=== PATIENT | female | born 1995 | race Asian ===

== ENCOUNTER 2016-10-18 10:11 | Inpatient (IN) | payer OTHER ==
[~2016-10-18] VITALS: Ht 165.1 cm; Wt 73.3 kg
[~2016-10-18 10:11] MED LIST: FAMO20VI9 IV; Hydrocodone Bit/Acetaminophen PO; URSO250 PO; [UNRECOGNIZED DRUG - CODE] IV
[2016-10-18] MEDS ORDERED: SODIUM CHLORIDE 0.9% 1L BAG IV* STA (10:30)
[2016-10-18] MEDS ORDERED: CEFTRIAXONE 1 GM/50 ML (PMX) 50 ML IVPB STA (10:35)
[2016-10-18] MEDS ORDERED: metroNIDAZOLE 500 MG/NS (PMX) 100 ML IVPB STA (10:35)
[2016-10-18] MEDS ORDERED: CIPR-193 PO (10:46)
[2016-10-18] MEDS ORDERED: NAPR-688 PO (10:46)
[2016-10-18 10:56] VITALS: TEMP 98.3
[2016-10-18 11:03] LABS: ADD SCAN DIFF NO
--- NOTE | 2016-10-18 11:08 | RADRPT ---
PROCEDURE: XR Chest. CLINICAL INDICATION: Sepsis TECHNIQUE: Chest AP portable. COMPARISON: No comparison available. FINDINGS: The mediastinal structures are unremarkable. The heart is normal in size and configuration. The pu lmonary vascularity is normal. The lung de luna are unremarkable. No consolidation is identified. The pleural spaces are unremarkable. The axial skeleton is unremarkable. IMPRESSION: No active intrathoracic disease. RPTAT: HGDB .Chito Leija MD, MD Date Time Electronically viewed and signed by .Chito Leija MD, on 10/18/2016 11:07 .B/
[2016-10-18 11:10] LABS: ABNORMAL IP MESSAGE 1; HEMATOCRIT 34.9 % (37.0-47.0); HEMOGLOBIN 11.7 g/dl (12.0-16.0); MEAN CORPUSCULAR HEMOGLOBIN 31.1 pg (29.0-33.0); MEAN CORPUSCULAR HGB CONC 33.5 g/dl (32.0-37.0); MEAN CORPUSCULAR VOLUME 92.8 fl (82.0-101.0); MEAN PLATELET VOLUME 11.3 fl (7.4-10.4); PLATELET COUNT 47 10^3/UL (140-415); RED BLOOD COUNT 3.76 10^6/ul (4.20-5.40); WHITE BLOOD COUNT 4.3 10^3/ul (4.8-10.8)
[2016-10-18 11:18] LABS: INR 2.49; PROTIME 27.2 Sec (12.2-14.2); PT RATIO 2.1
[2016-10-18 11:19] LABS: PARTIAL THROMBOPLASTIN TIME 38.8 Sec (25.0-35.0)
--- NOTE | 2016-10-18 11:28 | ERA ---
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 She describes fever for 2 days, jaundice dark colored urine and generalized weakness. She states that she went to [facility] emergency room yesterday and had elevated liver function tests. She states that she was given antibiotics including ciprofloxacin and Flagyl. She states that she was to be admitted but her insurance was capitated to another hospital and they were having difficulty transferring. The patient left and presents here. The [facility] providers have called the patient during my evaluation and reported 2 out of 2 blood cultures with gram-negative rods. No sensitivities currently. The patient denies any abdominal pain, denies any cough or sore throat no difficulty breathing. ROS All systems reviewed and are negative except as per history of present illness. Medications Home Meds Reported Medications Ciprofloxacin Hcl* (Ciprofloxacin Hcl*) 250 Mg Tablet, 250 MG PO DAILY, #14 TAB 10/18/16 Naproxen* (Naproxen*) 500 Mg Tablet, 500 MG PO DAILY Y for PRN, TAB 10/18/16 Discontinued Scripts Imipenem/Cilastatin Sodium (Primaxin 500 Mg Vial) 500 Mg/Vial Vial.port, 500 MG IV Q8 for 14 Days Prov:LUCIA POLLOCK MD 02/15/15 Ursodiol* (Andreina*) 250 Mg Tab, 250 MG PO TID for 30 Days Prov:LUCIA POLLOCK MD 02/15/15 [Hydrocodone Bit/Acetaminophen] 1 TAB TAB No Conflict Check, 1 TAB PO Q6H Y for PAIN LEVEL 4-6, TAB Prov:LUCIA POLLOCK MD 02/15/15 Famotidine* (Pepcid*) 10 Mg/Ml Soln, 20 MG IV DAILY for 30 Days, VIAL Prov:LUCIA POLLOCK MD 02/15/15 Allergies Allergies: Coded Allergies: amoxicillin (Verified Allergy, Unknown, RASH, 10/18/16) PMhx/Soc History of Surgery: Yes (CHOLECYSTECTOMY WITH BILIARY RECONSTRUCTION) Anesthesia Reaction: No Hx Neurological Disorder: No Hx Respiratory Disorders: No Hx Cardiac Disorders: No Hx Psychiatric Problems: No Hx Miscellaneous Medical Probl: No Hx Alcohol Use: No Hx Substance Use: No Hx Tobacco Use: No Smoking Status: Never smoker FmHx Family History: No diabetes Physical Exam Vitals Vital Signs Date Time Temp Pulse Resp B/P Pulse Ox O2 Delivery O2 Flow Rate FiO2 10/18/16 11:00 Nasal Cannula 10/18/16 10:56 98.3 84 18 122/68 98 Room Air 10/18/16 10:16 98.1 82 18 116/64 98 Physical Exam General: Well developed, well nourished, no acute distress Head: Normocephalic, atraumatic. Eyes: Pupils equally reactive, EOM intact, scleral icterus ENT: Moist mucous membranes Neck: Supple, no lymphadenopathy Respiratory: Lungs clear bilaterally, no distress Cardiovascular: RRR, no murmurs, rubs, or gallops Abdominal: Soft, non-tender, non-distended, no peritoneal signs, negative Hooper sign, no tenderness to McBurney's point : Deferred MSK: No edema, no unilateral swelling, 5/5 strength Neurologic: Alert and oriented, moving all extremities, normal speech, no focal weakness, no cerebellar signs, no meningismus Skin: No rash Psych: Normal mood Result Diagram: 10/18/16 1045 10/18/16 1045 Results 24 hrs Laboratory Tests Test 10/18/16 10:30 10/18/16 10:38 10/18/16 10:45 Activated Partial Thromboplast Time 38.8Sec INR International Normalized Ratio 2.49 Prothrombin Time 27.2Sec Prothrombin Time Ratio 2.1 Urine Bilirubin 3+ Urine Clarity CLEAR Urine Color POLO Urine Glucose NEGATIVE% Urine Hemoglobin NEGATIVE Urine Ictotest POSITIVE Urine Ketones TRACE Urine Leukocyte Esterase NEGATIVE Urine Microscopic RBC NONE SEEN/HPF Urine Microscopic WBC 0-2/HPF Urine Mucus FEW Urine Nitrite POSITIVE Urine Specific [place] 1.025 Urine Squamous Epithelial Cells FEW Urine Total Protein 2+ Urine Urobilinogen 4.0 E.U./dL Urine pH 6.0 Alanine Aminotransferase (ALT/SGPT) 437IU/L Albumin 3.3g/dl Albumin/Globulin Ratio 0.94 Alkaline Phosphatase 257IU/L Anion Gap 16 Aspartate Amino Transf (AST/SGOT) 273IU/L Band Neutrophils % 21.0% Blood Urea Nitrogen 17mg/dl Calcium Level 8.6mg/dl Carbon Dioxide Level 20mmol/L Chloride Level 111mmol/L Creatinine 0.75mg/dl Direct Bilirubin 2.60mg/dl Eosinophils # 0.210^3/ul Eosinophils % 4.0% Globulin 3.50g/dl Glucose Level 95mg/dl Hematocrit 34.9% Hemoglobin 11.7g/dl Indirect Bilirubin 2.7mg/dl Lactic Acid Level 1.6mmol/L Lipase 124U/L Lymphocytes # 0.210^3/ul Lymphocytes % 5.0% Mean Corpuscular Hemoglobin 31.1pg Mean Corpuscular Hemoglobin Concent 33.5g/dl Mean Corpuscular Volume 92.8fl Mean Platelet Volume 11.3fl Monocytes # 0.310^3/ul Monocytes % 6.0% Neutrophils # 2.710^3/ul Neutrophils % 63.0% Platelet Count 4710^3/UL Platelet Estimate PLT APPEAR DECREASED Potassium Level 4.0mmol/L Promyelocytes # 0.0 Promyelocytes % 1.0% Red Blood Count 3.7610^6/ul Red Cell Distribution Width 15.0% Sodium Level 143mmol/L Total Bilirubin 5.3mg/dl Total Protein 6.8g/dl Troponin I < 0.012ng/ml White Blood Count 4.310^3/ul Current Medications Medications (Trade) Dose Ordered Sig/Dawson Route PRN Reason Start Time Stop Time Status Last Admin Dose Admin Sodium Chloride 2260 ml 2,260 ml BOLUS OVER 2 HOURS STAT IV* 10/18/16 10:30 10/18/16 10:33 DC 10/18/16 11:33 Ceftriaxone Sodium 50 ml @ 100 mls/hr ONCE STAT IVPB 10/18/16 10:35 10/18/16 11:04 DC 10/18/16 11:34 Metronidazole (Flagyl 500 Mg (Pmx)) 100 ml @ 100 mls/hr ONCE STAT IVPB 10/18/16 10:35 10/18/16 11:34 DC 10/18/16 11:55 Ondansetron HCl (Zofran Inj) 4 mg BRIDGE ORDER PRN IV NAUSEA AND/OR VOMITING 10/18/16 12:30 10/19/16 12:29 Acetaminophen (Tylenol Tab) 650 mg ER BRIDGE PRN PO MILD PAIN/FEVER 10/18/16 12:30 10/19/16 12:29 Procedures/MDM EKG, MONITORS, & DIAGNOSTIC IMAGING: EKG: I reviewed and interpreted a 12-lead EKG. Rhythm: Normal sinus rhythm Ectopy: None Intervals: No abnormalities ST segments: No elevations or depressions T waves: No contiguous inversions Chest x-ray: I reviewed and interpreted a 1 view of the chest Mediastinum: No enlargement Cardiac silhouette: No cardiomegaly Airspace: Clear lung de luna bilaterally without evidence of pneumothorax Bones: No evidence of fracture LAB INTERPRETATION: Pancytopenia consistent with baseline and slightly improved from baseline. The patient has elevated bilirubin and transaminitis all consistent with the patient 's description of cholangitis. MEDICAL DECISION MAKING: The patient presents with reported fever, jaundice and elevated liver function tests with a history of biliary atresia consistent with likely ascending cholangitis. The patient has recurrent history of this in the past. The patient also has reported positive blood cultures from a [facility] facility taken 24 hours ago. The patient will benefit from sepsis screening, early antibiotics , inpatient hospitalization. She has a benign abdominal exam and I do not believe that CT imaging or ultrasound imaging will necessarily be helpful at this time. I do not believe that she has an alternative acute intra-abdominal process that would require surgical intervention. ER COURSE: The patient has been given a 30/kg bolus of saline. She is afebrile upon arrival. She does not have pain. The patient was given ceftriaxone and Flagyl based on our sepsis, intra-abdominal guidelines. The patient has tolerated ceftriaxone in the past. She does have mild allergy to amoxicillin that consists of a rash as a child. No history of anaphylaxis. The patient has tolerated antibiotics well. The patient continues to be hemodynamically stable and afebrile. Lactic acid is normal. The patient does not meet SIRS criteria however she does have reported bacteremia at [facility]. The patient does not meet severe sepsis criteria. The patient has been appropriately treated with fluids and antibiotics here. Blood cultures prior to antibiotics. The patient is stable for medical surgical floor. Inpatient gastroenterology consultation would be reasonable. I kept the patient and/or family informed of laboratory and diagnostic imaging results throughout the emergency room course. DISPOSITION PLAN: Medical surgical admission for management of cholangitis and bacteremia CONSULTATION: Accepting care team and consultations: I discussed the current laboratory data, diagnostic imaging and emergency care provided. Admitting team: Dr. Thomas Admitting team indication: Insurance directed Departure Diagnosis: Primary Impression: Pancytopenia Additional Impressions: Bacteremia due to Gram-negative bacteria Cholangitis History of biliary atresia Condition: Stable AUGUSTIN, KARI A., MD Oct 18, 2016 11:28
[2016-10-18 11:39] LABS: ALBUMIN 3.3 g/dl (3.3-4.9)
[2016-10-18 11:40] LABS: CHLORIDE 111 mmol/L (97-110); SODIUM 143 mmol/L (135-144)
[2016-10-18 11:42] LABS: BILIRUBIN,INDIRECT 2.7 mg/dl (0-1.1); BILIRUBIN,TOTAL 5.3 mg/dl (0.2-1.3); CREATININE 0.75 mg/dl (0.44-1.00)
[2016-10-18 11:43] LABS: ALANINE AMINOTRANSFERASE 437 IU/L (13-69); ALBUMIN/GLOBULIN RATIO 0.94; ALKALINE PHOSPHATASE 257 IU/L (42-121); ANION GAP 16 (8-16); ASPARTATE AMINO TRANSFERASE 273 IU/L (15-46); BLOOD UREA NITROGEN 17 mg/dl (7-20); CALCIUM 8.6 mg/dl (8.4-10.2); CARBON DIOXIDE 20 mmol/L (21-31); GLUCOSE 95 mg/dl (70-220); TOTAL PROTEIN 6.8 g/dl (6.1-8.1)
[2016-10-18 11:44] LABS: ADD UMIC YES; URINE BILIRUBIN (Dip) 3+ (NEGATIVE); URINE BLOOD (Dip) NEGATIVE (NEGATIVE); URINE COLOR AMBER (YELLOW); URINE GLUCOSE (Dip) NEGATIVE (NEGATIVE); URINE KETONES (Dip) TRACE (NEGATIVE); URINE LEUKOCYTE ESTERASE (Dip) NEGATIVE (NEGATIVE); URINE NITRITE (Dip) POSITIVE (NEGATIVE); URINE TOTAL PROTEIN (Dip) 2+ (NEGATIVE); URINE UROBILINOGEN (Dip) 4.0 E.U./dL (0.1-1.0)
[2016-10-18 11:48] LABS: EOSINOPHILS # 0.2 10^3/ul (0.0-0.5); LYMPHOCYTES # 0.2 10^3/ul (0.8-2.9); MONOCYTE # 0.3 10^3/ul (0.3-0.9); NEUTROPHIL # 2.7 10^3/ul (1.6-7.5); PLATELET ESTIMATE PLT APPEAR DECREASED
[2016-10-18 11:56] LABS: TROPONIN-I < 0.012 ng/ml (0.00-0.12)
[2016-10-18 12:06] LABS: ICTOTEST POSITIVE (NEGATIVE)
[2016-10-18 12:08] LABS: MUCUS,URINE FEW; SQUAMOUS EPITHELIAL CELL,UR FEW; URINE RBCS NONE SEEN /HPF (0)
[2016-10-18] MEDS ORDERED: ONDANSETRON 4 MG INJ IV PRN ×2 (12:30→14:30)
[2016-10-18] MEDS ORDERED: ACETAMINOPHEN 325 MG TAB PO PRN ×2 (12:30→14:30)
[2016-10-18 13:06] VITALS: Ht 165.1 cm; Wt 73.3 kg
[2016-10-18 13:08] VITALS: BP 108/67; PULSE 74; RESP 16
[2016-10-18] MEDS ORDERED: POLY17PO6 PO (13:20)
[2016-10-18] MEDS ORDERED: MAGNESIUM HYDROXIDE 30ML CUP PO PRN (14:30)
[2016-10-18] MEDS ORDERED: NACL 0.9% 3 ML SYG IV SCH (14:30)
[2016-10-18] MEDS ORDERED: ACETAMINOPHEN 650 MG SUPP PR PRN (14:30)
[2016-10-18] MEDS ORDERED: morphine 2 MG INJ IV PRN (14:30)
[2016-10-18] MEDS ORDERED: POLYETHYLENE GLYCOL 17 GM PACKET PO PRN (14:30)
[2016-10-18] MEDS ORDERED: BISACODYL 10 MG SUPP PR PRN (14:30)
[2016-10-18] MEDS ORDERED: DOCUSATE SODIUM 100 MG CAP PO PRN (14:30)
[2016-10-18] MEDS ORDERED: HYDROCODONE/APAP (5/325) TAB PO PRN ×2 (14:30)
[2016-10-18] MEDS: SOD CHLORIDE 0.9% 1,000 ML IV SCH (15:29)
--- NOTE | 2016-10-18 15:41 | CONS ---
Date/Time of Note Date/Time of Note DATE: 10/18/16 TIME: 15:33 Assessment/Plan Assessment/Plan Additional Assessment/Plan Assessment: * Gram-negative sepsis/positive blood cultures at [facility] * cholangitis (fever plus jaundice in patient with history of biliary atresia) * History of biliary atresia * Post Kasai procedure * Poor compliance Plan: * Antibiotic coverage * Review culture and antibiogram from blood cultures obtained at [facility] * Monitor liver panel Consultation Date/Type/Reason Admit Date/Time Oct 18, 2016 at 12:11 Date of Consultation: Oct 18, 2016 Type of Consultation: Gastroenterology Reason for Consultation * Cholangitis Hx of Present Illness 21-year-old female with history of biliary atresia post Kasai procedure. The patient has had several episodes of cholangitis which had responded well to antibiotic therapy. The patient was followed at [facility] but more recently as she has become older she is not able to [facility] clinics. She is currently not being followed on a regular basis, she presented at [facility] with complaints of fever and jaundice which he recognizes signs of cholangitis from previous experience. Apparently [facility] wanted to transfer her [facility] with her HMO plan as this was taking a long time the patient signed out AMA and presented to the emergency room at [facility]. She states that she has had fever for the last 24-36 hrs. and she noticed jaundice during the same period of time. Evaluation in the emergency room disclosed bilirubin the 5 g range without elevation of AST ALT.there is a node in the chart stating that [facility] called and reported positive blood cultures for gram-negative rods further ID and antibiogram pending. The patient is unfortunately poorly compliant with regimen she had been advised to remain on Bactrim on a regular basis but she states that for the last few months she has decided not to take anymore pills therefore she discontinued the prophylactic Bactrim. At the present time she appears comfortable, she is afebrile, she denies abdominal pain. She has never had other complications of her disease there is no evidence of portal hypertension or gastrointestinal bleeding. No imaging is available yet. The patient has been advised that once she is discharged she should attempt to connect with a tertiary institution for follow-up of her unusual condition and her potential significant needs such as liver transplantation Constitutional: febrile, other (Jaundice) Eyes: no complaints ENT: no complaints Respiratory: no complaints Cardiovascular: no complaints Gastrointestinal: no complaints Genitourinary: no complaints Musculoskeletal: no complaints Skin: no complaints Neurologic: no complaints Endocrine: no complaints Lymphatic: no complaints Psychological: nl mood/affect, no complaints Immunologic: no complaints Past Medical History Medical History: other (Biliary atresia) Past Surgical History Past Surgical Hx: other (Kasai procedure) Social History Alcohol Use: none Smoking Status: Never smoker Drug Use: none Exam/Review of Systems Vital Signs Vitals Vital Signs Date Time Temp Pulse Resp B/P Pulse Ox O2 Delivery O2 Flow Rate FiO2 10/18/16 12:44 69 17 128/79 100 Room Air 10/18/16 10:56 98.3 Exam Constitutional: alert, oriented, well developed Psych: nl mood/affect, no complaints Head: atraumatic, normocephalic Eyes: EOMI, PERRL, nl conjunctiva, nl lids, nl sclera ENMT: nl external ears & nose, nl lips & teeth, nl nasal mucosa & septum Neck: non-tender, supple Respiratory: clear to auscultation, normal air movement Cardiovascular: nl pulses, regular rate and rhythm Gastrointestinal: nl liver, spleen, non-tender, soft Musculoskeletal: nl extremities to inspection, nl gait and stance Extremities: normal pulses Neurological: COSTUME SPECIALIST II-XII intact, nl mental status, nl speech, nl strength Skin: nl turgor, No rash or lesions Lymph: nl lymph nodes Results Result Diagram: 10/18/16 1045 10/18/16 1045 Results 24 hrs Laboratory Tests Test 10/18/16 10:30 10/18/16 10:38 10/18/16 10:45 10/18/16 12:35 Activated Partial Thromboplast Time 38.8 H INR International Normalized Ratio 2.49 Prothrombin Time 27.2 H Prothrombin Time Ratio 2.1 Urine Bilirubin 3+ H Urine Clarity CLEAR Urine Color POLO Urine Glucose NEGATIVE Urine Hemoglobin NEGATIVE Urine Ictotest POSITIVE Urine Ketones TRACE H Urine Leukocyte Esterase NEGATIVE Urine Microscopic RBC NONE SEEN Urine Microscopic WBC 0-2 Urine Mucus FEW Urine Nitrite POSITIVE H Urine Specific [place] 1.025 Urine Squamous Epithelial Cells FEW Urine Total Protein 2+ H Urine Urobilinogen 4.0 E.U./dL H Urine pH 6.0 Alanine Aminotransferase (ALT/SGPT) 437 H Albumin 3.3 Albumin/Globulin Ratio 0.94 Alkaline Phosphatase 257 H Anion Gap 16 Aspartate Amino Transf (AST/SGOT) 273 H Band Neutrophils % 21.0 H Blood Urea Nitrogen 17 Calcium Level 8.6 Carbon Dioxide Level 20 L Chloride Level 111 H Creatinine 0.75 Direct Bilirubin 2.60 H Eosinophils # 0.2 Eosinophils % 4.0 Globulin 3.50 H Glucose Level 95 Hematocrit 34.9 L Hemoglobin 11.7 L Indirect Bilirubin 2.7 H Lactic Acid Level 1.6 1.5 Lipase 124 Lymphocytes # 0.2 L Lymphocytes % 5.0 L Mean Corpuscular Hemoglobin 31.1 Mean Corpuscular Hemoglobin Concent 33.5 Mean Corpuscular Volume 92.8 Mean Platelet Volume 11.3 #H Monocytes # 0.3 Monocytes % 6.0 Neutrophils # 2.7 Neutrophils % 63.0 Platelet Count 47 L Platelet Estimate PLT APPEAR DECREASED Potassium Level 4.0 Promyelocytes # 0.0 Promyelocytes % 1.0 H Red Blood Count 3.76 L Red Cell Distribution Width 15.0 H Sodium Level 143 Total Bilirubin 5.3 H Total Protein 6.8 Troponin I < 0.012 White Blood Count 4.3 #L Test 10/18/16 14:25 Lactic Acid Level 1.2 Medications Medications Current Medications Polyethylene Glycol 17 gm 17 gm DAILY PRN PO CONSTIPATION; Start 10/18/16 at 14 :30 Sodium Chloride (NS) 1,000 ml @ 80 mls/hr [id number] IV Last administered on 10/18t 15:29; Admin Dose 80 MLS/HR; Start 10/18/16 at 14:13 Ondansetron HCl (Zofran Inj) 4 mg Q6H PRN IV NAUSEA AND/OR VOMITING; Start at 14:30 Acetaminophen (Tylenol Tab) 650 mg Q6H PRN PO PAIN LEVEL 1-3 OR FEVER; Start at 14:30 Acetaminophen (Tylenol Supp) 650 mg Q6H PRN [place] PAIN LEVEL 1-3 OR FEVER; Start 10/18/16 at 14:30 Acetaminophen/ Hydrocodone Bitart ([place] (5/325)) 1 tab Q6H PRN PO MODERATE PAIN LEVEL 4-6; Start 10/18/16 at 14:30 Acetaminophen/ Hydrocodone Bitart ([place] (5/325)) 2 tab Q6H PRN PO SEVERE PAIN LEVEL 7-10; Start 10/18/16 at 14:30 Morphine Sulfate (morphine) 2 mg Q4H PRN IV SEVERE PAIN LEVEL 7-10; Start 10/18 at 14:30 Docusate Sodium (Colace) 100 mg Q12H PRN PO CONSTIPATION; Start 10/18/16 at 14: 30 Magnesium Hydroxide (Milk Of Mag) 30 ml DAILY PRN PO CONSTIPATION; Start at 14:30 Bisacodyl (Dulcolax Supp) 10 mg DAILY PRN [place] CONSTIPATION; Start 10/18/16 at 14 :30 Pantoprazole 40 mg 40 mg DAILY@06 IV ; Start 10/19/16 at 06:00 Ciprofloxacin/ Dextrose 200 ml @ 200 mls/hr Q12 IVPB ; Start 10/18/16 at 21:00 Metronidazole (Flagyl 500 Mg (Pmx)) 100 ml @ 100 mls/hr Q8 IVPB ; Start at 22:00 ALISSON MORRISSEY MD Oct 18, 2016 15:41
[2016-10-18 20:00] VITALS: BP 111/68; PULSE 76; RESP 18
[2016-10-18 21:05] VITALS: BP 111/68; RESP 18
[2016-10-18] MEDS: CIPROFLOXACIN 400MG/D5W 200 ML IVPB SCH (21:33)
[2016-10-18] MEDS: metroNIDAZOLE 500 MG/NS (PMX) 100 ML IVPB SCH (23:29)
[2016-10-19] MEDS ORDERED: traMADol 50 MG TAB PO ONE (01:30)
[2016-10-19] MEDS: SOD CHLORIDE 0.9% 1,000 ML IV SCH ×2 (05:38→15:13)
[2016-10-19] MEDS: PANTOPRAZOLE 40 MG INJ IV SCH (05:39)
[2016-10-19] MEDS: metroNIDAZOLE 500 MG/NS (PMX) 100 ML IVPB SCH ×3 (05:46→22:09)
[2016-10-19 05:53] LABS: ALBUMIN 2.7 g/dl (3.3-4.9)
[2016-10-19 05:54] LABS: POTASSIUM 3.9 mmol/L (3.5-5.1)
[2016-10-19 05:56] LABS: ALBUMIN/GLOBULIN RATIO 0.87; BILIRUBIN,DIRECT 0.8 mg/dl (0.00-0.20); BILIRUBIN,INDIRECT 1.3 mg/dl (0-1.1); BILIRUBIN,TOTAL 2.1 mg/dl (0.2-1.3); CREATININE 0.64 mg/dl (0.44-1.00); TOTAL PROTEIN 5.8 g/dl (6.1-8.1)
[2016-10-19 05:57] LABS: CALCIUM 7.9 mg/dl (8.4-10.2); CHOL/HDL RATIO 2.2 RATIO; MAGNESIUM 1.9 mg/dl (1.7-2.5)
[2016-10-19 07:29] LABS: T3 UPTAKE 47.8 % (23.5-40.5)
[2016-10-19 07:52] LABS: THYROID STIMULATING HORMONE 1.6 MIU/L (0.465-4.680)
[2016-10-19] MEDS: CIPROFLOXACIN 400MG/D5W 200 ML IVPB SCH ×2 (08:17→20:57)
[2016-10-19 08:18] VITALS: BP 109/60; RESP 16
--- NOTE | 2016-10-19 10:20 | PN ---
Date/Time of Note Date/Time of Note DATE: 10/19/16 TIME: 10:18 Assessment/Plan VTE Prophylaxis VTE Prophylaxis Intervention: SCD's Lines/Catheters IV [facility]ter [facility] (from [facility] Peripheral IV Urinary Cath still in place: No Assessment/Plan Assessment/Plan Assessment: * Gram-negative sepsis/positive blood cultures at [facility] * Cholangitis (fever plus jaundice in patient with history of biliary atresia) * History of biliary atresia * Post Kasai procedure * Poor compliance Plan: * Antibiotic coverage * Review culture and antibiogram from blood cultures obtained at [facility] * Monitor liver panel * Review MRCP Subjective 24 Hr Interval Summary Free Text/Dictation Course reviewed with nursing staff Patient reports slight improvement, episodes of diaphoresis She also complains of headaches She has been afebrile Her liver function tests have improved MRCP is pending Exam/Review of Systems Vital Signs Vitals Vital Signs Date Time Temp Pulse Resp B/P Pulse Ox O2 Delivery O2 Flow Rate FiO2 10/19/16 08:18 98.2 65 16 109/60 98 10/18/16 20:00 Room Air Intake and Output 10/18/16 10/18/16 10/19/16 15:00 23:00 07:00 Intake Total 360 ml 1280 ml Balance 360 ml 1280 ml Exam Constitutional: alert, oriented, well developed Psych: nl mood/affect, no complaints Head: atraumatic, normocephalic Eyes: EOMI, PERRL, nl conjunctiva, nl lids, nl sclera ENMT: nl external ears & nose, nl lips & teeth, nl nasal mucosa & septum Neck: non-tender, supple Respiratory: clear to auscultation, normal air movement Cardiovascular: nl pulses, regular rate and rhythm Gastrointestinal: nl liver, spleen, non-tender, soft Musculoskeletal: nl extremities to inspection, nl gait and stance Extremities: normal pulses Neurological: WINE FERMENTER II-XII intact, nl mental status, nl speech, nl strength Skin: nl turgor, No rash or lesions Lymph: nl lymph nodes Results Result Diagram: 10/18/16 1045 10/19/16 0435 Results 24 hrs Laboratory Tests Test 10/18/16 10:30 10/18/16 10:38 10/18/16 10:45 10/18/16 12:35 Activated Partial Thromboplast Time 38.8 H INR International Normalized Ratio 2.49 Prothrombin Time 27.2 H Prothrombin Time Ratio 2.1 Urine Bilirubin 3+ H Urine Clarity CLEAR Urine Color POLO Urine Glucose NEGATIVE Urine Hemoglobin NEGATIVE Urine Ictotest POSITIVE Urine Ketones TRACE H Urine Leukocyte Esterase NEGATIVE Urine Microscopic RBC NONE SEEN Urine Microscopic WBC 0-2 Urine Mucus FEW Urine Nitrite POSITIVE H Urine Specific [place] 1.025 Urine Squamous Epithelial Cells FEW Urine Total Protein 2+ H Urine Urobilinogen 4.0 E.U./dL H Urine pH 6.0 Alanine Aminotransferase (ALT/SGPT) 437 H Albumin 3.3 Albumin/Globulin Ratio 0.94 Alkaline Phosphatase 257 H Anion Gap 16 Aspartate Amino Transf (AST/SGOT) 273 H Band Neutrophils % 21.0 H Blood Urea Nitrogen 17 Calcium Level 8.6 Carbon Dioxide Level 20 L Chloride Level 111 H Creatinine 0.75 Direct Bilirubin 2.60 H Eosinophils # 0.2 Eosinophils % 4.0 Globulin 3.50 H Glucose Level 95 Hematocrit 34.9 L Hemoglobin 11.7 L Indirect Bilirubin 2.7 H Lactic Acid Level 1.6 1.5 Lipase 124 Lymphocytes # 0.2 L Lymphocytes % 5.0 L Mean Corpuscular Hemoglobin 31.1 Mean Corpuscular Hemoglobin Concent 33.5 Mean Corpuscular Volume 92.8 Mean Platelet Volume 11.3 #H Monocytes # 0.3 Monocytes % 6.0 Neutrophils # 2.7 Neutrophils % 63.0 Platelet Count 47 L Platelet Estimate PLT APPEAR DECREASED Potassium Level 4.0 Promyelocytes # 0.0 Promyelocytes % 1.0 H Red Blood Count 3.76 L Red Cell Distribution Width 15.0 H Sodium Level 143 Total Bilirubin 5.3 H Total Protein 6.8 Troponin I < 0.012 White Blood Count 4.3 #L Test 10/18/16 14:25 10/19/16 04:35 Lactic Acid Level 1.2 Alanine Aminotransferase (ALT/SGPT) 284 H Albumin 2.7 L Albumin/Globulin Ratio 0.87 Alkaline Phosphatase 207 H Anion Gap 12 Aspartate Amino Transf (AST/SGOT) 127 H Blood Urea Nitrogen 12 Calcium Level 7.9 L Carbon Dioxide Level 18 L Chloride Level 114 H Cholesterol Level 94 L Cholesterol/HDL Ratio 2.2 Creatinine 0.64 Direct Bilirubin 0.80 #H Free Thyroxine Index 1.58 Globulin 3.10 Glucose Level 76 HDL Cholesterol 41 Hemoglobin A1c 4.7 Indirect Bilirubin 1.3 H LDL Cholesterol, Calculated 31 Magnesium Level 1.9 Phosphorus Level 2.0 L Potassium Level 3.9 Sodium Level 140 Thyroid Stimulating Hormone (TSH) 1.600 Thyroxine (T4) 3.3 L Total Bilirubin 2.1 #H Total Protein 5.8 #L Triglycerides Level 110 Triiodothyronine (T3) Uptake 47.8 H Medications Medications Current Medications Polyethylene Glycol 17 gm 17 gm DAILY PRN PO CONSTIPATION; Start 10/18/16 at 14 :30 Sodium Chloride (NS) 1,000 ml @ 80 mls/hr [id number] IV Last administered on 10/19 05:38; Admin Dose 80 MLS/HR; Start 10/18/16 at 14:13 Ondansetron HCl (Zofran Inj) 4 mg Q6H PRN IV NAUSEA AND/OR VOMITING; Start at 14:30 Acetaminophen (Tylenol Tab) 650 mg Q6H PRN PO PAIN LEVEL 1-3 OR FEVER Last administered on 10/18/16 18:43; Admin Dose 650 MG; Start 10/18/16 at 14:30 Acetaminophen (Tylenol Supp) [address] PAIN LEVEL 1-3 OR FEVER; Start 10/18/16 at 14:30 Acetaminophen/ Hydrocodone Bitart ([place] (5/325)) 1 tab Q6H PRN PO MODERATE PAIN LEVEL 4-6; Start 10/18/16 at 14:30 Acetaminophen/ Hydrocodone Bitart ([place] (5/325)) 2 tab Q6H PRN PO SEVERE PAIN LEVEL 7-10; Start 10/18/16 at 14:30 Morphine Sulfate (morphine) 2 mg Q4H PRN IV SEVERE PAIN LEVEL 7-10; Start 10/18 at 14:30 Docusate Sodium (Colace) 100 mg Q12H PRN PO CONSTIPATION; Start 10/18/16 at 14: 30 Magnesium Hydroxide (Milk Of Mag) 30 ml DAILY PRN PO CONSTIPATION; Start at 14:30 Bisacodyl (Dulcolax Supp) [address] CONSTIPATION; Start 10/18/16 at 14 :30 Pantoprazole 40 mg 40 mg DAILY@06 IV Last administered on 10/19/16 05:39; Admin Dose 40 MG; Start 10/19/16 at 06:00 Ciprofloxacin/ Dextrose 200 ml @ 200 mls/hr Q12 IVPB Last administered on 10/19 08:17; Admin Dose 200 MLS/HR; Start 10/18/16 at 21:00 Metronidazole (Flagyl 500 Mg (Pmx)) 100 ml @ 100 mls/hr Q8 IVPB Last administered on 10/19/16 05:46; Admin Dose 100 MLS/HR; Start 10/18/16 at 22:00 ALISSON MORRISSEY MD Oct 19, 2016 10:20
--- NOTE | 2016-10-19 10:33 | RADRPT ---
PROCEDURE: MRI abdomen without contrast; MRCP CLINICAL INDICATION: Cholangitis with a history of Kasai procedure TECHNIQUE: Multiplanar, multisequence imaging of the abdomen was obtained without contrast. Imagi ng includes axial and coronal T2-weighted fat saturated images. In addition, a dedicated high T2 signal intensity MRCP images were obtained in multiple planes with 3-D reconstructions. COMPARISON: 02/13/2015 FINDINGS: Study is limited secondary to significant motion throughout all MRCP images and fine detail of the b iliary ductal system is limited on this exam. The patient is status post Kasai procedure. There is periportal edematous signal seen within the liver without visible biliary ductal dilatation. Evalu ation for filling defects cannot be fully perform secondary to motion. Mild irregular appearance th e biliary ductal system is partially visualized. There is a shrunken and nodular appearance of the liver with mild heterogeneous signal intensity wit hout evidence of gross focal mass. Prominent splenomegaly is again seen with pronounced enlarged up per abdominal varices including large varices at the splenic hilum and adjacent to the left kidney. The splenorenal shunt may be present. There is flow void seen within the portal vein and portal ve in thrombus is not grossly present. The gallbladder is not present. Mild edematous signal is seen within the peripancreatic fat which is indeterminate and this is seen along with mild intra-abdominal ascites. Mild prominence of the periportal lymph tissue is stable. The adrenal glands and kidneys are unremarkable. There is no evidence of bowel obstruction. There is no acute osseous abnormality. The aorta is grossly unremarkable. IMPRESSION: Hepatic periportal edematous signal is seen which correlates with a history of cholangitis. There i s no evidence of gross biliary ductal obstruction. Fine detail is limited secondary to motion throu ghout the exam. Stable nodular liver is seen consistent with hepatic cirrhosis and there is prominent splenomegaly a long with pronounced upper abdominal varices again seen along with mild ascites. Edematous signal the peripancreatic fat is indeterminate and may be related third spacing of fluid h owever pancreatitis is not excluded and can be correlated with amylase/lipase levels. RPTAT: AA .Jody Estevez MD, MD Date Time Electronically viewed and signed by .Jody Estevez MD, on 10/19/2016 10:32 .J/
--- NOTE | 2016-10-19 13:58 | HP ---
DATE OF ADMISSION: 10/18/2016 CHIEF COMPLAINT: Reported fever with generalized weakness and jaundice. 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 The patient did report onset of symptoms occurred 2 days prior to admission. She denied any abdominal pain, nausea, vomiting or an y diarrhea or constipation. As such, she did come to [facility] for the aforement ioned issues. She did report that when she has had recurrent cholangitis in the past and that usual ly she goes home with IV antibiotics and a PICC line. Currently, the patient was seen and examined. She did have noted WBC of 4.3, hemoglobin of 11.7 and hematocrit 34.9. She was also seen with tra nsaminitis and a total bilirubin of 5.3, direct bilirubin of 2.6, indirect bilirubin of 2.7, AST 273 , ALT 437 and alkaline phosphatase 257. The patient was afebrile on admission. She did have a ches t x-ray also that did show no active intrathoracic disease. Currently, the patient remains alert an d oriented. She is seen slightly jaundiced with icteric sclerae. We will evaluate her for that afo rementioned issues. MEDICAL/SURGICAL HISTORY: 1. Biliary atresia. 2. History of recurrent cholangitis. SOCIAL HISTORY: The patient denies any cigarette smoking, alcohol consumption or illicit drug use. ALLERGIES: AMOXICILLIN FOR WHICH SHE DOES REPORT GETTING PRURITUS AND URTICARIA. FAMILY HISTORY: Noncontributory. HOME MEDICATIONS: 1. Naprosyn 500 mg p.o. daily as needed for pain. 2. MiraLax 17 grams p.o. daily as needed for constipation. REVIEW OF SYSTEMS: A 12-point review of systems obtained and entirely negative except that mentione d in the history of present illness. PHYSICAL EXAMINATION: VITAL SIGNS: Temperature is 98.3, pulse is 84, respiratory rate is 18, blood pressure 122/68, pulse oximetry is 98% on room air. GENERAL: This is a 21-year-old female, appears stated age with no apparent distress noted at this t rhonda. EYES: Pupils equal, round and reactive to light. Icteric sclerae noted. NECK: Supple, nontender, no JVD. CARDIOVASCULAR: S1, S2 auscultated, regular rate. PULMONARY: Clear to auscultation bilaterally. No wheezing or rhonchi. ABDOMEN: Soft, nontender, nondistended. EXTREMITIES: No pitting edema of bilateral lower extremities. SKIN: Jaundiced clean, dry and intact. NEUROLOGIC: Alert, oriented x3. LABORATORY DATA: Sodium 143, potassium 4.0, BUN 17, creatinine 0.75. Total bilirubin is 5.3, direc t bilirubin is 2.6, indirect bilirubin is 2.7, AST 73, ALT 437, alkaline phosphatase is 257. IMAGING: Chest x-ray done on 10/18/2014 did show no active intrathoracic disease. IMPRESSION AND PLAN: 1. Acute on likely chronic cholangitis. Continue on Cipro and Flagyl for now. ID consulted. Foll ow up with recommendations. 2. History of biliary atresia. Meteorology Professor to follow. The patient noted with transaminitis . Monitor trend. Await for clinical improvement. 3. Anemia. Follow up iron panel. 4. Leukopenia. Stable at present. We will follow up. 5. Urinary tract infection. The patient with positive nitrite test. Follow up on urine culture. Admission process time is 40 minutes. Discussed plan of care with Dr. Thomas. Dictated By: EDIS EDWARDS COMFORT ADVISOR for SIMBA SARGENT/CRISTOFER Conf#: [id number] DID#: [id number]
[2016-10-19] MEDS ORDERED: VANCOMYCIN IV PER PHARMACY XX SCH (14:30)
--- NOTE | 2016-10-19 15:24 | PN ---
Date/Time of Note Date/Time of Note DATE: 10/19/16 TIME: 15:20 Assessment/Plan VTE Prophylaxis VTE Prophylaxis Intervention: ambulation Lines/Catheters IV [facility]ter Type (from [facility]): Peripheral IV Urinary Cath still in place: No Assessment/Plan Chief Complaint/Hosp Course 1. Acute recurrent cholangitis. cont abx per ID. monitor LFT 2. History of biliary atresia. Plating Operator to follow. The patient noted with transaminitis. MRCP with no obvious obstruction. transaminitis downward trending. will monitor 3. Anemia. Stable at present. Will monitor 4. Leukopenia. Stable at present. We will follow up. 5. Urinary tract infection. Follow up on urine culture. cont abx per ID 6. hepatic cirrhosis. Avoid hepatotoxic medications as possible 7. Bacteremia with gram positive cocci. Follow up final culture. cont with ID recs DISPO/PLAN: cont abx. Follow up with blood cultures. d/c when medically stable and cleared by consultants Discussed plan of care with Dr. Thomas Problems: Subjective 24 Hr Interval Summary Free Text/Dictation resting at this time. no s/s of distress. denies abd pain Exam/Review of Systems Vital Signs Vitals Vital Signs Date Time Temp Pulse Resp B/P Pulse Ox O2 Delivery O2 Flow Rate FiO2 10/19/16 08:18 98.2 65 16 109/60 98 10/18/16 20:00 Room Air Intake and Output 10/18/16 10/18/16 10/19/16 14:59 22:59 06:59 Intake Total 360 ml 1280 ml Balance 360 ml 1280 ml Exam Constitutional: alert, oriented Head: normocephalic Eyes: EOMI, icteric Neck: non-tender, supple Respiratory: clear to auscultation, normal air movement Cardiovascular: regular rate and rhythm Gastrointestinal: non-tender, soft Musculoskeletal: nl extremities to inspection Extremities: normal pulses Neurological: EXTENDED INSURANCE CLERK II-XII intact, nl mental status, nl speech Skin: nl turgor, other (jaundice) Results Result Diagram: 10/18/16 1045 10/19/16 0435 Results 24 hrs Laboratory Tests Test 10/19/16 04:35 Alanine Aminotransferase (ALT/SGPT) 284 H Albumin 2.7 L Albumin/Globulin Ratio 0.87 Alkaline Phosphatase 207 H Anion Gap 12 Aspartate Amino Transf (AST/SGOT) 127 H Blood Urea Nitrogen 12 Calcium Level 7.9 L Carbon Dioxide Level 18 L Chloride Level 114 H Cholesterol Level 94 L Cholesterol/HDL Ratio 2.2 Creatinine 0.64 Direct Bilirubin 0.80 #H Free Thyroxine Index 1.58 Globulin 3.10 Glucose Level 76 HDL Cholesterol 41 Hemoglobin A1c 4.7 Indirect Bilirubin 1.3 H LDL Cholesterol, Calculated 31 Magnesium Level 1.9 Phosphorus Level 2.0 L Potassium Level 3.9 Sodium Level 140 Thyroid Stimulating Hormone (TSH) 1.600 Thyroxine (T4) 3.3 L Total Bilirubin 2.1 #H Total Protein 5.8 #L Triglycerides Level 110 Triiodothyronine (T3) Uptake 47.8 H Medications Medications Current Medications Polyethylene Glycol 17 gm 17 gm DAILY PRN PO CONSTIPATION; Start 10/18/16 at 14 :30 Sodium Chloride (NS) 1,000 ml @ 80 mls/hr [id number] IV Last administered on 10/19 05:38; Admin Dose 80 MLS/HR; Start 10/18/16 at 14:13 Ondansetron HCl (Zofran Inj) 4 mg Q6H PRN IV NAUSEA AND/OR VOMITING; Start at 14:30 Acetaminophen (Tylenol Tab) 650 mg Q6H PRN PO PAIN LEVEL 1-3 OR FEVER Last administered on 10/18/16 18:43; Admin Dose 650 MG; Start 10/18/16 at 14:30 Acetaminophen (Tylenol Supp) 650 mg Q6H PRN NM PAIN LEVEL 1-3 OR FEVER; Start 10/18/16 at 14:30 Acetaminophen/ Hydrocodone Bitart ([place] (5/325)) 1 tab Q6H PRN PO MODERATE PAIN LEVEL 4-6; Start 10/18/16 at 14:30 Acetaminophen/ Hydrocodone Bitart ([place] (5/325)) 2 tab Q6H PRN PO SEVERE PAIN LEVEL 7-10; Start 10/18/16 at 14:30 Morphine Sulfate (morphine) 2 mg Q4H PRN IV SEVERE PAIN LEVEL 7-10; Start 10/18 at 14:30 Docusate Sodium (Colace) 100 mg Q12H PRN PO CONSTIPATION; Start 10/18/16 at 14: 30 Magnesium Hydroxide (Milk Of Mag) 30 ml DAILY PRN PO CONSTIPATION; Start at 14:30 Bisacodyl (Dulcolax Supp) 10 mg DAILY PRN NM CONSTIPATION; Start 10/18/16 at 14 :30 Pantoprazole 40 mg 40 mg DAILY@06 IV Last administered on 10/19/16 05:39; Admin Dose 40 MG; Start 10/19/16 at 06:00 Ciprofloxacin/ Dextrose 200 ml @ 200 mls/hr Q12 IVPB Last administered on 10/19 08:17; Admin Dose 200 MLS/HR; Start 10/18/16 at 21:00 Metronidazole 100 ml @ 100 mls/hr Q8 IVPB Last administered on 10/19/16 15:10 ; Admin Dose 100 MLS/HR; Start 10/18/16 at 22:00 Vancomycin HCl 1.75 gm/Sodium Chloride 500 ml @ 125 mls/hr ONCE IVPB ; Start at 16:00; Stop 10/19/16 at 19:59 Vancomycin HCl (Vancocin) 250 ml @ 125 mls/hr Q8H IVPB ; Start 10/20/16 at 00: 00 EDIS EDWARDS Oct 19, 2016 15:24
[2016-10-19] MEDS ORDERED: VANCOMYCIN 1.75 GM in NS 500 ML IVPB SCH (16:00)
--- NOTE | 2016-10-19 17:42 | PN ---
DATE: 10/19/2016 SUBJECTIVE: The patient is alert, lying comfortably in bed. Denies pain, discomfort. No fevers. She is tolerating clear fluids. WBC 4.3 yesterday, bands were 21, neutrophils 63, BUN today 12, cre atinine 0.64. MICROBIOLOGY: Blood culture growing gram-positive cocci, influenza swab was negative. Urine cultur e revealed contaminated specimen. ANTIMICROBIALS: The patient is on: 1. Flagyl. 2. Ciprofloxacin. DIAGNOSTICS: Chest x-ray on admission revealed no active intrathoracic disease. Abdominal MRI show ed hepatic periportal edematous , which correlates with history of cholangitis, no evidence of gross biliary ductal obstruction. PHYSICAL EXAMINATION: GENERAL: Well-nourished, well-developed young woman who is alert, in no distress. HEENT: Head atraumatic, normocephalic. Sclerae anicteric. Buccal mucosa pink. NECK: Supple. CHEST: Rise symmetrical. Breath sounds clear. HEART: S1, S2. ABDOMEN: Soft, bowel tones present. EXTREMITIES: Without cyanosis. ASSESSMENT: 1. Biliary sepsis with gram-negative rods, bacteremia per report at [facility] with repeat blo od culture growing gram-positive cocci, 1 out of 2 sets, rule out contaminant. 2. Acute cholangitis. 3. History of biliary atresia. 4. History of Kasai procedure. 5. compliance. PLAN: The patient remains stable. Gastroenterology on case. We will repeat blood cultures today a nd start her on IV vancomycin. Continue Cipro, Flagyl and from await report with her blood cultures at [facility]. Dictated By: LUIS MARIN HOSPICE LIAISON for SIMONE VIRK/CRISTOFER Conf#: [id number] DID#: [id number]
[2016-10-19 19:53] VITALS: BP 111/65; RESP 18
[2016-10-20] MEDS: VANCOMYCIN 1 GM in NS 250 ML IVPB SCH ×2 (00:08→10:55)
--- NOTE | 2016-10-20 03:18 | CONS ---
DATE OF ADMISSION: 10/18/2016 DATE OF CONSULTATION: 10/18/2016 INFECTIOUS DISEASE CONSULTATION REQUESTING PHYSICIAN: Dr. Imani Thomas HISTORY OF PRESENT ILLNESS: Arminda Boothe is a 21-year-old single female who was admitted to [facility] emergency room today with a chief complaint of fever and dark urine x2 days. The patient has a h istory of biliary atresia and had previously been seen at [facility] until she became too o ld to go there. She had several episodes of recurrent cholangitis and presented at [facility] prior to this episode, and while they were waiting for transfer to her [facility] contracted hospital which was taking too long, she discharged herself and presented at [facility]. The pat ient had begun treatment with Cipro, Flagyl, and imipenem, and when she presented at [facility] ER, she was noted to have 4300 white count with 21% bands and 4% eosinophils. Her uri ne had a specific gravity of 1025. It was clear tray with positive Ictotest, negative leukocyte es terase, positive nitrite, 0 to 2 WBCs, hematocrit 35%. The patient's abdomen was nontender at that time. The patient had previously been taking Bactrim for prophylaxis but stopped this recently anne use she did not like to take pills. The patient was given intravenous fluids and antibiotics change d to vancomycin, Flagyl, and Cipro. PAST MEDICAL HISTORY: No other significant diseases, biliary atresia. PAST SURGICAL HISTORY: Kasai procedure at [facility] at which time she had cholecystectomy . MEDICATIONS: Her regular medicine was supposed to be Bactrim daily. PHYSICAL EXAMINATION GENERAL: Reveals a well-developed female who is in no acute distress at this time. HEENT: The pupils are equal, round, and reactive to light. Extraocular movements are full. [facility] has moist mucous membranes. NECK: Supple. There is slight icterus. CHEST: Clear to auscultation. HEART: Regular without gallop, murmur, or rub. ABDOMEN: Soft. There is no tenderness. Bowel sounds are occasional. No rebound. EXTREMITIES: Reveal no edema, cyanosis, or clubbing. INITIAL IMPRESSION: 1. Gram-negative addison septicemia. 2. Acute cholangitis, recurrent. 3. Biliary atresia status post Kasai reconstruction. RECOMMENDATIONS: Continue present regimen pending cultures and sensitivities and information from [facility]. Dictated By: Hyacinth WALL/CRISTOFER Conf#: [id number] DID#: [id number]
[2016-10-20] MEDS: metroNIDAZOLE 500 MG/NS (PMX) 100 ML IVPB SCH ×2 (05:06→15:40)
[2016-10-20] MEDS: SOD CHLORIDE 0.9% 1,000 ML IV SCH ×2 (05:06→16:13)
[2016-10-20] MEDS: PANTOPRAZOLE 40 MG INJ IV SCH (05:06)
[2016-10-20 06:31] LABS: ADD SCAN DIFF NO
[2016-10-20 06:45] LABS: ALBUMIN 2.9 g/dl (3.3-4.9)
[2016-10-20 06:48] LABS: ALBUMIN/GLOBULIN RATIO 0.87; BILIRUBIN,INDIRECT 0.9 mg/dl (0-1.1); BILIRUBIN,TOTAL 0.9 mg/dl (0.2-1.3); CREATININE 0.6 mg/dl (0.44-1.00); TOTAL PROTEIN 6.2 g/dl (6.1-8.1)
[2016-10-20 06:49] LABS: CALCIUM 7.9 mg/dl (8.4-10.2)
[2016-10-20 06:53] LABS: ABNORMAL IP MESSAGE 1; HEMATOCRIT 30.6 % (37.0-47.0); HEMOGLOBIN 10.1 g/dl (12.0-16.0); MEAN CORPUSCULAR HEMOGLOBIN 30.6 pg (29.0-33.0); MEAN CORPUSCULAR VOLUME 92.7 fl (82.0-101.0); MEAN PLATELET VOLUME 11.4 fl (7.4-10.4); PLATELET COUNT 48 10^3/UL (140-415); RED CELL DISTRIBUTION WIDTH 14.7 % (11.5-14.5); WHITE BLOOD COUNT 2.2 10^3/ul (4.8-10.8)
[2016-10-20 07:59] VITALS: BP 102/59; RESP 20
[2016-10-20 08:15] VITALS: BP 115/65; PULSE 70; RESP 19
[2016-10-20] MEDS: CIPROFLOXACIN 400MG/D5W 200 ML IVPB SCH ×2 (10:11→20:32)
[2016-10-20 11:33] LABS: LYMPHOCYTES # 0.2 10^3/ul (0.8-2.9); MONOCYTE # 0.1 10^3/ul (0.3-0.9); NEUTROPHIL # 1.5 10^3/ul (1.6-7.5)
[2016-10-20 11:34] LABS: BURR CELLS MODERATE
[2016-10-20 11:35] LABS: PLATELET ESTIMATE PLT APPEAR DECREASED
--- NOTE | 2016-10-20 14:11 | CONS ---
Date/Time of Note Date/Time of Note DATE: 10/20/16 TIME: 14:09 Assessment/Plan Assessment/Plan Additional Assessment/Plan SUBJECTIVE: The patient is alert. Denies pain, discomfort. No fevers. ANTIMICROBIALS: The patient is on: 1. Flagyl. 2. Ciprofloxacin. 3. Vanco PHYSICAL EXAMINATION: GENERAL: Well-nourished, well-developed young woman who is alert, in no distress. HEENT: Head atraumatic, normocephalic. Sclerae anicteric. Buccal mucosa pink. NECK: Supple. CHEST: Rise symmetrical. Breath sounds clear. HEART: S1, S2. ABDOMEN: Soft, bowel tones present. EXTREMITIES: Without cyanosis. ASSESSMENT: 1. Biliary sepsis with gram-negative rods, bacteremia per report at [facility] with repeat blood culture growing gram-positive cocci, 1 out of 2 sets= => cw contaminant. 2. Acute cholangitis. 3. History of biliary atresia. 4. History of Kasai procedure. PLAN: The patient remains stable. Gastroenterology on case. Repeat blood cultures negative. Will dc Vanco, continue Cipro and Flagyl and await for report with her blood cultures from [facility]. dw pt Consultation Date/Type/Reason Admit Date/Time Oct 18, 2016 at 12:11 Initial Consult Date 10/18/16 Type of Consultation: id Exam/Review of Systems Vital Signs Vitals Vital Signs Date Time Temp Pulse Resp B/P Pulse Ox O2 Delivery O2 Flow Rate FiO2 10/20/16 08:15 98.2 70 19 115/65 99 Room Air Intake and Output 10/19/16 10/19/16 10/20/16 15:00 23:00 07:00 Intake Total 2310 ml 1430 ml Balance 2310 ml 1430 ml Results Result Diagram: 10/20/16 0530 10/20/16 0530 Results 24 hrs Laboratory Tests Test 10/20/16 05:30 Alanine Aminotransferase (ALT/SGPT) 226 H Albumin 2.9 L Albumin/Globulin Ratio 0.87 Alkaline Phosphatase 222 H Anion Gap 14 Aspartate Amino Transf (AST/SGOT) 77 H Band Neutrophils % 17.0 H Basophils # 0.0 Basophils % 2.0 Blood Urea Nitrogen 7 Calcium Level 7.9 L Carbon Dioxide Level 19 L Chloride Level 111 H Creatinine 0.60 Direct Bilirubin 0.00 # Eosinophils # 0.0 Eosinophils % 2.0 Globulin 3.30 H Glucose Level 78 Hematocrit 30.6 L Hemoglobin 10.1 L Indirect Bilirubin 0.9 Lymphocytes # 0.2 L Lymphocytes % 8.0 L Mean Corpuscular Hemoglobin 30.6 Mean Corpuscular Hemoglobin Concent 33.0 Mean Corpuscular Volume 92.7 Mean Platelet Volume 11.4 H Monocytes # 0.1 L Monocytes % 4.0 Neutrophils # 1.5 L Neutrophils % 66.0 Platelet Count 48 L Platelet Estimate PLT APPEAR DECREASED Potassium Level 4.0 Reactive Lymphocytes % 1.0 Red Blood Count 3.30 L Red Cell Distribution Width 14.7 H Sodium Level 140 Total Bilirubin 0.9 Total Protein 6.2 White Blood Count 2.2 #L Medications Medications Current Medications Polyethylene Glycol 17 gm 17 gm DAILY PRN PO CONSTIPATION; Start 10/18/16 at 14 :30 Sodium Chloride (NS) 1,000 ml @ 80 mls/hr [id number] IV Last administered on 10/20 05:06; Admin Dose 80 MLS/HR; Start 10/18/16 at 14:13 Ondansetron HCl (Zofran Inj) 4 mg Q6H PRN IV NAUSEA AND/OR VOMITING; Start at 14:30 Acetaminophen (Tylenol Tab) 650 mg Q6H PRN PO PAIN LEVEL 1-3 OR FEVER Last administered on 10/18/16 18:43; Admin Dose 650 MG; Start 10/18/16 at 14:30 Acetaminophen (Tylenol Supp) 650 mg Q6H PRN [place] PAIN LEVEL 1-3 OR FEVER; Start 10/18/16 at 14:30 Acetaminophen/ Hydrocodone Bitart ([place] (5/325)) 1 tab Q6H PRN PO MODERATE PAIN LEVEL 4-6; Start 10/18/16 at 14:30 Acetaminophen/ Hydrocodone Bitart ([place] (5/325)) 2 tab Q6H PRN PO SEVERE PAIN LEVEL 7-10; Start 10/18/16 at 14:30 Morphine Sulfate (morphine) 2 mg Q4H PRN IV SEVERE PAIN LEVEL 7-10; Start 10/18 at 14:30 Docusate Sodium (Colace) 100 mg Q12H PRN PO CONSTIPATION; Start 10/18/16 at 14: 30 Magnesium Hydroxide (Milk Of Mag) 30 ml DAILY PRN PO CONSTIPATION; Start at 14:30 Bisacodyl (Dulcolax Supp) 10 mg DAILY PRN [place] CONSTIPATION; Start 10/18/16 at 14 :30 Pantoprazole 40 mg 40 mg DAILY@06 IV Last administered on 10/20/16 05:06; Admin Dose 40 MG; Start 10/19/16 at 06:00 Ciprofloxacin/ Dextrose 200 ml @ 200 mls/hr Q12 IVPB Last administered on 10/20 10:11; Admin Dose 200 MLS/HR; Start 10/18/16 at 21:00 Metronidazole 100 ml @ 100 mls/hr Q8 IVPB Last administered on 10/20/16 05:06 ; Admin Dose 100 MLS/HR; Start 10/18/16 at 22:00 Vancomycin HCl (Vancocin) 250 ml @ 125 mls/hr Q8H IVPB ; Start 10/20/16 at 18: 00 Miscellaneous Information (*Rx Drug Level Order Reminder*) VANCOMYCIN TROUGH AT 0100 ONCE ONCE XX ; Start 10/21/16 at 01:00; Stop 10/21/16 at 01:01 LUIS MARIN NP Oct 20, 2016 14:11
--- NOTE | 2016-10-20 14:16 | PN ---
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) improved * Gram-negative sepsis/positive blood cultures at [facility] * History of biliary atresia * Post [place] procedure * Poor compliance Plan: * Antibiotic coverage * Review culture and antibiogram from blood cultures obtained at [facility] * Monitor liver panel * will await bloodculture and antibiogram * progress diet Subjective 24 Hr Interval Summary Free Text/Dictation Course reviewed with nursing staff Patient reports good improvement,claims to be hungry She has been afebrile Her liver function tests have improved MRCP 10/19/16 Hepatic periportal edematous signal is seen which correlates with a history of cholangitis. There is no evidence of gross biliary ductal obstruction. Fine detail is limited secondary to motion throughout the exam. Stable nodular liver is seen consistent with hepatic cirrhosis and there is prominent splenomegaly along with pronounced upper abdominal varices again seen along with mild ascites. Edematous signal the peripancreatic fat is indeterminate and may be related third spacing of fluid however pancreatitis is not excluded and can be correlated with amylase/lipase levels. Exam/Review of Systems Vital Signs Vitals Vital Signs Date Time Temp Pulse Resp B/P Pulse Ox O2 Delivery O2 Flow Rate FiO2 10/20/16 08:15 98.2 70 19 115/65 99 Room Air Intake and Output 10/19/16 10/19/16 10/20/16 15:00 23:00 07:00 Intake Total 2310 ml 1430 ml Balance 2310 ml 1430 ml Exam Constitutional: alert, oriented, well developed Psych: nl mood/affect, no complaints Head: atraumatic, normocephalic Eyes: EOMI, PERRL, nl conjunctiva, nl lids, nl sclera ENMT: nl external ears & nose, nl lips & teeth, nl nasal mucosa & septum Neck: non-tender, supple Respiratory: clear to auscultation, normal air movement Cardiovascular: nl pulses, regular rate and rhythm Gastrointestinal: nl liver, spleen, non-tender, soft Musculoskeletal: nl extremities to inspection, nl gait and stance Extremities: normal pulses Neurological: VALVE SETTER II-XII intact, nl mental status, nl speech, nl strength Skin: nl turgor, No rash or lesions Lymph: nl lymph nodes Results Result Diagram: 10/20/1630 10/20/16 0530 Results 24 hrs Laboratory Tests Test 10/20/16 05:30 Alanine Aminotransferase (ALT/SGPT) 226 H Albumin 2.9 L Albumin/Globulin Ratio 0.87 Alkaline Phosphatase 222 H Anion Gap 14 Aspartate Amino Transf (AST/SGOT) 77 H Band Neutrophils % 17.0 H Basophils # 0.0 Basophils % 2.0 Blood Urea Nitrogen 7 Calcium Level 7.9 L Carbon Dioxide Level 19 L Chloride Level 111 H Creatinine 0.60 Direct Bilirubin 0.00 # Eosinophils # 0.0 Eosinophils % 2.0 Globulin 3.30 H Glucose Level 78 Hematocrit 30.6 L Hemoglobin 10.1 L Indirect Bilirubin 0.9 Lymphocytes # 0.2 L Lymphocytes % 8.0 L Mean Corpuscular Hemoglobin 30.6 Mean Corpuscular Hemoglobin Concent 33.0 Mean Corpuscular Volume 92.7 Mean Platelet Volume 11.4 H Monocytes # 0.1 L Monocytes % 4.0 Neutrophils # 1.5 L Neutrophils % 66.0 Platelet Count 48 L Platelet Estimate PLT APPEAR DECREASED Potassium Level 4.0 Reactive Lymphocytes % 1.0 Red Blood Count 3.30 L Red Cell Distribution Width 14.7 H Sodium Level 140 Total Bilirubin 0.9 Total Protein 6.2 White Blood Count 2.2 #L Medications Medications Current Medications Polyethylene Glycol 17 gm 17 gm DAILY PRN PO CONSTIPATION; Start 10/18/16 at 14 :30 Sodium Chloride (NS) 1,000 ml @ 80 mls/hr [id number] IV Last administered on 10/20 05:06; Admin Dose 80 MLS/HR; Start 10/18/16 at 14:13 Ondansetron HCl (Zofran Inj) 4 mg Q6H PRN IV NAUSEA AND/OR VOMITING; Start at 14:30 Acetaminophen (Tylenol Tab) 650 mg Q6H PRN PO PAIN LEVEL 1-3 OR FEVER Last administered on 10/18/16 18:43; Admin Dose 650 MG; Start 10/18/16 at 14:30 Acetaminophen (Tylenol Supp) 650 mg Q6H PRN [place] PAIN LEVEL 1-3 OR FEVER; Start 10/18/16 at 14:30 Acetaminophen/ Hydrocodone Bitart ([place] (5/325)) 1 tab Q6H PRN PO MODERATE PAIN LEVEL 4-6; Start 10/18/16 at 14:30 Acetaminophen/ Hydrocodone Bitart ([place] (5/325)) 2 tab Q6H PRN PO SEVERE PAIN LEVEL 7-10; Start 10/18/16 at 14:30 Morphine Sulfate (morphine) 2 mg Q4H PRN IV SEVERE PAIN LEVEL 7-10; Start 10/18 at 14:30 Docusate Sodium (Colace) 100 mg Q12H PRN PO CONSTIPATION; Start 10/18/16 at 14: 30 Magnesium Hydroxide (Milk Of Mag) 30 ml DAILY PRN PO CONSTIPATION; Start at 14:30 Bisacodyl (Dulcolax Supp) 10 mg DAILY PRN [place] CONSTIPATION; Start 10/18/16 at 14 :30 Pantoprazole 40 mg 40 mg DAILY@06 IV Last administered on 10/20/16 05:06; Admin Dose 40 MG; Start 10/19/16 at 06:00 Ciprofloxacin/ Dextrose 200 ml @ 200 mls/hr Q12 IVPB Last administered on 10/20 10:11; Admin Dose 200 MLS/HR; Start 10/18/16 at 21:00 Metronidazole 100 ml @ 100 mls/hr Q8 IVPB Last administered on 10/20/16 05:06 ; Admin Dose 100 MLS/HR; Start 10/18/16 at 22:00 Vancomycin HCl (Vancocin) 250 ml @ 125 mls/hr Q8H IVPB ; Start 10/20/16 at 18: 00 Miscellaneous Information (*Rx Drug Level Order Reminder*) VANCOMYCIN TROUGH AT 0100 ONCE ONCE XX ; Start 10/21/16 at 01:00; Stop 10/21/16 at 01:01 ALISSON MORRISSEY MD Oct 20, 2016 14:15
--- NOTE | 2016-10-20 14:39 | PN ---
DATE: 10/20/2016 Time of evaluation: 1230 PM HOSPITALIST PROGRESS NOTE SUBJECTIVE DATA: Denies any abdominal pain. The patient remains afebrile. Tolerating clear liquid diet. OBJECTIVE DATA: VITAL SIGNS: Temperature 98.2, pulse rate 70, respiratory rate 19, blood pressure 115/64, oxygen saturation 99% on room air. GENERAL: This is well-built, well-nourished female patient lying in bed in no apparent distress. HEENT: Head normocephalic and atraumatic. Eyes: Icteric sclerae. Conjunctivae clear. ENT: Nasal septum is midline. Oral mucosa is moist. NECK: Supple. No JVD noticed. RESPIRATORY: Bilaterally clear to auscultation. No adventitious breath sounds heard. No use of accessory muscles of respiration. CARDIAC: Regular rate and rhythm. No murmurs. ABDOMEN: Soft, nontender, and nondistended. Bowel sounds positive in all 4 quadrants. GENITOURINARY: Deferred. EXTREMITIES: No cyanosis, no clubbing, no edema. Peripheral pulses are palpable. NEUROLOGIC: The patient is awake, alert, and oriented. Cranial nerves are grossly intact. LABORATORY AND DIAGNOSTIC DATA: WBC 2.2, hemoglobin 10.1, hematocrit 30.6, platelet count 48. Sodium 140, potassium 4.0, chloride 111, carbon dioxide 19, anion gap 14, BUN 7, creatinine 0.60, glucose 78, calcium 7.9, total bilirubin 0.9, direct bilirubin 0.9, AST 77, ALT 226, alkaline phosphatase 222. ASSESSMENT AND PLAN: 1. Acute cholangitis. Continue antibiotics. Being followed by gastroenterology and infectious diseases. 2. Sepsis with underlying cholangitis and positive for gram-positive bacteremia. Repeat blood cultures negative. Continue antibiotics as per infectious diseases. No evidence of any septic shock. 3. Biliary atresia. Gastroenterology following. 4. Transaminitis with hyperbilirubinemia, most probably secondary to underlying cholangitis, improving. 5. 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 Continue to monitor the patient. 6. Pancytopenia, most likely secondary to underlying hepatic cirrhosis. Will monitor. 7. Fluid, electrolytes, and nutrition. Clear liquid diet. Advancement of diet as per gastroenterology. 8. Deep venous thrombosis prophylaxis. Ambulation, bilateral sequential compression devices. 9. Gastrointestinal prophylaxis. Proton pump inhibitors. PLAN Continue antibiotics as per infectious disease. Advancement of diet as per gastroenterology. Monitor in house. Case discussed with Dr. Art. DONIS ART MD, AM/CRISTOFER Conf#: [id number] DID#: [id number] MTDD
[2016-10-20] MEDS ORDERED: LACTULOSE 30ML CUP PO PRN (17:00)
[2016-10-20] MEDS ORDERED: VANCOMYCIN 1 GM in NS 250 ML IVPB SCH (18:00)
[2016-10-20 20:47] VITALS: BP 98/57; RESP 18
[2016-10-21] MEDS: metroNIDAZOLE 500 MG/NS (PMX) 100 ML IVPB SCH ×3 (00:45→14:16)
[2016-10-21 05:38] LABS: ADD SCAN DIFF NO
[2016-10-21] MEDS ORDERED: PANTOPRAZOLE (EC) 40 MG TAB PO SCH (06:00)
[2016-10-21 06:15] LABS: ALBUMIN 3.2 g/dl (3.3-4.9); POTASSIUM 3.6 mmol/L (3.5-5.1)
[2016-10-21 06:17] LABS: BILIRUBIN,INDIRECT 0.8 mg/dl (0-1.1); BILIRUBIN,TOTAL 0.8 mg/dl (0.2-1.3); CREATININE 0.68 mg/dl (0.44-1.00)
[2016-10-21 06:18] LABS: ALBUMIN/GLOBULIN RATIO 0.96; TOTAL PROTEIN 6.5 g/dl (6.1-8.1)
[2016-10-21 06:23] LABS: ABNORMAL IP MESSAGE 1; BASOPHILS % 0.5 % (0.0-2.0); EOSINOPHILS # 0.1 10^3/ul (0.0-0.5); HEMATOCRIT 33.7 % (37.0-47.0); HEMOGLOBIN 11.1 g/dl (12.0-16.0); LYMPHOCYTES # 0.5 10^3/ul (0.8-2.9); LYMPHOCYTES % 23.2 % (15.0-51.0); MEAN CORPUSCULAR HEMOGLOBIN 30.3 pg (29.0-33.0); MEAN CORPUSCULAR HGB CONC 32.9 g/dl (32.0-37.0); MEAN CORPUSCULAR VOLUME 92.1 fl (82.0-101.0); MONOCYTE # 0.3 10^3/ul (0.3-0.9); MONOCYTES % 11.4 % (0.0-11.0); NEUTROPHIL # 1.3 10^3/ul (1.6-7.5); PLATELET COUNT 65 10^3/UL (140-415); RED BLOOD COUNT 3.66 10^6/ul (4.20-5.40); RED CELL DISTRIBUTION WIDTH 14.7 % (11.5-14.5); WHITE BLOOD COUNT 2.2 10^3/ul (4.8-10.8)
[2016-10-21] MEDS: SOD CHLORIDE 0.9% 1,000 ML IV SCH ×2 (06:24→19:59)
[2016-10-21 08:16] VITALS: BP 100/55; RESP 18
[2016-10-21 09:00] VITALS: BP 120/78
[2016-10-21] MEDS: CIPROFLOXACIN 400MG/D5W 200 ML IVPB SCH (09:06)
--- NOTE | 2016-10-21 13:50 | PN ---
Date/Time of Note Date/Time of Note DATE: 10/21/16 TIME: 13:50 Assessment/Plan VTE Prophylaxis VTE Prophylaxis Intervention: ambulation, SCD's Lines/Catheters IV Catheter Type (from [facility]): Peripheral IV Urinary Cath still in place: No Assessment/Plan Chief Complaint/Hosp Course 1. Acute cholangitis. Continue antibiotics. Being followed by gastroenterology and infectious diseases. 2. Sepsis with underlying cholangitis and positive for gram-positive bacteremia (reported Gram negative bacteremia form referring hospital). Repeat blood cultures negative. Continue antibiotics as per infectious diseases. No evidence of any septic shock. 3. Biliary atresia. Gastroenterology following. 4. Transaminitis with hyperbilirubinemia, most probably secondary to underlying cholangitis, improving. 5. 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 Continue to monitor the patient. Continue lactulose. 6. Pancytopenia, most likely secondary to underlying hepatic cirrhosis. Will monitor. 7. Fluid, electrolytes, and nutrition. Soft diet. Advancement of diet as per gastroenterology. 8. Deep venous thrombosis prophylaxis. Ambulation. Bilateral sequential compression devices. 9. Gastrointestinal prophylaxis. Proton pump inhibitors. PLAN Continue antibiotics as per infectious disease. Advancement of diet as per gastroenterology. DC home once cleared by consultants. Case discussed with Dr. Mayo. Problems: Subjective 24 Hr Interval Summary Free Text/Dictation Denies any complaints. Tolerating regular consistency diet. Exam/Review of Systems Vital Signs Vitals Vital Signs Date Time Temp Pulse Resp B/P Pulse Ox O2 Delivery O2 Flow Rate FiO2 10/21/16 08:16 98.8 48 18 100/55 97 10/20/16 08:15 Room Air Intake and Output 10/20/16 10/20/16 10/21/16 14:59 22:59 06:59 Intake Total 200 ml 1420 ml 540 ml Balance 200 ml 1420 ml 540 ml Exam GENERAL: This is a well-built, well-nourished female patient lying in bed in no apparent distress. HEENT: Head normocephalic and atraumatic. Eyes: Icteric sclerae. Conjunctivae clear. ENT: Nasal septum is midline. Oral mucosa is moist. NECK: Supple. No JVD noticed. RESPIRATORY: Bilaterally clear to auscultation. No adventitious breath sounds heard. No use of accessory muscles of respiration. CARDIAC: Regular rate and rhythm. No murmurs. ABDOMEN: Soft, nontender, and nondistended. Bowel sounds positive in all 4 quadrants. GENITOURINARY: Deferred. EXTREMITIES: No cyanosis, no clubbing, no edema. Peripheral pulses are palpable. NEUROLOGIC: The patient is awake, alert, and oriented. Cranial nerves are grossly intact. Results Result Diagram: 10/21/16 0455 10/21/16 0455 Results 24 hrs Laboratory Tests Test 10/21/16 04:55 Alanine Aminotransferase (ALT/SGPT) 194 H Albumin 3.2 L Albumin/Globulin Ratio 0.96 Alkaline Phosphatase 232 H Anion Gap 16 Aspartate Amino Transf (AST/SGOT) 57 H Basophils # 0.0 Basophils % 0.5 Blood Urea Nitrogen 7 Calcium Level 8.0 L Carbon Dioxide Level 20 L Chloride Level 110 Creatinine 0.68 Direct Bilirubin 0.00 Eosinophils # 0.1 Eosinophils % 5.0 Globulin 3.30 H Glucose Level 87 Hematocrit 33.7 L Hemoglobin 11.1 L Indirect Bilirubin 0.8 Lymphocytes # 0.5 L Lymphocytes % 23.2 Magnesium Level 1.8 Mean Corpuscular Hemoglobin 30.3 Mean Corpuscular Hemoglobin Concent 32.9 Mean Corpuscular Volume 92.1 Mean Platelet Volume 11.0 H Monocytes # 0.3 Monocytes % 11.4 H Neutrophils # 1.3 L Neutrophils % 59.0 Nucleated Red Blood Cells # 0.0 Nucleated Red Blood Cells % 0.0 Platelet Count 65 #L Potassium Level 3.6 Red Blood Count 3.66 L Red Cell Distribution Width 14.7 H Sodium Level 142 Total Bilirubin 0.8 Total Protein 6.5 White Blood Count 2.2 L Medications Medications Current Medications Polyethylene Glycol 17 gm 17 gm DAILY PRN PO CONSTIPATION; Start 10/18/16 at 14 :30 Sodium Chloride (NS) 1,000 ml @ 80 mls/hr [id number] IV Last administered on 10/21 06:24; Admin Dose 80 MLS/HR; Start 10/18/16 at 14:13 Ondansetron HCl (Zofran Inj) 4 mg Q6H PRN IV NAUSEA AND/OR VOMITING; Start at 14:30 Acetaminophen (Tylenol Tab) 650 mg Q6H PRN [place] PAIN LEVEL 1-3 OR FEVER Last administered on 10/18/16 18:43; Admin Dose 650 MG; Start 10/18/16 at 14:30 Acetaminophen (Tylenol Supp) 650 mg Q6H PRN [place] PAIN LEVEL 1-3 OR FEVER; Start 10/18/16 at 14:30 Acetaminophen/ Hydrocodone Bitart ([place] (5/325)) 1 tab Q6H PRN PO MODERATE PAIN LEVEL 4-6; Start 10/18/16 at 14:30 Acetaminophen/ Hydrocodone Bitart ([place] (5/325)) 2 tab Q6H PRN PO SEVERE PAIN LEVEL 7-10; Start 10/18/16 at 14:30 Morphine Sulfate (morphine) 2 mg Q4H PRN IV SEVERE PAIN LEVEL 7-10; Start 10/18 at 14:30 Docusate Sodium (Colace) 100 mg Q12H PRN PO CONSTIPATION; Start 10/18/16 at 14: 30 Magnesium Hydroxide (Milk Of Mag) 30 ml DAILY PRN PO CONSTIPATION; Start at 14:30 Bisacodyl 10 mg 10 mg DAILY PRN [place] CONSTIPATION; Start 10/18/16 at 14:30 Ciprofloxacin/ Dextrose 200 ml @ 200 mls/hr Q12 IVPB Last administered on 10/21 09:06; Admin Dose 200 MLS/HR; Start 10/18/16 at 21:00 Metronidazole (Flagyl 500 Mg (Pmx)) 100 ml @ 100 mls/hr Q8 IVPB Last administered on 10/21/16 06:24; Admin Dose 100 MLS/HR; Start 10/18/16 at 22:00 Pantoprazole (Protonix Tab) 40 mg DAILY@06 PO Last administered on 10/21/16 06 :24; Admin Dose 40 MG; Start 10/21/16 at 06:00 Lactulose (Enulose) 10 gm BID PRN PO CONSTIPATION; Start 10/20/16 at 17:00 DONIS DUBOSE NP Oct 21, 2016 13:50
--- NOTE | 2016-10-21 13:54 | PN ---
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) improved * Gram-negative sepsis/positive blood cultures at [facility] * History of biliary atresia * Post [place] procedure * Poor compliance Plan: * Antibiotic coverage * Review culture and antibiogram from blood cultures obtained at [facility] * Monitor liver panel * will await bloodculture and antibiogram * full diet Subjective 24 Hr Interval Summary Free Text/Dictation Course reviewed with nursing staff Patient reports good improvement,regular diet ,tolerating well She has been afebrile,denies nausea or vomiting Her liver function tests have improved MRCP 10/19/16 Hepatic periportal edematous signal is seen which correlates with a history of cholangitis. There is no evidence of gross biliary ductal obstruction. Fine detail is limited secondary to motion throughout the exam. Stable nodular liver is seen consistent with hepatic cirrhosis and there is prominent splenomegaly along with pronounced upper abdominal varices again seen along with mild ascites. Edematous signal the peripancreatic fat is indeterminate and may be related third spacing of fluid however pancreatitis is not excluded and can be correlated with amylase/lipase levels. Exam/Review of Systems Vital Signs Vitals Vital Signs Date Time Temp Pulse Resp B/P Pulse Ox O2 Delivery O2 Flow Rate FiO2 10/21/16 08:16 98.8 48 18 100/55 97 10/20/16 08:15 Room Air Intake and Output 10/20/16 10/20/16 10/21/16 15:00 23:00 07:00 Intake Total 200 ml 1420 ml 540 ml Balance 200 ml 1420 ml 540 ml Exam Constitutional: alert, oriented, well developed Psych: nl mood/affect, no complaints Head: atraumatic, normocephalic Eyes: PERRL, nl conjunctiva, nl lids, nl sclera Neck: non-tender, supple Respiratory: clear to auscultation, normal air movement Cardiovascular: nl pulses, regular rate and rhythm Gastrointestinal: nl liver, spleen, non-tender, soft Musculoskeletal: nl extremities to inspection, nl gait and stance Extremities: normal pulses Skin: nl turgor, No rash or lesions Results Result Diagram: 10/21/16 0455 10/21/16 0455 Results 24 hrs Laboratory Tests Test 10/21/16 04:55 Alanine Aminotransferase (ALT/SGPT) 194 H Albumin 3.2 L Albumin/Globulin Ratio 0.96 Alkaline Phosphatase 232 H Anion Gap 16 Aspartate Amino Transf (AST/SGOT) 57 H Basophils # 0.0 Basophils % 0.5 Blood Urea Nitrogen 7 Calcium Level 8.0 L Carbon Dioxide Level 20 L Chloride Level 110 Creatinine 0.68 Direct Bilirubin 0.00 Eosinophils # 0.1 Eosinophils % 5.0 Globulin 3.30 H Glucose Level 87 Hematocrit 33.7 L Hemoglobin 11.1 L Indirect Bilirubin 0.8 Lymphocytes # 0.5 L Lymphocytes % 23.2 Magnesium Level 1.8 Mean Corpuscular Hemoglobin 30.3 Mean Corpuscular Hemoglobin Concent 32.9 Mean Corpuscular Volume 92.1 Mean Platelet Volume 11.0 H Monocytes # 0.3 Monocytes % 11.4 H Neutrophils # 1.3 L Neutrophils % 59.0 Nucleated Red Blood Cells # 0.0 Nucleated Red Blood Cells % 0.0 Platelet Count 65 #L Potassium Level 3.6 Red Blood Count 3.66 L Red Cell Distribution Width 14.7 H Sodium Level 142 Total Bilirubin 0.8 Total Protein 6.5 White Blood Count 2.2 L Medications Medications Current Medications Polyethylene Glycol 17 gm 17 gm DAILY PRN PO CONSTIPATION; Start 10/18/16 at 14 :30 Sodium Chloride (NS) 1,000 ml @ 80 mls/hr [id number] IV Last administered on 10/21 06:24; Admin Dose 80 MLS/HR; Start 10/18/16 at 14:13 Ondansetron HCl (Zofran Inj) 4 mg Q6H PRN IV NAUSEA AND/OR VOMITING; Start at 14:30 Acetaminophen (Tylenol Tab) 650 mg Q6H PRN PO PAIN LEVEL 1-3 OR FEVER Last administered on 10/18/16 18:43; Admin Dose 650 MG; Start 10/18/16 at 14:30 Acetaminophen (Tylenol Supp) 650 mg Q6H PRN [place] PAIN LEVEL 1-3 OR FEVER; Start 10/18/16 at 14:30 Acetaminophen/ Hydrocodone Bitart ([place] (5/325)) 1 tab Q6H PRN PO MODERATE PAIN LEVEL 4-6; Start 10/18/16 at 14:30 Acetaminophen/ Hydrocodone Bitart ([place] (5/325)) 2 tab Q6H PRN PO SEVERE PAIN LEVEL 7-10; Start 10/18/16 at 14:30 Morphine Sulfate (morphine) 2 mg Q4H PRN IV SEVERE PAIN LEVEL 7-10; Start 10/18 at 14:30 Docusate Sodium (Colace) 100 mg Q12H PRN PO CONSTIPATION; Start 10/18/16 at 14: 30 Magnesium Hydroxide (Milk Of Mag) 30 ml DAILY PRN PO CONSTIPATION; Start at 14:30 Bisacodyl 10 mg 10 mg DAILY PRN [place] CONSTIPATION; Start 10/18/16 at 14:30 Ciprofloxacin/ Dextrose 200 ml @ 200 mls/hr Q12 IVPB Last administered on 10/21 09:06; Admin Dose 200 MLS/HR; Start 10/18/16 at 21:00 Metronidazole (Flagyl 500 Mg (Pmx)) 100 ml @ 100 mls/hr Q8 IVPB Last administered on 10/21/16 06:24; Admin Dose 100 MLS/HR; Start 10/18/16 at 22:00 Pantoprazole (Protonix Tab) 40 mg DAILY@06 PO Last administered on 10/21/16 06 :24; Admin Dose 40 MG; Start 10/21/16 at 06:00 Lactulose (Enulose) 10 gm BID PRN PO CONSTIPATION; Start 10/20/16 at 17:00 ALISSON MORRISSEY MD Oct 21, 2016 13:54
--- NOTE | 2016-10-21 14:41 | CONS ---
Date/Time of Note Date/Time of Note DATE: 10/21/16 TIME: 14:40 Assessment/Plan Assessment/Plan Chief Complaint/Hosp Course SUBJECTIVE: The patient is alert. Denies pain, discomfort. No fevers. ANTIMICROBIALS: The patient is on: 1. Flagyl. 2. Ciprofloxacin. PHYSICAL EXAMINATION: GENERAL: Well-nourished, well-developed young woman who is alert, in no distress. HEENT: Head atraumatic, normocephalic. Sclerae anicteric. Buccal mucosa pink. NECK: Supple. CHEST: Rise symmetrical. Breath sounds clear. HEART: S1, S2. ABDOMEN: Soft, bowel tones present. EXTREMITIES: Without cyanosis. ASSESSMENT: 1. Biliary sepsis with E coli bacteremia 2. Acute cholangitis. 3. History of biliary atresia. 4. History of [place] procedure. PLAN: The patient remains stable. Consider dc home on PO Cipro for 12 more days , f/u GI rec-s Problems: Consultation Date/Type/Reason Admit Date/Time Oct 18, 2016 at 12:11 Initial Consult Date 10/18/16 Type of Consultation: id Exam/Review of Systems Vital Signs Vitals Vital Signs Date Time Temp Pulse Resp B/P Pulse Ox O2 Delivery O2 Flow Rate FiO2 10/21/16 08:16 98.8 48 18 100/55 97 10/20/16 08:15 Room Air Intake and Output 10/20/16 10/20/16 10/21/16 15:00 23:00 07:00 Intake Total 200 ml 1420 ml 540 ml Balance 200 ml 1420 ml 540 ml Results Result Diagram: 10/21/16 0455 10/21/16 0455 Results 24 hrs Laboratory Tests Test 10/21/16 04:55 Alanine Aminotransferase (ALT/SGPT) 194 H Albumin 3.2 L Albumin/Globulin Ratio 0.96 Alkaline Phosphatase 232 H Anion Gap 16 Aspartate Amino Transf (AST/SGOT) 57 H Basophils # 0.0 Basophils % 0.5 Blood Urea Nitrogen 7 Calcium Level 8.0 L Carbon Dioxide Level 20 L Chloride Level 110 Creatinine 0.68 Direct Bilirubin 0.00 Eosinophils # 0.1 Eosinophils % 5.0 Globulin 3.30 H Glucose Level 87 Hematocrit 33.7 L Hemoglobin 11.1 L Indirect Bilirubin 0.8 Lymphocytes # 0.5 L Lymphocytes % 23.2 Magnesium Level 1.8 Mean Corpuscular Hemoglobin 30.3 Mean Corpuscular Hemoglobin Concent 32.9 Mean Corpuscular Volume 92.1 Mean Platelet Volume 11.0 H Monocytes # 0.3 Monocytes % 11.4 H Neutrophils # 1.3 L Neutrophils % 59.0 Nucleated Red Blood Cells # 0.0 Nucleated Red Blood Cells % 0.0 Platelet Count 65 #L Potassium Level 3.6 Red Blood Count 3.66 L Red Cell Distribution Width 14.7 H Sodium Level 142 Total Bilirubin 0.8 Total Protein 6.5 White Blood Count 2.2 L Medications Medications Current Medications Polyethylene Glycol 17 gm 17 gm DAILY PRN PO CONSTIPATION; Start 10/18/16 at 14 :30 Sodium Chloride (NS) 1,000 ml @ 80 mls/hr [id number] IV Last administered on 10/21 06:24; Admin Dose 80 MLS/HR; Start 10/18/16 at 14:13 Ondansetron HCl (Zofran Inj) 4 mg Q6H PRN IV NAUSEA AND/OR VOMITING; Start at 14:30 Acetaminophen (Tylenol Tab) 650 mg Q6H PRN PO PAIN LEVEL 1-3 OR FEVER Last administered on 10/18/16 18:43; Admin Dose 650 MG; Start 10/18/16 at 14:30 Acetaminophen (Tylenol Supp) 650 mg Q6H PRN [place] PAIN LEVEL 1-3 OR FEVER; Start 10/18/16 at 14:30 Acetaminophen/ Hydrocodone Bitart ([place] (5/325)) 1 tab Q6H PRN PO MODERATE PAIN LEVEL 4-6; Start 10/18/16 at 14:30 Acetaminophen/ Hydrocodone Bitart ([place] (5/325)) 2 tab Q6H PRN PO SEVERE PAIN LEVEL 7-10; Start 10/18/16 at 14:30 Morphine Sulfate (morphine) 2 mg Q4H PRN IV SEVERE PAIN LEVEL 7-10; Start 10/18 at 14:30 Docusate Sodium (Colace) 100 mg Q12H PRN PO CONSTIPATION; Start 10/18/16 at 14: 30 Magnesium Hydroxide (Milk Of Mag) 30 ml DAILY PRN PO CONSTIPATION; Start at 14:30 Bisacodyl 10 mg 10 mg DAILY PRN [place] CONSTIPATION; Start 10/18/16 at 14:30 Ciprofloxacin/ Dextrose 200 ml @ 200 mls/hr Q12 IVPB Last administered on 10/21 09:06; Admin Dose 200 MLS/HR; Start 10/18/16 at 21:00 Metronidazole (Flagyl 500 Mg (Pmx)) 100 ml @ 100 mls/hr Q8 IVPB Last administered on 10/21/16 14:16; Admin Dose 100 MLS/HR; Start 10/18/16 at 22:00 Pantoprazole (Protonix Tab) 40 mg DAILY@06 PO Last administered on 10/21/16 06 :24; Admin Dose 40 MG; Start 10/21/16 at 06:00 Lactulose (Enulose) 10 gm BID PRN PO CONSTIPATION; Start 10/20/16 at 17:00 LUIS MARIN NP Oct 21, 2016 14:41
--- NOTE | 2016-10-21 14:48 | PDOCDIS ---
Discharge Instructions DIAGNOSIS Discharge Diagnosis: Cholangitis. CONDITION Patient Condition: Stable HOME CARE INSTRUCTIONS: Diet Instructions: Regular FOLLOW UP/APPOINTMENTS Appointments Kolton Box MD Specialty: Internal Medicine Office Address: [address] [place], [place] [id number] Office OTHER ORDERS: Other Orders: 1. Take a regular diet as tolerated. 2. Take antibiotics as per prescription. 3. Resume activities as tolerated. 4. Follow-up with your primary care physician in 2 weeks. If you do not have a primary care physician, please call Dr. Kolton Box's office. SCHOOL/WORK RELEASE May return to School/Work on: Oct 22, 2016 May return to School/Work with: No Restrictions DONIS DUBOSE NP Oct 21, 2016 14:48
[2016-10-21] MEDS ORDERED: CIPR500T4 PO (14:49)
--- NOTE | 2016-10-21 18:49 | DS ---
DATE OF ADMISSION: 10/18/2016 DATE OF DISCHARGE: 10/21/2016 FINAL DIAGNOSES: 1. Acute cholangitis. 2. Sepsis with underlying cholangitis with Escherichia coli bacteremia. 3. Biliary atresia. 4. Transaminitis with hyperbilirubinemia. 5. Hepatic cirrhosis. 6. Pancytopenia. CONSULTATIONS: 1. Dr. Rashi Gay, Gastroenterology. 2. Dr. Shukri Marina, Infectious Diseases. HOSPITAL COURSE: This is a 21-year-old female with reported past medical history of recurrent cholangitis as well as biliary atresia who came to [facility] due to reports of increased generalized weakness as well as malaise and fevers. The patient did report onset of symptoms 2 days prior to admission. The patient denied any abdominal pain, nausea, vomiting, or any diarrhea, constipation. The patient was transferred from [facility] where she had her initial care. The patient was transferred to [facility] because of insurance reasons. The patient had a 2/2 blood cultures positive at [facility] that were positive for gram-negative rods. Provided the patient's history of present illness and the diagnostic findings, a clinical decision was made to admit the patient to inpatient setting to have her further evaluated. The patient was admitted to inpatient medical/surgical floor. A gastroenterology consult and infectious disease consult was called. Pancultures were obtained on this patient. The patient's first set of blood culture at [facility] showed gram-positive cocci in 1 of 2 bottles, most probably a contaminant. The patient's repeat blood cultures remained negative. The patient remained afebrile. The patient was seen and evaluated by gastroenterology. The patient underwent an MRCP on 10/18/2016 that showed hepatic periportal edema with no evidence of gross biliary ductal obstruction. The MRI also revealed stable nodular liver consistent with hepatic cirrhosis and prominent splenomegaly along with pronounced upper abdominal varices along with mild ascites. The patient had significant hyperbilirubinemia and transaminitis upon admission, which was trending down slowly to no hyperbilirubinemia, but still some transaminitis towards the end of the patient's hospital stay. The patient's urinalysis upon admission was positive for nitrite. However, the patient's culture was inconclusive. The patient was maintained on antibiotics as per infectious diseases. The patient has a history of biliary atresia. The patient is status post Kasai procedure. The patient was also noticed to have evidence of cirrhosis. However, the patient had no evidence of hepatic encephalopathy. The patient was noticed to have pancytopenia, most likely secondary to underlying hepatic cirrhosis. The patient's blood cultures in house remained negative. Finally, infectious diseases was able to get a copy of the patient's final blood cultures from [facility] that showed E. coli. Hence, the patient will be discharged home on antibiotics as per infectious diseases. Meanwhile, the patient was able to tolerate a regular consistency diet without any significant gastrointestinal symptoms. The patient was cleared by gastroenterology and infectious diseases to be discharged home. DISCHARGE DISPOSITION AND PLAN: The patient will be discharged home today. The patient was instructed to take a regular diet as tolerated. The patient was instructed to complete the course of antibiotics. The patient was instructed to resume activities as tolerated. She was instructed to follow up with her primary care physician in 2 weeks and, if she does not have a primary care physician, to please call Dr. Kolton Box's office. The patient was instructed that she may return to work on 10/22/2016 with no restrictions. The patient verbalized understanding of her discharge instructions. CONDITION AT DISCHARGE: Stable. DISCHARGE MEDICATIONS: 1. Ciprofloxacin 500 mg p.o. b.i.d. for 12 days. 2. Naproxen 500 mg p.o. daily p.r.n. pain. 3. MiraLax 17 grams p.o. daily p.r.n. constipation. PERTINENT LABORATORY AND DIAGNOSTIC DATA: 1. MRCP. Hepatic periportal edematous signal seen, which correlates with a history of cholangitis. There was no evidence of gross biliary ductal obstruction. Fine detail limited secondary to motion artifact. Stable nodular liver seen consistent with hepatic cirrhosis and there is prominent splenomegaly , along with pronounced upper abdominal varices again seen with mild ascites. Edematous signal in the peripancreatic fat is indeterminate and may be related to third spacing or fluid. 2. Chest x-ray. No active intrathoracic disease. 3. Latest blood cultures x2 negative. 4. Urine culture. Mixed gram-positive organisms. 5. Influenza A and B. Negative. 6. Latest CBC: WBC 2.2, hemoglobin 11.1, hematocrit 33.7, platelet count 65. 7. Latest CMP: Sodium 142, potassium 3.6, chloride 110, carbon dioxide 20, anion gap 16, BUN 7, creatinine 0.68, glucose 87, calcium 8.0. Magnesium 1.8. Total bilirubin 0.8, indirect bilirubin 0.8, AST 57, ALT 194, alkaline phosphatase 232. 8. Hemoglobin A1c 4.7. 9. Fasting lipid panel: Triglycerides 110, total cholesterol 94, LDL 31, HDL 41. At this time, I would like to thank all the consultants for seeing the patient and providing clinical recommendations. The case and management of this patient was fully discussed with Dr. Taylor. Approximately 35 minutes was spent on coordinating the discharge on this patient. DONIS TAYLOR MD AM/NTS Conf#: [id number] DID#: [id number] CC: SIMBA CALERO MD;*EndCC* MTDD
[2016-10-21 20:00] VITALS: BP 100/56; PULSE 61; RESP 18
== END 2016-10-21 21:20 | disposition home or self-care (01) | DRG 871 ==
LOC: E/R 10:11 → PP2 12:11
PROVIDERS: ADMIT Internal Medicine; ATTEND Internal Medicine
DX: A41.51 Sepsis due to Escherichia coli [E. coli] (principal); Q44.2 Atresia of bile ducts; D61.818 Other pancytopenia; K83.0 Cholangitis; R18.8 Other ascites; K74.60 Unspecified cirrhosis of liver; R16.1 Splenomegaly, not elsewhere classified; Z91.14 Patient's other noncompliance with medication regimen; R82.79 Other abnormal findings on microbiological examination of urine; Z98.890 Other specified postprocedural states
CPT/HCPCS: 36415; 71010; 74181; 80053; 80061; 81001; 81003; 83036; 83605; 83690; 83735; 84100; 84436; 84443; 84479; 84484; 85025; 85610; 85730; 87040; 87086; 87400; 93005; 96374; 96375; C9113; J0696; J0744; J3370; J7030; J7040

== ENCOUNTER 2016-10-31 11:24 | Outpatient (CLI) | payer OTHER ==
[~2016-10-31] VITALS: Ht 165.1 cm; Wt 71.4 kg
[~2016-10-31 11:24] MED LIST changes: +CIPR500T4 PO; -FAMO20VI9 IV; -Hydrocodone Bit/Acetaminophen PO; +NAPR-688 PO; +POLY17PO6 PO; -URSO250 PO; -[UNRECOGNIZED DRUG - CODE] IV
[2016-10-31 11:45] VITALS: Ht 165.1 cm; Wt 71.4 kg
[2016-10-31 11:46] VITALS: BP 102/57; PULSE 68; RESP 16
--- NOTE | 2016-10-31 11:52 | PN ---
Date/Time of Note Date/Time of Note DATE: 10/31/16 TIME: 11:31 Outpatient Progress Note Chief Complaint Acute cholangitis/generalized weakness/abnormal LFTs/pancytopenia HPI Acute cholangitis/no fever chills, no nausea or vomiting, patient was recently hospitalized, feeling much better, Generalized weakness/patient has generalized weakness, still weak, but much better than before, Abnormal LFTs/patient has hepatic steatosis, and patient also had cholangitis, patient doing better, Pancytopenia, patient has pancytopenia, patient has hepatic cirrhosis, patient has few bruises, no fever chills, Review of Systems Const: No Fever, no chills, no Wt. loss, slight fatigue, normal appetite, no diaphoresis. Eyes: No pain, no discharge, no redness, no visual change, no foreign body. ENT: No pain, no bleeding, no congestion, no sore throat, no dysphagia, no discharge or rhinitis. Lymph: No adenopathy, no tender nodes, no lymphedema. Resp: No SOB, no cough, no sputum, no wheezing, no chest pain. CV: No chest pain, no palpitaions, no GRIJALVA, no PND, no edema. GI: Normal appetite, no pain, no nausea, no vomiting, no diarrhea, no blood, no constipation. : No frequency, no urgency, no dysuria, no hematuria, no flank pain, no discharge, no bleeding. Musc: No back pain, no neck pain, no knee pain, no restricted ROM. Skin: No rash, no skin lesions, no erythema, no laceration, n both hands bruising, no pruritus. Neuro: No RODRÍGUEZ, no dizziness, no syncope, no seizure, no focal-weakness. Endo: No polyuria, no polydypsia, no dry-skin, no temp-intolerance. Psych: No hallucinations, no depression, no anxiety, no suicidal ideation. Ext: No edema, no pain, no ulcer, no weakness. Physical Exam General Appearance: A 21 year-old [female who appears well-developed, well- nourished, in no acute distress. HEENT: Head normocephalic, atraumatic. Pupils equal, round, reactive to light and accommodate. Sclerae are slightly jaundice. Nasal turbinates pink without erythema or nasal discharge. Mucous membranes pink and moist without lesions. Oropharynx clear without any exudate or discharge. NECK: Supple. Trachea midline, No thyromegaly, No cervical lymphadenopathy, No mass, No carotid bruits, No JVD, Carotid pulses 2+ bilaterally. PULMONARY: Clear to auscultaion bilaterally, No retractions, Chest expansion symmetric bilaterally, no rales, no ronchi, no dulness on percussion. CARDIAC: Normal SI and S2, Regular rate and rythm, no murmur, gallop, or rub. GASTROINTESTINAL: Abdomen is soft, non-tender, Non Rigid, No distention, Positive bowel sounds x4 quadrants, Liver normal. SKIN: Warm, dry, no rash, both hand bruise, no echmosis. No pruritus, EXTREMITIES: Bilateral lower extremities normal, no edema, no phlabitus, pulse palpable, no contracture. MUSCULOSKELETAL: Spine Normal, Non-tender, Normal range of motion, No swelling, no deformity, no clubbing, or cyanosis, the patient has no edema to bilateral lower extremities, dorsalis pedis pulses palpable bilaterally. NEUROLOGIC: The patient is awake, alert, oriented, responding to yes/no questions appropriately, moving all extremities, cranial nerve intact, normal strenght, normal power, normal coordination, normal gait. Allergies Coded Allergies: amoxicillin (Verified Allergy, Unknown, RASH, 10/18/16) PMH History of cholangitis in the past, sepsis, biliary atresia, transaminitis, hyperbilirubinemia, hepatic cirrhosis, pancytopenia, Patient had surgery as a child for the biliary atresia details unknown,, Social Hx No smoking no drinking no drugs, Family Hx Noncontributory Patient History: Patient reports no known family medical history. Assessment/Plan Impression Acute cholangitis resolving/generalized weakness resolving/abnormal LFTs improving/pancytopenia/hepatic cirrhosis Plan Patient was recently hospitalized, patient feeling much better, encourage patient to follow with the primary care physician, Patient has all medication, Any fever to let us know, will repeat CBC and CMP, Medications Home Meds Active Scripts Ciprofloxacin Hcl* (Ciprofloxacin Hcl*) 500 Mg Tablet, 500 MG PO BID for 12 Days , #24 TAB Prov:DONIS DUBOSE BEATER OUT 10/21/16 Reported Medications Polyethylene Glycol* (Miralax*) 17 Gm Powd.pack, 17 GM PO DAILY Y for CONSTIPATION, #30 PACKET 10/18/16 Naproxen* (Naproxen*) 500 Mg Tablet, 500 MG PO DAILY Y for PRN, TAB 10/18/16 TAVON SIMONS MD Oct 31, 2016 11:52
== END 2016-10-31 16:34 | disposition home or self-care (01) ==
LOC: DCC 11:24
PROVIDERS: ATTEND Internal Medicine
DX: K83.0 Cholangitis (principal); R53.1 Weakness; D61.818 Other pancytopenia

== ENCOUNTER 2016-11-28 17:46 | Inpatient (IN) | payer OTHER ==
[~2016-11-28] VITALS: Ht 157.5 cm; Wt 60.1 kg
[2016-11-28 17:51] VITALS: Ht 157.5 cm; Wt 60.1 kg
[2016-11-28] MEDS ORDERED: ACETAMINOPHEN 500 MG TAB PO STA (19:18)
--- NOTE | 2016-11-28 19:45 | ERD ---
ER Documentation Chief Complaint Date/Time DATE: 11/28/16 TIME: 19:43 Chief Complaint flu like symptoms HPI This is a 21-year-old female with a past medical history of biliary atresia and cholangitis that presents to the ER with a fever, chills, body aches that started today. Patient noticed that yesterday her urine was cloudy however she denies any urinary frequency or dysuria. She denies any cough or cold symptoms. She denies sore throat or ear pain. Patient denies any abdominal pain. She denies any nausea vomiting or diarrhea. Patient does admit to some yellowing of her eyes. Patient has had normal bowel movements with no blood in her stool. ROS 12 point review of systems was done, all negative except per HPI. Medications Home Meds Active Scripts Ciprofloxacin Hcl* (Ciprofloxacin Hcl*) 500 Mg Tablet, 500 MG PO BID for 12 Days , #24 TAB Prov:DONIS DUBOSE [employer] REPRESENTATIVE 10/21/16 Reported Medications Polyethylene Glycol* (Miralax*) 17 Gm Powd.pack, 17 GM PO DAILY Y for CONSTIPATION, #30 PACKET 10/18/16 Naproxen* (Naproxen*) 500 Mg Tablet, 500 MG PO DAILY Y for PRN, TAB 10/18/16 Allergies Allergies: Coded Allergies: amoxicillin (Verified Allergy, Unknown, RASH, 10/18/16) PMhx/Soc History of Surgery: Yes (Kasai surgery when she was 3 mos. old) Anesthesia Reaction: No Hx Neurological Disorder: No Hx Respiratory Disorders: No Hx Cardiac Disorders: No Hx Psychiatric Problems: No Hx Miscellaneous Medical Probl: Yes (biliary atresia, bacteremia) Hx Alcohol Use: No Hx Substance Use: No Hx Tobacco Use: No Smoking Status: Never smoker Physical Exam Vitals Vital Signs Date Time Temp Pulse Resp B/P Pulse Ox O2 Delivery O2 Flow Rate FiO2 11/28/16 17:51 101.5 89 20 121/58 99 Physical Exam GENERAL: The patient is well developed and appropriate for usual state of health , in no apparent distress. HEENT: Atraumatic. Slight icterus. Pupils equal, round, and reactive to light. Extraocular muscles are grossly intact. Bilateral tympanic membranes are clear with no evidence of erythema, effusion or dulling of the light reflex. The oropharynx is clear with no erythema or exudates. CHEST: Clear to auscultation bilaterally. There are no rales, wheezes or rhonchi. HEART: Regular rate and rhythm. No murmurs, clicks, rubs or gallops. ABDOMEN: Soft, nontender and nondistended. Good bowel sounds. No rebound or guarding. No gross peritonitis. No gross organomegaly or masses. No Hooper sign or McBurney point tenderness. BACK: No midline or flank tenderness. NEURO: Alert and oriented. SKIN:The skin is warm and dry. Result Diagram: 11/28/16212411/28/162124 Results 24 hrs Laboratory Tests Test 11/28/16 19:40 11/28/16 21:25 Urine Color DK. YELLOW Urine Clarity CLEAR Urine pH 7.5 Urine Specific [place] 1.015 Urine Ketones TRACE Urine Nitrite NEGATIVE Urine Bilirubin 2+ Urine Ictotest POSITIVE Urine Urobilinogen 1.0 E.U./dL Urine Leukocyte Esterase NEGATIVE Urine Microscopic RBC 0-2/HPF Urine Microscopic WBC 0-2/HPF Urine Squamous Epithelial Cells RARE Urine Bacteria RARE Urine Mucus FEW Urine Hemoglobin NEGATIVE Urine Glucose NEGATIVE% Urine Total Protein TRACE White Blood Count 4.410^3/ul Red Blood Count 4.1710^6/ul Hemoglobin 13.2g/dl Hematocrit 39.5% Mean Corpuscular Volume 94.7fl Mean Corpuscular Hemoglobin 31.7pg Mean Corpuscular Hemoglobin Concent 33.4g/dl Red Cell Distribution Width 15.3% Platelet Count 6810^3/UL Mean Platelet Volume 11.9fl Prothrombin Time 17.5Sec Prothrombin Time Ratio 1.4 INR International Normalized Ratio 1.43 Activated Partial Thromboplast Time 31.4Sec Sodium Level 143mmol/L Potassium Level 3.7mmol/L Chloride Level 110mmol/L Carbon Dioxide Level 19mmol/L Anion Gap 18 Blood Urea Nitrogen 10mg/dl Creatinine 0.71mg/dl Glucose Level 94mg/dl Calcium Level 9.3mg/dl Total Bilirubin 4.1mg/dl Direct Bilirubin 1.40mg/dl Indirect Bilirubin 2.7mg/dl Aspartate Amino Transf (AST/SGOT) 1256IU/L Alanine Aminotransferase (ALT/SGPT) 798IU/L Alkaline Phosphatase 253IU/L Total Protein 8.8g/dl Albumin 4.5g/dl Globulin 4.30g/dl Albumin/Globulin Ratio 1.04 Lipase 122U/L Current Medications Medications (Trade) Dose Ordered Sig/Dawson Route PRN Reason Start Time Stop Time Status Last Admin Dose Admin Acetaminophen (Tylenol Tab) 1,000 mg ONCE STAT PO 11/28/16 19:18 11/28/16 19:20 DC 11/28/16 19:33 Procedures/MDM This is a 21-year-old female presents to the ER with a fever and chills that started today. Patient does have a past medical history of cholangitis, unfortunately patient is febrile and her liver enzymes are extremely elevated. Patient also has pancytopenia once again. Because of this patient would benefit from admission. Departure Diagnosis: Primary Impression: Transaminitis Additional Impression: Pancytopenia Condition: NNEKA Avalos Nov 28, 2016 19:45
[2016-11-28 20:23] LABS: ADD UMIC YES; URINE BILIRUBIN (Dip) 2+ (NEGATIVE); URINE BLOOD (Dip) NEGATIVE (NEGATIVE); URINE COLOR DK. YELLOW (YELLOW); URINE GLUCOSE (Dip) NEGATIVE (NEGATIVE); URINE KETONES (Dip) TRACE (NEGATIVE); URINE LEUKOCYTE ESTERASE (Dip) NEGATIVE (NEGATIVE); URINE NITRITE (Dip) NEGATIVE (NEGATIVE); URINE TOTAL PROTEIN (Dip) TRACE (NEGATIVE); URINE UROBILINOGEN (Dip) 1.0 E.U./dL (0.1-1.0)
[2016-11-28 20:36] LABS: ICTOTEST POSITIVE (NEGATIVE)
[2016-11-28 20:37] LABS: BACTERIA,URINE RARE; MUCUS,URINE FEW; SQUAMOUS EPITHELIAL CELL,UR RARE; URINE RBCS 0-2 /HPF (0)
--- NOTE | 2016-11-28 20:49 | RADRPT ---
PROCEDURE: XR Chest. CLINICAL INDICATION: Fever TECHNIQUE: Single frontal chest x-ray. COMPARISON: 10/18/2016 FINDINGS: The lungs are clear. No focal opacification is seen. No pneumothorax or pleural effusion is seen. The cardiomediastinal silhouette is unremarkable. The osseous structures are grossly unremarkable. IMPRESSION: No evidence of acute cardiopulmonary disease. RPTAT: QQ .Rui Villagran MD, MD Date Time Electronically viewed and signed by .Rui Villagran MD, on 11/28/2016 20:49 .A/
[2016-11-28 21:32] LABS: ADD SCAN DIFF NO
[2016-11-28 21:34] LABS: ABNORMAL IP MESSAGE 1; HEMATOCRIT 39.5 % (37.0-47.0); HEMOGLOBIN 13.2 g/dl (12.0-16.0); MEAN CORPUSCULAR HEMOGLOBIN 31.7 pg (29.0-33.0); MEAN CORPUSCULAR HGB CONC 33.4 g/dl (32.0-37.0); MEAN CORPUSCULAR VOLUME 94.7 fl (82.0-101.0); MEAN PLATELET VOLUME 11.9 fl (7.4-10.4); PLATELET COUNT 68 10^3/UL (140-415); RED BLOOD COUNT 4.17 10^6/ul (4.20-5.40); RED CELL DISTRIBUTION WIDTH 15.3 % (11.5-14.5); WHITE BLOOD COUNT 4.4 10^3/ul (4.8-10.8)
[2016-11-28 21:51] LABS: INR 1.43; PARTIAL THROMBOPLASTIN TIME 31.4 Sec (25.0-35.0); PROTIME 17.5 Sec (12.2-14.2); PT RATIO 1.4
[2016-11-28 22:00] LABS: ALBUMIN 4.5 g/dl (3.3-4.9)
[2016-11-28 22:01] LABS: POTASSIUM 3.7 mmol/L (3.5-5.1)
[2016-11-28 22:03] LABS: ALBUMIN/GLOBULIN RATIO 1.04; BILIRUBIN,DIRECT 1.4 mg/dl (0.00-0.20); BILIRUBIN,INDIRECT 2.7 mg/dl (0-1.1); BILIRUBIN,TOTAL 4.1 mg/dl (0.2-1.3); CREATININE 0.71 mg/dl (0.44-1.00); TOTAL PROTEIN 8.8 g/dl (6.1-8.1)
[2016-11-28 22:04] LABS: CALCIUM 9.3 mg/dl (8.4-10.2)
[2016-11-28] MEDS ORDERED: SOD CHLORIDE 0.9% 1,000 ML IV STA (22:27)
[2016-11-28] MEDS ORDERED: metroNIDAZOLE 500 MG/NS (PMX) 100 ML IVPB ONE (22:30)
[2016-11-28] MEDS ORDERED: CIPROFLOXACIN 400MG/D5W 200 ML IVPB ONE (22:30)
[2016-11-28] MEDS ORDERED: ACETAMINOPHEN 325 MG TAB PO PRN (22:30)
[2016-11-28] MEDS ORDERED: ONDANSETRON 4 MG INJ IV PRN (22:30)
[2016-11-28 23:15] LABS: LYMPHOCYTES # 0.5 10^3/ul (0.8-2.9); MONOCYTE # 0.4 10^3/ul (0.3-0.9); NEUTROPHIL # 3.6 10^3/ul (1.6-7.5); PLATELET ESTIMATE PLT APPEAR DECREASED
[2016-11-29] MEDS ORDERED: IMIPENEM-CILAST 500MG IV (PMX) 100 ML IVPB SCH
[2016-11-29] MEDS ORDERED: ONDANSETRON 4 MG INJ IV PRN
[2016-11-29 00:49] VITALS: BP 123/68; RESP 20
[2016-11-29] MEDS ORDERED: VANCOMYCIN 1.25 GM in SOD CHLORIDE 0.9% 250 ML IVPB ONE ×2 (01:00→05:00)
--- NOTE | 2016-11-29 01:19 | RADRPT ---
PROCEDURE: CT Abdomen and pelvis without contrast. CLINICAL INDICATION: Abdominal pain. TECHNIQUE: CT scan of the abdomen and pelvis was performed on a multi-detector high-resolution CT scanner. Contiguous axial images were obtained from the lung bases to the ischial tuberosities wit hout intravenous contrast. Coronal and sagittal reformatted images were also obtained. Images were reviewed on the PACS workstation. One or more of the following dose reduction techniques were used: - Automated exposure control. - Adjustment of the mA and/or kV according to patient size. - Use of iterative reconstruction technique. Exam CTD/vol = 9.82 mGy. Total exam DLP = 527.66 mGy-cm. COMPARISON: None. FINDINGS: Evaluation of the lung bases demonstrates no pleural or parenchymal disease. Abdomen: The liver is small in size. There is periportal edema. There is no focal mass or dilatat ion of the biliary tree. The gallbladder is not distended. The spleen is moderately enlarged. The re are multiple collateral vessels within the lumen. The pancreas and bilateral adrenal glands are within normal limits. Bilateral kidneys are normal in size with no contour deforming mass identifie d. There is no radiopaque renal or ureteral calculus identified. There is no hydronephrosis or hyd roureter. There is no retroperitoneal adenopathy. The abdominal aorta is of normal caliber. There is no abnormal bowel wall thickening or distension. There is no bowel obstruction or free air . A normal appendix is identified. There is no diverticulosis or diverticulitis. There is no asci myra. Pelvis: The bladder is unremarkable. The uterus and adnexa are within normal limits. There is no significant pelvic adenopathy or free fluid. Evaluation of the osseous structures demonstrates no suspicious lytic or blastic lesion. IMPRESSION: Small liver with periportal edema. Clinically correlate with cholangitis and cirrhosis. Moderate splenomegaly. Multiple collateral vessels within the left upper abdomen. .Abraham Ruiz MD, MD Date Time Electronically viewed and signed by .Abraham Ruiz MD, MD on 11/29/2016 01:19 .T/
[2016-11-29] MEDS: DEXTROSE 5%-0.45% NACL 1,000 ML IV SCH ×3 (02:23→22:00)
[2016-11-29] MEDS: morphine 4 MG/ML VIAL IV SCH ×4 (04:00→12:00)
[2016-11-29] MEDS ORDERED: VANCOMYCIN IV PER PHARMACY XX SCH ×2 (04:00)
[2016-11-29] MEDS: IMIPENEM-CILAST 500MG IV (PMX) 100 ML IVPB SCH ×4 (04:38→22:49)
--- NOTE | 2016-11-29 04:42 | HP ---
DATE OF ADMISSION: 11/28/2016 TIME SEEN: 2300 hours. CHIEF COMPLAINT: Fever. HISTORY OF PRESENT ILLNESS: The patient is a 21-year-old female with a history of biliary atresia s tatus post Kasai procedure as a child and history of liver cirrhosis who presented to the emergency department with fever that started this morning. The patient had been having recurrent cholangitis since the age of 7. The patient was admitted here a month ago with sepsis with underlying cholangit is. At that time, her blood culture was positive for E. coli. She had abnormal liver enzymes which were trending down at the time of discharge. Also, at that time, she presented with a total biliru bin of 5.3, but at the time of discharge, it was 0.8. The patient complained of only fever and gene ralized weakness. Otherwise, she denied abdominal pain, nausea, vomiting, chest pain, shortness of breath, or urinary symptoms. When she presented to the ER, she was febrile with a temperature of 101.5. Otherwise, the rest of h er vitals were stable. Laboratory value shows a WBC of 4.4, platelet count 68. Bicarbonate of 19, phosphorus 2, total bilirubin 4.1 with a direct of 1.4. AST is 1256, ALT almost 800, alkaline phosph atase 253. Blood culture grew E. Coli from outside hospital and coagulase-negative Staphylococcus h ere at [facility]. CT abdomen and pelvis without contrast shows a small liver with periportal edema, moderate splenomeg lynn and multiple collateral vessels within the left upper abdomen. She had an MRCP a month ago whic h showed hepatic periportal edematous signal, hepatic cirrhosis, splenomegaly with pronounced upper abdominal varices and edematous peripancreatic fat. The patient was given Cipro and Flagyl while estevan was in the ER today. ALLERGIES: Note THAT SHE IS ALLERGIC TO PENICILLIN/AMOXICILLIN. REVIEW OF SYSTEMS: A 12-point review was performed, negative except as mentioned in HPI. PAST MEDICAL HISTORY: As per HPI. Thrombocytopenia. PAST SURGICAL HISTORY: Kasai procedure when she was a child. SOCIAL HISTORY: Denied a history of tobacco, alcohol or illicit drug use HOME MEDICATIONS: Naproxen. PHYSICAL EXAMINATION: GENERAL: No acute distress. She is lying in bed, answering questions appropriately. She is alert and oriented x4. HEENT: No obvious head deformity. Her pupils are reactive to light. There is mild scleral icterus . CARDIOVASCULAR: Regular rate and rhythm with no extra sounds. LUNGS: Clear. ABDOMEN: Soft, nontender, nondistended. Positive bowel sounds. EXTREMITIES: No edema. NEUROLOGIC: No focal deficits. LABORATORY DATA: Pertinent positive results as mentioned in the HPI. IMAGING: CT abdomen and pelvis without contrast with results as mentioned in the HPI. Chest x-ray shows no evidence of acute cardiopulmonary disease. IMPRESSION: 1. Sepsis secondary to acute cholangitis. 2. Recurrent cholangitis. 3. History of biliary atresia, status post Kasai procedure as a child. 4. Chronic thrombocytopenia. 5. Liver cirrhosis. 6. Abnormal liver enzymes secondary to cholangitis. 7. Metabolic acidosis. PLAN: She will be placed on a broad spectrum antibiotic. I will put her on imipenem, but because o f her ALLERGY TO PENICILLIN, we will closely monitor her. We will follow up on the blood culture re sults. We will provide pain medication and antiemetics as needed, but note that the patient current ly does not have any pain including no abdominal pain. We will place GI and infectious disease cons ult. Currently no sign of bleeding and her platelets have been stable. We will transfuse as needed . . Dictated By: PRATEEK PHILLIPS/CRISTOFER Conf#: [id number] DID#: [id number]
[2016-11-29 06:15] LABS: ADD SCAN DIFF NO
[2016-11-29 06:34] LABS: ABNORMAL IP MESSAGE 1; BASOPHILS % 0.3 % (0.0-2.0); EOSINOPHILS # 0.1 10^3/ul (0.0-0.5); HEMATOCRIT 32.4 % (37.0-47.0); LYMPHOCYTES # 0.3 10^3/ul (0.8-2.9); LYMPHOCYTES % 11.6 % (15.0-51.0); MEAN CORPUSCULAR HEMOGLOBIN 32.1 pg (29.0-33.0); MEAN CORPUSCULAR VOLUME 94.5 fl (82.0-101.0); MONOCYTE # 0.3 10^3/ul (0.3-0.9); MONOCYTES % 10.2 % (0.0-11.0); NEUTROPHIL # 2.2 10^3/ul (1.6-7.5); NEUTROPHILS % 75.6 % (39.0-77.0); PLATELET COUNT 50 10^3/UL (140-415); RED BLOOD COUNT 3.43 10^6/ul (4.20-5.40); RED CELL DISTRIBUTION WIDTH 15.1 % (11.5-14.5); WHITE BLOOD COUNT 2.9 10^3/ul (4.8-10.8)
[2016-11-29 06:56] LABS: ALBUMIN 3.1 g/dl (3.3-4.9)
[2016-11-29 06:57] LABS: POTASSIUM 3.4 mmol/L (3.5-5.1)
[2016-11-29 06:59] LABS: ALBUMIN/GLOBULIN RATIO 0.91; BILIRUBIN,DIRECT 2.2 mg/dl (0.00-0.20); BILIRUBIN,TOTAL 5.2 mg/dl (0.2-1.3); CREATININE 0.6 mg/dl (0.44-1.00); TOTAL PROTEIN 6.5 g/dl (6.1-8.1)
[2016-11-29 07:00] LABS: CALCIUM 8.2 mg/dl (8.4-10.2); MAGNESIUM 1.8 mg/dl (1.7-2.5); PHOSPHORUS 2.9 mg/dl (2.5-4.9)
[2016-11-29 07:57] VITALS: BP 99/43; RESP 16
--- NOTE | 2016-11-29 10:24 | CONS ---
Date/Time of Note Date/Time of Note DATE: 11/29/16 TIME: 10:22 Assessment/Plan Assessment/Plan Additional Assessment/Plan Assessment: * Cholangitis (fever plus jaundice in patient with history of biliary atresia) * History of biliary atresia * Post Kasai procedure * Poor compliance Plan: * Antibiotic coverage * Monitor liver panel * Review MRCP * Start clear diet and advance as tolerated * Further recommendations depend on clinical course * Pt seen in collaboration with Dr. Gay Consultation Date/Type/Reason Admit Date/Time Nov 28, 2016 at 22:29 Type of Consultation: Gastroenterology Reason for Consultation Transaminitis Hx of Present Illness Ms. Arminda Boothe is a 21-year-old female that presents with fever and jaundice started abruptly yesterday. Patient denies abdominal pain, nausea, vomiting, chills, diarrhea, sick contacts, travel outside the [place]. Patient did report cloudiness in the urine, but at bedside denies dysuria and hematuria. 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 Patient reports cholecystectomy as a child as well. Past Surgical History Past Surgical Hx: other Social History Smoking Status: Never smoker Exam/Review of Systems Vital Signs Vitals Vital Signs Date Time Temp Pulse Resp B/P Pulse Ox O2 Delivery O2 Flow Rate FiO2 11/29/16 07:57 99.4 80 16 99/43 97 11/29/16 00:27 Room Air Intake and Output 11/28/16 11/28/16 11/29/16 15:00 23:00 07:00 Intake Total 1450 ml Balance 1450 ml Exam Constitutional: alert, oriented, well developed Psych: nl mood/affect Head: normocephalic Eyes: EOMI, icteric, nl lids ENMT: nl external ears & nose, nl lips & teeth, nl nasal mucosa & septum Respiratory: clear to auscultation, normal air movement Cardiovascular: regular rate and rhythm Gastrointestinal: soft, nontender tender Musculoskeletal: nl extremities to inspection Neurological: BOTTOM STAINER II-XII intact Results Result Diagram: 11/29/16 0540 11/29/16 0540 Results 24 hrs Laboratory Tests Test 11/28/16 19:40 11/28/16 21:25 11/29/16 05:40 Urine Color DK. YELLOW Urine Clarity CLEAR Urine pH 7.5 Urine Specific [place] 1.015 Urine Ketones TRACE H Urine Nitrite NEGATIVE Urine Bilirubin 2+ H Urine Ictotest POSITIVE Urine Urobilinogen 1.0 E.U./dL Urine Leukocyte Esterase NEGATIVE Urine Microscopic RBC 0-2 Urine Microscopic WBC 0-2 Urine Squamous Epithelial Cells RARE Urine Bacteria RARE Urine Mucus FEW Urine Hemoglobin NEGATIVE Urine Glucose NEGATIVE Urine Total Protein TRACE White Blood Count 4.4 #L 2.9 #L Red Blood Count 4.17 L 3.43 L Hemoglobin 13.2 11.0 L Hematocrit 39.5 32.4 L Mean Corpuscular Volume 94.7 94.5 Mean Corpuscular Hemoglobin 31.7 32.1 Mean Corpuscular Hemoglobin Concent 33.4 34.0 Red Cell Distribution Width 15.3 H 15.1 H Platelet Count 68 L 50 #L Mean Platelet Volume 11.9 H 12.0 H Neutrophils % 81.0 H 75.6 Lymphocytes % 11.0 L 11.6 L Monocytes % 8.0 10.2 Neutrophils # 3.6 2.2 Lymphocytes # 0.5 L 0.3 L Monocytes # 0.4 0.3 Platelet Estimate PLT APPEAR DECREASED Prothrombin Time 17.5 #H Prothrombin Time Ratio 1.4 INR International Normalized Ratio 1.43 Activated Partial Thromboplast Time 31.4 Sodium Level 143 139 Potassium Level 3.7 3.4 L Chloride Level 110 112 H Carbon Dioxide Level 19 L 19 L Anion Gap 18 H 11 # Blood Urea Nitrogen 10 8 Creatinine 0.71 0.60 Glucose Level 94 88 Calcium Level 9.3 8.2 L Total Bilirubin 4.1 H 5.2 H Direct Bilirubin 1.40 H 2.20 #H Indirect Bilirubin 2.7 H 3.0 H Aspartate Amino Transf (AST/SGOT) 1256 H 704 H Alanine Aminotransferase (ALT/SGPT) 798 H 603 H Alkaline Phosphatase 253 H 209 H Total Protein 8.8 H 6.5 # Albumin 4.5 3.1 #L Globulin 4.30 H 3.40 H Albumin/Globulin Ratio 1.04 0.91 Lipase 122 Eosinophils % 2.0 Basophils % 0.3 Nucleated Red Blood Cells % 0.0 Eosinophils # 0.1 Basophils # 0.0 Nucleated Red Blood Cells # 0.0 Phosphorus Level 2.9 Magnesium Level 1.8 Medications Medications Current Medications Morphine Sulfate (morphine) 4 mg Q4H IV ; Start 11/29/16 at 00:00 Ondansetron HCl 4 mg 4 mg Q6H PRN IV NAUSEA/VOMITING; Start 11/29/16 at 00:00 Imipenem/ Cilastatin Sodium 100 ml @ 100 mls/hr Q6H IVPB Last administered on 11/29/16 04:38; Admin Dose 100 MLS/HR; Start 11/29/16 at 04:00 Vancomycin HCl 250 ml @ 125 mls/hr Q8H IVPB ; Start 11/29/16 at 13:00 Dextrose/Sodium Chloride (D5-1/2ns) 1,000 ml @ 100 mls/hr Q10H IV Last administered on 11/29/16 02:23; Admin Dose 100 MLS/HR; Start 11/29/16 at 02:00 Miscellaneous Information (*Rx Drug Level Order Reminder*) VANCOMYCIN TROUGH AT 0500 ONCE ONCE XX ; Start 11/30/16 at 05:00; Stop 11/30/16 at 05:01 DEANGELO BEAN Nov 29, 2016 10:24
[2016-11-29] MEDS ORDERED: POTASSIUM CHLORIDE (SR) 20 MEQ TAB PO STA (11:40)
[2016-11-29] MEDS: VANCOMYCIN 1 GM in NS 250 ML IVPB SCH ×2 (13:02→20:48)
--- NOTE | 2016-11-29 13:44 | PN ---
Date/Time of Note Date/Time of Note DATE: 11/29/16 TIME: 13:39 Assessment/Plan VTE Prophylaxis VTE Prophylaxis Intervention: ambulation Lines/Catheters [facility] ([facility] Peripheral IV Urinary Cath still in place: No Assessment/Plan Chief Complaint/Hosp Course Assessment and plan 1. Sepsis secondary to cholangitis. Continue antibiotics for now. GI consult follow. 2. History of recurrent cholangitis. GI follow. Follow-up with recommendations 3. History of biliary atresia. patient s/p Kasai procedure. Continue to monitor 4. Chronic thrombocytopenia secondary to liver cirrhosis. No signs of bleeding at this time. Monitor H&H 5. Transaminitis secondary to cholangitis. GI to follow Disposition and plan: Continue antibiotics for now. Monitor for clinical response. GI to follow-up Discussed care of Dr. Thomas Problems: Subjective 24 Hr Interval Summary Free Text/Dictation Comfortable at present. No other specific complaints Exam/Review of Systems Vital Signs Vitals Vital Signs Date Time Temp Pulse Resp B/P Pulse Ox O2 Delivery O2 Flow Rate FiO2 11/29/16 07:57 99.4 80 16 99/43 97 11/29/16 00:27 Room Air Intake and Output 11/28/16 11/28/16 11/29/16 14:59 22:59 06:59 Intake Total 1450 ml Balance 1450 ml Exam Constitutional: alert, oriented Psych: nl mood/affect Head: normocephalic Neck: No jvd Respiratory: clear to auscultation, normal air movement Cardiovascular: regular rate and rhythm Gastrointestinal: non-tender, soft Neurological: CALL CIRCUIT WORKER II-XII intact, nl mental status, nl speech Skin: nl turgor Results Result Diagram: 11/29/16 0540 11/29/16 0540 Results 24 hrs Laboratory Tests Test 11/28/16 19:40 11/28/16 21:25 11/29/16 05:40 Urine Color DK. YELLOW Urine Clarity CLEAR Urine pH 7.5 Urine Specific [place] 1.015 Urine Ketones TRACE H Urine Nitrite NEGATIVE Urine Bilirubin 2+ H Urine Ictotest POSITIVE Urine Urobilinogen 1.0 E.U./dL Urine Leukocyte Esterase NEGATIVE Urine Microscopic RBC 0-2 Urine Microscopic WBC 0-2 Urine Squamous Epithelial Cells RARE Urine Bacteria RARE Urine Mucus FEW Urine Hemoglobin NEGATIVE Urine Glucose NEGATIVE Urine Total Protein TRACE White Blood Count 4.4 #L 2.9 #L Red Blood Count 4.17 L 3.43 L Hemoglobin 13.2 11.0 L Hematocrit 39.5 32.4 L Mean Corpuscular Volume 94.7 94.5 Mean Corpuscular Hemoglobin 31.7 32.1 Mean Corpuscular Hemoglobin Concent 33.4 34.0 Red Cell Distribution Width 15.3 H 15.1 H Platelet Count 68 L 50 #L Mean Platelet Volume 11.9 H 12.0 H Neutrophils % 81.0 H 75.6 Lymphocytes % 11.0 L 11.6 L Monocytes % 8.0 10.2 Neutrophils # 3.6 2.2 Lymphocytes # 0.5 L 0.3 L Monocytes # 0.4 0.3 Platelet Estimate PLT APPEAR DECREASED Prothrombin Time 17.5 #H Prothrombin Time Ratio 1.4 INR International Normalized Ratio 1.43 Activated Partial Thromboplast Time 31.4 Sodium Level 143 139 Potassium Level 3.7 3.4 L Chloride Level 110 112 H Carbon Dioxide Level 19 L 19 L Anion Gap 18 H 11 # Blood Urea Nitrogen 10 8 Creatinine 0.71 0.60 Glucose Level 94 88 Calcium Level 9.3 8.2 L Total Bilirubin 4.1 H 5.2 H Direct Bilirubin 1.40 H 2.20 #H Indirect Bilirubin 2.7 H 3.0 H Aspartate Amino Transf (AST/SGOT) 1256 H 704 H Alanine Aminotransferase (ALT/SGPT) 798 H 603 H Alkaline Phosphatase 253 H 209 H Total Protein 8.8 H 6.5 # Albumin 4.5 3.1 #L Globulin 4.30 H 3.40 H Albumin/Globulin Ratio 1.04 0.91 Lipase 122 Eosinophils % 2.0 Basophils % 0.3 Nucleated Red Blood Cells % 0.0 Eosinophils # 0.1 Basophils # 0.0 Nucleated Red Blood Cells # 0.0 Phosphorus Level 2.9 Magnesium Level 1.8 Medications Medications Current Medications Ondansetron HCl 4 mg 4 mg Q6H PRN IV NAUSEA/VOMITING; Start 11/29/16 at 00:00 Imipenem/ Cilastatin Sodium 100 ml @ 100 mls/hr Q6H IVPB Last administered on 11/29/16 10:55; Admin Dose 100 MLS/HR; Start 11/29/16 at 04:00 Vancomycin HCl 250 ml @ 125 mls/hr Q8H IVPB Last administered on 11/29/16 13: 02; Admin Dose 125 MLS/HR; Start 11/29/16 at 13:00 Dextrose/Sodium Chloride (D5-1/2ns) 1,000 ml @ 100 mls/hr Q10H IV Last administered on 11/29/16 02:23; Admin Dose 100 MLS/HR; Start 11/29/16 at 02:00 Miscellaneous Information (*Rx Drug Level Order Reminder*) VANCOMYCIN TROUGH AT 0500 ONCE ONCE XX ; Start 11/30/16 at 05:00; Stop 11/30/16 at 05:01 Morphine Sulfate (morphine) 4 mg Q4H PRN IV PAIN LEVEL 6-10; Start 11/29/16 at 16:00 EDIS EDWARDS Nov 29, 2016 13:44
[2016-11-29] MEDS ORDERED: morphine 4 MG/ML VIAL IV PRN (16:00)
[2016-11-29 19:41] VITALS: BP 114/65; RESP 18
[2016-11-29] MEDS: IBUPROFEN 400 MG TAB PO PRN (20:47)
[2016-11-30 00:42] VITALS: BP 106/56; RESP 18
[2016-11-30] MEDS: DEXTROSE 5%-0.45% NACL 1,000 ML IV SCH ×3 (01:56→19:55)
[2016-11-30] MEDS: IMIPENEM-CILAST 500MG IV (PMX) 100 ML IVPB SCH ×6 (04:05→23:31)
[2016-11-30 04:19] VITALS: BP 102/52; RESP 18
[2016-11-30 04:41] LABS: ALBUMIN 2.9 g/dl (3.3-4.9); POTASSIUM 3.5 mmol/L (3.5-5.1)
[2016-11-30 04:44] LABS: ALBUMIN/GLOBULIN RATIO 0.82; BILIRUBIN,DIRECT 4.2 mg/dl (0.00-0.20); BILIRUBIN,INDIRECT 2.9 mg/dl (0-1.1); BILIRUBIN,TOTAL 7.1 mg/dl (0.2-1.3); CALCIUM 8.1 mg/dl (8.4-10.2); CREATININE 0.6 mg/dl (0.44-1.00); TOTAL PROTEIN 6.4 g/dl (6.1-8.1)
[2016-11-30] MEDS: VANCOMYCIN 1 GM in NS 250 ML IVPB SCH ×3 (05:48→20:47)
[2016-11-30 07:42] VITALS: BP 109/62; RESP 18
[2016-11-30] MEDS ORDERED: VANCOMYCIN 1.5 GM in SOD CHLORIDE 0.9% 250 ML IVPB SCH ×2 (11:00→13:00)
--- NOTE | 2016-11-30 11:02 | CONS ---
Date/Time of Note Date/Time of Note DATE: 11/30/16 TIME: 11:00 Assessment/Plan Assessment/Plan Chief Complaint/Hosp Course Ms. Arminda Boothe is a 21-year-old female that presents with fever and jaundice started abruptly yesterday. Patient denies abdominal pain, nausea, vomiting, chills, diarrhea, sick contacts, travel outside the [place]. Patient did report cloudiness in the urine, but at bedside denies dysuria and hematuria. 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 Patient reports cholecystectomy as a child as well. Problems: Additional Assessment/Plan Assessment: * Cholangitis (fever plus jaundice in patient with history of biliary atresia) * History of biliary atresia * Post Kasai procedure * Poor compliance Plan: * Antibiotic coverage * Monitor liver panel * Review MRCP * Start regular diet * Further recommendations depend on clinical course * Pt seen in collaboration with Dr. Gay Consultation Date/Type/Reason Admit Date/Time Nov 28, 2016 at 22:29 Initial Consult Date Type of Consultation: Gastroenterology 24 HR Interval Summary Free Text/Dictation AST and ALT trending downward Bilirubin trending upward MRCP completed but not resulted Slightly more jaundiced in a.m. Exam/Review of Systems Vital Signs Vitals Vital Signs Date Time Temp Pulse Resp B/P Pulse Ox O2 Delivery O2 Flow Rate FiO2 11/30/16 07:42 98.0 66 18 109/62 99 11/29/16 00:27 Room Air Intake and Output 11/29/16 11/29/16 11/30/16 15:00 23:00 07:00 Intake Total 680 ml 470 ml 1670 ml Balance 680 ml 470 ml 1670 ml Exam Constitutional: alert, oriented, well developed Psych: nl mood/affect Head: normocephalic Eyes: EOMI, nl conjunctiva, nl lids ENMT: nl external ears & nose, nl lips & teeth, nl nasal mucosa & septum Respiratory: clear to auscultation, normal air movement Cardiovascular: regular rate and rhythm Gastrointestinal: soft, nontender Musculoskeletal: nl extremities to inspection Neurological: INCLUSION INTERN II-XII intact Results Result Diagram: 11/29/16 0540 11/30/16 0410 Results 24 hrs Laboratory Tests Test 11/30/16 04:10 Sodium Level 138 Potassium Level 3.5 Chloride Level 111 H Carbon Dioxide Level 20 L Anion Gap 11 Blood Urea Nitrogen 5 L Creatinine 0.60 Glucose Level 110 Calcium Level 8.1 L Total Bilirubin 7.1 H Direct Bilirubin 4.20 #H Indirect Bilirubin 2.9 H Aspartate Amino Transf (AST/SGOT) 300 H Alanine Aminotransferase (ALT/SGPT) 415 H Alkaline Phosphatase 218 H Total Protein 6.4 Albumin 2.9 L Globulin 3.50 H Albumin/Globulin Ratio 0.82 Vancomycin Level Trough 6.5 L Medications Medications Current Medications Ondansetron HCl 4 mg 4 mg Q6H PRN IV NAUSEA/VOMITING; Start 11/29/16 at 00:00 Imipenem/ Cilastatin Sodium 100 ml @ 100 mls/hr Q6H IVPB Last administered on 11/30/16 09:54; Admin Dose 100 MLS/HR; Start 11/29/16 at 04:00 Dextrose/Sodium Chloride (D5-1/2ns) 1,000 ml @ 100 mls/hr Q10H IV Last administered on 11/30/16 01:56; Admin Dose 100 MLS/HR; Start 11/29/16 at 02:00 Morphine Sulfate (morphine) 4 mg Q4H PRN IV PAIN LEVEL 6-10; Start 11/29/16 at 16:00 Ibuprofen 400 mg 400 mg Q6H PRN PO PAIN OR TEMP ABOVE 38C Last administered on 11/29/16 20:47; Admin Dose 400 MG; Start 11/29/16 at 20:30 Vancomycin HCl (Vancocin) 250 ml @ 125 mls/hr Q8H IVPB ; Start 11/30/16 at 13: 00 Miscellaneous Information (*Rx Drug Level Order Reminder*) VANCOMYCIN TROUGH 12/01 AT 0400 ONCE ONCE XX ; Start 12/01/16 at 04:00; Stop 12/01/16 at 04:01 DEANGELO BEAN Nov 30, 2016 11:02
--- NOTE | 2016-11-30 15:15 | PN ---
Date/Time of Note Date/Time of Note DATE: 11/30/16 TIME: 15:14 Assessment/Plan VTE Prophylaxis VTE Prophylaxis Intervention: ambulation Lines/Catheters [facility] Peripheral IV Urinary Cath still in place: No Assessment/Plan Chief Complaint/Hosp Course Assessment and plan 1. Sepsis secondary to cholangitis. Continue antibiotics for now. Psychological Tests Sales Agent following 2. History of recurrent cholangitis. GI follow. Follow-up with recommendations 3. History of biliary atresia. patient s/p Kasai procedure. Continue to monitor 4. Chronic thrombocytopenia secondary to liver cirrhosis. No signs of bleeding at this time. Monitor H&H 5. Transaminitis secondary to cholangitis. Continue GI recommendations. Monitor level Disposition and plan: Continue antibiotics for now. Monitor LFT. Discharge when medically stable and cleared by consultants Discussed care of Dr. Thomas Problems: Subjective 24 Hr Interval Summary Free Text/Dictation Reports less pain on her abdomen today. Exam/Review of Systems Vital Signs Vitals Vital Signs Date Time Temp Pulse Resp B/P Pulse Ox O2 Delivery O2 Flow Rate FiO2 11/30/16 07:42 98.0 66 18 109/62 99 11/29/16 00:27 Room Air Intake and Output 11/29/16 11/29/16 11/30/16 15:00 23:00 07:00 Intake Total 680 ml 470 ml 1670 ml Balance 680 ml 470 ml 1670 ml Exam Constitutional: alert, oriented Psych: nl mood/affect Head: normocephalic Eyes: icteric (minimal) Neck: supple, No jvd Respiratory: clear to auscultation, normal air movement Cardiovascular: regular rate and rhythm Gastrointestinal: non-tender, soft Musculoskeletal: nl extremities to inspection Extremities: normal pulses Neurological: INDUSTRIAL PHARMACIST II-XII intact, nl mental status, nl speech Results Result Diagram: 11/29/16 0540 11/30/16 0410 Results 24 hrs Laboratory Tests Test 11/30/16 04:10 Sodium Level 138 Potassium Level 3.5 Chloride Level 111 H Carbon Dioxide Level 20 L Anion Gap 11 Blood Urea Nitrogen 5 L Creatinine 0.60 Glucose Level 110 Calcium Level 8.1 L Total Bilirubin 7.1 H Direct Bilirubin 4.20 #H Indirect Bilirubin 2.9 H Aspartate Amino Transf (AST/SGOT) 300 H Alanine Aminotransferase (ALT/SGPT) 415 H Alkaline Phosphatase 218 H Total Protein 6.4 Albumin 2.9 L Globulin 3.50 H Albumin/Globulin Ratio 0.82 Vancomycin Level Trough 6.5 L Medications Medications Current Medications Ondansetron HCl 4 mg 4 mg Q6H PRN IV NAUSEA/VOMITING; Start 11/29/16 at 00:00 Imipenem/ Cilastatin Sodium 100 ml @ 100 mls/hr Q6H IVPB Last administered on 11/30/16 09:54; Admin Dose 100 MLS/HR; Start 11/29/16 at 04:00 Dextrose/Sodium Chloride (D5-1/2ns) 1,000 ml @ 100 mls/hr Q10H IV Last administered on 11/30/16 01:56; Admin Dose 100 MLS/HR; Start 11/29/16 at 02:00 Morphine Sulfate (morphine) 4 mg Q4H PRN IV PAIN LEVEL 6-10; Start 11/29/16 at 16:00 Ibuprofen 400 mg 400 mg Q6H PRN PO PAIN OR TEMP ABOVE 38C Last administered on 11/29/16 20:47; Admin Dose 400 MG; Start 11/29/16 at 20:30 Vancomycin HCl (Vancocin) 250 ml @ 125 mls/hr Q8H IVPB Last administered on 12:58; Admin Dose 125 MLS/HR; Start 11/30/16 at 13:00 Miscellaneous Information (*Rx Drug Level Order Reminder*) VANCOMYCIN TROUGH 12/01 AT 0400 ONCE ONCE XX ; Start 12/01/16 at 04:00; Stop 12/01/16 at 04:01 EDIS EDWARDS Nov 30, 2016 15:15
--- NOTE | 2016-11-30 16:45 | RADRPT ---
PROCEDURE: MR Abdomen and MRCP. CLINICAL INDICATION: Transaminase. Cholangitis. Abdominal pain. TECHNIQUE: MRI abdomen without contrast and MRCP was performed on a high-resolution high field [facility]. Patient was examined without IV contrast. 3-D coronal rotating MIP images of the biliary nicolette e are available for review. COMPARISON: CT scan abdomen dated 11/29/2016 FINDINGS: MRI Abdomen: The liver is shrunken in size and lobulated and cirrhotic in appearance, stable over time. There is normal homogeneous signal intensity within the liver. No liver mass lesion or intrahepatic biliary dilatation is seen. Chronic periportal thickening and edema is seen throughout the liver. The spleen is markedly enlarged in size measuring 18.3 cm in length, yet is homogeneous in signal in tensity. No intrasplenic lesion is identified. The stomach is partially collapsed but grossly unrema rkable. The pancreas, as visualized, is equally unremarkable. No pancreatic lesion is seen. The a drenal glands and kidneys are symmetrically normal. The aorta is of normal caliber. 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 The IVC is engorged and dilated. Ther e is no retroperitoneal lymphadenopathy. The bowel and mesentery, as visualized, are all unremarkab le. MRCP: The gallbladder is not visualized, and likely is absent. The biliary tree is poorly visualized. How ever, no obvious or definite biliary dilatation is seen. There is no evidence for choledocholithias is on this study. The pancreatic duct, as visualized, is grossly unremarkable. IMPRESSION: 1. Shrunken and cirrhotic appearance of the liver. 2. Periportal edema and fibrosis throughout the liver. 3. No evidence for significant biliary dilatation. 4. Severe splenomegaly which is homogeneous. 5. No adenopathy or mass lesion is identified. RPTAT: HMJB .Aubrey Flores MD, Date Time Electronically viewed and signed by .Aubrey Flores MD, MD on 11/30/2016 16:45 .B/
[2016-11-30 22:34] VITALS: BP 111/73; RESP 18
[2016-12-01] MEDS: IBUPROFEN 400 MG TAB PO PRN ×2 (00:55→14:44)
[2016-12-01] MEDS: IMIPENEM-CILAST 500MG IV (PMX) 100 ML IVPB SCH ×4 (04:29→23:29)
[2016-12-01 04:45] LABS: ALBUMIN 2.9 g/dl (3.3-4.9)
[2016-12-01 04:46] LABS: POTASSIUM 3.5 mmol/L (3.5-5.1)
[2016-12-01 04:48] LABS: BILIRUBIN,DIRECT 2.9 mg/dl (0.00-0.20); BILIRUBIN,INDIRECT 2.1 mg/dl (0-1.1); CREATININE 0.63 mg/dl (0.44-1.00)
[2016-12-01 04:49] LABS: ALBUMIN/GLOBULIN RATIO 0.82; CALCIUM 8.1 mg/dl (8.4-10.2); TOTAL PROTEIN 6.4 g/dl (6.1-8.1)
[2016-12-01] MEDS: VANCOMYCIN 1 GM in NS 250 ML IVPB SCH (06:04)
[2016-12-01 07:47] VITALS: BP 112/66; RESP 20
--- NOTE | 2016-12-01 11:42 | PN ---
DATE: 12/01/2016 TIME OF EVALUATION: 10:30 a.m. SUBJECTIVE DATA: Denies any abdominal pain. Tolerating a regular diet. Complains of periods of diaphoresis. Denies any nausea, vomiting. OBJECTIVE DATA: VITAL SIGNS: Temperature 97.8, pulse is 64, respiratory rate 20, blood pressure 112/66, oxygen saturation 98% on room air. GENERAL: This is a well-built, well-nourished female patient lying in bed in no apparent distress. HEENT: Head normocephalic and atraumatic. Eyes: Icteric sclerae. Conjunctivae clear. ENT: Nasal septum is midline. Oral mucosa is moist. NECK: Supple. No JVD noticed. RESPIRATORY: Bilaterally clear to auscultation. No adventitious breath sounds. No use of accessory muscles of respiration. CARDIAC: Regular rate and rhythm. No murmurs. ABDOMEN: Soft. Minimal tenderness in the epigastric area. Bowel sounds positive in all 4 quadrants. GENITOURINARY: Deferred. EXTREMITIES: No cyanosis, no clubbing, no edema. Peripheral pulses palpable. NEUROLOGIC: The patient is awake, alert and oriented. Cranial nerves are grossly intact. LABORATORY AND DIAGNOSTIC DATA: WBC 2.9, hemoglobin 11.0, hematocrit 32.4, platelet count 50. Sodium 140, potassium 3.5, chloride 112, carbon dioxide 19, anion gap 13, BUN 4, creatinine 0.6, glucose 106, calcium 8.1, total bilirubin 5.0, indirect bilirubin 2.9, indirect bilirubin 2.1, AST 161, ALT 318. Alkaline phosphatase 245. ASSESSMENT AND PLAN: 1. Sepsis secondary to underlying cholangitis. No evidence of any septic shock. Continue antibiotics. 2. History of recurrent cholangitis. Continue gastroenterology recommendations. 3. History of biliary atresia. Status post Kasai procedure. 4. Chronic thrombocytopenia secondary to underlying liver cirrhosis. Continue to monitor. 5. Transaminitis secondary to underlying cholangitis. Trend LFTs. Avoid hepatotoxic medications. 6. Leukocytopenia, most probably secondary to underlying liver cirrhosis. Monitor. 7. Fluid, electrolytes and nutrition. Regular diet as tolerated. 8. Deep venous thrombosis prophylaxis. Bilateral sequential compression devices. 9. Gastrointestinal prophylaxis. H2 receptor blockers. PLAN: Continue antibiotics. Continue current management. Trend liver function tests. Case discussed with Dr. Taylor, DONIS TAYLOR MD AM/CRISTOFER Conf#: [id number] DID#: [id number] MTDAndrew
[2016-12-01] MEDS: VANCOMYCIN 1.25 GM in SOD CHLORIDE 0.9% 250 ML IVPB SCH ×2 (12:33→20:43)
[2016-12-01] MEDS: DEXTROSE 5%-0.45% NACL 1,000 ML IV SCH (14:45)
--- NOTE | 2016-12-01 15:59 | PN ---
Date/Time of Note Date/Time of Note DATE: 12/01/16 TIME: 15:50 Assessment/Plan VTE Prophylaxis VTE Prophylaxis Intervention: SCD's Lines/Catheters [facility] Peripheral IV Urinary Cath still in place: No Assessment/Plan Assessment/Plan Assessment * Ascending cholangitis controlled Hx of Kasai procedure Biliary atresia * Cirrhosis liver secondary * Plan * Continue present management * Consider refer patient for higher level of care Subjective 24 Hr Interval Summary Free Text/Dictation * Course reviewed with RN * Patient seen and examined * Denies any abdominal pain nor fever Exam/Review of Systems Vital Signs Vitals Vital Signs Date Time Temp Pulse Resp B/P Pulse Ox O2 Delivery O2 Flow Rate FiO2 12/01/16 07:47 97.8 64 20 112/66 98 11/29/16 00:27 Room Air Intake and Output 11/30/16 11/30/16 12/01/16 15:00 23:00 07:00 Intake Total 350 ml 2090 ml 1330 ml Output Total 500 ml Balance 350 ml 2090 ml 830 ml Exam Constitutional: alert, oriented, well developed Eyes: icteric Neck: non-tender, supple Respiratory: clear to auscultation, diminished breath sounds, normal air movement Cardiovascular: nl pulses, regular rate and rhythm Gastrointestinal: bowel sounds, non-tender, soft, No rebound or guarding Musculoskeletal: nl extremities to inspection, nl gait and stance Extremities: normal pulses Skin: other Results Result Diagram: 11/29/16 0540 12/01/16 0347 Results 24 hrs Laboratory Tests Test 12/01/16 03:47 Sodium Level 140 Potassium Level 3.5 Chloride Level 112 H Carbon Dioxide Level 19 L Anion Gap 13 Blood Urea Nitrogen 4 L Creatinine 0.63 Glucose Level 106 Calcium Level 8.1 L Total Bilirubin 5.0 #H Direct Bilirubin 2.90 #H Indirect Bilirubin 2.1 H Aspartate Amino Transf (AST/SGOT) 161 H Alanine Aminotransferase (ALT/SGPT) 318 H Alkaline Phosphatase 245 H Total Protein 6.4 Albumin 2.9 L Globulin 3.50 H Albumin/Globulin Ratio 0.82 Vancomycin Level Trough 9.8 L Medications Medications Current Medications Ondansetron HCl 4 mg 4 mg Q6H PRN IV NAUSEA/VOMITING; Start 11/29/16 at 00:00 Imipenem/ Cilastatin Sodium 100 ml @ 100 mls/hr Q6H IVPB Last administered on 12/01/16 09:45; Admin Dose 100 MLS/HR; Start 11/29/16 at 04:00 Dextrose/Sodium Chloride (D5-1/2ns) 1,000 ml @ 100 mls/hr Q10H IV Last administered on 12/01/16 14:45; Admin Dose 100 MLS/HR; Start 11/29/16 at 02:00 Morphine Sulfate (morphine) 4 mg Q4H PRN IV PAIN LEVEL 6-10; Start 11/29/16 at 16:00 Ibuprofen 400 mg 400 mg Q6H PRN PO PAIN OR TEMP ABOVE 38C Last administered on 12/01/16 14:44; Admin Dose 400 MG; Start 11/29/16 at 20:30 Vancomycin HCl/ Sodium Chloride (Vancocin/NS) 250 ml @ 83.333 mls/ hr Q8H IVPB Last administered on 12/01/16 12:33; Admin Dose 83.333 MLS/HR; Start 12/01/16 at 12:00 Famotidine (Pepcid) 20 mg BID PO ; Start 12/01/16 at 21:00 Miscellaneous Information (*Rx Drug Level Order Reminder*) VANCOMYCIN TROUGH 12/02 AT 1100 ONCE ONCE XX ; Start 12/02/16 at 11:00; Stop 12/02/16 at 11:01 ALISSON MORRISSEY MD December 01, 2016 15:59
[2016-12-01 20:00] VITALS: BP 109/61; PULSE 58; RESP 18
[2016-12-01] MEDS: FAMOTIDINE 20 MG TAB PO SCH (20:43)
[2016-12-02] MEDS: VANCOMYCIN 1.25 GM in SOD CHLORIDE 0.9% 250 ML IVPB SCH ×2 (04:19→13:20)
[2016-12-02 06:56] LABS: ALBUMIN 2.9 g/dl (3.3-4.9); POTASSIUM 3.3 mmol/L (3.5-5.1)
[2016-12-02 06:58] LABS: BILIRUBIN,DIRECT 1.5 mg/dl (0.00-0.20); BILIRUBIN,INDIRECT 1.5 mg/dl (0-1.1); CREATININE 0.6 mg/dl (0.44-1.00)
[2016-12-02 06:59] LABS: ALBUMIN/GLOBULIN RATIO 0.87; TOTAL PROTEIN 6.2 g/dl (6.1-8.1)
[2016-12-02 07:00] LABS: CALCIUM 8.1 mg/dl (8.4-10.2)
[2016-12-02] MEDS: IMIPENEM-CILAST 500MG IV (PMX) 100 ML IVPB SCH ×3 (07:22→18:40)
[2016-12-02] MEDS ORDERED: POTASSIUM CHLORIDE (SR) 10 MEQ TAB PO ONE (07:30)
[2016-12-02 07:38] VITALS: BP 101/56; RESP 20
[2016-12-02] MEDS: FAMOTIDINE 20 MG TAB PO SCH ×2 (09:58→20:20)
[2016-12-02] MEDS: DEXTROSE 5%-0.45% NACL 1,000 ML IV SCH ×3 (10:00→20:21)
--- NOTE | 2016-12-02 15:12 | PN ---
Date/Time of Note Date/Time of Note DATE: 12/02/16 TIME: 15:08 Assessment/Plan VTE Prophylaxis VTE Prophylaxis Intervention: ambulation Lines/Catheters IV C[facility]ter Type (from [facility] Peripheral IV Urinary Cath still in place: No Assessment/Plan Assessment/Plan Assessment * Ascending cholangitis controlled Hx of Kasai procedure Biliary atresia * Cirrhosis liver secondary * Plan * Stable for outpatient management * Consider antibiotic coverage for 2 weeks Subjective 24 Hr Interval Summary Free Text/Dictation * Course reviewed with RN * patient seen nd examined * Denies abdominal pain,nor fever Exam/Review of Systems Vital Signs Vitals Vital Signs Date Time Temp Pulse Resp B/P Pulse Ox O2 Delivery O2 Flow Rate FiO2 12/02/16 07:38 98.4 59 20 101/56 98 12/01/16 20:00 Room Air Intake and Output 12/01/16 12/01/16 12/02/16 15:00 23:00 07:00 Intake Total 350 ml 3930 ml 750 ml Balance 350 ml 3930 ml 750 ml Exam Constitutional: alert, oriented Eyes: PERRL, icteric Neck: supple Respiratory: clear to auscultation, normal air movement Cardiovascular: nl pulses, regular rate and rhythm Gastrointestinal: nl liver, spleen, soft Musculoskeletal: nl extremities to inspection, nl gait and stance Extremities: normal pulses Neurological: nl mental status, nl speech Results Result Diagram: 11/29/16 0540 12/02/16 0525 Results 24 hrs Laboratory Tests Test 12/02/16 05:25 12/02/16 11:05 Sodium Level 141 Potassium Level 3.3 L Chloride Level 113 H Carbon Dioxide Level 20 L Anion Gap 11 Blood Urea Nitrogen 5 L Creatinine 0.60 Glucose Level 91 Calcium Level 8.1 L Magnesium Level 1.8 Total Bilirubin 3.0 #H Direct Bilirubin 1.50 #H Indirect Bilirubin 1.5 H Aspartate Amino Transf (AST/SGOT) 157 H Alanine Aminotransferase (ALT/SGPT) 279 H Alkaline Phosphatase 262 H Total Protein 6.2 Albumin 2.9 L Globulin 3.30 H Albumin/Globulin Ratio 0.87 Vancomycin Level Trough 15.8 Medications Medications Current Medications Ondansetron HCl 4 mg 4 mg Q6H PRN IV NAUSEA/VOMITING; Start 11/29/16 at 00:00 Dextrose/Sodium Chloride (D5-1/2ns) 1,000 ml @ 100 mls/hr Q10H IV Last administered on 12/01/16 14:45; Admin Dose 100 MLS/HR; Start 11/29/16 at 02:00 Morphine Sulfate (morphine) 4 mg Q4H PRN IV PAIN LEVEL 6-10; Start 11/29/16 at 16:00 Ibuprofen 400 mg 400 mg Q6H PRN PO PAIN OR TEMP ABOVE 38C Last administered on 12/01/16 14:44; Admin Dose 400 MG; Start 11/29/16 at 20:30 Vancomycin HCl/ Sodium Chloride (Vancocin/NS) 250 ml @ 83.333 mls/ hr Q8H IVPB Last administered on 12/02/16 13:20; Admin Dose 83.333 MLS/HR; Start 12/01/16 at 12:00 Famotidine 20 mg 20 mg BID PO Last administered on 12/02/16 09:58; Admin Dose 20 MG; Start 12/01/16 at 21:00 Imipenem/ Cilastatin Sodium (Primaxin 500 Mg/ 100 ml (Pmx)) 100 ml @ 100 mls/ hr Q6 IVPB Last administered on 12/02/16 12:13; Admin Dose 100 MLS/HR; Start at 06:00 ALISSON MORRISSEY MD December 02, 2016 15:12
--- NOTE | 2016-12-02 15:29 | PN ---
Date/Time of Note Date/Time of Note DATE: 12/02/16 TIME: 15:28 Assessment/Plan VTE Prophylaxis VTE Prophylaxis Intervention: SCD's Lines/Catheters IV C[facility]ter Type (from [facility]): Peripheral IV Urinary Cath still in place: No Assessment/Plan Chief Complaint/Hosp Course 1. Sepsis secondary to underlying cholangitis. No evidence of any septic shock. Continue antibiotics. 2. History of recurrent cholangitis. Continue gastroenterology recommendations. 3. History of biliary atresia. Status post Kasai procedure. 4. Chronic thrombocytopenia secondary to underlying liver cirrhosis. Continue to monitor. 5. Transaminitis secondary to underlying cholangitis. Trend LFTs. Avoid hepatotoxic medications. 6. Leukocytopenia, most probably secondary to underlying liver cirrhosis. Monitor. 7. Fluid, electrolytes and nutrition. Regular diet as tolerated. 8. Deep venous thrombosis prophylaxis. Bilateral sequential compression devices. 9. Gastrointestinal prophylaxis. H2 receptor blockers. PLAN: Continue antibiotics. Continue current management. Trend liver function tests. Case discussed with Dr. Mayo, Problems: Subjective 24 Hr Interval Summary Free Text/Dictation No fevers reported. No abdominal pain. Exam/Review of Systems Vital Signs Vitals Vital Signs Date Time Temp Pulse Resp B/P Pulse Ox O2 Delivery O2 Flow Rate FiO2 12/02/16 07:38 98.4 59 20 101/56 98 12/01/16 20:00 Room Air Intake and Output 12/01/16 12/01/16 12/02/16 15:00 23:00 07:00 Intake Total 350 ml 3930 ml 750 ml Balance 350 ml 3930 ml 750 ml Exam GENERAL: This is a well-built, well-nourished female patient lying in bed in no apparent distress. HEENT: Head normocephalic and atraumatic. Eyes: Icteric sclerae. Conjunctivae clear. ENT: Nasal septum is midline. Oral mucosa is moist. NECK: Supple. No JVD noticed. RESPIRATORY: Bilaterally clear to auscultation. No adventitious breath sounds. No use of accessory muscles of respiration. CARDIAC: Regular rate and rhythm. No murmurs. ABDOMEN: Soft. Minimal tenderness in the epigastric area. Bowel sounds positive in all 4 quadrants. GENITOURINARY: Deferred. EXTREMITIES: No cyanosis, no clubbing, no edema. Peripheral pulses palpable. NEUROLOGIC: The patient is awake, alert and oriented. Cranial nerves are grossly intact. Results Result Diagram: 11/29/16 0540 12/02/16 0525 Results 24 hrs Laboratory Tests Test 12/02/16 05:25 12/02/16 11:05 Sodium Level 141 Potassium Level 3.3 L Chloride Level 113 H Carbon Dioxide Level 20 L Anion Gap 11 Blood Urea Nitrogen 5 L Creatinine 0.60 Glucose Level 91 Calcium Level 8.1 L Magnesium Level 1.8 Total Bilirubin 3.0 #H Direct Bilirubin 1.50 #H Indirect Bilirubin 1.5 H Aspartate Amino Transf (AST/SGOT) 157 H Alanine Aminotransferase (ALT/SGPT) 279 H Alkaline Phosphatase 262 H Total Protein 6.2 Albumin 2.9 L Globulin 3.30 H Albumin/Globulin Ratio 0.87 Vancomycin Level Trough 15.8 Medications Medications Current Medications Ondansetron HCl 4 mg 4 mg Q6H PRN IV NAUSEA/VOMITING; Start 11/29/16 at 00:00 Dextrose/Sodium Chloride (D5-1/2ns) 1,000 ml @ 100 mls/hr Q10H IV Last administered on 12/01/16 14:45; Admin Dose 100 MLS/HR; Start 11/29/16 at 02:00 Morphine Sulfate (morphine) 4 mg Q4H PRN IV PAIN LEVEL 6-10; Start 11/29/16 at 16:00 Ibuprofen 400 mg 400 mg Q6H PRN PO PAIN OR TEMP ABOVE 38C Last administered on 12/01/16 14:44; Admin Dose 400 MG; Start 11/29/16 at 20:30 Vancomycin HCl/ Sodium Chloride (Vancocin/NS) 250 ml @ 83.333 mls/ hr Q8H IVPB Last administered on 12/02/16 13:20; Admin Dose 83.333 MLS/HR; Start 12/01/16 at 12:00 Famotidine 20 mg 20 mg BID PO Last administered on 12/02/16 09:58; Admin Dose 20 MG; Start 12/01/16 at 21:00 Imipenem/ Cilastatin Sodium (Primaxin 500 Mg/ 100 ml (Pmx)) 100 ml @ 100 mls/ hr Q6 IVPB Last administered on 12/02/16 12:13; Admin Dose 100 MLS/HR; Start at 06:00 DONIS DUBOSE NP December 02, 2016 15:29
[2016-12-02 19:56] VITALS: BP 104/58; RESP 18
[2016-12-03] MEDS: IMIPENEM-CILAST 500MG IV (PMX) 100 ML IVPB SCH ×4 (00:38→13:07)
[2016-12-03] MEDS: DEXTROSE 5%-0.45% NACL 1,000 ML IV SCH ×2 (05:37→08:54)
[2016-12-03 06:12] LABS: ADD SCAN DIFF NO
[2016-12-03 06:22] LABS: ABNORMAL IP MESSAGE 1; HEMATOCRIT 31.7 % (37.0-47.0); HEMOGLOBIN 10.6 g/dl (12.0-16.0); MEAN CORPUSCULAR HEMOGLOBIN 31.3 pg (29.0-33.0); MEAN CORPUSCULAR HGB CONC 33.4 g/dl (32.0-37.0); MEAN CORPUSCULAR VOLUME 93.5 fl (82.0-101.0); MEAN PLATELET VOLUME 11.8 fl (7.4-10.4); PLATELET COUNT 69 10^3/UL (140-415); RED BLOOD COUNT 3.39 10^6/ul (4.20-5.40); RED CELL DISTRIBUTION WIDTH 14.8 % (11.5-14.5); WHITE BLOOD COUNT 1.2 10^3/ul (4.8-10.8)
[2016-12-03 07:21] VITALS: BP 99/54; RESP 16
[2016-12-03 07:52] LABS: ALBUMIN 3.2 g/dl (3.3-4.9); ALBUMIN/GLOBULIN RATIO 0.94; BILIRUBIN,INDIRECT 1.7 mg/dl (0-1.1); BILIRUBIN,TOTAL 1.7 mg/dl (0.2-1.3); CALCIUM 8.5 mg/dl (8.4-10.2); CREATININE 0.59 mg/dl (0.44-1.00); POTASSIUM 3.5 mmol/L (3.5-5.1); TOTAL PROTEIN 6.6 g/dl (6.1-8.1)
[2016-12-03] MEDS: FAMOTIDINE 20 MG TAB PO SCH (08:55)
--- NOTE | 2016-12-03 10:08 | PDOCDIS ---
Discharge Instructions DIAGNOSIS Discharge Diagnosis: Cholangitis CONDITION Patient Condition: Stable HOME CARE INSTRUCTIONS: Diet Instructions: Low Fat /Cholesterol FOLLOW UP/APPOINTMENTS Appointments Kolton Box MD Specialty: Internal Medicine Office Address: [address] [place], [place] [id number] Office OTHER ORDERS: Other Orders: 1. Take a low-cholesterol diet. 2. To complete the course of antibiotics. 3. Follow-up with your primary care physician in 2 weeks. If you do not have a primary care physician, please call Dr. Kolton Box's office. Have your primary care physician arrange for outpatient gastroenterology/hepatology follow -up. 4. Resume activities as tolerated. DONSI DUBOSE NP December 03, 2016 10:08
[2016-12-03] MEDS ORDERED: METR500T14 PO (10:11)
[2016-12-03] MEDS ORDERED: CIPR500T4 PO (10:11)
[2016-12-03 10:29] LABS: EOSINOPHILS # 0.1 10^3/ul (0.0-0.5); LYMPHOCYTES # 0.3 10^3/ul (0.8-2.9); MONOCYTE # 0.1 10^3/ul (0.3-0.9); NEUTROPHIL # 0.7 10^3/ul (1.6-7.5)
[2016-12-03] MEDS ORDERED: MAGNESIUM SULFATE 1 GM/D5W 100 ML IVPB SCH (11:30)
--- NOTE | 2016-12-03 12:31 | DS ---
DATE OF ADMISSION: 11/28/2016 DATE OF DISCHARGE: 12/03/2016 FINAL DIAGNOSES: 1. Acute cholangitis. 2. Sepsis secondary to underlying cholangitis. 3. Biliary atresia. 4. Transaminitis with hyperbilirubinemia. 5. Hepatic cirrhosis. 6. Pancytopenia. CONSULTANTS: Dr. Rashi Gay, Gastroenterology [facility] COURSE: This is a 21-year-old female with a past medical history of biliary atresia status post Kasai procedure, liver cirrhosis, and history of recurrent cholangitis, who came to the emergency room with a chief complaint of fevers as well as hyperbilirubinemia. In the emergency room, the patient was noticed to have transaminitis with hyperbilirubinemia. The patient also had a temperature of 101.5 degrees Fahrenheit in the emergency room. Provided the patient's history of present illness, her comorbidities and the diagnostic findings, a clinical decision was made to admit the patient to inpatient setting to have her further evaluated. The patient was admitted to inpatient medical/surgical floor. The patient was started on empiric antibiotics. Gastroenterology consult was obtained. Chu cultures were obtained. The patient underwent a CT scan of the abdomen and pelvis that showed a small liver with periportal edema and moderate splenomegaly. The patient underwent an MRCP that showed periportal edema and fibrosis throughout the liver with no evidence of significant biliary dilatation. The MRCP also revealed shrunken cirrhotic appearance of the liver. The patient was maintained on antibiotics with improvement in the patient's symptoms. The patient's LFTs were trended daily with improving LFTs throughout the patient's hospital course. The patient has history of biliary atresia, and she is status post Kasai procedure. The patient also has underlying hepatic cirrhosis secondary to biliary atresia. However, the patient had no evidence of any fluid overload or any hyperammonemia that necessitated treatment specifically for that. The patient had no evidence of any septic shock. The patient was also noticed to have pancytopenia, most probably secondary to her underlying liver cirrhosis and splenomegaly. However, the patient did not require any transfusion of any blood products during the patient's hospital course. The patient's abdominal pain was resolved and the patient had no more episodes of fevers later during the patient's hospital course. The patient was cleared by gastroenterology to be discharged home. The patient denied any complaints at the time of discharge. DISCHARGE DISPOSITION AND PLAN: The patient will be discharged home today. The patient will take a low-cholesterol diet. She was instructed to complete the course of antibiotics and she was instructed to follow up with her primary care physician in 2 weeks, and if she does not have a primary care physician, to please call Dr. Kolton Box's office. The patient was instructed to have her primary care physician arrange for outpatient gastroenterology/hepatology followup. She was instructed to resume activities as tolerated. The patient verbalized understanding of her discharge instructions. CONDITION AT DISCHARGE: Stable. DISCHARGE MEDICATIONS: 1. Ciprofloxacin 500 mg p.o. b.i.d. x14 days. 2. Flagyl 500 mg p.o. q.8 hours x14 days. PERTINENT LABORATORY AND DIAGNOSTIC DATA: 1. Chest x-ray upon admission. No evidence of acute cardiopulmonary disease. A CT scan of the abdomen and pelvis upon admission. Small liver with periportal edema. Clinically correlate with cholangitis and cirrhosis. Moderate splenomegaly. Multiple collateral vessels within the left upper abdomen. 2. Magnetic resonance cholangiopancreatography. Shrunken and cirrhotic appearance of the liver. Periportal edema and fibrosis throughout the liver. No evidence for significant biliary dilatation. Severe splenomegaly. No adenopathy or mass lesion is identified. 3. Latest CBC: WBC 1.2, hemoglobin 10.6, hematocrit 31.7, platelet count 69. 4. Latest CMP: Sodium 130, potassium 3.5, carbon dioxide 20, anion gap 10, BUN 6, creatinine 0.59, glucose 100, calcium 8.5, magnesium 1.6, total bilirubin 1.7, direct bilirubin 0.04, indirect bilirubin 1.7, AST 105, ALT 248, alkaline phosphatase 314. At this time, I would like to thank Dr. Gay for seeing the patient and providing clinical recommendations. The case and management of this patient was fully discussed with Dr. Taylor. Approximately 35 minutes was spent on coordinating the discharge on this patient. DONIS TAYLOR MD, AM/CRISTOFER Conf#: [id number] DID#: [id number] MTDD
--- NOTE | 2016-12-03 15:21 | PN ---
Date/Time of Note Date/Time of Note DATE: 12/03/16 TIME: 15:19 Assessment/Plan VTE Prophylaxis VTE Prophylaxis Intervention: SCD's Lines/Catheters IV Catheter Type (from [facility]): Peripheral IV Urinary Cath still in place: No Assessment/Plan Assessment/Plan sment * Ascending cholangitis controlled Hx of Kasai procedure Biliary atresia * Cirrhosis liver secondary * Plan * Stable for outpatient management * Consider antibiotic coverage for 2 weeks Subjective 24 Hr Interval Summary Free Text/Dictation * Course reviewed with RN * Patient seen and examined * No fever nor abdominal pain Exam/Review of Systems Vital Signs Vitals Vital Signs Date Time Temp Pulse Resp B/P Pulse Ox O2 Delivery O2 Flow Rate FiO2 12/03/16 07:21 97.4 60 16 99/54 98 12/01/16 20:00 Room Air Intake and Output 12/02/16 12/02/16 12/03/16 15:00 23:00 07:00 Intake Total 450 ml 300 ml 1000 ml Balance 450 ml 300 ml 1000 ml Exam Constitutional: alert, oriented, well developed Eyes: icteric Neck: non-tender, supple Respiratory: clear to auscultation, normal air movement Cardiovascular: nl pulses, regular rate and rhythm Gastrointestinal: bowel sounds, non-tender, soft, No rebound or guarding Musculoskeletal: nl extremities to inspection, nl gait and stance Results Result Diagram: 12/03/16 0535 12/03/16 0535 Results 24 hrs Laboratory Tests Test 12/03/16 05:35 White Blood Count 1.2 #L Red Blood Count 3.39 L Hemoglobin 10.6 L Hematocrit 31.7 L Mean Corpuscular Volume 93.5 Mean Corpuscular Hemoglobin 31.3 Mean Corpuscular Hemoglobin Concent 33.4 Red Cell Distribution Width 14.8 H Platelet Count 69 #L Mean Platelet Volume 11.8 H Neutrophils % 61.0 Band Neutrophils % 2.0 Lymphocytes % 24.0 Monocytes % 6.0 Eosinophils % 6.0 Promyelocytes % 1.0 H Neutrophils # 0.7 L Lymphocytes # 0.3 L Monocytes # 0.1 L Eosinophils # 0.1 Promyelocytes # 0.0 Differential Comment MANUAL DIFF Giant Platelets RARE Sodium Level 138 Potassium Level 3.5 Chloride Level 112 H Carbon Dioxide Level 20 L Anion Gap 10 Blood Urea Nitrogen 6 L Creatinine 0.59 Glucose Level 100 Calcium Level 8.5 Magnesium Level 1.6 L Total Bilirubin 1.7 H Direct Bilirubin 0.00 # Indirect Bilirubin 1.7 H Aspartate Amino Transf (AST/SGOT) 105 H Alanine Aminotransferase (ALT/SGPT) 248 H Alkaline Phosphatase 314 H Total Protein 6.6 Albumin 3.2 L Globulin 3.40 H Albumin/Globulin Ratio 0.94 Medications Medications Current Medications Ondansetron HCl 4 mg 4 mg Q6H PRN IV NAUSEA/VOMITING; Start 11/29/16 at 00:00 Dextrose/Sodium Chloride (D5-1/2ns) 1,000 ml @ 100 mls/hr Q10H IV Last administered on 12/03/16 08:54; Admin Dose 100 MLS/HR; Start 11/29/16 at 02:00 Morphine Sulfate (morphine) 4 mg Q4H PRN IV PAIN LEVEL 6-10; Start 11/29/16 at 16:00 Ibuprofen (Motrin) 400 mg Q6H PRN PO PAIN OR TEMP ABOVE 38C Last administered on 12/01/16 14:44; Admin Dose 400 MG; Start 11/29/16 at 20:30 Famotidine 20 mg 20 mg BID PO Last administered on 12/03/16 08:55; Admin Dose 20 MG; Start 12/01/16 at 21:00 Imipenem/ Cilastatin Sodium 100 ml @ 100 mls/hr Q6 IVPB Last administered on 13:07; Admin Dose 100 MLS/HR; Start 12/02/16 at 06:00; Stop 12/03/16 at 23 :45 Meropenem (Merrem 1 Gm/100 ml (Pmx)) 100 ml @ 200 mls/hr Q8 IVPB ; Start at 06:00 ALISSON MORRISSEY MD December 03, 2016 15:21
[2016-12-04] MEDS ORDERED: MEROPENEM 1 GM/100 ML (PMX) 100 ML IVPB SCH (06:00)
== END 2016-12-03 17:00 | disposition home or self-care (01) | DRG 871 ==
LOC: FTE 17:46 → MS2 22:29
PROVIDERS: ADMIT Internal Medicine; ATTEND Internal Medicine
DX: A41.9 Sepsis, unspecified organism (principal); Q44.2 Atresia of bile ducts; D61.818 Other pancytopenia; K83.0 Cholangitis; E80.6 Other disorders of bilirubin metabolism; K74.60 Unspecified cirrhosis of liver
CPT/HCPCS: 71010; 74176; 74181; 80053; 80202; 81001; 81003; 83690; 83735; 84100; 85025; 85610; 85730; 87400; 96361; 96374; J0743; J0744; J2185; J3370; J3475; J7030; J7042; J7050

== ENCOUNTER 2017-07-24 07:23 | Inpatient (IN) | payer OTHER ==
[~2017-07-24] VITALS: Ht 165.1 cm; Wt 68.8 kg
[~2017-07-24 07:23] MED LIST changes: +METR500T14 PO; -NAPR-688 PO; -POLY17PO6 PO
[2017-07-24] MEDS ORDERED: IBUPROFEN 600 MG TAB PO ONE (08:00)
[2017-07-24 08:03] LABS: URINE BLOOD (Dip) POC Negative (NEGATIVE)
[2017-07-24 08:59] LABS: ADD UMIC YES; UR ASCORBIC ACID NEGATIVE (NEGATIVE); UR BACTERIA FEW /HPF (NONE SEEN); UR BILIRUBIN (Dip) NEGATIVE (NEGATIVE); UR BLOOD (Dip) NEGATIVE (NEGATIVE); UR CLARITY CLEAR (CLEAR); UR COLOR AMBER (YELLOW); UR GLUCOSE (Dip) NEGATIVE (NEGATIVE); UR KETONES (Dip) TRACE mg/dL (NEGATIVE); UR LEUKOCYTE ESTERASE (Dip) NEGATIVE Leu/ul (NEGATIVE); UR MUCUS FEW /HPF (NONE SEEN); UR NITRITE (Dip) NEGATIVE (NEGATIVE); UR RBC 0 /HPF (0-5); UR SPECIFIC GRAVITY (Dip) 1.025 (1.003-1.030); UR SQUAMOUS EPITHELIAL CELL FEW /HPF (FEW); UR TOTAL PROTEIN (Dip) 1+ mg/dl (NEGATIVE); UR UROBILINOGEN (Dip) 2+ mg/dL (NEGATIVE)
[2017-07-24 09:36] LABS: ABNORMAL IP MESSAGE 1; HEMATOCRIT 34.5 % (37.0-47.0); MEAN CORPUSCULAR HEMOGLOBIN 32.3 pg (29.0-33.0); MEAN CORPUSCULAR HGB CONC 34.8 g/dl (32.0-37.0); MEAN CORPUSCULAR VOLUME 92.7 fl (82.0-101.0); MEAN PLATELET VOLUME 11.1 fl (7.4-10.4); PLATELET COUNT 37 10^3/UL (140-415); RED BLOOD COUNT 3.72 10^6/ul (4.20-5.40); RED CELL DISTRIBUTION WIDTH 13.5 % (11.5-14.5); WHITE BLOOD COUNT 3.9 10^3/ul (4.8-10.8)
[2017-07-24 09:45] LABS: POSITIVE DIFF @See below
[2017-07-24 10:00] LABS: BILIRUBIN,DIRECT 0.5 mg/dl (0.00-0.20); BILIRUBIN,INDIRECT 3.6 mg/dl (0-1.1); BILIRUBIN,TOTAL 4.1 mg/dl (0.2-1.3); CALCIUM 9.2 mg/dl (8.4-10.2); CREATININE 0.86 mg/dl (0.44-1.00); POTASSIUM 4.1 mmol/L (3.5-5.1)
[2017-07-24 10:01] LABS: ALBUMIN 3.9 g/dl (3.3-4.9); ALBUMIN/GLOBULIN RATIO 0.92; TOTAL PROTEIN 8.1 g/dl (6.1-8.1)
[2017-07-24 10:15] LABS: ANISOCYTOSIS 1+ (0-0); MONOCYTES % (M) 6 % (0-11); PLATELET ESTIMATE SIG DECREASED; POIKILOCYTOSIS 1+ (0-0)
--- NOTE | 2017-07-24 10:24 | ERD ---
ER Documentation Chief Complaint Chief Complaint FLU SYMPTOMS ONSET YESTERDAY ROS All systems reviewed and are negative except as per history of present illness. Medications Home Meds Active Scripts Metronidazole* (Metronidazole*) 500 Mg Tablet, 500 MG PO Q8 for 14 Days, TAB Prov:DONIS DUBOSE PROCEDURE MANAGER 12/03/16 Ciprofloxacin Hcl* (Ciprofloxacin Hcl*) 500 Mg Tablet, 500 MG PO BID for 14 Days , #28 TAB Prov:DONIS DUBOSE PROCEDURE MANAGER 12/03/16 Allergies Allergies: Coded Allergies: amoxicillin (Verified Allergy, Unknown, RASH, 11/28/16) PMhx/Soc Anesthesia Reaction: No Hx Neurological Disorder: No Hx Respiratory Disorders: No Hx Cardiac Disorders: No Hx Psychiatric Problems: No Hx Miscellaneous Medical Probl: Yes (LIVER CIRRHOSIS, CHOLECYSTECTOMY) Hx Alcohol Use: No Hx Substance Use: No Hx Tobacco Use: No Physical Exam Vitals Vital Signs Date Time Temp Pulse Resp B/P Pulse Ox O2 Delivery O2 Flow Rate FiO2 07/24/17 10:52 101.3 93 20 116/59 98 Room Air 07/24/17 07:26 102.4 106 18 128/68 96 Result Diagram: 07/24/17 0916 07/24/17 0916 Results 24 hrs Laboratory Tests Test 07/24/17 07:55 07/24/17 08:04 07/24/17 09:16 Urine Color POLO Urine Clarity CLEAR Urine pH 5.0 Urine Specific Comfort 1.025 Urine Ketones TRACEmg/dL Urine Nitrite NEGATIVEmg/dL Urine Bilirubin NEGATIVEmg/dL Urine Urobilinogen 2+mg/dL Urine Leukocyte Esterase NEGATIVELeu/ul Urine Microscopic RBC 0/HPF Urine Microscopic WBC 3/HPF Urine Squamous Epithelial Cells FEW/HPF Urine Bacteria FEW/HPF Urine Mucus FEW/HPF Urine Hemoglobin NEGATIVEmg/dL Urine Glucose NEGATIVEmg/dL Urine Total Protein 1+mg/dl Bedside Urine pH (LAB) 6.0 Bedside Urine Protein (LAB) Trace Bedside Urine Glucose (UA) Negative Bedside Urine Ketones (LAB) 1+ Bedside Urine Blood Negative Bedside Urine Nitrite (LAB) Negative Bedside Urine Leukocyte Esterase (L Negative White Blood Count 3.910^3/ul Red Blood Count 3.7210^6/ul Hemoglobin 12.0g/dl Hematocrit 34.5% Mean Corpuscular Volume 92.7fl Mean Corpuscular Hemoglobin 32.3pg Mean Corpuscular Hemoglobin Concent 34.8g/dl Red Cell Distribution Width 13.5% Platelet Count 3710^3/UL Mean Platelet Volume 11.1fl Neutrophils % % Segmented Neutrophils % (Manual) 73% Band Neutrophils % (Manual) 10% Lymphocytes % % Lymphocytes % (Manual) 11% Monocytes % % Monocytes % (Manual) 6% Eosinophils % % Basophils % % Nucleated Red Blood Cells % 0.0/100WBC Neutrophils # 10^3/ul Neutrophils # (Manual) 2.910^3/ul Band Neutrophils # 0.310^3/ul Absolute Lymphocytes (Manual) 0.410^3/ul Lymphocytes # 10^3/ul Monocytes # 10^3/ul Absolute Monocytes (Manual) 0.210^3/ul Eosinophils # 10^3/ul Basophils # 10^3/ul Nucleated Red Blood Cells # 10^3/ul Platelet Estimate SIG DECREASED Poikilocytosis 1+ Anisocytosis 1+ Sodium Level 139mmol/L Potassium Level 4.1mmol/L Chloride Level 106mmol/L Carbon Dioxide Level 23mmol/L Anion Gap 14 Blood Urea Nitrogen 16mg/dl Creatinine 0.86mg/dl Glucose Level 93mg/dl Calcium Level 9.2mg/dl Total Bilirubin 4.1mg/dl Direct Bilirubin 0.50mg/dl Indirect Bilirubin 3.6mg/dl Aspartate Amino Transf (AST/SGOT) 432IU/L Alanine Aminotransferase (ALT/SGPT) 300IU/L Alkaline Phosphatase 137IU/L Total Protein 8.1g/dl Albumin 3.9g/dl Globulin 4.20g/dl Albumin/Globulin Ratio 0.92 Lipase 53U/L Current Medications Medications (Trade) Dose Ordered Sig/Dawson Route PRN Reason Start Time Stop Time Status Last Admin Dose Admin Ibuprofen (Motrin) 600 mg ONCE ONCE PO 07/24/17 08:00 07/24/17 08:01 DC 07/24/17 08:26 Sodium Chloride 2130 ml 2,130 ml BOLUS OVER 2 HOURS STAT IV* 07/24/17 10:26 07/24/17 10:27 DC Vancomycin HCl 250 ml @ 125 mls/hr ONCE IVPB 07/24/17 10:30 07/24/17 12:29 Aztreonam (Azactam 1gm/NS (Pmx)) 50 ml @ 100 mls/hr ONCE ONCE IVPB 07/24/17 10:30 07/24/17 10:59 DC Procedures/MDM Departure Diagnosis: Primary Impression: Pancytopenia Additional Impressions: Transaminitis Bandemia Condition: Stable KOFI MIRANDA PA-C Jul 24, 2017 10:24 Vancomycin HCl 250 ml @ 125 mls/hr ONCE IVPB 07/24/17 10:30 07/24/17 12:29 Aztreonam (Azactam 1gm/NS (Pmx)) 50 ml @ 100 mls/hr ONCE ONCE IVPB 07/24/17 10:30 07/24/17 10:59 DC Procedures/MDM ED COURSE: The patient was stable throughout ED course. I kept the patient and/or family informed of laboratory and diagnostic imaging results throughout the ED course. MEDICATIONS GIVEN: Ibuprofen, IV fluids, vancomycin Patient tolerated medication well with no adverse reactions. MEDICAL DECISION MAKING: Patient is a 22-year-old female with a history of biliary atresia status post Kasai procedure, liver cirrhosis, and history of recurrent cholangitis who presents ED for concerns of generalized body aches, right upper quadrant pain and dark urine 1 day. Vital signs were reviewed. Patient was noted to have a temperature 102.4F at initial presentation. Patient was noted to have a pulse of 106. Patient was given ibuprofen here in the ED. Patient did appear jaundiced. Flu swab was negative. Urine test was negative. CBC showed pancytopenia. CMP showed no evidence of electrolyte abnormalities. Patient's total bili was noted to be 4.1, direct bili to be 0.5, indirect bili to be in 3.6. Patient's AST was noted to be 132, ALT of 300, alk phos of 137. Patient's lipase was within normal limits. UA was negative for acute infection. Upon obtaining the patient's blood work results, I discussed the case with my supervising physician Dr. Bonilla. At this time, patient presentation is most consistent with pancytopenia and transaminitis. Septic protocol was ordered. Lactic acid and blood cultures pending. Urine culture pending. Patient was given 30 cc/kg IV bolus. Patient was also started on Aztreonam and Vancomycin. Dr. Ochoa will admit the patient for further workup and management. Departure Diagnosis: Primary Impression: Pancytopenia Additional Impressions: Transaminitis Bandemia Condition: Stable KOFI MIRANDA PA-C Jul 24, 2017 10:24 Primary Impression: Pancytopenia Condition: Stable KOFI MIRANDA PA-C Jul 24, 2017 10:24
[2017-07-24] MEDS ORDERED: SODIUM CHLORIDE 0.9% 1L BAG IV* STA (10:26)
[2017-07-24] MEDS ORDERED: AZTREONAM 1 GM/NS (PMX) 50 ML IVPB ONE (10:30)
[2017-07-24] MEDS ORDERED: VANCOMYCIN 1 GM (PMX) 250 ML IVPB SCH (10:30)
[2017-07-24] MEDS ORDERED: ACETAMINOPHEN 325 MG TAB PO PRN (11:30)
[2017-07-24] MEDS ORDERED: ONDANSETRON 4 MG INJ IV PRN ×2 (11:30→14:30)
[2017-07-24] MEDS ORDERED: DIPHENHYDRAMINE 50 MG INJ IV ONE (13:00)
--- NOTE | 2017-07-24 13:15 | ERD ---
ER Documentation Chief Complaint Chief Complaint FLU SYMPTOMS ONSET YESTERDAY HPI Patient is a 22-year-old female with a history of cholangitis who presents with flulike symptoms. She said that she has had fever as well as abdominal pain over the past few days and this feels like when she previously had cholangitis in the past. She is worried that she might be having cholangitis again. Her eyes are yellow. She has had no treatment as of yet. She has had her gallbladder taken out in the past. ROS All systems reviewed and are negative except as per history of present illness. Medications Home Meds Active Scripts Metronidazole* (Metronidazole*) 500 Mg Tablet, 500 MG PO Q8 for 14 Days, TAB Prov:DONIS DUBOSE CARE AIDE 12/03/16 Ciprofloxacin Hcl* (Ciprofloxacin Hcl*) 500 Mg Tablet, 500 MG PO BID for 14 Days , #28 TAB Prov:DONIS DUBOSE CARE AIDE 12/03/16 Allergies Allergies: Coded Allergies: amoxicillin (Verified Allergy, Unknown, RASH, 11/28/16) PMhx/Soc Anesthesia Reaction: No Hx Neurological Disorder: No Hx Respiratory Disorders: No Hx Cardiac Disorders: No Hx Psychiatric Problems: No Hx Miscellaneous Medical Probl: Yes (LIVER CIRRHOSIS, CHOLECYSTECTOMY) Hx Alcohol Use: No Hx Substance Use: No Hx Tobacco Use: No FmHx Family History: No diabetes Physical Exam Vitals Vital Signs Date Time Temp Pulse Resp B/P Pulse Ox O2 Delivery O2 Flow Rate FiO2 07/24/17 10:52 101.3 93 20 116/59 98 Room Air 07/24/17 07:26 102.4 106 18 128/68 96 Physical Exam Const: Moderate distress Head: Atraumatic Eyes: Scleral icterus ENT: Normal External Ears, Nose and Mouth. Neck: Full range of motion..~ No meningismus. Resp: Clear to auscultation bilaterally Cardio: Regular rate and rhythm, no murmurs Abd: Soft, tenderness to palpation without rebound or guarding Skin: No petechiae or rashes Back: No midline or flank tenderness Ext: No cyanosis, or edema Neur: Awake and alert Psych: Normal Mood and Affect Result Diagram: 07/24/1791507/24/1716 Results 24 hrs Laboratory Tests Test 07/24/17 07:55 07/24/17 08:04 07/24/17 09:16 12/22/17 10:50 Urine Color POLO Urine Clarity CLEAR Urine pH 5.0 Urine Specific Ruth 1.025 Urine Ketones TRACEmg/dL Urine Nitrite NEGATIVEmg/dL Urine Bilirubin NEGATIVEmg/dL Urine Urobilinogen 2+mg/dL Urine Leukocyte Esterase NEGATIVELeu/ul Urine Microscopic RBC 0/HPF Urine Microscopic WBC 3/HPF Urine Squamous Epithelial Cells FEW/HPF Urine Bacteria FEW/HPF Urine Mucus FEW/HPF Urine Hemoglobin NEGATIVEmg/dL Urine Glucose NEGATIVEmg/dL Urine Total Protein 1+mg/dl Bedside Urine pH (LAB) 6.0 Bedside Urine Protein (LAB) Trace Bedside Urine Glucose (UA) Negative Bedside Urine Ketones (LAB) 1+ Bedside Urine Blood Negative Bedside Urine Nitrite (LAB) Negative Bedside Urine Leukocyte Esterase (L Negative White Blood Count 3.910^3/ul Red Blood Count 3.7210^6/ul Hemoglobin 12.0g/dl Hematocrit 34.5% Mean Corpuscular Volume 92.7fl Mean Corpuscular Hemoglobin 32.3pg Mean Corpuscular Hemoglobin Concent 34.8g/dl Red Cell Distribution Width 13.5% Platelet Count 3710^3/UL Mean Platelet Volume 11.1fl Neutrophils % % Segmented Neutrophils % (Manual) 73% Band Neutrophils % (Manual) 10% Lymphocytes % % Lymphocytes % (Manual) 11% Monocytes % % Monocytes % (Manual) 6% Eosinophils % % Basophils % % Nucleated Red Blood Cells % 0.0/100WBC Neutrophils # 10^3/ul Neutrophils # (Manual) 2.910^3/ul Band Neutrophils # 0.310^3/ul Absolute Lymphocytes (Manual) 0.410^3/ul Lymphocytes # 10^3/ul Monocytes # 10^3/ul Absolute Monocytes (Manual) 0.210^3/ul Eosinophils # 10^3/ul Basophils # 10^3/ul Nucleated Red Blood Cells # 10^3/ul Platelet Estimate SIG DECREASED Poikilocytosis 1+ Anisocytosis 1+ Sodium Level 139mmol/L Potassium Level 4.1mmol/L Chloride Level 106mmol/L Carbon Dioxide Level 23mmol/L Anion Gap 14 Blood Urea Nitrogen 16mg/dl Creatinine 0.86mg/dl Glucose Level 93mg/dl Calcium Level 9.2mg/dl Total Bilirubin 4.1mg/dl Direct Bilirubin 0.50mg/dl Indirect Bilirubin 3.6mg/dl Aspartate Amino Transf (AST/SGOT) 432IU/L Alanine Aminotransferase (ALT/SGPT) 300IU/L Alkaline Phosphatase 137IU/L Total Protein 8.1g/dl Albumin 3.9g/dl Globulin 4.20g/dl Albumin/Globulin Ratio 0.92 Lipase 53U/L Lactic Acid Level 1.0mmol/L Current Medications Medications (Trade) Dose Ordered Sig/Dawson Route PRN Reason Start Time Stop Time Status Last Admin Dose Admin Ibuprofen (Motrin) 600 mg ONCE ONCE PO 07/24/17 08:00 07/24/17 08:01 DC 07/24/17 08:26 Sodium Chloride 2130 ml 2,130 ml BOLUS OVER 2 HOURS STAT IV* 07/24/17 10:26 07/24/17 10:27 DC 07/24/17 11:20 Vancomycin HCl 250 ml @ 125 mls/hr ONCE IVPB 07/24/17 10:30 07/24/17 12:29 DC 07/24/17 12:24 Aztreonam (Azactam 1gm/NS (Pmx)) 50 ml @ 100 mls/hr ONCE ONCE IVPB 07/24/17 10:30 07/24/17 10:59 DC 07/24/17 11:19 Ondansetron HCl (Zofran Inj) 4 mg BRIDGE ORDER PRN IV NAUSEA AND/OR VOMITING 07/24/17 11:30 07/25/17 11:29 Acetaminophen (Tylenol Tab) 650 mg ER BRIDGE PRN PO MILD PAIN/FEVER 07/24/17 11:30 07/25/17 11:29 Diphenhydramine HCl (Benadryl) 25 mg ONCE ONCE IV 07/24/17 13:00 07/24/17 13:01 DC 07/24/17 12:49 Procedures/MDM Admit MDM: Patient's infectious symptoms have not stabilized and the patient is at risk of rapid decompensation. The patient will be admitted for careful hydration, antibiotic therapy, and infectious source control. Severe Sepsis criteria: Infectious source: Cholangitis End organ damage indicated by: Bilirubin greater than 2 Sepsis Management: Time of recognition of sepsis: 9:16 AM Within 3 hours of recognition: Blood cultures x 2 before broad-spectrum antibiotics: Yes 30 ml/kg NS bolus Completed Initial lactate 1.0 Repeat lactate pending Time of recognition of septic shock: No septic shock Septic Shock Assessment: Any lactic acid > 4.0 No Persistent hypotension (SBP < 90 or 40 mmHg drop, MAP < 65) despite 30 mL/kg IV fluid bolus No Volume Re-assessment for Septic Shock (post 30 ml/kg bolus): No septic shock at this time Persistent Hypotension Treatment: Comfort care No Central line Not Required Vasopressor started Not required I considered further perfusion assessment with CVP measurement, SCVO2, bedside ultrasound volume assessment, passive leg raise, trial of further fluid bolus. And proceeded with 30 ml/kg fluid bolus of NSS, broad spectrum antibiotics, and admission. Accepting Care Team Current data and ongoing care discussed. Admitting Physician: Dr. Mayo from the panel team Precipitator Operator(s): None Outstanding Data: Culture results and repeat lactic acid Critical Care: Critical care time 35 minutes excluding all billable procedures Emergent fluid management while maintaining close respiratory support. Provision of immediate and broad-spectrum antibiotic therapy. Simultaneous assessment for possible sources in order to direct targeted therapy. Consideration for invasive and chemical support to prevent cardiopulmonary collapse. Departure Diagnosis: Primary Impression: Cholangitis Additional Impressions: Transaminitis Pancytopenia Bandemia Severe sepsis Condition: Fair MORENITA RODRIGUEZ MD Jul 24, 2017 13:15
[2017-07-24] MEDS ORDERED: IBUPROFEN 200 MG TAB PO ONE (14:00)
--- NOTE | 2017-07-24 14:29 | HP ---
Date/Time of Note Date/Time of Note DATE: 07/24/17 TIME: 14:13 Assessment/Plan VTE Prophylaxis VTE Prophylaxis Intervention: ambulation Assessment/Plan Assessment/Plan 22-year-old female who presents with fever and abdominal pain managed for the followin. Sepsis: Source unclear at this time possibly secondary to #2 2. History of recurrent cholangitis, patient may be having an acute flare with transaminitis, hyperbilirubinemia and fever, however imaging studies are pending to confirm biliary dilatation 3. 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 History of recurrent sepsis and multiple hospitalizations 5. Chronic pancytopenia likely secondary to chronic cirrhosis 6. Large splenomegaly on imaging Plan: Patient is to be admitted for empiric antibiotic, sepsis workup, and supportive care. Follow-up influenza screen, cultures, chest x-ray, and right upper quadrant imaging to check for biliary dilatation. Supportive care with antipyretics, pain control and antiemetics as needed. Further interventions will depend on her clinical course HPI/ROS Admit Date/Time Admit Date/Time 07/24/17 . Hx of Present Illness This is a 22-year-old female with a history of biliary atresia status post [place] procedure as a child and a history of chronic liver cirrhosis since who presents to us with fever abdominal pain and lethargy. 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 She usually presents with fever elevated liver enzymes. She does have a history of chronic jaundice from her cirrhosis as well as hyperbilirubinemia. Previous CAT scans and MRI in this facility has shown shrunken liver. There are no new imaging studies today to confirm biliary dilatation. The patient is status post cholecystectomy. PMH/Family/Social Past Medical History 1. Acute cholangitis. 2. Sepsis secondary to underlying cholangitis. 3. Biliary atresia. 4. Transaminitis with hyperbilirubinemia. 5. Hepatic cirrhosis. 6. Pancytopenia. Past Surgical History Past Surgical Hx: other Exam/Review of Systems Vital Signs Vitals Vital Signs Date Time Temp Pulse Resp B/P Pulse Ox O2 Delivery O2 Flow Rate FiO2 07/24/17 14:03 101.9 07/24/17 10:52 93 20 116/59 98 Room Air Exam Exam GENERAL: acutelyill looking HEENT: Head normocephalic and atraumatic. Eyes: Icteric sclerae. Conjunctivae clear. ENT: Nasal septum is midline. Oral mucosa is moist. NECK: Supple. No JVD noticed. RESPIRATORY: Bilaterally clear to auscultation. No adventitious breath sounds. No use of accessory muscles of respiration. CARDIAC: tachycardia. No murmurs. ABDOMEN: Soft. Minimal tenderness in the epigastric area. Bowel sounds positive in all 4 quadrants. GENITOURINARY: Deferred. EXTREMITIES: No cyanosis, no clubbing, no edema. Peripheral pulses palpable. NEUROLOGIC: The patient is awake, alert and oriented. Cranial nerves are grossly intact. Labs Result Diagram: 07/24/17 0916 07/24/17 0916 Procedures Procedures Laboratory Tests Test 07/24/17 07:55 07/24/17 08:04 07/24/17 09:16 07/24/17 10:50 Urine Color POLO Urine Clarity CLEAR Urine pH 5.0 Urine Specific Eden 1.025 Urine Ketones TRACEmg/dL Urine Nitrite NEGATIVEmg/dL Urine Bilirubin NEGATIVEmg/dL Urine Urobilinogen 2+mg/dL Urine Leukocyte Esterase NEGATIVELeu/ul Urine Microscopic RBC 0/HPF Urine Microscopic WBC 3/HPF Urine Squamous Epithelial Cells FEW/HPF Urine Bacteria FEW/HPF Urine Mucus FEW/HPF Urine Hemoglobin NEGATIVEmg/dL Urine Glucose NEGATIVEmg/dL Urine Total Protein 1+mg/dl Bedside Urine pH (LAB) 6.0 Bedside Urine Protein (LAB) Trace Bedside Urine Glucose (UA) Negative Bedside Urine Ketones (LAB) 1+ Bedside Urine Blood Negative Bedside Urine Nitrite (LAB) Negative Bedside Urine Leukocyte Esterase (L Negative White Blood Count 3.910^3/ul Red Blood Count 3.7210^6/ul Hemoglobin 12.0g/dl Hematocrit 34.5% Mean Corpuscular Volume 92.7fl Mean Corpuscular Hemoglobin 32.3pg Mean Corpuscular Hemoglobin Concent 34.8g/dl Red Cell Distribution Width 13.5% Platelet Count 3710^3/UL Mean Platelet Volume 11.1fl Neutrophils % % Segmented Neutrophils % (Manual) 73% Band Neutrophils % (Manual) 10% Lymphocytes % % Lymphocytes % (Manual) 11% Monocytes % % Monocytes % (Manual) 6% Eosinophils % % Basophils % % Nucleated Red Blood Cells % 0.0/100WBC Neutrophils # 10^3/ul Neutrophils # (Manual) 2.910^3/ul Band Neutrophils # 0.310^3/ul Absolute Lymphocytes (Manual) 0.410^3/ul Lymphocytes # 10^3/ul Monocytes # 10^3/ul Absolute Monocytes (Manual) 0.210^3/ul Eosinophils # 10^3/ul Basophils # 10^3/ul Nucleated Red Blood Cells # 10^3/ul Platelet Estimate SIG DECREASED Poikilocytosis 1+ Anisocytosis 1+ Sodium Level 139mmol/L Potassium Level 4.1mmol/L Chloride Level 106mmol/L Carbon Dioxide Level 23mmol/L Anion Gap 14 Blood Urea Nitrogen 16mg/dl Creatinine 0.86mg/dl Glucose Level 93mg/dl Calcium Level 9.2mg/dl Total Bilirubin 4.1mg/dl Direct Bilirubin 0.50mg/dl Indirect Bilirubin 3.6mg/dl Aspartate Amino Transf (AST/SGOT) 432IU/L Alanine Aminotransferase (ALT/SGPT) 300IU/L Alkaline Phosphatase 137IU/L Total Protein 8.1g/dl Albumin 3.9g/dl Globulin 4.20g/dl Albumin/Globulin Ratio 0.92 Lipase 53U/L Lactic Acid Level 1.0mmol/L Current Medications Medications (Trade) Dose Ordered Sig/Dawson Route PRN Reason Start Time Stop Time Status Last Admin Dose Admin Ibuprofen (Motrin) 600 mg ONCE ONCE PO 07/24/17 08:00 07/24/17 08:01 DC 07/24/17 08:26 600 MG Sodium Chloride 2130 ml 2,130 ml BOLUS OVER 2 HOURS STAT IV* 07/24/17 10:26 07/24/17 10:27 DC 07/24/17 11:20 2,130 ML Vancomycin HCl 250 ml @ 125 mls/hr ONCE IVPB 07/24/17 10:30 07/24/17 12:29 DC 07/24/17 12:24 125 MLS/HR Aztreonam (Azactam 1gm/NS (Pmx)) 50 ml @ 100 mls/hr ONCE ONCE IVPB 07/24/17 10:30 07/24/17 10:59 DC 07/24/17 11:19 100 MLS/HR Ondansetron HCl (Zofran Inj) 4 mg BRIDGE ORDER PRN IV NAUSEA AND/OR VOMITING 07/24/17 11:30 07/25/17 11:29 Acetaminophen (Tylenol Tab) 650 mg ER BRIDGE PRN PO MILD PAIN/FEVER 07/24/17 11:30 07/25/17 11:29 Diphenhydramine HCl (Benadryl) 25 mg ONCE ONCE IV 07/24/17 13:00 07/24/17 13:01 DC 07/24/17 12:49 25 MG Ibuprofen (Motrin) 400 mg ONCE ONCE PO 07/24/17 14:00 07/24/17 14:01 DC 07/24/17 13:58 400 MG PROCEDURE: MR Abdomen and MRCP. CLINICAL INDICATION: Transaminase. Cholangitis. Abdominal pain. TECHNIQUE: MRI abdomen without contrast and MRCP was performed on a high- resolution high field scanner. Patient was examined without IV contrast. 3-D coronal rotating MIP images of the biliary tree are available for review. COMPARISON: CT scan abdomen dated 11/29/2016 FINDINGS: MRI Abdomen: The liver is shrunken in size and lobulated and cirrhotic in appearance, stable over time. There is normal homogeneous signal intensity within the liver. No liver mass lesion or intrahepatic biliary dilatation is seen. Chronic periportal thickening and edema is seen throughout the liver. The spleen is markedly enlarged in size measuring 18.3 cm in length, yet is homogeneous in signal intensity. No intrasplenic lesion is identified. The stomach is partially collapsed but grossly unremarkable. The pancreas, as visualized, is equally unremarkable. No pancreatic lesion is seen. The adrenal glands and kidneys are symmetrically normal. The aorta is of normal caliber. Large upper abdominal varices are identified, with a large splenorenal shunt. The IVC is engorged and dilated. There is no retroperitoneal lymphadenopathy. The bowel and mesentery, as visualized, are all unremarkable. MRCP: The gallbladder is not visualized, and likely is absent. The biliary tree is poorly visualized. However, no obvious or definite biliary dilatation is seen. There is no evidence for choledocholithiasis on this study. The pancreatic duct, as visualized, is grossly unremarkable. IMPRESSION: 1. Shrunken and cirrhotic appearance of the liver. 2. Periportal edema and fibrosis throughout the liver. 3. No evidence for significant biliary dilatation. 4. Severe splenomegaly which is homogeneous. 5. No adenopathy or mass lesion is identified. RPTAT: HMJB .Aubrey Flores MD, MD Date Time Electronically viewed and signed by .Aubrey Flores MD, MD on 11/30/2016 16:45 .B/ CC: DEANGELO BEAN PROCEDURE: CT Abdomen and pelvis without contrast. CLINICAL INDICATION: Abdominal pain. TECHNIQUE: CT scan of the abdomen and pelvis was performed on a multi- detector high-resolution CT scanner. Contiguous axial images were obtained from the lung bases to the ischial tuberosities without intravenous contrast. Coronal and sagittal reformatted images were also obtained. Images were reviewed on the PACS workstation. One or more of the following dose reduction techniques were used: - Automated exposure control. - Adjustment of the mA and/or kV according to patient size. - Use of iterative reconstruction technique. Exam CTD/vol = 9.82 mGy. Total exam DLP = 527.66 mGy-cm. COMPARISON: None. FINDINGS: Evaluation of the lung bases demonstrates no pleural or parenchymal disease. Abdomen: The liver is small in size. There is periportal edema. There is no focal mass or dilatation of the biliary tree. The gallbladder is not distended. The spleen is moderately enlarged. There are multiple collateral vessels within the lumen. The pancreas and bilateral adrenal glands are within normal limits. Bilateral kidneys are normal in size with no contour deforming mass identified. There is no radiopaque renal or ureteral calculus identified. There is no hydronephrosis or hydroureter. There is no retroperitoneal adenopathy. The abdominal aorta is of normal caliber. There is no abnormal bowel wall thickening or distension. There is no bowel obstruction or free air. A normal appendix is identified. There is no diverticulosis or diverticulitis. There is no ascites. Pelvis: The bladder is unremarkable. The uterus and adnexa are within normal limits. There is no significant pelvic adenopathy or free fluid. Evaluation of the osseous structures demonstrates no suspicious lytic or blastic lesion. IMPRESSION: Small liver with periportal edema. Clinically correlate with cholangitis and cirrhosis. Moderate splenomegaly. Multiple collateral vessels within the left upper abdomen. .Abraham Ruiz MD, MD Date Time Electronically viewed and signed by .Abraham Ruiz MD, MD on 11/29/2016 01:19 .T/ CC: PRATEEK ZACARIAS MD, BOLATITO M. Jul 24, 2017 14:23
[2017-07-24] MEDS ORDERED: IBUPROFEN 400 MG TAB PO PRN (14:30)
[2017-07-24] MEDS ORDERED: morphine 2 MG INJ IV PRN (14:30)
[2017-07-24 14:54] VITALS: TEMP 98.9
--- NOTE | 2017-07-24 15:09 | RADRPT ---
PROCEDURE: XR Chest. CLINICAL INDICATION: Sepsis. TECHNIQUE: Single frontal view of the chest was obtained. COMPARISON: 11/28/2016. FINDINGS: The cardiomediastinal silhouette is normal in size. No focal consolidation is seen. No pleural effusion is seen. No definite pneumothorax. No acute osseous abnormality. IMPRESSION: No radiographic evidence of an acute cardiopulmonary process. RPTAT: AAEE Luisa Paul Physician Date Time Electronically viewed and signed by Luisa Paul Physician on 07/24/2017 15:09 /
[2017-07-24 15:20] VITALS: BP 105/54; PULSE 90; RESP 16
[2017-07-24] MEDS: SOD CHLORIDE 0.9% 1,000 ML IV SCH ×2 (15:27→22:30)
--- NOTE | 2017-07-24 15:27 | RADRPT ---
PROCEDURE: Right upper quadrant abdominal ultrasound. CLINICAL INDICATION: Abdominal pain, cholangitis TECHNIQUE: Kong scale and color doppler ultrasound images of the right upper quadrant of the abdom en. COMPARISON: MR 11/29/2016 FINDINGS: Pancreas: Visualized portions appear of normal echogenicity without focal lesions. Liver: Morphology:Normal in size. Contour:Normal, no evidence of nodularity. Echogenicity: Heterogeneous periportal increased echogenicity corresponding to the distributions see n on the previous MRI. Focal lesions:None. Main portal vein: Patent with hepatopetal flow. Biliary System: Gallbladder wall: Surgically absent Gallstones: None. Intrahepatic bile ducts: Normal caliber. Common bile duct diameter (mm): 4.7 Kidneys: Right length (cm) : 11.2 Right cortical thickness: Normal. Echogenicity: Normal. Hydronephrosis: None. Renal calculi: None. Focal lesions: None. Free fluid/ascites: None. Other findings: None. IMPRESSION: Status post cholecystectomy. Normal caliber intrahepatic and extrahepatic biliary system. Diffuse heterogeneity of the liver parenchyma with the same periportal distribution as seen on the p revious MRI; likely representing the sequelae of chronic cholangitis RPTAT: AADD .Carlton Ramachandran MD, MD Date Time Electronically viewed and signed by .Carlton Ramachandran MD, on 07/24/2017 15:26 .B/
[2017-07-24 16:01] VITALS: Ht 165.1 cm; Wt 68.8 kg
[2017-07-24] MEDS: LEVOFLOXACIN 750MG/D5W (PMX) 150 ML IVPB SCH (16:43)
[2017-07-24 19:49] VITALS: BP 106/62; RESP 18
[2017-07-24] MEDS: metroNIDAZOLE 500 MG/NS (PMX) 100 ML IVPB SCH (21:59)
[2017-07-25 02:22] VITALS: BP 98/51; RESP 18
[2017-07-25] MEDS: SOD CHLORIDE 0.9% 1,000 ML IV SCH ×4 (02:49→19:00)
[2017-07-25 05:41] LABS: ABNORMAL IP MESSAGE 1; HEMATOCRIT 32.3 % (37.0-47.0); HEMOGLOBIN 10.5 g/dl (12.0-16.0); MEAN CORPUSCULAR HGB CONC 32.5 g/dl (32.0-37.0); MEAN CORPUSCULAR VOLUME 98.5 fl (82.0-101.0); MEAN PLATELET VOLUME 12.6 fl (7.4-10.4); RED BLOOD COUNT 3.28 10^6/ul (4.20-5.40); RED CELL DISTRIBUTION WIDTH 13.6 % (11.5-14.5); WHITE BLOOD COUNT 2.9 10^3/ul (4.8-10.8)
[2017-07-25] MEDS: metroNIDAZOLE 500 MG/NS (PMX) 100 ML IVPB SCH ×3 (05:44→21:44)
[2017-07-25 05:49] LABS: POSITIVE DIFF @See below
[2017-07-25 05:51] LABS: PLATELET COUNT 28 10^3/UL (140-415)
[2017-07-25 05:52] LABS: PATH REVIEW? YES
[2017-07-25 06:09] LABS: ALBUMIN 2.9 g/dl (3.3-4.9); ALBUMIN/GLOBULIN RATIO 0.82; BILIRUBIN,DIRECT 2.4 mg/dl (0.00-0.20); BILIRUBIN,INDIRECT 3.5 mg/dl (0-1.1); BILIRUBIN,TOTAL 5.9 mg/dl (0.2-1.3); CALCIUM 8.5 mg/dl (8.4-10.2); CREATININE 0.71 mg/dl (0.44-1.00); MAGNESIUM 1.7 mg/dl (1.7-2.5); POTASSIUM 4.3 mmol/L (3.5-5.1); TOTAL PROTEIN 6.4 g/dl (6.1-8.1)
[2017-07-25 07:47] VITALS: BP 111/62; RESP 18
[2017-07-25 09:19] LABS: ANISOCYTOSIS 1+ (0-0); EOSINOPHILS % (M) 3 % (0-7); METAMYELOCYTES %M 1 % (0-0); MICROCYTOSIS 1+ (0-0); MONOCYTES % (M) 2 % (0-11); PLATELET ESTIMATE SIG DECREASED; POIKILOCYTOSIS 1+ (0-0); POLYCHROMASIA 2+ (0-0)
[2017-07-25 14:00] VITALS: BP 108/60; RESP 18
--- NOTE | 2017-07-25 16:15 | PN ---
Date/Time of Note Date/Time of Note DATE: 07/25/17 TIME: 16:03 Assessment/Plan VTE Prophylaxis VTE Prophylaxis Intervention: ambulation Lines/Catheters [facility] (from [facility] Peripheral IV Urinary Cath still in place: No Assessment/Plan Chief Complaint/Hosp Course S: No acute events overnight, no fever since yesterday. O: VS (see below) PE: GENERAL: Lying in bed HEENT: Head normocephalic and atraumatic. Eyes: Icteric sclerae. Conjunctivae clear. ENT: Nasal septum is midline. Oral mucosa is moist. NECK: Supple. No JVD noticed. RESPIRATORY: Bilaterally clear to auscultation. No adventitious breath sounds. No use of accessory muscles of respiration. CARDIAC: tachycardia. No murmurs. ABDOMEN: Soft. Minimal tenderness in the epigastric area. Bowel sounds positive in all 4 quadrants. GENITOURINARY: Deferred. EXTREMITIES: No cyanosis, no clubbing, no edema. Peripheral pulses palpable. NEUROLOGIC: The patient is awake, alert and oriented. Cranial nerves are grossly intact. Assessment/Plan: 22-year-old female who presents with fever and abdominal pain managed for the followin. Sepsis: Source unclear at this time possibly secondary to #2 2. History of recurrent cholangitis, hyperbilirubinemia and fever 3. 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 History of recurrent sepsis and multiple hospitalizations 5. Chronic pancytopenia likely secondary to chronic cirrhosis 6. Large splenomegaly on imaging Plan: Continue empiric antibiotic, sepsis workup, and supportive care, monitor LFTs ( her bilirubins have trended up, but her AST and ALT are trending down), will get GI consult as well Follow-up influenza screen, cultures, chest x-ray Supportive care with antipyretics, pain control and antiemetics as needed. Further interventions will depend on her clinical course Problems: Exam/Review of Systems Vital Signs Vitals Vital Signs Date Time Temp Pulse Resp B/P Pulse Ox O2 Delivery O2 Flow Rate FiO2 07/25/17 14:00 98.4 63 18 108/60 100 07/24/17 15:20 Room Air Intake and Output 07/24/17 07/24/17 07/25/17 15:00 23:00 07:00 Intake Total 570 ml 1200 ml Output Total 620 ml Balance 570 ml 580 ml Results Result Diagram: 07/25/17 0428 07/25/17 0428 Results 24 hrs Laboratory Tests Test 07/24/17 17:22 07/24/17 20:21 07/25/17 04:28 07/25/17 06:31 Lactic Acid Level 1.1 1.6 1.0 White Blood Count 2.9 #L Red Blood Count 3.28 L Hemoglobin 10.5 L Hematocrit 32.3 L Mean Corpuscular Volume 98.5 Mean Corpuscular Hemoglobin 32.0 Mean Corpuscular Hemoglobin Concent 32.5 Red Cell Distribution Width 13.6 Platelet Count 28 #*L Mean Platelet Volume 12.6 H Neutrophils % Segmented Neutrophils % (Manual) 71 Band Neutrophils % (Manual) 15 H Lymphocytes % Lymphocytes % (Manual) 8 L Monocytes % Monocytes % (Manual) 2 Eosinophils % Eosinophils % (Manual) 3 Basophils % Metamyelocytes % (manual) 1 H Nucleated Red Blood Cells % 0.0 Neutrophils # Neutrophils # (Manual) 2.1 Band Neutrophils # 0.4 Absolute Lymphocytes (Manual) 0.2 L Lymphocytes # Monocytes # Absolute Monocytes (Manual) 0.0 L Eosinophils # Basophils # Metamyelocytes # 0.0 Nucleated Red Blood Cells # Pathologist Review (Hematology) YES Platelet Estimate SIG DECREASED Polychromasia 2+ Poikilocytosis 1+ Anisocytosis 1+ Microcytosis 1+ Sodium Level 141 Potassium Level 4.3 Chloride Level 112 H Carbon Dioxide Level 20 L Anion Gap 13 Blood Urea Nitrogen 13 Creatinine 0.71 Glucose Level 67 #L Calcium Level 8.5 Magnesium Level 1.7 Total Bilirubin 5.9 H Direct Bilirubin 2.40 #H Indirect Bilirubin 3.5 H Aspartate Amino Transf (AST/SGOT) 177 H Alanine Aminotransferase (ALT/SGPT) 208 H Alkaline Phosphatase 119 Total Protein 6.4 # Albumin 2.9 #L Globulin 3.50 H Albumin/Globulin Ratio 0.82 Bedside Glucose 68 L Test 07/25/17 06:52 07/25/17 09:52 Bedside Glucose 73 88 Medications Medications Current Medications Ibuprofen (Motrin) 400 mg Q6H PRN PO PAIN OR TEMP ABOVE 38C Last administered on 07/25/17t 11:02; Admin Dose 400 MG; Start 07/24/17 at 14:30 Ondansetron HCl (Zofran Inj) 4 mg Q6H PRN IV NAUSEA AND/OR VOMITING; Start at 14:30 Morphine Sulfate 2 mg 2 mg Q4H PRN IV pain; Start 07/24/17 at 14:30 Sodium Chloride 1,000 ml @ 125 mls/hr Q8H IV Last administered on 07/25/17 14:10; Admin Dose 125 MLS/HR; Start 07/24/17 at 14:30 Metronidazole 100 ml @ 100 mls/hr Q8 IVPB Last administered on 07/25/17 13: 48; Admin Dose 100 MLS/HR; Start 07/24/17 at 22:00 Levofloxacin/ Dextrose (Levaquin 750 Mg/ D5W 150 ml (Pmx)) 150 ml @ 100 mls/hr Q24H IVPB Last administered on 07/24/17 16:43; Admin Dose 100 MLS/HR; Start 07/24/17 at 14:30 Procedures Procedures Right upper quadrant abdominal ultrasound: IMPRESSION: Status post cholecystectomy. Normal caliber intrahepatic and extrahepatic biliary system. Diffuse heterogeneity of the liver parenchyma with the same periportal distribution as seen on the previous MRI; likely representing the sequelae of chronic cholangitis RAYMUNDO MEHTA Jul 25, 2017 16:13
[2017-07-25] MEDS: LEVOFLOXACIN 750MG/D5W (PMX) 150 ML IVPB SCH (17:54)
[2017-07-25 19:40] VITALS: BP 106/60; RESP 18
[2017-07-26] MEDS: SOD CHLORIDE 0.9% 1,000 ML IV SCH ×3 (01:09→18:12)
[2017-07-26 02:00] VITALS: BP 111/64; RESP 20
[2017-07-26 05:28] LABS: ABNORMAL IP MESSAGE 1; HEMATOCRIT 27.6 % (37.0-47.0); HEMOGLOBIN 9.4 g/dl (12.0-16.0); MEAN CORPUSCULAR HEMOGLOBIN 31.8 pg (29.0-33.0); MEAN CORPUSCULAR HGB CONC 34.1 g/dl (32.0-37.0); MEAN CORPUSCULAR VOLUME 93.2 fl (82.0-101.0); MEAN PLATELET VOLUME 11.3 fl (7.4-10.4); RED BLOOD COUNT 2.96 10^6/ul (4.20-5.40); RED CELL DISTRIBUTION WIDTH 13.8 % (11.5-14.5); WHITE BLOOD COUNT 1.7 10^3/ul (4.8-10.8)
[2017-07-26] MEDS: metroNIDAZOLE 500 MG/NS (PMX) 100 ML IVPB SCH ×3 (05:30→22:20)
[2017-07-26 05:53] LABS: ALBUMIN 2.7 g/dl (3.3-4.9); ALBUMIN/GLOBULIN RATIO 0.79; BILIRUBIN,DIRECT 0.2 mg/dl (0.00-0.20); BILIRUBIN,INDIRECT 1.8 mg/dl (0-1.1); CALCIUM 8.1 mg/dl (8.4-10.2); CREATININE 0.74 mg/dl (0.44-1.00); POTASSIUM 3.8 mmol/L (3.5-5.1); TOTAL PROTEIN 6.1 g/dl (6.1-8.1)
[2017-07-26 06:57] LABS: PLATELET COUNT 26 10^3/UL (140-415); POSITIVE DIFF @See below
[2017-07-26 08:31] VITALS: BP 108/60; RESP 16
[2017-07-26 10:37] LABS: BASOPHILS % (M) 2 % (0-2); EOSINOPHILS % (M) 3 % (0-7); MONOCYTES % (M) 7 % (0-11); PLATELET ESTIMATE SIG DECREASED; POLYCHROMASIA 1+ (0-0); REACTIVE LYMPHOCYTES% (M) 1 % (0-0)
--- NOTE | 2017-07-26 11:45 | PN ---
Date/Time of Note Date/Time of Note DATE: 07/26/17 TIME: 11:43 Assessment/Plan VTE Prophylaxis VTE Prophylaxis Intervention: ambulation Lines/Catheters [facility] Type (from [facility]): Peripheral IV Urinary Cath still in place: No Assessment/Plan Chief Complaint/Hosp Course S: No acute events overnight, awaiting GI evaluation for later today, no complaints of bleeding. O: VS (see below) PE: GENERAL: Lying in bed HEENT: Head normocephalic and atraumatic. Eyes: Icteric sclerae. Conjunctivae clear. ENT: Nasal septum is midline. Oral mucosa is moist. NECK: Supple. No JVD noticed. RESPIRATORY: Bilaterally clear to auscultation. No adventitious breath sounds. No use of accessory muscles of respiration. CARDIAC: S1, S2 heard no rubs or gallops ABDOMEN: Soft. Minimal tenderness in the epigastric area. Bowel sounds positive in all 4 quadrants. EXTREMITIES: No cyanosis, no clubbing, no edema. Peripheral pulses palpable. NEUROLOGIC: The patient is awake, alert and oriented. Cranial nerves are grossly intact. Assessment/Plan: 22-year-old female who presents with fever and abdominal pain managed for the followin. Sepsis: Source unclear at this time possibly secondary to #2 2. History of recurrent cholangitis, hyperbilirubinemia and fever 3. 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 History of recurrent sepsis and multiple hospitalizations 5. Chronic pancytopenia likely secondary to chronic cirrhosis 6. Large splenomegaly on imaging Plan: Continue empiric antibiotic, sepsis workup, and supportive care, monitor LFTs ( her bilirubins still elevated, but slightly trending down and last 24 hours, her AST and ALT are trending down), follow-up GI consult as well Follow-up influenza screen, cultures, chest x-ray Supportive care with antipyretics, pain control and antiemetics as needed. Further interventions will depend on her clinical course Problems: Exam/Review of Systems Vital Signs Vitals Vital Signs Date Time Temp Pulse Resp B/P Pulse Ox O2 Delivery O2 Flow Rate FiO2 07/26/17 08:31 99.1 80 16 108/60 100 07/24/17 15:20 Room Air Intake and Output 07/25/17 07/25/17 07/26/17 15:00 23:00 07:00 Intake Total 1100 ml 1100 ml 1710 ml Balance 1100 ml 1100 ml 1710 ml Results Result Diagram: 07/26/17 0435 07/26/17 0435 Results 24 hrs Laboratory Tests Test 07/26/17 04:35 07/26/17 05:29 White Blood Count 1.7 #L Red Blood Count 2.96 L Hemoglobin 9.4 L Hematocrit 27.6 L Mean Corpuscular Volume 93.2 Mean Corpuscular Hemoglobin 31.8 Mean Corpuscular Hemoglobin Concent 34.1 Red Cell Distribution Width 13.8 Platelet Count 26 *L Mean Platelet Volume 11.3 H Neutrophils % Segmented Neutrophils % (Manual) 58 Band Neutrophils % (Manual) 16 H Lymphocytes % Lymphocytes % (Manual) 13 L Reactive Lymphocytes % (Manual) 1 H Monocytes % Monocytes % (Manual) 7 Eosinophils % Eosinophils % (Manual) 3 Basophils % Basophils % (Manual) 2 Nucleated Red Blood Cells % 0.0 Neutrophils # Neutrophils # (Manual) 1.0 L Band Neutrophils # 0.2 Absolute Lymphocytes (Manual) 0.2 L Lymphocytes # Reactive Lymphocytes # 0.0 Monocytes # Absolute Monocytes (Manual) 0.1 L Eosinophils # Basophils # Basophils # (Manual) 0.0 Nucleated Red Blood Cells # Platelet Estimate SIG DECREASED Polychromasia 1+ Sodium Level 141 Potassium Level 3.8 Chloride Level 115 H Carbon Dioxide Level 18 L Anion Gap 12 Blood Urea Nitrogen 8 Creatinine 0.74 Glucose Level 84 Calcium Level 8.1 L Total Bilirubin 2.0 #H Direct Bilirubin 0.20 # Indirect Bilirubin 1.8 H Aspartate Amino Transf (AST/SGOT) 91 H Alanine Aminotransferase (ALT/SGPT) 146 H Alkaline Phosphatase 113 Total Protein 6.1 Albumin 2.7 L Globulin 3.40 H Albumin/Globulin Ratio 0.79 Bedside Glucose 85 Medications Medications Current Medications Ibuprofen (Motrin) 400 mg Q6H PRN PO PAIN OR TEMP ABOVE 38C Last administered on 07/25/17 11:02; Admin Dose 400 MG; Start 07/24/17 at 14:30 Ondansetron HCl (Zofran Inj) 4 mg Q6H PRN IV NAUSEA AND/OR VOMITING; Start at 14:30 Morphine Sulfate 2 mg 2 mg Q4H PRN IV pain; Start 07/24/17 at 14:30 Sodium Chloride 1,000 ml @ 125 mls/hr Q8H IV Last administered on 07/26/17 10:45; Admin Dose 125 MLS/HR; Start 07/24/17 at 14:30 Metronidazole 100 ml @ 100 mls/hr Q8 IVPB Last administered on 07/26/17 05: 30; Admin Dose 100 MLS/HR; Start 07/24/17 at 22:00 Levofloxacin/ Dextrose (Levaquin 750 Mg/ D5W 150 ml (Pmx)) 150 ml @ 100 mls/hr Q24H IVPB Last administered on 07/25/17 17:54; Admin Dose 100 MLS/HR; Start 07/24/17 at 14:30 RAYMUNDO MEHTA Jul 26, 2017 11:45
--- NOTE | 2017-07-26 13:09 | CONS ---
Date/Time of Note Date/Time of Note DATE: 07/26/17 TIME: 12:19 Assessment/Plan Assessment/Plan Chief Complaint/Hosp Course Summary Assessment and Plan: Assessment: Biliary atresia S/p Kasai seizure at [facility] at the age of 3 months Cholangeitis Cirrhosis secondary to biliary atresia History of esophageal varices Pancytopenia Transaminitis/hyperbilirubinemia/trending down History of Cholecystectomy Splenomegaly on imaging Plan: Start Lactulose 20mg po daily will titrate to 2-3 Bm a day Will advance diet at tolerated Continue antibiotic coverage Continue to monitor aminotransferase and bilirubin Patient will need EGD as out-pt to assess esophageal varices Patient seen in collaboration with Dr. Gay Problems: Consultation Date/Type/Reason Admit Date/Time 07/24/17 . Date of Consultation: Jul 26, 2017 Type of Consultation: GI Reason for Consultation Cholangitis Hx of Present Illness This is a 22-year-old female with a history of congenital biliary atresia, status post Kasai procedure at the age of 3 months at [facility] , recurrent cholangitis, esophageal varices status post banding about 4 years ago, and liver cirrhosis.She presented to the ER with fever, mild abdominal pain , and lethargy for the last few days. She has a history of recurrent cholangitis and usually presents with these symptoms. At the time of evaluation lab work-up shows a bilirubin of 2.0 down from 4.1, AST 91 down from 432, ALT 146 down from 300, alkaline phos 113 down from 137. WBC today is 1.7, hemoglobin 9.4 MCV and MCH consistent with normocytic normochromic anemia. platelets 26. Blood cultures are positive for E. coli she is currently on Levaquin and Flagyl, urine culture is currently pending, influenza type a and B were both negative. Patient was on lactulose at home, will restart home dose, advance diet and continue to monitor LFT's/bilirubin. further recommendations based on clinical course. Constitutional: chills Eyes: no complaints ENT: no complaints Respiratory: no complaints Cardiovascular: no complaints Gastrointestinal: flatus, nausea, pain, No blood, No decreased appetite, No diarrhea, No vomiting Genitourinary: no complaints Musculoskeletal: no complaints Skin: no complaints Neurologic: no complaints Past Medical History Medical History: other (Biliary atresia, esophageal varices, enlarged spleen on imaging, cirrhosis) Past Surgical History Past Surgical Hx: cholecystectomy, other (Kasai procedure) Social History Smoking Status: Never smoker Exam/Review of Systems Vital Signs Vitals Vital Signs Date Time Temp Pulse Resp B/P Pulse Ox O2 Delivery O2 Flow Rate FiO2 07/26/17 08:31 99.1 80 16 108/60 100 07/24/17 15:20 Room Air Intake and Output 07/25/17 07/25/17 07/26/17 15:00 23:00 07:00 Intake Total 1100 ml 1100 ml 1710 ml Balance 1100 ml 1100 ml 1710 ml Exam PHYSICAL EXAMINATION: GENERAL: Well developed, well nourished, alert & oriented x 3, in no acute distress SKIN: No lesions, no evidence of bleeding diathesis HEAD: Normocephalic, atraumatic, no tenderness. EYES: Pupils equal reactive to light EARS/NOSE AND THROAT: Ears normal, nose normal, NECK: Supple, no masses, thyroid normal, CHEST: Inspection within normal limits. CARDIOVASCULAR: Heart: Regular rate and rhythm, . RESPIRATORY: Lungs clear to auscultation GASTROINTESTINAL AND LIVER: Abdomen: Soft, diffuse mild tenderness to abd , non- distended, no ascites, no guarding, no rebound tenderness, normoactive bowel sounds. Rectal: Deferred. Results Result Diagram: 07/26/17 0435 07/26/17 0435 Results 24 hrs Laboratory Tests Test 07/26/17 04:35 07/26/17 05:29 White Blood Count 1.7 #L Red Blood Count 2.96 L Hemoglobin 9.4 L Hematocrit 27.6 L Mean Corpuscular Volume 93.2 Mean Corpuscular Hemoglobin 31.8 Mean Corpuscular Hemoglobin Concent 34.1 Red Cell Distribution Width 13.8 Platelet Count 26 *L Mean Platelet Volume 11.3 H Neutrophils % Segmented Neutrophils % (Manual) 58 Band Neutrophils % (Manual) 16 H Lymphocytes % Lymphocytes % (Manual) 13 L Reactive Lymphocytes % (Manual) 1 H Monocytes % Monocytes % (Manual) 7 Eosinophils % Eosinophils % (Manual) 3 Basophils % Basophils % (Manual) 2 Nucleated Red Blood Cells % 0.0 Neutrophils # Neutrophils # (Manual) 1.0 L Band Neutrophils # 0.2 Absolute Lymphocytes (Manual) 0.2 L Lymphocytes # Reactive Lymphocytes # 0.0 Monocytes # Absolute Monocytes (Manual) 0.1 L Eosinophils # Basophils # Basophils # (Manual) 0.0 Nucleated Red Blood Cells # Platelet Estimate SIG DECREASED Polychromasia 1+ Sodium Level 141 Potassium Level 3.8 Chloride Level 115 H Carbon Dioxide Level 18 L Anion Gap 12 Blood Urea Nitrogen 8 Creatinine 0.74 Glucose Level 84 Calcium Level 8.1 L Total Bilirubin 2.0 #H Direct Bilirubin 0.20 # Indirect Bilirubin 1.8 H Aspartate Amino Transf (AST/SGOT) 91 H Alanine Aminotransferase (ALT/SGPT) 146 H Alkaline Phosphatase 113 Total Protein 6.1 Albumin 2.7 L Globulin 3.40 H Albumin/Globulin Ratio 0.79 Bedside Glucose 85 Medications Medications Current Medications Ibuprofen (Motrin) 400 mg Q6H PRN PO PAIN OR TEMP ABOVE 38C Last administered on 07/25/17 11:02; Admin Dose 400 MG; Start 07/24/17 at 14:30 Ondansetron HCl (Zofran Inj) 4 mg Q6H PRN IV NAUSEA AND/OR VOMITING; Start at 14:30 Morphine Sulfate 2 mg 2 mg Q4H PRN IV pain; Start 07/24/17 at 14:30 Sodium Chloride 1,000 ml @ 125 mls/hr Q8H IV Last administered on 07/26/17 10:45; Admin Dose 125 MLS/HR; Start 07/24/17 at 14:30 Metronidazole 100 ml @ 100 mls/hr Q8 IVPB Last administered on 07/26/17 05: 30; Admin Dose 100 MLS/HR; Start 07/24/17 at 22:00 Levofloxacin/ Dextrose (Levaquin 750 Mg/ D5W 150 ml (Pmx)) 150 ml @ 100 mls/hr Q24H IVPB Last administered on 07/25/17 17:54; Admin Dose 100 MLS/HR; Start 07/24/17 at 14:30 Copies To: CC: ALISSON GAY MD, VICTORIA Jul 26, 2017 12:29 JAMAR COX Jul 26, 2017 12:29
[2017-07-26] MEDS: LACTULOSE 30ML CUP PO SCH (13:41)
[2017-07-26 14:22] VITALS: BP 121/73; RESP 14
[2017-07-26] MEDS: LEVOFLOXACIN 750MG/D5W (PMX) 150 ML IVPB SCH (16:22)
[2017-07-26 20:33] VITALS: BP 116/65; RESP 18
[2017-07-27] MEDS: SOD CHLORIDE 0.9% 1,000 ML IV SCH (01:49)
[2017-07-27 02:36] VITALS: BP 120/70; RESP 20
[2017-07-27 05:41] LABS: ABNORMAL IP MESSAGE 1; HEMATOCRIT 29.5 % (37.0-47.0); MEAN CORPUSCULAR HEMOGLOBIN 31.7 pg (29.0-33.0); MEAN CORPUSCULAR HGB CONC 33.9 g/dl (32.0-37.0); MEAN CORPUSCULAR VOLUME 93.7 fl (82.0-101.0); MEAN PLATELET VOLUME 10.1 fl (7.4-10.4); PLATELET COUNT 33 10^3/UL (140-415); RED BLOOD COUNT 3.15 10^6/ul (4.20-5.40); RED CELL DISTRIBUTION WIDTH 13.3 % (11.5-14.5); WHITE BLOOD COUNT 1.4 10^3/ul (4.8-10.8)
[2017-07-27 05:55] LABS: POSITIVE DIFF @See below
[2017-07-27] MEDS: metroNIDAZOLE 500 MG/NS (PMX) 100 ML IVPB SCH (05:59)
[2017-07-27 06:35] LABS: ALBUMIN 3.1 g/dl (3.3-4.9); ALBUMIN/GLOBULIN RATIO 1.03; CREATININE 0.68 mg/dl (0.44-1.00); POTASSIUM 3.7 mmol/L (3.5-5.1); TOTAL PROTEIN 6.1 g/dl (6.1-8.1)
[2017-07-27] MEDS: LACTULOSE 30ML CUP PO SCH (08:02)
[2017-07-27 08:53] VITALS: BP 110/55; RESP 20
[2017-07-27 09:36] LABS: ANISOCYTOSIS 1+ (0-0); EOSINOPHILS % (M) 3 % (0-7); ERYTHROBLAST% (NRBC) (M) 2 % (0-0); GIANT THROMBO% (M) 1 % (0-0); MONOCYTES % (M) 13 % (0-11); PLATELET ESTIMATE NORMAL; POIKILOCYTOSIS 1+ (0-0); POLYCHROMASIA 3+ (0-0)
--- NOTE | 2017-07-27 10:43 | PN ---
Date/Time of Note Date/Time of Note DATE: 07/27/17 TIME: 10:41 Assessment/Plan VTE Prophylaxis VTE Prophylaxis Intervention: SCD's Lines/Catheters IV Catheter Type (from [facility]): Peripheral IV Urinary Cath still in place: No Assessment/Plan Chief Complaint/Hosp Course Summary Assessment and Plan: Assessment: Biliary atresia S/p Kasai seizure at [facility] at the age of 3 months Cholangeitis? Cirrhosis secondary to biliary atresia History of esophageal varices Pancytopenia Transaminitis/hyperbilirubinemia/trending down History of Cholecystectomy Splenomegaly on imaging Plan: Continue Lactulose 20mg po daily will titrate to 2-3 Bm a day Continue antibiotic coverage Continue to monitor aminotransferase and bilirubin- improved Patient will need EGD as out-pt to assess esophageal varices Patient seen in collaboration with Dr. Gay Subjective: Course reviewed with nursing staff Patient interviewed and examined All labs, imaging and other results reviewed The patient feels well, has been started on antibiotics for bacteremia. Aminotransferase and bilirubin trending down. She will need an EGD as out-put to assess esophageal varices, Pt to continue lactulose as out-put and must f/u with Laboratory Technology Teacher. Pt continues to improve, MRCP likely not provide further beneficial information. Ok to d/c from GI point of view. PHYSICAL EXAMINATION: GENERAL: Well developed, well nourished, alert & oriented x 3, in no acute distress SKIN: No lesions, no evidence of bleeding diathesis HEAD: Normocephalic, atraumatic, no tenderness. EYES: Pupils equal reactive to light EARS/NOSE AND THROAT: Ears normal, nose normal, NECK: Supple, no masses, thyroid normal, CHEST: Inspection within normal limits. CARDIOVASCULAR: Heart: Regular rate and rhythm, . RESPIRATORY: Lungs clear to auscultation GASTROINTESTINAL AND LIVER: Abdomen: Soft, diffuse mild tenderness to abd , non- distended, no ascites, no guarding, no rebound tenderness, normoactive bowel sounds. Rectal: Deferred. Problems: Exam/Review of Systems Vital Signs Vitals Vital Signs Date Time Temp Pulse Resp B/P Pulse Ox O2 Delivery O2 Flow Rate FiO2 07/27/17 08:53 98.5 64 20 110/55 98 07/24/17 15:20 Room Air Intake and Output 07/26/17 07/26/17 07/27/17 14:59 22:59 06:59 Intake Total 500 ml 1560 ml 1960 ml Balance 500 ml 1560 ml 1960 ml Results Result Diagram: 07/27/17 0508 07/27/17 0508 Results 24 hrs Laboratory Tests Test 07/27/17 05:08 White Blood Count 1.4 L Red Blood Count 3.15 L Hemoglobin 10.0 L Hematocrit 29.5 L Mean Corpuscular Volume 93.7 Mean Corpuscular Hemoglobin 31.7 Mean Corpuscular Hemoglobin Concent 33.9 Red Cell Distribution Width 13.3 Platelet Count 33 #L Mean Platelet Volume 10.1 Neutrophils % Segmented Neutrophils % (Manual) 48 Band Neutrophils % (Manual) 11 H Lymphocytes % Lymphocytes % (Manual) 26 Monocytes % Monocytes % (Manual) 13 H Eosinophils % Eosinophils % (Manual) 3 Basophils % Nucleated Red Blood Cells % 2 H Neutrophils # Neutrophils # (Manual) 0.7 L Band Neutrophils # 0.1 Absolute Lymphocytes (Manual) 0.3 L Lymphocytes # Monocytes # Absolute Monocytes (Manual) 0.1 L Eosinophils # Basophils # Nucleated Red Blood Cells # Platelet Estimate NORMAL Giant Platelets 1 H Polychromasia 3+ Poikilocytosis 1+ Anisocytosis 1+ Macrocytosis 1+ Sodium Level 140 Potassium Level 3.7 Chloride Level 114 H Carbon Dioxide Level 20 L Anion Gap 10 Blood Urea Nitrogen 5 L Creatinine 0.68 Glucose Level 92 Calcium Level 8.0 L Total Bilirubin 1.0 Direct Bilirubin 0.00 # Indirect Bilirubin 1.0 Aspartate Amino Transf (AST/SGOT) 60 H Alanine Aminotransferase (ALT/SGPT) 119 H Alkaline Phosphatase 120 Total Protein 6.1 Albumin 3.1 L Globulin 3.00 Albumin/Globulin Ratio 1.03 Medications Medications Current Medications Ibuprofen (Motrin) 400 mg Q6H PRN PO PAIN OR TEMP ABOVE 38C Last administered on 07/25/17 11:02; Admin Dose 400 MG; Start 07/24/17 at 14:30 Ondansetron HCl (Zofran Inj) 4 mg Q6H PRN IV NAUSEA AND/OR VOMITING; Start at 14:30 Morphine Sulfate (morphine) 2 mg Q4H PRN IV pain; Start 07/24/17 at 14:30 Lactulose (Enulose) 20 gm DAILY PO Last administered on 07/26/17 13:41; Admin Dose 20 GM; Start 07/26/17 at 13:00 Levofloxacin (Levaquin) 750 mg Q24H PO ; Start 07/27/17 at 14:30; Status UNV DE JAMAR MENJIVAR Jul 27, 2017 10:43
[2017-07-27] MEDS ORDERED: LACT20SO2 PO (11:31)
[2017-07-27] MEDS ORDERED: LEVO750T25 PO (11:31)
--- NOTE | 2017-07-27 11:32 | PDOCDIS ---
Discharge Instructions CONDITION Patient Condition: Stable HOME CARE INSTRUCTIONS: Special Diet: SOFT FOLLOW UP/APPOINTMENTS Follow-up Plan Follow up with your superintendent laundry as scheduled August 04 If you notice any fevers, chills, yellowing of your skin (jaundice), new abd pain, then return to the hospital JAKE SHARP MD Jul 27, 2017 11:32
--- NOTE | 2017-07-27 11:48 | DS ---
Date/Time of Note Date/Time of Note DATE: 07/27/17 TIME: 11:33 Discharge Summary Admission/Discharge Info Admit Date/Time Jul 24, 2017 at 11:27 Discharge Date/Time Discharge Diagnosis sepsis from EColi bacteremia, from presumed hepatobiliary origin Patient Condition: Stable Consults GI Procedures IMAGING 07.24 gallbladder US IMPRESSION: Status post cholecystectomy. Normal caliber intrahepatic and extrahepatic biliary system. 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 She usually presents with fever elevated liver enzymes. She does have a history of chronic jaundice from her cirrhosis as well as hyperbilirubinemia. Previous CAT scans and MRI in this facility has shown shrunken liver. There are no new imaging studies today to confirm biliary dilatation. The patient is status post cholecystectomy. Hospital Course Pt presented with abd pain, sepsis (fevers/tachycardia). Admission blood cultures grew out EColi which was the likely cause of sepsis. Etio of EColi bacteremia thought to be hepatobiliary in origin (?). Urine did not grow out EColi. Abd imaging suggestive of chronic cholangitis no evidence of acute cholangitis. TBili 4s on admission, down to 1 by discharge. Pt with sig transaminitis on admission (AST 400s, ALT 300) which improved significantly by admission (AST 60, ALT 119) without procedural intervention. Pt is being discharged on PO abx to complete 14 days of therapy for EColi bacteremia. Pt already has hepatology f/u scheduled for 1.2 Copy of this DC summary given to patient and faxed to account solutions analyst Home Meds Active Scripts Lactulose* (Lactulose*) 20 Gm/30 Ml Solution, 20 GM PO DAILY for 30 Days, #1 L Prov:JAKE SHARP MD 07/27/17 Levofloxacin* (Levaquin*) 750 Mg Tablet, 750 MG PO Q24H for 12 Days, #12 TAB Prov:JAKE SHARP MD 07/27/17 Metronidazole* (Metronidazole*) 500 Mg Tablet, 500 MG PO Q8 for 14 Days, TAB Prov:DONIS DUBOSE NP 12/03/16 Ciprofloxacin Hcl* (Ciprofloxacin Hcl*) 500 Mg Tablet, 500 MG PO BID for 14 Days , #28 TAB Prov:DONIS DUBOSE NP 12/03/16 Follow-up Plan Follow up with your account solutions analyst as scheduled August 04 If you notice any fevers, chills, yellowing of your skin (jaundice), new abd pain, then return to the hospital Primary Care Provider Personal Driver: Hieu Gonzalez MD [address] [place] [address].[address] [place] [address] p : f Pending Labs Laboratory Tests Test 07/27/17 05:08 White Blood Count 1.410^3/ul (4.8-10.8) Red Blood Count 3.1510^6/ul (4.20-5.40) Hemoglobin 10.0g/dl (12.0-16.0) Hematocrit 29.5% (37.0-47.0) Mean Corpuscular Volume 93.7fl (82.0-101.0) Mean Corpuscular Hemoglobin 31.7pg (29.0-33.0) Mean Corpuscular Hemoglobin Concent 33.9g/dl (32.0-37.0) Red Cell Distribution Width 13.3% (11.5-14.5) Platelet Count 3310^3/UL (140-415) Mean Platelet Volume 10.1fl (7.4-10.4) Neutrophils % % (39.0-77.0) Segmented Neutrophils % (Manual) 48% (39-77) Band Neutrophils % (Manual) 11% (0-4) Lymphocytes % % (15.0-51.0) Lymphocytes % (Manual) 26% (15-51) Monocytes % % (0.0-11.0) Monocytes % (Manual) 13% (0-11) Eosinophils % % (0.0-7.0) Eosinophils % (Manual) 3% (0-7) Basophils % % (0.0-2.0) Nucleated Red Blood Cells % 2% (0-0) Neutrophils # 10^3/ul (1.6-7.5) Neutrophils # (Manual) 0.710^3/ul (1.7-7.5) Band Neutrophils # 0.110^3/ul (0.0-0.6) Absolute Lymphocytes (Manual) 0.310^3/ul (0.8-2.9) Lymphocytes # 10^3/ul (0.8-2.9) Monocytes # 10^3/ul (0.3-0.9) Absolute Monocytes (Manual) 0.110^3/ul (0.3-0.9) Eosinophils # 10^3/ul (0.0-0.5) Basophils # 10^3/ul (0.0-0.1) Nucleated Red Blood Cells # 10^3/ul (0.0-0.0) Platelet Estimate NORMAL Giant Platelets 1% (0-0) Polychromasia 3+ (0-0) Poikilocytosis 1+ (0-0) Anisocytosis 1+ (0-0) Macrocytosis 1+ (0-0) Sodium Level 140mmol/L (135-144) Potassium Level 3.7mmol/L (3.5-5.1) Chloride Level 114mmol/L (97-110) Carbon Dioxide Level 20mmol/L (21-31) Anion Gap 10 (8-16) Blood Urea Nitrogen 5mg/dl (7-20) Creatinine 0.68mg/dl (0.44-1.00) Glucose Level 92mg/dl (70-220) Calcium Level 8.0mg/dl (8.4-10.2) Total Bilirubin 1.0mg/dl (0.2-1.3) Direct Bilirubin 0.00mg/dl (0.00-0.20) Indirect Bilirubin 1.0mg/dl (0-1.1) Aspartate Amino Transf (AST/SGOT) 60IU/L (15-46) Alanine Aminotransferase (ALT/SGPT) 119IU/L (13-69) Alkaline Phosphatase 120IU/L (42-121) Total Protein 6.1g/dl (6.1-8.1) Albumin 3.1g/dl (3.3-4.9) Globulin 3.00g/dl (1.3-3.2) Albumin/Globulin Ratio 1.03 Copies To: CC: ALISOSN MORRISSEY MD, ELLEN MD Jul 27, 2017 11:43
[2017-07-27] MEDS ORDERED: LEVOFLOXACIN 750 MG TABLET PO STA (11:59)
[2017-07-27] MEDS ORDERED: metroNIDAZOLE 500 MG TAB PO SCH (14:00)
[2017-07-27] MEDS ORDERED: LEVOFLOXACIN 750 MG TABLET PO SCH (14:30)
[2017-07-28] MEDS ORDERED: LEVOFLOXACIN 750 MG TABLET PO SCH (06:00)
== END 2017-07-27 12:55 | disposition home or self-care (01) | DRG 872 ==
LOC: FTE 07:23 → MS1 11:27
PROVIDERS: ADMIT Family Medicine; ATTEND Family Medicine
DX: A41.51 Sepsis due to Escherichia coli [E. coli] (principal); K83.0 Cholangitis; D61.818 Other pancytopenia; K74.60 Unspecified cirrhosis of liver
CPT/HCPCS: 36415; 71010; 76705; 80053; 81001; 81003; 82962; 83605; 83690; 83735; 85025; 87040; 87086; 87400; 96374; 96375; J1200; J1956; J3370; J7030

== ENCOUNTER 2017-11-26 11:09 | Inpatient (IN) | END 2017-12-01 15:10 | disposition home or self-care (01) | DRG 871 ==

== ENCOUNTER 2018-07-15 09:20 | Inpatient (IN) | END 2018-07-16 16:02 | disposition home or self-care (01) | DRG 866 ==

== ENCOUNTER 2018-08-11 18:17 | Inpatient (IN) | payer OTHER ==
[~2018-08-11] VITALS: Ht 165.1 cm; Wt 66.1 kg
[~2018-08-11 18:17] MED LIST changes: +ASC500 PO; -CIPR500T4 PO; +FER325 PO; +LACT20SO2 PO; -METR500T14 PO
[2018-08-11] MEDS ORDERED: SODIUM CHLORIDE 0.9% 1L BAG IV* STA (19:42)
[2018-08-11] MEDS ORDERED: CEFEPIME 2GM/50 ML (PMX) 50 ML IVPB STA (19:42)
[2018-08-11] MEDS ORDERED: ACETAMINOPHEN 500 MG TAB PO STA (19:42)
--- NOTE | 2018-08-11 19:49 | ERD ---
ER Documentation Chief Complaint Chief Complaint FEVER, CHILLS, DARK URINE X'S 3 DAYS HPI 23-year-old female with a prior history of cholangitis who presents to the emergency room with fever, jaundice and dark urine. Symptoms for approximately 3 days. The patient states the symptoms are very consistent with prior episodes of cholangitis. She denies any significant pain currently. No other source of infection including no cough no shortness of breath no nausea vomiting or diarrhea. ROS All systems reviewed and are negative except as per history of present illness. Medications Home Meds Active Scripts Ascorbic Acid (Vitamin C) 500 Mg Tab, 500 MG PO DAILY for improve iron absorption, #30 TAB 2 Refills Prov:LEVI TAYLOR M. 07/16/18 Ferrous Sulfate* (Ferrous Sulfate*) 325 Mg Tabec, 325 MG PO BID, #60 TAB 2 Refills Prov:LEVI TAYLOR M. 07/16/18 Reported Medications Lactulose* (Lactulose*) 20 Gm/30 Ml Solution, 20 GM PO DAILY, ML 07/15/18 Allergies Allergies: Coded Allergies: amoxicillin (Verified Allergy, Unknown, RASH, 07/15/18) vancomycin (Verified Adverse Reaction, Intermediate, Rash, 07/15/18) PMhx/Soc History of Surgery: Yes (Kasai, choleysectomy) Anesthesia Reaction: No Hx Neurological Disorder: No Hx Respiratory Disorders: No Hx Cardiac Disorders: No Hx Psychiatric Problems: No Hx Miscellaneous Medical Probl: Yes (pancytopenia) Hx Alcohol Use: No Hx Substance Use: No Hx Tobacco Use: No FmHx Family History: No diabetes Physical Exam Vitals Vital Signs Date Temp Pulse Resp B/P (MAP) Pulse Ox O2 O2 Flow FiO2 Time Delivery Rate 08/11/18 103.1 86 15 112/77 100 Room Air 20:54 (89) 08/11/18 101.7 94 18 121/68 100 18:33 (85) Physical Exam General: Well developed, well nourished, no acute distress Head: Normocephalic, atraumatic. Eyes: Scleral icterus ENT: Moist mucous membranes Neck: Supple, no lymphadenopathy Respiratory: Lungs clear bilaterally, no distress Cardiovascular: RRR, no murmurs, rubs, or gallops Abdominal: Soft, non-tender, non-distended, no peritoneal signs : Deferred MSK: No edema, no unilateral swelling, 5/5 strength Neurologic: Alert and oriented, moving all extremities, normal speech, no focal weakness, no cerebellar signs Skin: No rash Psych: Normal mood Result Diagram: 08/11/18202908/11/182029 Results 24 hrs Laboratory Tests Test 08/11/18 20:00 08/11/18 20:25 08/11/18 20:30 08/11/18 20:57 Urine Color POLO Urine Clarity CLOUDY Urine pH 7.0 Urine Specific 1.014 [place] Urine Ketones NEGATIVE mg/dL Urine Nitrite NEGATIVE mg/dL Urine Bilirubin NEGATIVE mg/dL Urine Urobilinogen 2+ mg/dL Urine Leukocyte NEGATIVE Shiva/ul Esterase Urine Microscopic 2 /HPF RBC Urine Microscopic 24 /HPF WBC Urine Squamous MODERATE /HPF Epithelial Cells Urine Amorphous MODERATE /HPF Crystals Urine Bacteria FEW /HPF Urine Hemoglobin NEGATIVE mg/dL Urine Glucose NEGATIVE mg/dL Urine Total Protein NEGATIVE mg/dl POC Beta HCG, NEGATIVE Qualitative White Blood Count 3.4 10^3/ul Red Blood Count 3.59 10^6/ul Hemoglobin 11.4 g/dl Hematocrit 33.5 % Mean Corpuscular 93.3 fl Volume Mean Corpuscular 31.8 pg Hemoglobin Mean Corpuscular 34.0 g/dl Hemoglobin Concent Red Cell 13.3 % Distribution Width Platelet Count 49 10^3/UL Mean Platelet 11.5 fl Volume Immature 0.900 % Granulocytes % Neutrophils % 74.7 % Lymphocytes % 10.4 % Monocytes % 11.9 % Eosinophils % 2.1 % Basophils % 0.0 % Nucleated Red Blood 0.0 /100WBC Cells % Immature 0.030 10^3/ul Granulocytes # Neutrophils # 2.5 10^3/ul Lymphocytes # 0.4 10^3/ul Monocytes # 0.4 10^3/ul Eosinophils # 0.1 10^3/ul Basophils # 0.0 10^3/ul Nucleated Red Blood 0.0 10^3/ul Cells # Prothrombin Time 15.4 Sec Prothrombin Time 1.2 Ratio INR International 1.21 Normalized Ratio Activated 29.6 Sec Partial Thromboplas t Time Sodium Level 141 mmol/L Potassium Level 3.9 mmol/L Chloride Level 106 mmol/L Carbon Dioxide 25 mmol/L Level Anion Gap 10 Blood Urea Nitrogen 9 mg/dl Creatinine 0.71 mg/dl Est Glomerular > 60 mL/min Filtrat Rate mL/min Glucose Level 114 mg/dl Calcium Level 9.1 mg/dl Total Bilirubin 2.2 mg/dl Direct Bilirubin 0.30 mg/dl Indirect Bilirubin 1.9 mg/dl Aspartate Amino 297 IU/L Transf (AST/SGOT) Alanine 275 IU/L Aminotransferase (A LT/SGPT) Alkaline 228 IU/L Phosphatase Troponin I < 0.012 ng/ml Total Protein 7.6 g/dl Albumin 4.0 g/dl Lipase 109 U/L POC Venous Lactate 1.4 mmol/L Current Medications Medications Dose Sig/Dawson Start Time Status Last (Trade) Ordered Route PRN Stop Time Admin Dose Reason Admin Sodium 2,000 ml BOLUS OVER 2 08/11/18 DC 08/11/18 Chloride HOURS STAT 19:42 08/11/18 19:42 (NS) IV* 19:44 Cefepime HCl 50 ml @ ONCE STAT 08/11/18 DC 08/11/18 100 mls/hr IVPB 19:42 08/11/18 21:02 20:11 1,000 mg ONCE STAT 08/11/18 DC Acetaminophen PO 19:42 08/11/18 (Tylenol 19:44 Tab) Ketorolac 15 mg ONCE STAT 08/11/18 DC 08/11/18 Tromethamine IV 21:07 08/11/18 21:16 (Toradol) 21:08 Ondansetron 4 mg BRIDGE ORDER 08/11/18 HCl (Zofran PRN IV 22:30 Inj) NAUSEA AND/OR 08/12/18 22:29 VOMITING 650 mg ER BRIDGE 08/11/18 Acetaminophen PRN PO MILD 22:30 (Tylenol PAIN(1-3)OR 08/12/18 22:29 Tab) ELEVATED TEMP Procedures/MDM LAB INTERPRETATION: * Transaminitis * Normal lactic acid MEDICAL DECISION MAKING: The patient's clinical exam history and presentation are very consistent with acute ascending cholangitis. The patient needs sepsis screening, antipyretics, antibiotics and inpatient hospitalization. She is otherwise well-appearing and hemodynamically stable in the emergency room setting ER COURSE: * An IV was established and the patient was written for 30 cc/kg bolus of saline. Empiric cefepime was provided. The patient has tolerated ceph alosporins in the past. Blood cultures prior to antibiotics. * Patient has a normal lactic acid and is hemodynamically stable. No indication for pressors or central line CONSULTATION: None DISPOSITION PLAN: Medical surgical admission Accepting care team and consultations: I discussed the current laboratory data, diagnostic imaging and emergency care provided. Admitting team: Dr. Liu Admitting team indication: Insurance directed Sepsis Documentation: Patient's infectious symptoms have not stabilized and the patient is at risk of rapid decompensation. The patient will be admitted for careful hydration, antibiotic therapy, and infectious source control. SEVERE SEPSIS CRITERIA: Infectious source: Cholangitis End organ damage indicated by: None at this time. Bili is chronically elevated Bili > 2] SEPSIS MANAGEMENT Time of recognition of sepsis: Upon MD assessment. Time of recognition of severe sepsis: No severe sepsis at this time. Time of recognition of septic shock: No septic shock at this time. 3 HOUR BUNDLE Blood cultures x 2 before broad-spectrum antibiotics: Yes 30 ml/kg NS bolus completed Initial lactate less than 2 Repeat lactate pending repeat SEPTIC SHOCK ASSESSMENT: No lactic acid > 4.0 No persistent hypotension (SBP < 90 or 40 mmHg drop, MAP < 65) despite 30 mL/kg IV fluid bolus VOLUME REASSESSMENT FOR SEPTIC SHOCK: The patient does not meet criteria for septic shock in the emergency department at this time PERSISTENT HYPOTENSION TREATMENT: Comfort care no Central line not Required Vasopressor started not required I considered further perfusion assessment with CVP measurement, SCVO2, bedside ultrasound volume assessment, passive leg raise, trial of further fluid bolus. And proceeded with 30 ml/kg fluid bolus of NSS, broad spectrum antibiotics, and admission. CRITICAL CARE Critical care time 35 minutes Emergent fluid management while maintaining close respiratory support. Provision of immediate and broad-spectrum antibiotic therapy. Simultaneous assessment for possible sources in order to direct targeted therapy. Consider ation for invasive and chemical support to prevent cardiopulmonary collapse. Critical care time is independent of procedures performed. Departure Diagnosis: Primary Impression: Ascending cholangitis Additional Impressions: Sepsis Sepsis type: sepsis due to unspecified organism Qualified Codes: A41.9 - Sepsis, unspecified organism Pancytopenia Condition: Stable KARI RUFFIN MD Aug 11, 2018 19:49
[2018-08-11] MEDS ORDERED: KETOROLAC 15 MG INJ IV STA (21:07)
[2018-08-11] MEDS ORDERED: DOCUSATE SODIUM 100 MG CAP PO PRN (22:30)
[2018-08-11] MEDS ORDERED: ONDANSETRON 4 MG INJ IV PRN ×2 (22:30)
[2018-08-11] MEDS ORDERED: NACL 0.9% 3 ML SYG IV SCH (22:30)
[2018-08-11] MEDS ORDERED: ACETAMINOPHEN 325 MG TAB PO PRN ×3 (22:30)
[2018-08-11] MEDS ORDERED: BISACODYL (EC) 5 MG TAB PO PRN (22:30)
[2018-08-11] MEDS ORDERED: CIPR-193 PO (22:49)
--- NOTE | 2018-08-11 23:06 | HP ---
Date/Time of Note Date/Time of Note DATE: 08/11/18 TIME: 23:05 Assessment/Plan VTE Prophylaxis SCD applied (from Nsg): Yes Pharmacological prophylaxis: NA/contraindicated Pharm contraindication: liver dx Lines/Catheters IV Catheter Type (from Nrsg): Mid Line Assessment/Plan Hospital Course This is a 23-year female being admitted to the [facility] floor for: #1 sepsis: Secondary to cholangitis. Patient did present febrile and with leukopenia. Current time she will be put on antibiotics of Cipro and Flagyl. Lactic acid is within normal values. Await ibarra culture results. Tylenol for fevers with a maximum of 2 g in 24 hours. #2 acute on chronic cholangitis: Patient has a history of recurrent cholangitis. She does have elevated liver function tests and hyperbilirubinemia at the curre nt time. She does have scleral icterus. Will obtain an MRCP. Consult GI. Currently we will put her on antibiotics of Cipro and Flagyl. Monitor liver function test. Zofran for nausea. 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 Tylenol for fevers with a maximum of 2 g in 24 hours. Resume lactulose at discretion of GI. #4 chronic pancytopenia: Secondary to history of chronic cirrhosis. Continue to monitor #5 DVT GI prophylaxis: SCDs, Protonix Further treatment strategy will be implemented as per the clinical course Result Diagram: 08/11/18202908/11/182029 Results 24hrs Laboratory Tests Test 08/11/18 20:00 08/11/18 20:25 08/11/18 20:30 08/11/18 20:57 Urine Color POLO Urine Clarity CLOUDY A Urine pH 7.0 Urine Specific [place] 1.014 Urine Ketones NEGATIVE Urine Nitrite NEGATIVE Urine Bilirubin NEGATIVE Urine Urobilinogen 2+ H Urine Leukocyte Esterase NEGATIVE Urine Microscopic RBC 2 Urine Microscopic WBC 24 H Urine Squamous MODERATE Epithelial Cells Urine Amorphous Crystals MODERATE Urine Bacteria FEW A Urine Hemoglobin NEGATIVE Urine Glucose NEGATIVE Urine Total Protein NEGATIVE POC Beta HCG, NEGATIVE Qualitative White Blood Count 3.4 #L Red Blood Count 3.59 L Hemoglobin 11.4 L Hematocrit 33.5 L Mean Corpuscular Volume 93.3 Mean Corpuscular 31.8 Hemoglobin Mean Corpuscular 34.0 Hemoglobin Concent Red Cell Distribution 13.3 Width Platelet Count 49 L Mean Platelet Volume 11.5 H Immature Granulocytes % 0.900 H Neutrophils % 74.7 Segmented Neutrophils 75 % (Manual) Band Neutrophils % 4 (Manual) Lymphocytes % 10.4 L Lymphocytes % (Manual) 11 L Monocytes % 11.9 H Monocytes % (Manual) 6 Eosinophils % 2.1 Eosinophils % (Manual) 4 Basophils % 0.0 Nucleated Red Blood 0.0 Cells % Immature Granulocytes # 0.030 Neutrophils # 2.5 Neutrophils # (Manual) 2.6 Band Neutrophils # 0.1 Lymphocytes (Manual) 0.3 L Lymphocytes # 0.4 L Monocytes # 0.4 Monocytes # (Manual) 0.2 L Eosinophils # 0.1 Basophils # 0.0 Nucleated Red Blood 0.0 Cells # Platelet Estimate DECREASED Poikilocytosis 1+ Ovalocytes 1+ Prothrombin Time 15.4 H Prothrombin Time Ratio 1.2 INR International 1.21 Normalized Ratio Activated 29.6 Partial Thromboplast Time Sodium Level 141 Potassium Level 3.9 Chloride Level 106 Carbon Dioxide Level 25 Anion Gap 10 Blood Urea Nitrogen 9 Creatinine 0.71 Est Glomerular Filtrat > 60 Rate mL/min Glucose Level 114 Calcium Level 9.1 Total Bilirubin 2.2 H Direct Bilirubin 0.30 H Indirect Bilirubin 1.9 H Aspartate Amino 297 H Transf (AST/SGOT) Alanine 275 H Aminotransferase (ALT/SG PT) Alkaline Phosphatase 228 H Troponin I < 0.012 Total Protein 7.6 Albumin 4.0 Lipase 109 POC Venous Lactate 1.4 HPI/ROS Admit Date/Time Admit Date/Time Hx of Present Illness Chief complaint: Fevers, dark urine This is a 22-year-old female with a past medical history of biliary atresia status postpasai procedure and chronic liver cirrhosis who presented to the emergency department complaining of fevers and lethargy as well as dark urine. Patient denies any abdominal pain. She has a history of recurrent cholangitis since the age of 89 years old. She reports that when she notices her self becoming febrile and has dark urine she typically knows that it is her cholangitis. She also reports body aches. But denies any shortness of breath cough or sore throat. Allergies: Amoxicillin, vancomycin Medications: See BRIAN ROS Const: As per HPI Eyes : No pain discharge or redness or change in visual acuity ENT: No pain, sore throat, congestion, congestion, dysphagia or discharge Respiratory: No shortness of breath, cough, sputum, wheezing, or pleuritic pain Cardiovascular: No chest pain, palpitation, PND, or edema GI : no change in appetite, abdominal pain, nausea, vomiting, diarrhea, constipation, or change in the color his stool Genitourinary: As per HPI Musculoskeletal: No joint pain, back pain, neck pain, restricted range of motion in neck or joints Skin: No rash, bruising or hives Neuro: No headache, dizziness, syncope, seizure, focal weakness Endocrine: No polyuria, polydipsia, temperature intolerance Psych: No hallucination, depression, anxiety or suicidal ideation PMH/Family/Social Past Medical History 1. Acute cholangitis. 2. Sepsis secondary to underlying cholangitis. 3. Biliary atresia. 4. Transaminitis with hyperbilirubinemia. 5. Hepatic cirrhosis. 6. Pancytopenia. Medications Current Medications Ondansetron HCl (Zofran Inj) 4 mg BRIDGE ORDER PRN IV NAUSEA AND/OR VOMITING; Start 08/11/18 at 22:30; Stop 08/12/18 at 22:29 Acetaminophen (Tylenol Tab) 650 mg ER BRIDGE PRN PO MILD PAIN(1-3)OR ELEVATED TEMP; Start 08/11/18 at 22:30; Stop 08/12/18 at 22:29 Piperacillin Sod/ Tazobactam Sod 100 ml @ 200 mls/hr Q6 IVPB ; Start 08/12/18 at 00:00 Sodium Chloride 1,000 ml @ 100 mls/hr Q10H IV ; Start 08/11/18 at 22:29 IV Flush (NS 3 ml) 3 ml PER PROTOCOL IV ; Start 08/11/18 at 22:30 Ondansetron HCl (Zofran Inj) 4 mg Q6H PRN IV NAUSEA AND/OR VOMITING; Start 08/11/18 at 22:30 Acetaminophen (Tylenol Tab) 650 mg Q6H PRN PO PAIN LEVEL 1-3 OR FEVER; Start 08/11/18 at 22:30 Docusate Sodium (Colace) 100 mg Q12H PRN PO CONSTIPATION; Start 08/11/18 at 22:30 Bisacodyl (Dulcolax) 5 mg DAILY PRN PO CONSTIPATION; Start 08/11/18 at 22:30 Acetaminophen (Tylenol Tab) 650 mg Q4H PRN PO MILD PAIN(1-3)OR ELEVATED TEMP; Start 08/11/18 at 22:30 Coded Allergies: amoxicillin (Unverified Allergy, Unknown, RASH, 08/11/18) vancomycin (Unverified Adverse Reaction, Intermediate, Rash, 08/11/18) Past Surgical History Past Surgical Hx: cholecystectomy, other Family History Significant Family History: no pertinent family hx, vascular disease Social History Alcohol Use: none Smoking Status: Never smoker Drug Use: cocaine Exam/Review of Systems Vital Signs Vitals Vital Signs Date Temp Pulse Resp B/P (MAP) Pulse Ox O2 O2 Flow FiO2 Time Delivery Rate 08/11/18 99.0 89 15 109/71 100 Room Air 22:49 (84) Exam Exam General: Patient is a pleasant female currently lying in bed in no acute distress HEENT: Atraumatic, normocephalic. The pupils are equal, round and reactive. Extraocular motor are intact , mild scleral icterus Neck: Supple with full range of motion. No rigidity or meningismus Chest: Nontender Lungs: Clear to auscultation bilaterally no crackles rales or wheezing Heart: Normal S1-S2, Regular rhythm and rate. Abdomen: Soft , nontender, nondistended , bowel sounds are present. No guarding no rebound tenderness , No masses or organomegaly. No costovertebral temporal angle mass Extremities: Normal to inspection, no edema no cyanosis Neurologic: Normal mental status, speech normal, cranial nerves II through XII are intact, motor and sensory are intact, ELIN SHARP Aug 11, 2018 23:06
[2018-08-12] MEDS ORDERED: PIPER-TAZO 3.375 GM IV (PMX) 100 ML IVPB SCH
[2018-08-12 00:30] VITALS: Ht 165.1 cm; Wt 66.1 kg
[2018-08-12] MEDS: SOD CHLORIDE 0.9% 1,000 ML IV SCH ×3 (00:52→12:47)
[2018-08-12 01:38] VITALS: BP 115/66; PULSE 68; RESP 18
[2018-08-12] MEDS: metroNIDAZOLE 500 MG/NS (PMX) 100 ML IVPB SCH ×3 (04:05→22:03)
[2018-08-12] MEDS: CIPROFLOXACIN 400MG/D5W 200 ML IVPB SCH ×2 (05:46→17:57)
[2018-08-12 07:45] VITALS: BP 97/52; PULSE 74; RESP 18
--- NOTE | 2018-08-12 08:58 | PN ---
Date/Time of Note Date/Time of Note DATE: 08/12/18 TIME: 08:58 Assessment/Plan VTE Prophylaxis SCD applied (from Nsg): Yes Pharmacological prophylaxis: NA/contraindicated Pharm contraindication: liver dx, thrombocytopenia Lines/Catheters IV Catheter Type (from Nrs): Mid Line Assessment/Plan Hospital Course SUBJECTIVE: Denies any abdominal pain. OBJECTIVE: Physical Exam GENERAL: This is a well-built, well-nourished female patient lying in bed in no apparent distress. HEENT: Head normocephalic and atraumatic. Eyes: Icteric sclerae. Conjunctivae clear. ENT: Nasal septum is midline. Oral mucosa is moist. NECK: Supple. No JVD noticed. RESPIRATORY: Bilaterally clear to auscultation. No adventitious breath sounds. No use of accessory muscles of respiration. CARDIAC: Regular rate and rhythm. S1, S2 heard. ABDOMEN: Soft and non-tender. Bowel sounds positive in all 4 quadrants. Surgical scar from Kasai procedure. GENITOURINARY: Deferred. EXTREMITIES: No cyanosis, no clubbing, no edema. Peripheral pulses palpable. NEUROLOGIC: The patient is awake, alert and oriented. Cranial nerves are grossly intact. Labs & Vitals per chart ASSESSMENT & PLAN This is a 23-year-old female with a past medical history of biliary atresia status post Kasai procedure, liver cirrhosis recently put on liver transplant list at [facility], and history of recurrent cholangitis, who came to the emergency room with a chief complaint of fevers, chills, and jaundice, who was found to have evidence of sepsis with febrile illness and tachycardia (heart rate more than 90). 1. Sepsis secondary to underlying cholangitis, present on admission. -No evidence of any septic shock. -Continue antibiotics. 2. History of biliary atresia. -Status post Kasai procedure. 3. Chronic thrombocytopenia secondary to underlying liver cirrhosis. -Continue to monitor. 4. Transaminitis with hyperbilirubinemia. -Most probably secondary to underlying cholangitis. -Trend LFTs. -Avoid hepatotoxic medications. 6. Leukocytopenia. -Most probably secondary to underlying liver cirrhosis. -Monitor. 7. Fluid, electrolytes and nutrition. -NPO except for medications. -IVFs. 8. Deep venous thrombosis prophylaxis. -Bilateral sequential compression devices. PLAN: -Continue antibiotics. -Trend liver function tests. -Await gastroenterology evaluation The patient was seen in collaboration with Dr. Gilman. Result Diagram: 08/12/18 0445 08/12/18 0445 Results 24hrs Laboratory Tests Test 08/11/18 20:00 08/11/18 20:25 08/11/18 20:30 08/11/18 20:57 Urine Color POLO Urine Clarity CLOUDY A Urine pH 7.0 Urine Specific [place] 1.014 Urine Ketones NEGATIVE Urine Nitrite NEGATIVE Urine Bilirubin NEGATIVE Urine Urobilinogen 2+ H Urine Leukocyte NEGATIVE Esterase Urine Microscopic RBC 2 Urine Microscopic WBC 24 H Urine Squamous MODERATE Epithelial Cells Urine Amorphous MODERATE Crystals Urine Bacteria FEW A Urine Hemoglobin NEGATIVE Urine Glucose NEGATIVE Urine Total Protein NEGATIVE POC Beta HCG, NEGATIVE Qualitative White Blood Count 3.4 #L Red Blood Count 3.59 L Hemoglobin 11.4 L Hematocrit 33.5 L Mean Corpuscular Volume 93.3 Mean Corpuscular 31.8 Hemoglobin Mean Corpuscular 34.0 Hemoglobin Concent Red Cell Distribution 13.3 Width Platelet Count 49 L Mean Platelet Volume 11.5 H Immature Granulocytes % 0.900 H Neutrophils % 74.7 Segmented Neutrophils 75 % (Manual) Band Neutrophils % 4 (Manual) Lymphocytes % 10.4 L Lymphocytes % (Manual) 11 L Monocytes % 11.9 H Monocytes % (Manual) 6 Eosinophils % 2.1 Eosinophils % (Manual) 4 Basophils % 0.0 Nucleated Red Blood 0.0 Cells % Immature Granulocytes # 0.030 Neutrophils # 2.5 Neutrophils # (Manual) 2.6 Band Neutrophils # 0.1 Lymphocytes (Manual) 0.3 L Lymphocytes # 0.4 L Monocytes # 0.4 Monocytes # (Manual) 0.2 L Eosinophils # 0.1 Basophils # 0.0 Nucleated Red Blood 0.0 Cells # Platelet Estimate DECREASED Poikilocytosis 1+ Ovalocytes 1+ Prothrombin Time 15.4 H Prothrombin Time Ratio 1.2 INR International 1.21 Normalized Ratio Activated 29.6 Partial Thromboplast Time Sodium Level 141 Potassium Level 3.9 Chloride Level 106 Carbon Dioxide Level 25 Anion Gap 10 Blood Urea Nitrogen 9 Creatinine 0.71 Est Glomerular Filtrat > 60 Rate mL/min Glucose Level 114 Calcium Level 9.1 Total Bilirubin 2.2 H Direct Bilirubin 0.30 H Indirect Bilirubin 1.9 H Aspartate Amino 297 H Transf (AST/SGOT) Alanine 275 H Aminotransferase (ALT/S GPT) Alkaline Phosphatase 228 H Troponin I < 0.012 Total Protein 7.6 Albumin 4.0 Lipase 109 POC Venous Lactate 1.4 Test 08/11/18 23:47 08/12/18 04:45 Lactic Acid Level 0.9 White Blood Count 2.9 L Red Blood Count 3.75 L Hemoglobin 11.8 L Hematocrit 36.1 L Mean Corpuscular Volume 96.3 Mean Corpuscular 31.5 Hemoglobin Mean Corpuscular 32.7 Hemoglobin Concent Red Cell Distribution 13.2 Width Platelet Count 39 #L Mean Platelet Volume 12.0 H Immature Granulocytes % 0.300 Neutrophils % 63.6 Lymphocytes % 20.1 Monocytes % 11.6 H Eosinophils % 3.7 Basophils % 0.7 Nucleated Red Blood 0.0 Cells % Immature Granulocytes # 0.010 Neutrophils # 1.9 Lymphocytes # 0.6 L Monocytes # 0.3 Eosinophils # 0.1 Basophils # 0.0 Nucleated Red Blood 0.0 Cells # Sodium Level 142 Potassium Level 4.5 Chloride Level 110 Carbon Dioxide Level 19 L Anion Gap 13 Blood Urea Nitrogen 9 Creatinine 0.63 Est Glomerular Filtrat > 60 Rate mL/min Glucose Level 81 Hemoglobin A1c 4.5 Calcium Level 8.9 Magnesium Level 2.0 Total Bilirubin 1.8 H Direct Bilirubin 0.00 # Indirect Bilirubin 1.8 H Aspartate Amino 227 H Transf (AST/SGOT) Alanine 237 H Aminotransferase (ALT/S GPT) Alkaline Phosphatase 225 H Total Protein 7.7 Albumin 3.9 Globulin 3.80 H Albumin/Globulin Ratio 1.02 Triglycerides Level 69 Cholesterol Level 140 LDL Cholesterol, 58 Calculated HDL Cholesterol 68 Cholesterol/HDL Ratio 2.0 Thyroid Stimulating 2.320 Hormone (TSH) Exam/Review of Systems Vital Signs Vitals Vital Signs Date Temp Pulse Resp B/P (MAP) Pulse Ox O2 O2 Flow FiO2 Time Delivery Rate 08/12/18 99.3 74 18 97/52 (67) 97 07:45 08/11/18 Room Air 22:49 Intake and Output 08/11/18 08/11/18 08/12/18 1515:00 23:00 07:00 IntakeIntake Total 600 ml BalanceBalance 600 ml Medications Medications Current Medications Ondansetron HCl (Zofran Inj) 4 mg BRIDGE ORDER PRN IV NAUSEA AND/OR VOMITING; Start 08/11/18 at 22:30; Stop 08/12/18 at 22:29 Sodium Chloride 1,000 ml @ 100 mls/hr Q10H IV Last administered on 08/12/18at 00:52; Admin Dose 100 MLS/HR; Start 08/11/18 at 22:29 IV Flush (NS 3 ml) 3 ml PER PROTOCOL IV ; Start 08/11/18 at 22:30 Ondansetron HCl (Zofran Inj) 4 mg Q6H PRN IV NAUSEA AND/OR VOMITING; Start 08/11/18 at 22:30 Acetaminophen (Tylenol Tab) 650 mg Q6H PRN PO PAIN LEVEL 1-3 OR FEVER; Start 08/11/18 at 22:30 Docusate Sodium (Colace) 100 mg Q12H PRN PO CONSTIPATION; Start 08/11/18 at 22:30 Bisacodyl (Dulcolax) 5 mg DAILY PRN PO CONSTIPATION; Start 08/11/18 at 22:30 Ciprofloxacin/ Dextrose 200 ml @ 200 mls/hr Q12H IVPB Last administered on 08/12/18at 05:46; Admin Dose 200 MLS/HR; Start 08/12/18 at 05:00 Metronidazole 100 ml @ 100 mls/hr Q8 IVPB Last administered on 08/12/18at 04:05; Admin Dose 100 MLS/HR; Start 08/12/18 at 03:45 Pantoprazole (Protonix Iv) 40 mg DAILY@06 IV ; Start 08/12/18 at 08:30 DONIS DUBOSE NP Aug 12, 2018 08:58
[2018-08-12] MEDS: PANTOPRAZOLE 40 MG INJ IV SCH (09:31)
[2018-08-12 14:00] VITALS: BP 107/55; PULSE 64; RESP 18
--- NOTE | 2018-08-12 16:23 | CONS ---
Date/Time of Note Date/Time of Note DATE: 08/12/18 TIME: 16:10 Assessment/Plan Assessment/Plan Hospital Course Chief Complaint/Hosp Course Summary Assessment and Plan: Assessment: Biliary atresia S/p Kasai procedure at [facility] at the age of 3 months Recurrent Cholangitis -blood cultures ordered -Pt has responded well to ABX therapy in the past Cirrhosis secondary to biliary atresia -pt follows with GI at [facility]- on transplant list Portal HTN History of esophageal varices -Last EGD 2-3 months ago s/p banding Pancytopenia Coagulopathy Transaminitis/hyperbilirubinemia Splenomegaly seen on previous imaging Plan: Start Lactulose 20gm po daily Will advance diet at tolerated Continue antibiotic coverage Continue to monitor labs Patient seen in collaboration with Dr. Gay Result Diagram: 08/12/185 08/12/18444 Results 24hrs Laboratory Tests Test 08/11/18 20:00 08/11/18 20:25 08/11/18 20:30 08/11/18 20:57 Urine Color POLO Urine Clarity CLOUDY A Urine pH 7.0 Urine Specific 1.014 [place] Urine Ketones NEGATIVE Urine Nitrite NEGATIVE Urine Bilirubin NEGATIVE Urine Urobilinogen 2+ H Urine Leukocyte NEGATIVE Esterase Urine Microscopic 2 RBC Urine Microscopic 24 H WBC Urine Squamous MODERATE Epithelial Cells Urine Amorphous MODERATE Crystals Urine Bacteria FEW A Urine Hemoglobin NEGATIVE Urine Glucose NEGATIVE Urine Total NEGATIVE Protein POC Beta HCG, NEGATIVE Qualitative White Blood Count 3.4 #L Red Blood Count 3.59 L Hemoglobin 11.4 L Hematocrit 33.5 L Mean Corpuscular 93.3 Volume Mean Corpuscular 31.8 Hemoglobin Mean Corpuscular 34.0 Hemoglobin Concent Red Cell 13.3 Distribution Width Platelet Count 49 L Mean Platelet 11.5 H Volume Immature 0.900 H Granulocytes % Neutrophils % 74.7 Segmented 75 Neutrophils % (Manual) Band Neutrophils % 4 (Manual) Lymphocytes % 10.4 L Lymphocytes % 11 L (Manual) Monocytes % 11.9 H Monocytes % 6 (Manual) Eosinophils % 2.1 Eosinophils % 4 (Manual) Basophils % 0.0 Nucleated Red 0.0 Blood Cells % Immature 0.030 Granulocytes # Neutrophils # 2.5 Neutrophils # 2.6 (Manual) Band Neutrophils # 0.1 Lymphocytes 0.3 L (Manual) Lymphocytes # 0.4 L Monocytes # 0.4 Monocytes # 0.2 L (Manual) Eosinophils # 0.1 Basophils # 0.0 Nucleated Red 0.0 Blood Cells # Pathologist Review (Hematology ) Platelet Estimate DECREASED Poikilocytosis 1+ Ovalocytes 1+ Prothrombin Time 15.4 H Prothrombin Time 1.2 Ratio INR International 1.21 Normalized Ratio Activated 29.[address] Time Path Consult WILLIAM GRADY Signing Pathologis MD grijalva Sodium Level 141 Potassium Level 3.9 Chloride Level 106 Carbon Dioxide 25 Level Anion Gap 10 Blood Urea 9 Nitrogen Creatinine 0.71 Est Glomerular > 60 Filtrat Rate mL/min Glucose Level 114 Calcium Level 9.1 Total Bilirubin 2.2 H Direct Bilirubin 0.30 H Indirect Bilirubin 1.9 H Aspartate Amino 297 H Transf (AST/SGOT) Alanine 275 H Aminotransferase ( ALT/SGPT) Alkaline 228 H Phosphatase Troponin I < 0.012 Total Protein 7.6 Albumin 4.0 Lipase 109 POC Venous Lactate 1.4 Test 08/11/18 23:47 08/12/18 04:45 Lactic Acid Level 0.9 White Blood Count 2.9 L Red Blood Count 3.75 L Hemoglobin 11.8 L Hematocrit 36.1 L Mean Corpuscular 96.3 Volume Mean Corpuscular 31.5 Hemoglobin Mean Corpuscular 32.7 Hemoglobin Concent Red Cell 13.2 Distribution Width Platelet Count 39 #L Mean Platelet 12.0 H Volume Immature 0.300 Granulocytes % Neutrophils % 63.6 Lymphocytes % 20.1 Monocytes % 11.6 H Eosinophils % 3.7 Basophils % 0.7 Nucleated Red 0.0 Blood Cells % Immature 0.010 Granulocytes # Neutrophils # 1.9 Lymphocytes # 0.6 L Monocytes # 0.3 Eosinophils # 0.1 Basophils # 0.0 Nucleated Red 0.0 Blood Cells # Sodium Level 142 Potassium Level 4.5 Chloride Level 110 Carbon Dioxide 19 L Level Anion Gap 13 Blood Urea 9 Nitrogen Creatinine 0.63 Est Glomerular > 60 Filtrat Rate mL/min Glucose Level 81 Hemoglobin A1c 4.5 Calcium Level 8.9 Magnesium Level 2.0 Total Bilirubin 1.8 H Direct Bilirubin 0.00 # Indirect Bilirubin 1.8 H Aspartate Amino 227 H Transf (AST/SGOT) Alanine 237 H Aminotransferase ( ALT/SGPT) Alkaline 225 H Phosphatase Total Protein 7.7 Albumin 3.9 Globulin 3.80 H Albumin/Globulin 1.02 Ratio Triglycerides 69 Level Cholesterol Level 140 LDL Cholesterol, 58 Calculated HDL Cholesterol 68 Cholesterol/HDL 2.0 Ratio Thyroid 2.320 Stimulating Hormone (TSH) CC: ALISSON GAY MD ; Consultation Date/Type/Reason Admit Date/Time Date of Consultation: Aug 12, 2018 Type of Consult GI Reason for Consultation Cholangitis Hx of Present Illness This is a jonathan 22-year-old female well-known to GI services with past medical history of biliary atresia status post Kasai procedure at age 3 months [facility], liver cirrhosis, recurrent cholangitis, history of esophageal varices, pancytopenia, splenomegaly, who presented to the ED with c/o jaundice and subjective fevers. On presentation patient with a temperature of 1 1.7 this was rechecked and her T-max was 103.1 additionally labs show pancytopenia as well as elevated LFTs tease including a total bili of 2.2, AST 297, ALT 275, alkaline phosphatase 228. Today labs were rechecked and slightly down from yesterday but not a significant change. Currently she is on antibiotic coverage of ciprofloxacin and metronidazole, tolerating well. Patient currently denies any abdominal pain, nausea, vomiting, constipation, diarrhea, hematochezia, or melena. She states she is hungry and is asking to eat regular food as she follows a regular diet at home. Patient is under the care of [facility] she is status post upper endoscopy 2-3 months ago per patient and status post banding. Of note she is also been placed on the transplant list and is currently awaiting liver transplant. Review of Systems: A 12 system, review was conducted and is negative except as noted in the HPI or here. Past Medical History Medications Current Medications Ondansetron HCl (Zofran Inj) 4 mg BRIDGE ORDER PRN IV NAUSEA AND/OR VOMITING; Start 08/11/18 at 22:30; Stop 08/12/18 at 22:29 Sodium Chloride 1,000 ml @ 100 mls/hr Q10H IV Last administered on 08/12/18at 12:47; Admin Dose 100 MLS/HR; Start 08/11/18 at 22:29 IV Flush (NS 3 ml) 3 ml PER PROTOCOL IV ; Start 08/11/18 at 22:30 Ondansetron HCl (Zofran Inj) 4 mg Q6H PRN IV NAUSEA AND/OR VOMITING; Start 08/11/18 at 22:30 Docusate Sodium (Colace) 100 mg Q12H PRN PO CONSTIPATION; Start 08/11/18 at 22:30 Bisacodyl (Dulcolax) 5 mg DAILY PRN PO CONSTIPATION; Start 08/11/18 at 22:30 Ciprofloxacin/ Dextrose 200 ml @ 200 mls/hr Q12H IVPB Last administered on 08/12/18at 05:46; Admin Dose 200 MLS/HR; Start 08/12/18 at 05:00 Metronidazole 100 ml @ 100 mls/hr Q8 IVPB Last administered on 08/12/18at 14:36; Admin Dose 100 MLS/HR; Start 08/12/18 at 03:45 Pantoprazole (Protonix Iv) 40 mg DAILY@06 IV Last administered on 08/12/18at 09:31; Admin Dose 40 MG; Start 08/12/18 at 08:30 Allergies: Coded Allergies: amoxicillin (Unverified Allergy, Unknown, RASH, 08/11/18) vancomycin (Unverified Adverse Reaction, Intermediate, Rash, 08/11/18) Past Surgical History Past Surgical Hx: cholecystectomy, other Social History Alcohol Use: none Smoking Status: Never smoker Drug Use: cocaine Exam/Review of Systems Vital Signs Vitals Vital Signs Date Temp Pulse Resp B/P (MAP) Pulse Ox O2 O2 Flow FiO2 Time Delivery Rate 08/12/18 97.9 64 18 107/55 99 14:00 (72) 08/11/18 Room Air 22:49 Intake and Output 08/11/18 08/11/18 08/12/18 1515:00 23:00 07:00 IntakeIntake Total 600 ml BalanceBalance 600 ml Exam PHYSICAL EXAMINATION: GENERAL: Alert & oriented x 3, in no acute distress SKIN: No lesions EYES: Pupils equal reactive to light and accommodation, full extraocular movem ents, sclera clear, non-icteric, no discharge. EARS/NOSE AND THROAT: Ears normal, nose normal, oropharynx normal. NECK: Supple, no masses. CARDIOVASCULAR: Heart: Regular rate and rhythm RESPIRATORY: Lungs clear to auscultation GASTROINTESTINAL AND LIVER: Abdomen: Soft, non tenderness, non-distended, no hernias, no masses, no organomegaly, no ascites, no guarding, no rebound tenderness, normoactive bowel sounds. Rectal: Deferred. GENITOURINARY: Female genitalia within normal limits. EXTREMITIES: No cyanosis, clubbing or edema. Medications Medications Current Medications Ondansetron HCl (Zofran Inj) 4 mg BRIDGE ORDER PRN IV NAUSEA AND/OR VOMITING; Start 08/11/18 at 22:30; Stop 08/12/18 at 22:29 Sodium Chloride 1,000 ml @ 100 mls/hr Q10H IV Last administered on 08/12/18at 12:47; Admin Dose 100 MLS/HR; Start 08/11/18 at 22:29 IV Flush (NS 3 ml) 3 ml PER PROTOCOL IV ; Start 08/11/18 at 22:30 Ondansetron HCl (Zofran Inj) 4 mg Q6H PRN IV NAUSEA AND/OR VOMITING; Start 08/11/18 at 22:30 Docusate Sodium (Colace) 100 mg Q12H PRN PO CONSTIPATION; Start 08/11/18 at 22:30 Bisacodyl (Dulcolax) 5 mg DAILY PRN PO CONSTIPATION; Start 08/11/18 at 22:30 Ciprofloxacin/ Dextrose 200 ml @ 200 mls/hr Q12H IVPB Last administered on 08/12/18at 05:46; Admin Dose 200 MLS/HR; Start 08/12/18 at 05:00 Metronidazole 100 ml @ 100 mls/hr Q8 IVPB Last administered on 08/12/18at 14:36; Admin Dose 100 MLS/HR; Start 08/12/18 at 03:45 Pantoprazole (Protonix Iv) 40 mg DAILY@06 IV Last administered on 08/12/18at 09:31; Admin Dose 40 MG; Start 08/12/18 at 08:30 JAMAR COX Aug 12, 2018 16:20
[2018-08-12 20:30] VITALS: BP 103/58; PULSE 70; RESP 18
[2018-08-13 02:06] VITALS: BP 111/62; PULSE 82; RESP 18
[2018-08-13 02:16] VITALS: BP 94/50; PULSE 73; RESP 18
[2018-08-13] MEDS: SOD CHLORIDE 0.9% 1,000 ML IV SCH ×2 (02:52→14:29)
[2018-08-13] MEDS: CIPROFLOXACIN 400MG/D5W 200 ML IVPB SCH (04:48)
[2018-08-13] MEDS: metroNIDAZOLE 500 MG/NS (PMX) 100 ML IVPB SCH ×2 (06:00→14:25)
[2018-08-13] MEDS: PANTOPRAZOLE 40 MG INJ IV SCH (06:00)
[2018-08-13 08:21] VITALS: BP 96/51; PULSE 64; RESP 18
[2018-08-13] MEDS ORDERED: LACTULOSE 30ML CUP PO SCH (09:00)
--- NOTE | 2018-08-13 10:20 | PN ---
Date/Time of Note Date/Time of Note DATE: 08/13/18 TIME: 10:19 Assessment/Plan VTE Prophylaxis Risk score (from Ns)>0 risk: 0 Assessment/Plan Result Diagram: 08/13/18 0457 08/13/18 0457 Results 24hrs Exam/Review of Systems Vital Signs Vitals Medications Medications DONIS DUBOSE NP Aug 13, 2018 10:20
[2018-08-13] MEDS ORDERED: CIPR-193 PO (14:18)
[2018-08-13] MEDS ORDERED: CIPR500T4 PO (14:18)
[2018-08-13] MEDS ORDERED: METR-122 PO (14:18)
--- NOTE | 2018-08-13 14:20 | PDOCDIS ---
Discharge Instructions CONDITION [id number] Patient Condition: [id number] Stable HOME CARE INSTRUCTIONS: [id number] Diet Instructions: [id number] Regular FOLLOW UP/APPOINTMENTS Follow-up Plan Follow-up with your primary care physician in 1 week. OTHER ORDERS: Other Orders: 1. Resume home medications. Resume prophylactic ciprofloxacin after completion of ciprofloxacin with Flagyl for 5 days. 2. Resume prehospitalization diet. 3. Resume prehospitalization activities. 4. Follow-up with your primary care physician in 1 week. 5. Please go to the nearest emergency room if you have abdominal pain, worsening jaundice, persistent fevers, or any other unusual signs/symptoms. DONIS DUBOSE NP Aug 13, 2018 14:20
[2018-08-13 14:50] VITALS: BP 102/58; PULSE 69; RESP 18
--- NOTE | 2018-08-13 15:12 | DS ---
Date/Time of Note Date/Time of Note DATE: 08/13/18 TIME: 15:04 Discharge Summary Admission/Discharge Info Admit Date/Time Aug 11, 2018 at 22:16 Discharge Date/Time Discharge Diagnosis 1. Sepsis, possibly secondary to underlying cholangitis (fever and jaundice of Charcot's triad although no abdominal pain), present on admission. 2. History of biliary atresia. Status post Kasai procedure. 3. Chronic thrombocytopenia secondary to underlying liver cirrhosis. 4. Transaminitis with hyperbilirubinemia. 5. Normocytic, normochromic anemia. 6. Leukocytopenia. Patient Condition: Stable Consults 1. Rashi Gay MD, Gastroenterology. Procedures Abdomen MRI IMPRESSION: 1. Shrunken liver with surface nodularity, compatible with cirrhosis and stigmata of portal hypertension with moderate splenomegaly and perisplenic collateral varices, not significantly changed. 2. Intrahepatic periportal soft tissue thickening and numerous small peribiliary cysts, not significantly changed. 3. No evidence of hepatic abscess or intrahepatic biliary ductal dilatation. 4. Trace perihepatic ascites. Hx of Present Illness This is a This is a 23-year-old female with a past medical history of biliary at resia status post Kasai procedure, liver cirrhosis recently put on liver transplant list at [facility], and history of recurrent cholangitis, who came to the emergency room with a chief complaint of fevers, chills, and jaundice, who was found to have evidence of sepsis with febrile illness and tachycardia (heart rate more than 90). Hospital Course The patient has a prior history of frequent hospitalizations because of cholangitis. The patient had fever and jaundice of Charcot's triad although there was no abdominal pain present on admission. Patient also had tachycardia along with febrile illness, indicating sepsis. Therefore, the patient was started on empiric antibiotics. Pancultures were ordered. The patient underwent an abdominal MRI that was showing no evidence of any hepatic abscess or intra-hepatic biliary ductal dilatation. The patient's ibarra cultures remained negative. Influenza A and B swab was also done. Since the patient has high likelihood of cholangitis, the patient will be discharged home on oral antibiotics. Patient's urine culture was showing lactobacillus. The patient do not have any urinary symptoms. The patient's chronic problems include biliary atresia the patient is status post Kasai procedure. The patient is currently on liver transplant list at [facility]. The patient has pancytopenia secondary to underlying liver cirrhosis from biliary atresia. The patient's transaminitis improved throughout hospital course. The patient's hyperbilirubinemia resolved. The patient was started on a diet and the patient was able to tolerate oral intake without any significant gastrointestinal symptoms. Therefore, the patient will be discharged home on oral antibiotics to be followed up with her primary care physician in the near future as well as [facility] transplant center as scheduled. Discharge Instructions 1. Resume home medications. Resume prophylactic ciprofloxacin after completion of ciprofloxacin with Flagyl for 5 days. 2. Resume prehospitalization diet. 3. Resume prehospitalization activities. 4. Follow-up with your primary care physician in 1 week. 5. Please go to the nearest emergency room if you have abdominal pain, worsening jaundice, persistent fevers, or any other unusual signs/symptoms. The patient verbalized understanding of her discharge instructions. At this time I would like to thank all the consultants for seeing the patient and providing clinical recommendations. The patient was seen in collaboration with Dr. Gilman. [facility] Active Scripts [Work Note] No Conflict Check This is to certify that this patient was admitted to [facility] under my care from 08/11/2018 to 08/13/2018. She can return back to work/school on 08/16/2018 with no restrictions. Prov:DONIS DUBOSE NP 08/13/18 Metronidazole* (Metronidazole*) 500 Mg Tablet, 500 MG PO Q8, #15 TAB Prov:DONIS DUBOSE NP 08/13/18 Ciprofloxacin Hcl* (Ciprofloxacin Hcl*) 500 Mg Tablet, 500 MG PO BID for 5 Days, #14 TAB Prov:DONIS DUBOSE NP 08/13/18 Ciprofloxacin Hcl* (Ciprofloxacin Hcl*) 250 Mg Tablet, 250 MG PO DAILY, #14 TAB Resume after the therapy with Cipro+Flagyl is done. Prov:DONIS DUBOSE NP 08/13/18 Ascorbic Acid (Vitamin C) 500 Mg Tab, 500 MG PO DAILY for improve iron absorption, #30 TAB 2 Refills Prov:LEVI TAYLOR 07/16/18 Ferrous Sulfate* (Ferrous Sulfate*) 325 Mg Tabec, 325 MG PO BID, #60 TAB 2 Refills Prov:LEVI TAYLOR 07/16/18 Reported Medications Lactulose* (Lactulose*) 20 Gm/30 Ml Solution, 20 GM PO DAILY, ML 07/15/18 Follow-up Plan Follow-up with your primary care physician in 1 week. Primary Care Provider [facility] Time spent on discharge: > 30 minutes Pending Labs Laboratory Tests Test 08/13/18 04:56 08/13/18 04:57 08/13/18 10:41 Ammonia 45 umol/l (9-30) White Blood Count 1.6 10^3/ul (4.8-10.8) Red Blood Count 3.06 10^6/ul (4.20-5.40) Hemoglobin 9.7 g/dl (12.0-16.0) Hematocrit 29.0 % (37.0-47.0) Mean Corpuscular 94.8 Volume fl (82.0-101.0) Mean Corpuscular 31.7 pg (29.0-33.0) Hemoglobin Mean Corpuscular 33.4 Hemoglobin Concent g/dl (32.0-37.0) Red Cell 13.3 % (11.5-14.5) Distribution Width Platelet Count 39 10^3/UL (140-415) Mean Platelet 10.9 fl (7.4-10.4) Volume Immature 0.600 Granulocytes % % (0.001-0.429) Neutrophils % % (39.0-77.0) Segmented 40 % (39-77) Neutrophils % (Manual) Band Neutrophils % 6 % (0-4) (Manual) Lymphocytes % % (15.0-51.0) Lymphocytes % 33 % (15-51) (Manual) Reactive Lymphocytes 4 % (0-0) % (Manual) Monocytes % % (0.0-11.0) Monocytes % (Manual) 7 % (0-11) Eosinophils % % (0.0-7.0) Eosinophils % 10 % (0-7) (Manual) Basophils % % (0.0-2.0) Nucleated Red Blood 0.0 Cells % /100WBC (0.0-0.0) Immature 0.010 Granulocytes # 10^3/ul (0.0-0.031) Neutrophils # 10^3/ul (1.6-7.5) Neutrophils # 0.6 (Manual) 10^3/ul (1.6-7.5) Band Neutrophils # 0.0 10^3/ul (0.0-0.6) Lymphocytes 0.5 (Manual) 10^3/ul (0.8-2.9) Lymphocytes # 10^3/ul (0.8-2.9) Reactive Lymphocytes 0.0 # 10^3/ul (0.0-0.0) Monocytes # 10^3/ul (0.3-0.9) Monocytes # 0.1 (Manual) 10^3/ul (0.3-0.9) Eosinophils # 10^3/ul (0.0-0.5) Basophils # 10^3/ul (0.0-0.1) Nucleated Red Blood 10^3/ul (0.0-0.0) Cells # Platelet Estimate SIG DECREASED Polychromasia 1+ (0-0) Poikilocytosis 1+ (0-0) Anisocytosis 1+ (0-0) Macrocytosis 1+ (0-0) Prothrombin Time 15.9 Sec (11.9-14.9) Prothrombin Time 1.2 Ratio INR International 1.26 Normalized Ratio Activated 32.2 Partial Thromboplast Sec (23.0-35.0) Time Sodium Level 138 mmol/L (135-144) Potassium Level 3.9 mmol/L (3.5-5.1) Chloride Level 113 mmol/L (97-110) Carbon Dioxide 22 mmol/L (21-31) Level Anion Gap 3 (5-13) Blood Urea Nitrogen 8 mg/dl (7-20) Creatinine 0.61 mg/dl (0.44-1.00) Est Glomerular > 60 mL/min (>60) Filtrat Rate mL/min Glucose Level 105 mg/dl (70-220) Calcium Level 8.4 mg/dl (8.4-10.2) Phosphorus Level 3.4 mg/dl (2.5-4.9) Magnesium Level 1.9 mg/dl (1.7-2.5) Total Bilirubin 1.1 mg/dl (0.2-1.3) Direct Bilirubin 0.00 mg/dl (0.00-0.20) Indirect Bilirubin 1.1 mg/dl (0-1.1) Aspartate Amino 115 IU/L (15-46) Transf (AST/SGOT) Alanine 162 IU/L (13-69) Aminotransferase (AL T/SGPT) Alkaline 196 IU/L (42-121) Phosphatase Total Protein 6.2 g/dl (6.1-8.1) Albumin 3.1 g/dl (3.3-4.9) Globulin 3.10 g/dl (1.3-3.2) Albumin/Globulin 1.00 Ratio Iron Level 54 ug/dl (35-150) Total Iron Binding 292 ug/dl (241-421) Capacity Percent Iron 18 % SAT (22-52) Saturation Ferritin 69.9 ng/ml (6.2-137.0) C-Reactive Protein 2.2 mg/dl (0.0-0.9) Microbiology Date/Time Source Procedure Growth Status 08/13/18 12:17 Nasopharyngeal Influenza Types A,B Direct EIA - Final Complete DONIS DUBOSE NP Aug 13, 2018 15:12
[2018-08-13] MEDS ORDERED: Work Note (16:23)
== END 2018-08-13 18:00 | disposition home or self-care (01) | DRG 872 ==
LOC: FTE 18:17 → MS1 22:16
PROVIDERS: ADMIT Family Medicine; ATTEND Family Medicine
DX: A41.9 Sepsis, unspecified organism (principal); K83.09 Other cholangitis; D61.818 Other pancytopenia; K74.69 Other cirrhosis of liver; Z76.82 Awaiting organ transplant status
CPT/HCPCS: 36415; 74181; 80048; 80053; 80061; 80076; 81001; 81025; 82140; 82728; 83036; 83540; 83605; 83690; 83735; 84100; 84443; 84484; 85025; 85610; 85730; 86140; 87040; 87081; 87086; 87400; 93005; 96361; 96374; 96375; C9113; J0692; J0744; J1885; J2543; J7030

== ENCOUNTER 2018-12-20 05:50 | Emergency (ER) | payer BC, OTHER ==
[~2018-12-20] VITALS: Ht 167.6 cm; Wt 69.3 kg
[~2018-12-20 05:50] MED LIST changes: +CIPR-193 PO; +CIPR500T4 PO; +METR-122 PO; +Work Note
[2018-12-20 05:51] VITALS: Ht 167.6 cm; Wt 69.3 kg
[2018-12-20] MEDS ORDERED: KETOROLAC 30 MG INJ IV STA (06:53)
[2018-12-20] MEDS ORDERED: ONDANSETRON 4 MG INJ IV STA (06:53)
--- NOTE | 2018-12-20 06:55 | ERD ---
ER Documentation Chief Complaint Chief Complaint upper ab pain & fever x less than a day;took Ibuprofen@0200;hx cholangitis HPI Patient is a 23-year-old female with a past medical history of biliary atresia status post Kasai procedure as an infant, chronic cirrhosis, chronic pancytopenia, previous episodes of cholangitis requiring multiple admissions who presents to the ER for concerns of "not feeling well and fevers." Patient r eports temperature of 100.3F at 2am in the morning. Patient reports taking ibuprofen which did intermittently bring her fever down however her fever recurred so she presents to the ER. Patient states that she noticed some mild jaundiced her skin. Patient also reports epigastric pain. Patient states she feels nauseous however she denies any vomiting. Patient denies any changes in her stool. Patient denies any UTI symptoms. Last bowel movement yesterday. Patient states she does take lactulose. Patient is currently on her menstrual period. ROS All systems reviewed and are negative except as per history of present illness. Medications Home Meds Active Scripts Ibuprofen* (Motrin*) 600 Mg Tab, 600 MG PO Q6, #30 TAB Prov:KOFI MIRANDA PA-C 12/20/18 Ondansetron (Ondansetron Odt) 4 Mg Tab.rapdis, 4 MG PO Q6H PRN for NAUSEA AND/OR VOMITING, #10 TAB Prov:KOFI MIRANDA PA-C 12/20/18 [Work Note] No Conflict Check This is to certify that this patient was admitted to [facility] under my care from 08/11/2018 to 08/13/2018. She can return back to work/school on 08/16/2018 with no restrictions. Prov:DONIS DUBOSE NP 08/13/18 Metronidazole* (Metronidazole*) 500 Mg Tablet, 500 MG PO Q8, #15 TAB Prov:DONIS DUBOSE NP 08/13/18 Ciprofloxacin Hcl* (Ciprofloxacin Hcl*) 500 Mg Tablet, 500 MG PO BID for 5 Days, #14 TAB Prov:DONIS DUBOSE NP 08/13/18 Ciprofloxacin Hcl* (Ciprofloxacin Hcl*) 250 Mg Tablet, 250 MG PO DAILY, #14 TAB Resume after the therapy with Cipro+Flagyl is done. Prov:DONIS DUBOSE NP 08/13/18 Ascorbic Acid (Vitamin C) 500 Mg Tab, 500 MG PO DAILY for improve iron absorption, #30 TAB 2 Refills Prov:LEVI TAYLOR. 07/16/18 Ferrous Sulfate* (Ferrous Sulfate*) 325 Mg Tabec, 325 MG PO BID, #60 TAB 2 Refills Prov:LEVI TAYLOR. 07/16/18 Reported Medications Lactulose* (Lactulose*) 20 Gm/30 Ml Solution, 20 GM PO DAILY, ML 07/15/18 Allergies Allergies: Coded Allergies: amoxicillin (Unverified Allergy, Unknown, RASH, 08/11/18) vancomycin (Unverified Adverse Reaction, Intermediate, Rash, 08/11/18) PMhx/Soc History of Surgery: Yes (Kasari procedure for biliary atresia) Anesthesia Reaction: No Hx Neurological Disorder: No Hx Respiratory Disorders: No Hx Cardiac Disorders: No Hx Psychiatric Problems: No Hx Miscellaneous Medical Probl: Yes (irregular period,cholangitis) Hx Alcohol Use: No Hx Substance Use: No Hx Tobacco Use: No Smoking Status: Never smoker FmHx Family History: No diabetes Physical Exam Vitals Vital Signs Date Temp Pulse Resp B/P (MAP) Pulse Ox O2 O2 Flow FiO2 Time Delivery Rate 12/20/18 98.9 70 17 104/57 99 Room Air 08:41 (73) 12/20/18 100.8 85 18 119/79 97 05:51 (92) Physical Exam GENERAL: Well-developed, well-nourished female. Appears in no acute distress. Speaking in full sentences. HEAD: Normocephalic, atraumatic. EYES: Pupils are equally reactive bilaterally. EOMs grossly intact. No scleral icterus noted. NECK: Supple. No meningismus. Normal range of motion of the neck. LUNG: Clear to auscultation bilaterally. No rhonchi, wheezing, rales or coarse breath sounds. HEART: Regular rate and rhythm. No murmurs, rubs or gallops. ABDOMEN: Previous surgical scars noted. Soft, nondistended. Tender to palpation in the epigastric region. No rebound tenderness, no guarding. (-) McBurney's point tenderness. No CVA tenderness. BACK: No midline tenderness. EXTREMITIES: Equal pulses bilaterally. No peripheral clubbing, cyanosis or edema. No unilateral leg swelling. NEUROLOGIC: Alert and oriented. Moving all four extremities without any difficulty. Normal speech. Steady gait. SKIN: Mild jaundice. Result Diagram: 12/20/18 0702 12/20/18 0702 Results 24 hrs Laboratory Tests Test 12/20/18 06:59 12/20/18 07:02 12/20/18 07:25 POC Beta HCG, Qualitative NEGATIVE White Blood Count 4.0 10^3/ul Red Blood Count 4.11 10^6/ul Hemoglobin 12.9 g/dl Hematocrit 39.9 % Mean Corpuscular Volume 97.1 fl Mean Corpuscular Hemoglobin 31.4 pg Mean Corpuscular 32.3 g/dl Hemoglobin Concent Red Cell Distribution Width 14.6 % Platelet Count 67 10^3/UL Mean Platelet Volume 11.0 fl Immature Granulocytes % 0.500 % Neutrophils % 84.8 % Lymphocytes % 8.1 % Monocytes % 5.8 % Eosinophils % 0.5 % Basophils % 0.3 % Nucleated Red Blood Cells % 0.0 /100WBC Immature Granulocytes # 0.020 10^3/ul Neutrophils # 3.4 10^3/ul Lymphocytes # 0.3 10^3/ul Monocytes # 0.2 10^3/ul Eosinophils # 0.0 10^3/ul Basophils # 0.0 10^3/ul Nucleated Red Blood Cells # 0.0 10^3/ul Urine Color RED Urine Clarity BLOODY Urine pH 6.0 Urine Specific [place] 1.025 Urine Ketones 1+ mg/dL Urine Nitrite NEGATIVE mg/dL Urine Bilirubin NEGATIVE mg/dL Urine Urobilinogen 0.2 E.U./dL mg/dL Urine Leukocyte Esterase TRACE Shiva/ul Urine Microscopic RBC >200 /HPF Urine Microscopic WBC 2-5 /HPF Urine Squamous RARE /HPF Epithelial Cells Urine Bacteria FEW /HPF Urine Hemoglobin 3+ mg/dL Urine Glucose NEGATIVE mg/dL Urine Total Protein 2+ mg/dl Sodium Level 141 mmol/L Potassium Level 4.3 mmol/L Chloride Level 111 mmol/L Carbon Dioxide Level 20 mmol/L Anion Gap 10 Blood Urea Nitrogen 13 mg/dl Creatinine 0.75 mg/dl Est Glomerular Filtrat > 60 mL/min Rate mL/min Glucose Level 87 mg/dl Calcium Level 9.0 mg/dl Total Bilirubin 2.4 mg/dl Direct Bilirubin 0.00 mg/dl Indirect Bilirubin 2.4 mg/dl Aspartate Amino 72 IU/L Transf (AST/SGOT) Alanine 68 IU/L Aminotransferase (ALT/SGPT) Alkaline Phosphatase 103 IU/L Total Protein 8.0 g/dl Albumin 4.2 g/dl Globulin 3.80 g/dl Albumin/Globulin Ratio 1.10 Lipase 43 U/L POC Venous Lactate 1.2 mmol/L Current Medications Medications Dose Sig/Dawson Start Time Status Last (Trade) Ordered Route PRN Stop Time Admin Dose Reason Admin Ondansetron 4 mg ONCE STAT 12/20/18 DC 12/20/18 HCl (Zofran IV 06:53 07:28 Inj) 12/20/18 06:54 Ketorolac 30 mg ONCE STAT 12/20/18 DC 12/20/18 Tromethamine IV 06:53 07:29 (Toradol) 12/20/18 06:54 Sodium 1,000 ml @ Q1H ONCE 12/20/18 DC 12/20/18 Chloride 1,000 mls/hr IV 07:00 07:29 12/20/18 07:59 Procedures/MDM MEDICAL DECISION MAKING: Patient is a 23-year-old female with a past medical history of biliary atresia status post Kasai procedure as an , chronic cirrhosis, chronic pancytopenia, previous episodes of cholangitis requiring multiple admissions who presents to the ER for concerns of "not feeling well and fevers." Patient states that her current symptoms do feel like previous cholangitis episodes. Vital signs were reviewed. Patient was febrile with temperature of 100.8 Fahrenheit. Patient was not hypoxic. Initial pulse was noted to be 85. Blood pressure within normal limits. IV line was established. Blood work was obtained. CBC showed WBC count of 4, hemoglobin hematocrit within normal limits. Platelet count noted to be 67. Patient does have a history of pancytopenia. CMP showed no severe electrolyte abnormalities, acidosis, alkalosis, renal injury or liver failure. Patient's direct bilirubin was noted to be 0. Patient's alk phos was noted to be within normal limits. AST was noted to be slightly elevated at elevated at 72 however ALT was within normal limits. Lipase was within normal limits. test was negative. UA did show 1+ ketones, greater than 200 RBCs and 2-5 WBCs. Patient was currently on her menstrual period. Likely explains the presence of blood in the patient's urine. I discussed patient's laboratory findings with supervising physician Dr. Clifton, who reviewed the patient's previous history as well as current blood work. At this time, there is no indication for admission. Patient has no signs of biliary obstruction. Patient does not appear to be septic. Patient was well-appearing and nontoxic in appearance. Patient was given strict ER return precautions advised. Patient was advised to monitor symptoms closely. Patient was advised to return to the ER in 8 to 10 hours for abdominal pain recheck or return sooner for any new or worsening symptoms. Patient understood and agreed with this plan. At this time, the patient's presentation is most consistent with abdominal pain and fever. Low suspicion for acute abdomen, ascending cholangitis, choledocholithiasis, pancreatitis, pyelonephritis, UTI, bowel obstruction, abdominal aortic aneurysm, ACS or sepsis. DISCHARGE: At this time, patient is stable for discharge and outpatient management. I have instructed the patient to follow-up with his/her primary care physician in 1-2 days. I have instructed the patient to promptly return to the ER at any time for any new or worsening symptoms including increased pain, nausea, vomiting, diarrhea, fever, weakness or LOC. The patient and/or family expressed understanding of and agreement with this plan. All questions were answered. Home care instructions were provided. Disclaimer: Inadvertent spelling and grammatical errors are likely due to EHR/dictation software use and do not reflect on the overall quality of patient care. Also, please note that the electronic time recorded on this note does not necessarily reflect the actual time of the patient encounter. Departure Diagnosis: Primary Impression: Abdominal pain Abdominal location: unspecified location Qualified Codes: R10.9 - Unspecified abdominal pain Additional Impressions: Fever Fever type: unspecified Qualified Codes: R50.9 - Fever, unspecified History of cholangitis Referrals: [facility] Additional Instructions: Abdominal pain recheck advised in 8 to 10 hours. No evidence of biliary obstruction at this time however monitor symptoms closely and return to the ER for any new or worsening symptoms. KOFI MIRANDA PA-C December 20, 2018 06:55
[2018-12-20] MEDS ORDERED: SOD CHLORIDE 0.9% 1,000 ML IV ONE (07:00)
[2018-12-20] MEDS ORDERED: IBUP-1542 PO (08:35)
[2018-12-20] MEDS ORDERED: ONDA4TAB14 PO (08:35)
[2018-12-20 08:41] VITALS: BP 104/57; PULSE 70; RESP 17
== END 2018-12-20 08:35 | disposition home or self-care (01) ==
LOC: FTE 05:50
DX: R10.10 Upper abdominal pain, unspecified (principal); R50.9 Fever, unspecified; Z87.19 Personal history of other diseases of the digestive system
CPT/HCPCS: 36415; 80053; 81001; 81025; 83605; 83690; 85025; 87040; 96361; 96374; 96375; 99284; J1885; J2405; J7030

== ENCOUNTER 2019-02-14 11:53 | Inpatient (IN) | payer BC, OTHER ==
[~2019-02-14] VITALS: Ht 165.1 cm; Wt 67.2 kg
[~2019-02-14 11:53] MED LIST changes: +IBUP-1542 PO; +ONDA4TAB14 PO
--- NOTE | 2019-02-14 13:31 | ERD ---
ER Documentation Chief Complaint Chief Complaint FEVER, ORANGE-COLORED URINE, NO PAIN, NO N/V, ONSET 3 HPI The patient is a 23-year-old female, presenting to the ER because of fever for the last 3 days with orange-colored urine, nausea but no vomiting, intermittent abdominal pain but no abdominal pain now. She had similar symptoms previously, denies chills, neck pain, chest pain, dyspnea, diarrhea, constipation, dysuria. She does not smoke nor drink or does illicit drug Past medical history: History of cholangitis, cirrhosis, thrombocytopenia, anemia, leukopenia, pancreatitis, esophageal varices Past surgical history: History of biliary atresia status post Kasai procedure, esophageal varices banding ROS All systems reviewed and are negative except as per history of present illness. Medications Home Meds Active Scripts Ciprofloxacin Hcl* (Ciprofloxacin Hcl*) 250 Mg Tablet, 250 MG PO DAILY, #14 TAB Resume after the therapy with Cipro+Flagyl is done. Prov:DONIS DUBOSE NP 08/13/18 Reported Medications Naproxen* (Naproxen*) 500 Mg Tablet, 500 MG PO BID PRN for PAIN LEVEL 6-10, TAB 02/14/19 Lactulose* (Lactulose*) 20 Gm/30 Ml Solution, 30 GM PO DAILY, ML 07/15/18 Discontinued Scripts Ibuprofen* (Motrin*) 600 Mg Tab, 600 MG PO Q6, #30 TAB Prov:KOFI MIRANDA PA-C 12/20/18 Ondansetron (Ondansetron Odt) 4 Mg Tab.rapdis, 4 MG PO Q6H PRN for NAUSEA AND/OR VOMITING, #10 TAB Prov:KOFI MIRANDA PA-C 12/20/18 [Work Note] No Conflict Check This is to certify that this patient was admitted to [facility] under my care from 08/11/2018 to 08/13/2018. She can return back to work/school on 08/16/2018 with no restrictions. Prov:DONIS DUBOSE NP 08/13/18 Metronidazole* (Metronidazole*) 500 Mg Tablet, 500 MG PO Q8, #15 TAB Prov:DONIS DUBOSE NP 08/13/18 Ciprofloxacin Hcl* (Ciprofloxacin Hcl*) 500 Mg Tablet, 500 MG PO BID for 5 Days, #14 TAB Prov:DONIS DUBOSE NP 08/13/18 Ascorbic Acid (Vitamin C) 500 Mg Tab, 500 MG PO DAILY for improve iron absorption, #30 TAB 2 Refills Prov:LEVI TAYLOR. 07/16/18 Ferrous Sulfate* (Ferrous Sulfate*) 325 Mg Tabec, 325 MG PO BID, #60 TAB 2 Refills Prov:LEVI TAYLOR. 07/16/18 Allergies Allergies: Coded Allergies: amoxicillin (Unverified Allergy, Unknown, RASH, 08/11/18) vancomycin (Unverified Adverse Reaction, Intermediate, Rash, 08/11/18) PMhx/Soc History of Surgery: Yes (Kasari procedure for biliary atresia) Anesthesia Reaction: No Hx Neurological Disorder: No Hx Respiratory Disorders: No Hx Cardiac Disorders: No Hx Psychiatric Problems: No Hx Miscellaneous Medical Probl: Yes (irregular period,cholangitis) Hx Alcohol Use: No Hx Substance Use: No Hx Tobacco Use: No Physical Exam Vitals Vital Signs Date Temp Pulse Resp B/P (MAP) Pulse Ox O2 O2 Flow FiO2 Time Delivery Rate 02/14/19 75 18 115/70 100 Room Air 15:30 (85) 02/14/19 101.4 15:09 02/14/19 101.7 88 17 133/66 98 11:54 (88) Physical Exam Const: No acute distress. Jaundice Head: Atraumatic. Eyes: Normal Conjunctiva. ENT: Normal External Ears, Nose and Mouth. Neck: Full range of motion. No meningismus. Resp: Clear to auscultation bilaterally. Cardio: Regular rate and rhythm. Abd: Soft, non distended, normal bowel sounds, non tender. Skin: No petechiae or rashes. Back: No midline or flank tenderness. Ext: No cyanosis, or edema. Neur: Awake and alert. No focal deficit Psych: Normal Mood and Affect. Result Diagram: 02/15/19 0446 02/15/19 0447 Results 24 hrs Laboratory Tests Test 02/14/19 14:07 02/14/19 14:15 02/14/19 14:16 02/14/19 16:12 POC Venous 1.4 mmol/L Lactate White Blood Count 3.4 10^3/ul Red Blood Count 3.86 10^6/ul Hemoglobin 12.2 g/dl Hematocrit 38.8 % Mean Corpuscular 100.5 fl Volume Mean Corpuscular 31.6 pg Hemoglobin Mean Corpuscular 31.4 g/dl Hemoglobin Concen t Red Cell 14.4 % Distribution Width Platelet Count 57 10^3/UL Mean Platelet 11.2 fl Volume Immature 0.300 % Granulocytes % Neutrophils % 73.9 % Segmented 71 % Neutrophils % (Manual) Band Neutrophils 2 % % (Manual) Lymphocytes % 13.0 % Lymphocytes % 16 % (Manual) Monocytes % 8.6 % Monocytes % 11 % (Manual) Eosinophils % 3.6 % Basophils % 0.6 % Nucleated Red 0.0 /100WBC Blood Cells % Immature 0.010 10^3/ul Granulocytes # Neutrophils # 2.5 10^3/ul Neutrophils # 2.4 10^3/ul (Manual) Band Neutrophils 0.0 10^3/ul # Lymphocytes 0.5 10^3/ul (Manual) Lymphocytes # 0.4 10^3/ul Monocytes # 0.3 10^3/ul Monocytes # 0.3 10^3/ul (Manual) Eosinophils # 0.1 10^3/ul Basophils # 0.0 10^3/ul Nucleated Red 0.0 10^3/ul Blood Cells # Platelet Estimate DECREASED Poikilocytosis 2+ Ovalocytes 1+ Prothrombin Time 15.2 Sec Prothrombin Time 1.2 Ratio INR International 1.19 Normalized Ratio Activated 30.6 Sec Partial Thrombopl ast Time Sodium Level 142 mmol/L Potassium Level 4.6 mmol/L Chloride Level 109 mmol/L Carbon Dioxide 27 mmol/L Level Anion Gap 6 Blood Urea 9 mg/dl Nitrogen Creatinine 0.79 mg/dl Est Glomerular > 60 mL/min Filtrat Rate mL/min Glucose Level 86 mg/dl Calcium Level 9.4 mg/dl Total Bilirubin 1.8 mg/dl Direct Bilirubin 0.00 mg/dl Indirect 1.8 mg/dl Bilirubin Aspartate Amino 276 IU/L Transf (AST/SGOT) Alanine 202 IU/L Aminotransferase (ALT/SGPT) Alkaline 162 IU/L Phosphatase Troponin I < 0.012 ng/ml Total Protein 7.9 g/dl Albumin 4.0 g/dl Globulin 3.90 g/dl Albumin/Globulin 1.02 Ratio Urine Color POLO Urine Clarity SLIGHTLY CLOUDY Urine pH 6.0 Urine Specific 1.017 [place] Urine Ketones NEGATIVE mg/dL Urine Nitrite NEGATIVE mg/dL Urine Bilirubin NEGATIVE mg/dL Urine NEGATIVE mg/dL Urobilinogen Urine Leukocyte TRACE Shiva/ul Esterase Urine Microscopic 0 /HPF RBC Urine Microscopic 3 /HPF WBC Urine Squamous FEW /HPF Epithelial Cells Urine Bacteria FEW /HPF Urine Mucus FEW /HPF Urine Hemoglobin NEGATIVE mg/dL Urine Glucose NEGATIVE mg/dL Urine Total NEGATIVE mg/dl Protein Lactic Acid Level 1.0 mmol/L Current Medications Medications Dose Sig/Dawson Start Time Status Last (Trade) Ordered Route PRN Stop Time Admin Dose Reason Admin Sodium 2,020 ml BOLUS OVER 2 02/14/19 DC 02/14/19 Chloride HOURS STAT 13:42 13:42 (NS) IV* 02/14/19 13:43 650 mg ONCE STAT 02/14/19 DC Acetaminophen PO 13:42 (Tylenol 02/14/19 14:57 Tab) Ondansetron 4 mg ONCE STAT 02/14/19 DC HCl (Zofran IV 13:47 Inj) 02/14/19 13:48 Ibuprofen 600 mg ONCE ONCE 02/14/19 DC 02/14/19 (Motrin) PO 15:00 15:09 02/14/19 15:01 Ceftriaxone 50 ml @ ONCE ONCE 02/14/19 DC 02/14/19 Sodium 100 mls/hr IVPB 16:00 16:04 02/14/19 16:05 150 ml @ Q24H IVPB 02/14/19 02/15/19 Levofloxacin/ 100 mls/hr 16:30 16:52 Dextrose 100 ml @ Q8 IVPB 02/14/19 02/15/19 Metronidazole 100 mls/hr 16:30 16:51 1,000 ml @ Q10H IV 02/14/19 02/15/19 Dextrose/Sodi 100 mls/hr 16:06 16:52 um Chloride IV Flush 3 ml PER 02/14/19 (NS 3 ml) PROTOCOL IV 16:30 Ondansetron 4 mg Q6H PRN 02/14/19 HCl (Zofran IV 16:30 Inj) NAUSEA/VOMITI NG Ibuprofen 600 mg Q6H PRN 02/14/19 02/14/19 (Motrin) PO .PAIN 1-3 16:30 19:12 OR TEMP Morphine 2 mg Q4H PRN 02/14/19 Sulfate IV .PAIN 16:30 (morphine) 7-10 Procedures/[place] [id number] Radiology Main Line: [phone] DIAGNOSTIC IMAGING REPORT Patient: DANTE MARSH : 1995 Age: 23 Sex: F MR #: [id number] DOS: 02/14/19 1342 Ordering MD: NATALY STOKES MD Location: E/R Room/Bed: PROCEDURE: XR Chest. CLINICAL INDICATION: chest pain TECHNIQUE: Single AP view of the chest were obtained COMPARISON: 10/18/2016 FINDINGS: The heart and mediastinum are within normal limits. The pulmonary vasculature are unremarkable. The aorta is unremarkable. There is no lung consolidation, pleural effusion or pneumothorax. There is no acute osseous abnormality. IMPRESSION: No acute disease. RPTAT: AA .Jody Estevez MD, Date Time Electronically viewed and signed by .Jody Estevez MD, MD on 02/14/2019 15:12 .J/ CC: NATALY STOKES MD [phone] EKG: Read by emergency physician Rate/Rhythm: Normal Sinus Rhythm 78 beats/min QRS, ST, T-waves: No ST elevation, no T inversion, pvc Impression: Abnormal EKG MEDICAL MAKING DECISION: The patient is a 23-year-old female, presenting with acute febrile illness of unclear etiology, was treated with normal saline 30 mm/kg IV for clinical dehydration, Motrin for fever, Zofran IV for nausea, Rocephin IV empirically The differential diagnoses considered include but are not limited to choledocholithiasis, cholangitis, pancreatitis, hepatitis, gastritis, peptic ulcer disease, gastric ulcer, appendicitis, cystitis, diverticulitis, partial small bowel obstruction. Departure Diagnosis: Primary Impression: Acute febrile illness Condition: Stable Comments I discussed the findings with the patient. I notified the patient with Dr. Mcgregor at 3:50p via [employer] , who was made aware of the lab, the treatment, the patient condition. The patient is admitted to [facility] Disclaimer: Inadvertent spelling and grammatical errors are likely due to EHR/dictation software use and do not reflect on the overall quality of patient care. Also, please note that the electronic time recorded on this note does not necessarily reflect the actual time of the patient encounter. NATALY STOKES MD Feb 14, 2019 13:31
[2019-02-14] MEDS ORDERED: ACETAMINOPHEN 325 MG TAB PO STA (13:42)
[2019-02-14] MEDS ORDERED: SODIUM CHLORIDE 0.9% 1L BAG IV* STA (13:42)
[2019-02-14] MEDS ORDERED: ONDANSETRON 4 MG INJ IV STA (13:47)
[2019-02-14] MEDS ORDERED: NAPR-688 PO (14:23)
[2019-02-14] MEDS ORDERED: IBUPROFEN 600 MG TAB PO ONE (15:00)
[2019-02-14] MEDS ORDERED: CEFTRIAXONE 1 GM/50 ML (PMX) 50 ML IVPB ONE (16:00)
[2019-02-14] MEDS ORDERED: morphine 2 MG INJ IV PRN (16:30)
[2019-02-14] MEDS ORDERED: NACL 0.9% 3 ML SYG IV SCH (16:30)
[2019-02-14] MEDS ORDERED: ONDANSETRON 4 MG INJ IV PRN (16:30)
[2019-02-14] MEDS ORDERED: IBUPROFEN 600 MG TAB PO PRN (16:30)
--- NOTE | 2019-02-14 16:34 | HP ---
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 for fever. Patient states that she has been admitted many times in the past and always presents with relatively asymptomatic fever with some mild issues and usually gets IV antibiotics. Patient states other than the fever she feels well except for some darkened urine yesterday and some very very mild right upper quadrant pain. Patient denies nausea, vomiting, chest pain, shortness of breath, headache, leg pain, pain with urination Objective Physical exam General: Patient is laying in bed and answers questions appropriately Mentation: Patient is alert and oriented 4, Head: Normocephalic atraumatic Eyes: EOMI, pupils reactive to light Neck: Supple, nontender, midline Respiratory: Clear to auscultation bilaterally Cardiovascular: regular rate, no obvious murmurs Gastrointestinal: minimally tender right upper quadrant to palpation, bowel sounds heard. Neurological: Moves all extremities spontaneously Skin: No new skin lesions Assessment and plan Acute on chronic cholangitis -Patient does exhibit some factors Charcot's triad such as mild right upper quadrant pain, fever however is not significantly jaundiced and actually her total bilirubin is on the lower side of her normal and her direct bilirubin is actually 0 -Due to her history of multiple episodes of cholangitis will treat for acute cholangitis even though symptoms are mild -N.p.o. except for medications -IV antibiotic, patient does well with fluoroquinolone and Flagyl combination in the past, has penicillin allergy and unknown if Zosyn is safe, infectious disease consulted, will defer to recommendations from infectious disease DrMeño -GI and infectious disease consulted -MRCP ordered -IV fluids Fever -Panculture -Flu ordered Chronic pancytopenia -Secondary to liver cirrhosis Liver cirrhosis -Secondary to congenital biliary atresia -Patient follows up with maintenance mechanic supervisor at [facility] -On transplant list Esophageal varices -Monitor closely Disposition -Continue IV antibiotics, awaiting results of cultures, MRCP pending, GI and infectious disease consultation also pending Result Diagram: 02/14/19 1415 02/14/19 1415 Results 24hrs Laboratory Tests Test 02/14/19 14:07 02/14/19 14:15 02/14/19 14:16 POC Venous Lactate 1.4 White Blood Count 3.4 L Red Blood Count 3.86 L Hemoglobin 12.2 Hematocrit 38.8 Mean Corpuscular Volume 100.5 Mean Corpuscular Hemoglobin 31.6 Mean Corpuscular 31.4 L Hemoglobin Concent Red Cell Distribution Width 14.4 Platelet Count 57 L Mean Platelet Volume 11.2 H Immature Granulocytes % 0.300 Neutrophils % 73.9 Segmented Neutrophils 71 % (Manual) Band Neutrophils % (Manual) 2 Lymphocytes % 13.0 L Lymphocytes % (Manual) 16 Monocytes % 8.6 Monocytes % (Manual) 11 Eosinophils % 3.6 Basophils % 0.6 Nucleated Red Blood Cells % 0.0 Immature Granulocytes # 0.010 Neutrophils # 2.5 Neutrophils # (Manual) 2.4 Band Neutrophils # 0.0 Lymphocytes (Manual) 0.5 L Lymphocytes # 0.4 L Monocytes # 0.3 Monocytes # (Manual) 0.3 Eosinophils # 0.1 Basophils # 0.0 Nucleated Red Blood Cells # 0.0 Platelet Estimate DECREASED Poikilocytosis 2+ Ovalocytes 1+ Prothrombin Time 15.2 H Prothrombin Time Ratio 1.2 INR International 1.19 Normalized Ratio Activated Partial Thromboplast 30.6 Time Sodium Level 142 Potassium Level 4.6 Chloride Level 109 Carbon Dioxide Level 27 Anion Gap 6 Blood Urea Nitrogen 9 Creatinine 0.79 Est Glomerular Filtrat > 60 Rate mL/min Glucose Level 86 Calcium Level 9.4 Total Bilirubin 1.8 H Direct Bilirubin 0.00 Indirect Bilirubin 1.8 H Aspartate Amino 276 H Transf (AST/SGOT) Alanine 202 H Aminotransferase (ALT/SGPT) Alkaline Phosphatase 162 H Troponin I < 0.012 Total Protein 7.9 Albumin 4.0 Globulin 3.90 H Albumin/Globulin Ratio 1.02 Urine Color POLO Urine Clarity SLIGHTLY CLOUDY A Urine pH 6.0 Urine Specific [place] 1.017 Urine Ketones NEGATIVE Urine Nitrite NEGATIVE Urine Bilirubin NEGATIVE Urine Urobilinogen NEGATIVE Urine Leukocyte Esterase TRACE A Urine Microscopic RBC 0 Urine Microscopic WBC 3 Urine Squamous FEW Epithelial Cells Urine Bacteria FEW A Urine Mucus FEW A Urine Hemoglobin NEGATIVE Urine Glucose NEGATIVE Urine Total Protein NEGATIVE HPI/ROS Admit Date/Time Admit Date/Time PMH/Family/Social Past Medical History Medications Current Medications Levofloxacin/ Dextrose 150 ml @ 100 mls/hr Q24H IVPB ; Start 02/14/19 at 16:30 Metronidazole 100 ml @ 100 mls/hr Q8 IVPB ; Start 02/14/19 at 16:30 Dextrose/Sodium Chloride 1,000 ml @ 100 mls/hr Q10H IV ; Start 02/14/19 at 16:06 IV Flush (NS 3 ml) 3 ml PER PROTOCOL IV ; Start 02/14/19 at 16:30 Ondansetron HCl (Zofran Inj) 4 mg Q6H PRN IV NAUSEA/VOMITING; Start 02/14/19 at 16:30 Ibuprofen (Motrin) 600 mg Q6H PRN PO .PAIN 1-3 OR TEMP; Start 02/14/19 at 16:30 Morphine Sulfate (morphine) 2 mg Q4H PRN IV .PAIN 7-10; Start 02/14/19 at 16:30 Coded Allergies: amoxicillin (Unverified Allergy, Unknown, RASH, 08/11/18) vancomycin (Unverified Adverse Reaction, Intermediate, Rash, 08/11/18) Past Surgical History Past Surgical Hx: cholecystectomy, other Family History Significant Family History: no pertinent family hx, vascular disease Social History Smoking Status: Never smoker Exam/Review of Systems Vital Signs Vitals Vital Signs Date Temp Pulse Resp B/P (MAP) Pulse Ox O2 O2 Flow FiO2 Time Delivery Rate 02/14/19 101.4 15:09 02/14/19 88 17 133/66 98 11:54 (88) JILL WHITT Feb 14, 2019 16:34
[2019-02-14] MEDS: metroNIDAZOLE 500 MG/NS (PMX) 100 ML IVPB SCH ×2 (16:57→23:17)
[2019-02-14] MEDS: DEXTROSE 5%-0.45% NACL 1,000 ML IV SCH (16:58)
[2019-02-14] MEDS: LEVOFLOXACIN 750MG/D5W (PMX) 150 ML IVPB SCH (16:58)
--- NOTE | 2019-02-14 17:28 | CONS ---
Assessment/Plan Assessment/Plan Hospital Course (Demo Recall) Assessment: Recurrent Cholangitis Biliary atresia S/p Kasai procedure at [facility] at the age of 3 months Cirrhosis secondary to congenital biliary atresia -On liver transplant list History of esophageal varices -Follows GI at [facility] Pancytopenia History of Cholecystectomy Splenomegaly Plan: Continue antibiotic Trend LFTs IV hydration MRCP Patient seen in collaboration with Dr. Gay CC: ALISSON GAY MD ; Consultation Date/Type/Reason Admit Date/Time Date of Consultation: Feb 14, 2019 Type of Consult GI Reason for Consultation Recurrent cholangitis Date/Time of Note DATE: 02/14/19 TIME: 17:28 Hx of Present Illness This is a jonathan 23-year-old female well-known to GI services with past medical history of biliary atresia status post Kasai procedure at age 3 months completed at [facility], liver cirrhosis, recurrent cholangitis, history of esophageal varices, pancytopenia, splenomegaly, who presented to the ED with c/o subjective fevers and dark urine. On presentation patient with a temperature of 101.7 with elevated LFTs of note indirect bilirubin of 1.8 which is lower than previous admissions. Her direct bilirubin is 0.0 and alk phos 162. An MRCP has been ordered and she has been started on antibiotics of Levaquin and Flagyl, which she has responded well to in the past. Currently she c/o very mild RUQ pain. No c/o n/v. She follows GI at [facility]. Review of Systems: A 12 system, review was conducted and is negative except as noted in the HPI or here Past Medical History Home Meds Active Scripts Ciprofloxacin Hcl* (Ciprofloxacin Hcl*) 250 Mg Tablet, 250 MG PO DAILY, #14 TAB Resume after the therapy with Cipro+Flagyl is done. Prov:DONIS DUBOSE SUPPORT DBA 08/13/18 Reported Medications Naproxen* (Naproxen*) 500 Mg Tablet, 500 MG PO BID PRN for PAIN LEVEL 6-10, TAB 02/14/19 Lactulose* (Lactulose*) 20 Gm/30 Ml Solution, 30 GM PO DAILY, ML 07/15/18 Discontinued Scripts Ibuprofen* (Motrin*) 600 Mg Tab, 600 MG PO Q6, #30 TAB Prov:KOFI MIRANDA PA-C 12/20/18 Ondansetron (Ondansetron Odt) 4 Mg Tab.rapdis, 4 MG PO Q6H PRN for NAUSEA AND/OR VOMITING, #10 TAB Prov:KOFI MIRANDA PA-C 12/20/18 [Work Note] No Conflict Check This is to certify that this patient was admitted to [facility] under my care from 08/11/2018 to 08/13/2018. She can return back to work/school on 08/16/2018 with no restrictions. Prov:DONIS DUBOSE SUPPORT DBA 08/13/18 Metronidazole* (Metronidazole*) 500 Mg Tablet, 500 MG PO Q8, #15 TAB Prov:DONIS DUBOSE SUPPORT DBA 08/13/18 Ciprofloxacin Hcl* (Ciprofloxacin Hcl*) 500 Mg Tablet, 500 MG PO BID for 5 Days, #14 TAB Prov:DONIS DUBOSE SUPPORT DBA 08/13/18 Ascorbic Acid (Vitamin C) 500 Mg Tab, 500 MG PO DAILY for improve iron absorption, #30 TAB 2 Refills Prov:LEVI TAYLOR. 07/16/18 Ferrous Sulfate* (Ferrous Sulfate*) 325 Mg Tabec, 325 MG PO BID, #60 TAB 2 Refills Prov:LEVI TAYLOR. 07/16/18 Medications Current Medications Levofloxacin/ Dextrose 150 ml @ 100 mls/hr Q24H IVPB Last administered on 02/14/19at 16:58; Admin Dose 100 MLS/HR; Start 02/14/19 at 16:30 Metronidazole 100 ml @ 100 mls/hr Q8 IVPB Last administered on 02/14/19at 16:57; Admin Dose 100 MLS/HR; Start 02/14/19 at 16:30 Dextrose/Sodium Chloride 1,000 ml @ 100 mls/hr Q10H IV Last administered on 02/14/19at 16:58; Admin Dose 100 MLS/HR; Start 02/14/19 at 16:06 IV Flush (NS 3 ml) 3 ml PER PROTOCOL IV ; Start 02/14/19 at 16:30 Ondansetron HCl (Zofran Inj) 4 mg Q6H PRN IV NAUSEA/VOMITING; Start 02/14/19 at 16:30 Ibuprofen (Motrin) 600 mg Q6H PRN PO .PAIN 1-3 OR TEMP; Start 02/14/19 at 16:30 Morphine Sulfate (morphine) 2 mg Q4H PRN IV .PAIN 7-10; Start 02/14/19 at 16:30 Allergies: Coded Allergies: amoxicillin (Unverified Allergy, Unknown, RASH, 08/11/18) vancomycin (Unverified Adverse Reaction, Intermediate, Rash, 08/11/18) Past Surgical History Past Surgical Hx: cholecystectomy, other Social History Smoking Status: Never smoker Exam/Review of Systems Exam Vitals Vital Signs Date Temp Pulse Resp B/P (MAP) Pulse Ox O2 O2 Flow FiO2 Time Delivery Rate 02/14/19 101.4 15:09 02/14/19 88 17 133/66 98 11:54 (88) Constitutional: alert, oriented Psych: no complaints Head: normocephalic Eyes: nl conjunctiva ENMT: nl external ears & nose Neck: supple, non-tender Respiratory: clear to auscultation Cardiovascular: regular rate and rhythm Gastrointestinal: soft, bowel sounds, tender (mild RUQ tenderness) Musculoskeletal: nl extremities to inspection Results Result Diagram: 02/14/19 1415 02/14/19 1415 Results 24hrs Laboratory Tests Test 02/14/19 14:07 02/14/19 14:15 02/14/19 14:16 02/14/19 16:12 POC Venous 1.4 Lactate White Blood Count 3.4 L Red Blood Count 3.86 L Hemoglobin 12.2 Hematocrit 38.8 Mean Corpuscular 100.5 Volume Mean Corpuscular 31.6 Hemoglobin Mean Corpuscular 31.4 L Hemoglobin Concen t Red Cell 14.4 Distribution Width Platelet Count 57 L Mean Platelet 11.2 H Volume Immature 0.300 Granulocytes % Neutrophils % 73.9 Segmented 71 Neutrophils % (Manual) Band Neutrophils 2 % (Manual) Lymphocytes % 13.0 L Lymphocytes % 16 (Manual) Monocytes % 8.6 Monocytes % 11 (Manual) Eosinophils % 3.6 Basophils % 0.6 Nucleated Red 0.0 Blood Cells % Immature 0.010 Granulocytes # Neutrophils # 2.5 Neutrophils # 2.4 (Manual) Band Neutrophils 0.0 # Lymphocytes 0.5 L (Manual) Lymphocytes # 0.4 L Monocytes # 0.3 Monocytes # 0.3 (Manual) Eosinophils # 0.1 Basophils # 0.0 Nucleated Red 0.0 Blood Cells # Platelet Estimate DECREASED Poikilocytosis 2+ Ovalocytes 1+ Prothrombin Time 15.2 H Prothrombin Time 1.2 Ratio INR International 1.19 Normalized Ratio Activated 30.6 Partial Thrombopl ast Time Sodium Level 142 Potassium Level 4.6 Chloride Level 109 Carbon Dioxide 27 Level Anion Gap 6 Blood Urea 9 Nitrogen Creatinine 0.79 Est Glomerular > 60 Filtrat Rate mL/min Glucose Level 86 Calcium Level 9.4 Total Bilirubin 1.8 H Direct Bilirubin 0.00 Indirect 1.8 H Bilirubin Aspartate Amino 276 H Transf (AST/SGOT) Alanine 202 H Aminotransferase (ALT/SGPT) Alkaline 162 H Phosphatase Troponin I < 0.012 Total Protein 7.9 Albumin 4.0 Globulin 3.90 H Albumin/Globulin 1.02 Ratio Urine Color POLO Urine Clarity SLIGHTLY CLOUDY A Urine pH 6.0 Urine Specific 1.017 [place] Urine Ketones NEGATIVE Urine Nitrite NEGATIVE Urine Bilirubin NEGATIVE Urine NEGATIVE Urobilinogen Urine Leukocyte TRACE A Esterase Urine Microscopic 0 RBC Urine Microscopic 3 WBC Urine Squamous FEW Epithelial Cells Urine Bacteria FEW A Urine Mucus FEW A Urine Hemoglobin NEGATIVE Urine Glucose NEGATIVE Urine Total NEGATIVE Protein Lactic Acid Level 1.0 Medications Medication Current Medications Levofloxacin/ Dextrose 150 ml @ 100 mls/hr Q24H IVPB Last administered on 02/14/19at 16:58; Admin Dose 100 MLS/HR; Start 02/14/19 at 16:30 Metronidazole 100 ml @ 100 mls/hr Q8 IVPB Last administered on 02/14/19at 16:57; Admin Dose 100 MLS/HR; Start 02/14/19 at 16:30 Dextrose/Sodium Chloride 1,000 ml @ 100 mls/hr Q10H IV Last administered on 02/14/19at 16:58; Admin Dose 100 MLS/HR; Start 02/14/19 at 16:06 IV Flush (NS 3 ml) 3 ml PER PROTOCOL IV ; Start 02/14/19 at 16:30 Ondansetron HCl (Zofran Inj) 4 mg Q6H PRN IV NAUSEA/VOMITING; Start 02/14/19 at 16:30 Ibuprofen (Motrin) 600 mg Q6H PRN PO .PAIN 1-3 OR TEMP; Start 02/14/19 at 16:30 Morphine Sulfate (morphine) 2 mg Q4H PRN IV .PAIN 7-10; Start 02/14/19 at 16:30 JAMAR COX Feb 14, 2019 17:28
[2019-02-14 18:56] VITALS: BP 117/64; PULSE 83; RESP 17
[2019-02-14 19:48] VITALS: BP 112/63; PULSE 79; RESP 15
[2019-02-14 20:00] VITALS: Ht 165.1 cm; Wt 67.2 kg
[2019-02-15 01:14] VITALS: BP 93/54; PULSE 69; RESP 15
[2019-02-15] MEDS: DEXTROSE 5%-0.45% NACL 1,000 ML IV SCH ×4 (02:06→16:52)
[2019-02-15] MEDS: metroNIDAZOLE 500 MG/NS (PMX) 100 ML IVPB SCH ×3 (05:42→21:52)
[2019-02-15 08:34] VITALS: BP 99/55; PULSE 72; RESP 17
--- NOTE | 2019-02-15 11:01 | PN ---
Date/Time of Note Date/Time of Note DATE: 02/15/19 TIME: 10:56 Assessment/Plan VTE Prophylaxis Risk score (from Nsg)>0 risk: 0 SCD applied (from Nsg): No SCD contraindicated: low risk/ambulating Pharmacological prophylaxis: NA/contraindicated Pharm contraindication: liver dx, thrombocytopenia Lines/Catheters IV [facility]from [facility] [place] [facility] Urinary Cath still in place: No Assessment/Plan Hospital Course Assessment: Recurrent Cholangitis MRCP-Bile ducts: There is dilatation of the peripheral intrahepatic bile ducts greatest in the left hepatic lobe that was also present on the prior exam. Central intrahepatic bile ducts are nondilated. There is a peribiliary cyst alongside the left portal vein that measures 1.2 cm that was also present previously (11/17). Negative for extrahepatic biliary duct dilatation. 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 Gay- no plan for endoscopic intervention at this time- if in the future endoscopic intervention would be required patient would need to be transferred to a tertiary center. Patient seen in collaboration with Dr. Gay Subjective: Course reviewed with nursing staff Patient interviewed and examined All labs, imaging and other results reviewed The patient states she feel better today, she is currently afebrile No c/o abdominal pain, nausea or vomiting PHYSICAL EXAMINATION: GENERAL: Well developed, well nourished, alert & oriented x 4, in no acute distress-jaundice improved SKIN: No lesions, no stigmata chronic liver disease, no evidence of bleeding diathesis HEAD: Normocephalic, atraumatic, no tenderness. EYES: Pupils equal reactive to light, no discharge. EARS/NOSE AND THROAT: Ears normal, nose normal NECK: Supple, no masses, thyroid normal CHEST: Inspection within normal limits. CARDIOVASCULAR: Heart: Regular rate and rhythm. RESPIRATORY: Lungs clear to auscultation GASTROINTESTINAL AND LIVER: Abdomen: Soft, non tenderness, non-distended, no hernias, no masses, no guarding, no rebound tenderness, normoactive bowel sounds. Rectal: Deferred. EXTREMITIES: No cyanosis, clubbing or edema. Result Diagram: 02/15/19 0446 02/15/19 0447 Results 24hrs Laboratory Tests Test 02/14/19 14:07 02/14/19 14:15 02/14/19 14:16 02/14/19 16:12 POC Venous 1.4 Lactate White Blood 3.4 L Count Red Blood Count 3.86 L Hemoglobin 12.2 Hematocrit 38.8 Mean Corpuscular 100.5 Volume Mean Corpuscular 31.6 Hemoglobin Mean Corpuscular 31.4 L Hemoglobin Magui nt Red Cell 14.4 Distribution Width Platelet Count 57 L Mean Platelet 11.2 H Volume Immature 0.300 Granulocytes % Neutrophils % 73.9 Segmented 71 Neutrophils % (Manual) Band Neutrophils 2 % (Manual) Lymphocytes % 13.0 L Lymphocytes % 16 (Manual) Monocytes % 8.6 Monocytes % 11 (Manual) Eosinophils % 3.6 Basophils % 0.6 Nucleated Red 0.0 Blood Cells % Immature 0.010 Granulocytes # Neutrophils # 2.5 Neutrophils # 2.4 (Manual) Band Neutrophils 0.0 # Lymphocytes 0.5 L (Manual) Lymphocytes # 0.4 L Monocytes # 0.3 Monocytes # 0.3 (Manual) Eosinophils # 0.1 Basophils # 0.0 Nucleated Red 0.0 Blood Cells # Platelet DECREASED Estimate Poikilocytosis 2+ Ovalocytes 1+ Prothrombin Time 15.2 H Prothrombin Time 1.2 Ratio INR 1.19 International Normalized Ratio Activated 30.6 Partial Thrombop last Time Sodium Level 142 Potassium Level 4.6 Chloride Level 109 Carbon Dioxide 27 Level Anion Gap 6 Blood Urea 9 Nitrogen Creatinine 0.79 Est Glomerular > 60 Filtrat Rate mL/min Glucose Level 86 Calcium Level 9.4 Total Bilirubin 1.8 H Direct Bilirubin 0.00 Indirect 1.8 H Bilirubin Aspartate Amino 276 H Transf (AST/SGOT ) Alanine 202 H Aminotransferase (ALT/SGPT) Alkaline 162 H Phosphatase Troponin I < 0.012 Total Protein 7.9 Albumin 4.0 Globulin 3.90 H Albumin/Globulin 1.02 Ratio Urine Color POLO Urine Clarity SLIGHTLY CLOUDY A Urine pH 6.0 Urine Specific 1.017 [place] Urine Ketones NEGATIVE Urine Nitrite NEGATIVE Urine Bilirubin NEGATIVE Urine NEGATIVE Urobilinogen Urine Leukocyte TRACE A Esterase Urine 0 Microscopic RBC Urine 3 Microscopic WBC Urine Squamous FEW Epithelial Cells Urine Bacteria FEW A Urine Mucus FEW A Urine Hemoglobin NEGATIVE Urine Glucose NEGATIVE Urine Total NEGATIVE Protein Lactic Acid 1.0 Level Test 02/14/19 19:43 02/15/19 04:46 02/15/19 04:47 Lactic Acid 1.1 Level White Blood 1.8 #L Count Red Blood Count 3.25 L Hemoglobin 10.6 L Hematocrit 32.2 L Mean Corpuscular 99.1 Volume Mean Corpuscular 32.6 Hemoglobin Mean Corpuscular 32.9 Hemoglobin Magui nt Red Cell 14.1 Distribution Width Platelet Count 43 #L Mean Platelet 11.2 H Volume Immature 0.500 H Granulocytes % Neutrophils % 60.5 Segmented 47 Neutrophils % (Manual) Band Neutrophils 9 H % (Manual) Lymphocytes % 20.1 Lymphocytes % 27 (Manual) Monocytes % 13.0 H Monocytes % 13 H (Manual) Eosinophils % 5.4 Eosinophils % 4 (Manual) Basophils % 0.5 Nucleated Red 0.0 Blood Cells % Immature 0.010 Granulocytes # Neutrophils # 1.1 L Neutrophils # 0.8 L (Manual) Band Neutrophils 0.1 # Lymphocytes 0.4 L (Manual) Lymphocytes # 0.4 L Monocytes # 0.2 L Monocytes # 0.2 L (Manual) Eosinophils # 0.1 Basophils # 0.0 Nucleated Red 0.0 Blood Cells # Platelet SIG DECREASED Estimate Polychromasia 3+ Poikilocytosis 2+ Anisocytosis 3+ Macrocytosis 3+ Rouleau 1+ Sodium Level 142 Potassium Level 4.2 Chloride Level 114 H Carbon Dioxide 22 Level Anion Gap 6 Blood Urea 6 L Nitrogen Creatinine 0.64 Est Glomerular > 60 Filtrat Rate mL/min Glucose Level 97 Hemoglobin A1c 4.5 Calcium Level 8.3 L Magnesium Level 1.8 Total Bilirubin 1.5 H Direct Bilirubin 0.00 Indirect 1.5 H Bilirubin Aspartate Amino 321 H Transf (AST/SGOT ) Alanine 256 H Aminotransferase (ALT/SGPT) Alkaline 156 H Phosphatase Total Protein 6.3 # Albumin 3.0 #L Globulin 3.30 H Albumin/Globulin 0.90 Ratio Triglycerides 32 Level Cholesterol 88 L Level LDL Cholesterol, 37 Calculated HDL Cholesterol 45 Cholesterol/HDL 1.9 Ratio Thyroid Pending Stimulating Hormone (TSH) Exam/Review of Systems Exam Vitals Vital Signs Date Temp Pulse Resp B/P (MAP) Pulse Ox O2 O2 Flow FiO2 Time Delivery Rate 02/15/19 98.2 72 17 99/55 (70) 100 Room Air 08:34 Intake and Output 02/14/19 02/14/1919 1515:00 23:00 07:00 IntakeIntake Total 2264 ml 736 ml BalanceBalance 2264 ml 736 ml Results Results 24hrs Laboratory Tests Test 02/14/19 14:07 02/14/19 14:15 02/14/19 14:16 02/14/19 16:12 POC Venous 1.4 Lactate White Blood 3.4 L Count Red Blood Count 3.86 L Hemoglobin 12.2 Hematocrit 38.8 Mean Corpuscular 100.5 Volume Mean Corpuscular 31.6 Hemoglobin Mean Corpuscular 31.4 L Hemoglobin Magui nt Red Cell 14.4 Distribution Width Platelet Count 57 L Mean Platelet 11.2 H Volume Immature 0.300 Granulocytes % Neutrophils % 73.9 Segmented 71 Neutrophils % (Manual) Band Neutrophils 2 % (Manual) Lymphocytes % 13.0 L Lymphocytes % 16 (Manual) Monocytes % 8.6 Monocytes % 11 (Manual) Eosinophils % 3.6 Basophils % 0.6 Nucleated Red 0.0 Blood Cells % Immature 0.010 Granulocytes # Neutrophils # 2.5 Neutrophils # 2.4 (Manual) Band Neutrophils 0.0 # Lymphocytes 0.5 L (Manual) Lymphocytes # 0.4 L Monocytes # 0.3 Monocytes # 0.3 (Manual) Eosinophils # 0.1 Basophils # 0.0 Nucleated Red 0.0 Blood Cells # Platelet DECREASED Estimate Poikilocytosis 2+ Ovalocytes 1+ Prothrombin Time 15.2 H Prothrombin Time 1.2 Ratio INR 1.19 International Normalized Ratio Activated 30.6 Partial Thrombop last Time Sodium Level 142 Potassium Level 4.6 Chloride Level 109 Carbon Dioxide 27 Level Anion Gap 6 Blood Urea 9 Nitrogen Creatinine 0.79 Est Glomerular > 60 Filtrat Rate mL/min Glucose Level 86 Calcium Level 9.4 Total Bilirubin 1.8 H Direct Bilirubin 0.00 Indirect 1.8 H Bilirubin Aspartate Amino 276 H Transf (AST/SGOT ) Alanine 202 H Aminotransferase (ALT/SGPT) Alkaline 162 H Phosphatase Troponin I < 0.012 Total Protein 7.9 Albumin 4.0 Globulin 3.90 H Albumin/Globulin 1.02 Ratio Urine Color POLO Urine Clarity SLIGHTLY CLOUDY A Urine pH 6.0 Urine Specific 1.017 [place] Urine Ketones NEGATIVE Urine Nitrite NEGATIVE Urine Bilirubin NEGATIVE Urine NEGATIVE Urobilinogen Urine Leukocyte TRACE A Esterase Urine 0 Microscopic RBC Urine 3 Microscopic WBC Urine Squamous FEW Epithelial Cells Urine Bacteria FEW A Urine Mucus FEW A Urine Hemoglobin NEGATIVE Urine Glucose NEGATIVE Urine Total NEGATIVE Protein Lactic Acid 1.0 Level Test 02/14/19 19:43 02/15/19 04:46 02/15/19 04:47 Lactic Acid 1.1 Level White Blood 1.8 #L Count Red Blood Count 3.25 L Hemoglobin 10.6 L Hematocrit 32.2 L Mean Corpuscular 99.1 Volume Mean Corpuscular 32.6 Hemoglobin Mean Corpuscular 32.9 Hemoglobin Magui nt Red Cell 14.1 Distribution Width Platelet Count 43 #L Mean Platelet 11.2 H Volume Immature 0.500 H Granulocytes % Neutrophils % 60.5 Segmented 47 Neutrophils % (Manual) Band Neutrophils 9 H % (Manual) Lymphocytes % 20.1 Lymphocytes % 27 (Manual) Monocytes % 13.0 H Monocytes % 13 H (Manual) Eosinophils % 5.4 Eosinophils % 4 (Manual) Basophils % 0.5 Nucleated Red 0.0 Blood Cells % Immature 0.010 Granulocytes # Neutrophils # 1.1 L Neutrophils # 0.8 L (Manual) Band Neutrophils 0.1 # Lymphocytes 0.4 L (Manual) Lymphocytes # 0.4 L Monocytes # 0.2 L Monocytes # 0.2 L (Manual) Eosinophils # 0.1 Basophils # 0.0 Nucleated Red 0.0 Blood Cells # Platelet SIG DECREASED Estimate Polychromasia 3+ Poikilocytosis 2+ Anisocytosis 3+ Macrocytosis 3+ Rouleau 1+ Sodium Level 142 Potassium Level 4.2 Chloride Level 114 H Carbon Dioxide 22 Level Anion Gap 6 Blood Urea 6 L Nitrogen Creatinine 0.64 Est Glomerular > 60 Filtrat Rate mL/min Glucose Level 97 Hemoglobin A1c 4.5 Calcium Level 8.3 L Magnesium Level 1.8 Total Bilirubin 1.5 H Direct Bilirubin 0.00 Indirect 1.5 H Bilirubin Aspartate Amino 321 H Transf (AST/SGOT ) Alanine 256 H Aminotransferase (ALT/SGPT) Alkaline 156 H Phosphatase Total Protein 6.3 # Albumin 3.0 #L Globulin 3.30 H Albumin/Globulin 0.90 Ratio Triglycerides 32 Level Cholesterol 88 L Level LDL Cholesterol, 37 Calculated HDL Cholesterol 45 Cholesterol/HDL 1.9 Ratio Thyroid Pending Stimulating Hormone (TSH) Medications Medication Current Medications Levofloxacin/ Dextrose 150 ml @ 100 mls/hr Q24H IVPB Last administered on 02/14/19at 16:58; Admin Dose 100 MLS/HR; Start 02/14/19 at 16:30 Metronidazole 100 ml @ 100 mls/hr Q8 IVPB Last administered on 02/15/19at 05:42; Admin Dose 100 MLS/HR; Start 02/14/19 at 16:30 Dextrose/Sodium Chloride 1,000 ml @ 100 mls/hr Q10H IV Last administered on 02/15/19at 06:15; Admin Dose 100 MLS/HR; Start 02/14/19 at 16:06 IV Flush (NS 3 ml) 3 ml PER PROTOCOL IV ; Start 02/14/19 at 16:30 Ondansetron HCl (Zofran Inj) 4 mg Q6H PRN IV NAUSEA/VOMITING; Start 02/14/19 at 16:30 Ibuprofen (Motrin) 600 mg Q6H PRN PO .PAIN 1-3 OR TEMP Last administered on 02/14/19at 19:12; Admin Dose 600 MG; Start 02/14/19 at 16:30 Morphine Sulfate (morphine) 2 mg Q4H PRN IV .PAIN 7-10; Start 02/14/19 at 16:30 Lactulose (Enulose) 20 gm DAILY PO ; Start 02/15/19 at 11:00 JAMAR COX Feb 15, 2019 11:01
[2019-02-15] MEDS: LACTULOSE 30ML CUP PO SCH (12:39)
--- NOTE | 2019-02-15 14:04 | PN ---
Date/Time of Note Date/Time of Note DATE: 02/15/19 TIME: 14:03 Objective Vitals Vital Signs Date Temp Pulse Resp B/P (MAP) Pulse Ox O2 O2 Flow FiO2 Time Delivery Rate 02/15/19 98.2 72 17 99/55 (70) 100 Room Air 08:34 Intake and Output 02/14/19 02/14/19 02/15/19 1515:00 23:00 07:00 IntakeIntake Total 2264 ml 736 ml BalanceBalance 2264 ml 736 ml Results Result Diagram: 02/15/19 0446 02/15/19 0447 Medications Medications Current Medications Levofloxacin/ Dextrose 150 ml @ 100 mls/hr Q24H IVPB Last administered on 02/14/19at 16:58; Admin Dose 100 MLS/HR; Start 02/14/19 at 16:30 Metronidazole 100 ml @ 100 mls/hr Q8 IVPB Last administered on 02/15/19at 05:42; Admin Dose 100 MLS/HR; Start 02/14/19 at 16:30 Dextrose/Sodium Chloride 1,000 ml @ 100 mls/hr Q10H IV Last administered on 02/15/19at 06:15; Admin Dose 100 MLS/HR; Start 02/14/19 at 16:06 IV Flush (NS 3 ml) 3 ml PER PROTOCOL IV ; Start 02/14/19 at 16:30 Ondansetron HCl (Zofran Inj) 4 mg Q6H PRN IV NAUSEA/VOMITING; Start 02/14/19 at 16:30 Ibuprofen (Motrin) 600 mg Q6H PRN PO .PAIN 1-3 OR TEMP Last administered on 02/14/19at 19:12; Admin Dose 600 MG; Start 02/14/19 at 16:30 Morphine Sulfate (morphine) 2 mg Q4H PRN IV .PAIN 7-10; Start 02/14/19 at 16:30 Lactulose (Enulose) 20 gm DAILY PO Last administered on 02/15/19at 12:39; Admin Dose 20 GM; Start 02/15/19 at 11:00 VTE Prophylaxis Risk score (from Ns)>0 risk: 0 SCD applied (from Nsg): No SCD contraindication: other Lines/Catheters IV Catheter Type: Brandt in Place: No Assessment/Plan Hospital Course Subjective Patient doing well, has some body aches but no fever overnight Objective Physical exam General: Patient is laying in bed and answers questions appropriately Mentation: Patient is alert and oriented 4, Head: Normocephalic atraumatic Eyes: EOMI, pupils reactive to light Neck: Supple, nontender, midline Respiratory: Clear to auscultation bilaterally Cardiovascular: regular rate, no obvious murmurs Gastrointestinal: Non-tender to palpation, bowel sounds heard. Neurological: Moves all extremities spontaneously Skin: No new skin lesions Assessment and plan Acute on chronic cholangitis -Patient does exhibit some factors Charcot's triad such as mild right upper quadrant pain (now resolved), fever however is not significantly jaundiced and actually her total bilirubin is on the lower side of her normal and her direct bilirubin is actually 0 -Due to her history of multiple episodes of cholangitis will treat for acute cholangitis even though symptoms are mild -Advance diet per GI recommendations -IV antibiotic, patient does well with fluoroquinolone and Flagyl combination in the past, has penicillin allergy and unknown if Zosyn is safe, infectious disease consulted, will defer to recommendations from infectious disease DrMeño -GI and infectious disease consulted -MRCP noted -IV fluids as needed Fever, resolved -Panculture -Flu ordered Chronic pancytopenia -Secondary to liver cirrhosis Liver cirrhosis -Secondary to congenital biliary atresia -Patient follows up with studio technician at [facility] -On transplant list Esophageal varices -Monitor closely Disposition -Continue IV antibiotics, awaiting results of cultures, monitor AST and ALT, GI recommendations appreciated JILL WHITT Feb 15, 2019 14:04
[2019-02-15 14:12] VITALS: BP 101/58; PULSE 68; RESP 19
--- NOTE | 2019-02-15 14:29 | PN ---
DATE: 02/15/2019 SUBJECTIVE: No acute changes overnight. The patient is alert, feels better. Denies pain, no nausea , vomiting, diarrhea. She had fever yesterday on admission of 101.4. WBC today 1.8, H and H 10.6 an d 32.2, platelets 43, neutrophils 60.5, BUN 6, creatinine 0.64. AST 321, ALT 256, alkaline phosphata se 156, total bilirubin 1.5. Urinalysis on admission was positive for trace leukocyte esterase, few bacteria. DIAGNOSTICS: Abdominal MRI revealed mild dilatation of the perihepatic intrahepatic bile duct withou t dilatation of the central intrahepatic bile duct or extrahepatic bile ducts, unchanged from previou s exam. 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 Acute ascending cholangitis cannot be excluded and clinical correlation is required. The portal venous hypertension with splenomegaly, tra ce ascites and splenic varices and splenorenal shunt unchanged from previous exam. Please see full report in the chart. ANTIMICROBIALS: The patient is on: 1. Vancomycin. 2. Levaquin. MICROBIOLOGY: Cultures are pending. PHYSICAL EXAMINATION: GENERAL: Well-nourished, well-developed young girl who is awake, in no distress. HEENT: Head atraumatic, normocephalic. NECK: Supple. CHEST: Rise symmetrical. Breath sounds clear. HEART: S1, S2. ABDOMEN: Soft, bowel tones present. EXTREMITIES: Without cyanosis. ASSESSMENT: 1. Systemic inflammatory response syndrome on admission secondary to recurrent cholangitis. 2. 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 3. Cirrhosis secondary to that, patient is on liver transplant list. 4. Pancytopenia. 5. Splenomegaly. 6. History of cholecystectomy. PLAN: Patient is stable, on appropriate antibiotic regimen and overall improving. Follow GI recomme ndations. Dictated By: LUIS MARIN REEL WINDER for SIMONE ANTHONY MD NI/NTS Conf#: [id number] DID#: [id number] CC: JILL WHITT MD;*EndCC*
--- NOTE | 2019-02-15 15:02 | CONS ---
DATE OF ADMISSION: 02/15/2019 DATE OF CONSULTATION: 02/15/2019 TYPE OF CONSULTATION: Infectious disease. REASON FOR CONSULTATION: Antibiotic management. HISTORY OF PRESENT ILLNESS: Arminda Boothe is a 23-year-old female who comes in with fever, orange col ored urine. Past problems include a Kasai procedure for biliary atresia and history of cholangitis. PAST MEDICAL HISTORY: Otherwise noncontributory. SOCIAL HISTORY: She does not smoke, drink or abuse drugs. SHE IS ALLERGIC TO: 1. AMOXICILLIN. 2. VANCOMYCIN. SHE IS ALLERGIC TO FOODS OR TO SULFA. MEDICATIONS: As per chart. REVIEW OF SYSTEMS: Noncontributory. PHYSICAL EXAMINATION: GENERAL: The patient is a well-developed, well-nourished female, alert, responsive, in no acute dist ress. VITAL SIGNS: Stable. T-max 101.7. SKIN: Without generalized rash. HEENT: Within normal limits. NECK: Supple. LYMPH NODES: None palpable. CHEST: Decreased breath sounds at the bases. HEART: Without murmur or gallop. ABDOMEN: Soft, nontender, without organosplenomegaly or masses. EXTREMITIES: Without cyanosis, clubbing, or edema. RECTAL AND GENITAL: Deferred. NEUROLOGIC: No focal neurological abnormality. IMPRESSION AND PLAN: The patient is an female. She has recurrent cholangitis, liver cirrhosis , chronic pancytopenia, esophageal varices, all secondary to congenital biliary atresia, status post Kasai procedure as a child. She presents with fevers, other than the fever she feels well. She has some orange colored urine and mild right upper quadrant pain. She denies nausea, vomiting or shortne ss of breath. ANCILLARY LABORATORY DATA: Her white count was 3.4, H and H of 12.2, 38.8, platelet count 57,000, so she is somewhat leukopenic and thrombocytopenic and her neutrophil count is 71% with 2 bands. BUN a nd creatinine 9/0.79, glucose of 86. HOSPITAL COURSE: She has been followed up by wind farm support specialist at [facility] and is on a transplant list. Patient was seen by Sary Ruelas for Dr. Gay, history of cholecystectomy, splenomegaly, pre tty much pancytopenia. She has some elevated liver function tests and her indirect bilirubin is 1.8, which is lower than previously seen on admission. Alkaline phosphatase 162. The patient was starte d on Levaquin and Flagyl, to which she has responded in the past. We will continue her on this regim en. She is to get an MRCP. The MRCP shows dilatation of the peripheral intrahepatic bile ducts, gre atest in the left hepatic lobe. It was also present on the prior exam. Central intrahepatic bile du cts are dilated. There is a biliary cyst alongside the left portal vein that measures 1.2 cm. That was also present previously. She has biliary atresia, cirrhosis, history of esophageal varices. The re is no plan for endoscopic intervention at this time. We will continue her on current therapy. H er white count today is 1.8, H and H 10.6 and 32.2, platelet count 43,000. BUN and creatinine 6/0.64 . I will dictate my findings to the hospitalist and to Dr. Gay and Sary Ruelas. Dictated By: SIMONE ANTHONY MD, JD/NTS Conf#: [id number] DID#: [id number] CC: JILL WHITT MD;*EndCC*
[2019-02-15] MEDS: LEVOFLOXACIN 750MG/D5W (PMX) 150 ML IVPB SCH (16:52)
[2019-02-15 19:48] VITALS: BP 115/74; PULSE 80; RESP 20
[2019-02-16 01:40] VITALS: BP 106/58; PULSE 66; RESP 20
[2019-02-16] MEDS: metroNIDAZOLE 500 MG/NS (PMX) 100 ML IVPB SCH ×3 (05:58→21:40)
[2019-02-16 07:55] VITALS: BP 103/55; PULSE 59; RESP 20
[2019-02-16] MEDS: DEXTROSE 5%-0.45% NACL 1,000 ML IV SCH ×3 (07:59→21:47)
[2019-02-16] MEDS: LACTULOSE 30ML CUP PO SCH (08:01)
--- NOTE | 2019-02-16 11:43 | PN ---
Date/Time of Note Date/Time of Note DATE: 02/16/19 TIME: 11:42 Objective Vitals Vital Signs Date Temp Pulse Resp B/P (MAP) Pulse Ox O2 O2 Flow FiO2 Time Delivery Rate 02/16/19 97.8 59 20 103/55 98 07:55 (71) 02/15/19 Room Air 08:34 Intake and Output 02/15/19 02/15/19 02/16/19 1515:00 23:00 07:00 IntakeIntake Total 2070 ml 800 ml BalanceBalance 2070 ml 800 ml Results Result Diagram: 02/16/1935 02/16/1935 Medications Medications Current Medications Levofloxacin/ Dextrose 150 ml @ 100 mls/hr Q24H IVPB Last administered on 02/15/19at 16:52; Admin Dose 100 MLS/HR; Start 02/14/19 at 16:30 Metronidazole 100 ml @ 100 mls/hr Q8 IVPB Last administered on 02/16/19at 05:58; Admin Dose 100 MLS/HR; Start 02/14/19 at 16:30 Dextrose/Sodium Chloride 1,000 ml @ 100 mls/hr Q10H IV Last administered on 02/16/19at 07:59; Admin Dose 100 MLS/HR; Start 02/14/19 at 16:06 IV Flush (NS 3 ml) 3 ml PER PROTOCOL IV ; Start 02/14/19 at 16:30 Ondansetron HCl (Zofran Inj) 4 mg Q6H PRN IV NAUSEA/VOMITING; Start 02/14/19 at 16:30 Ibuprofen (Motrin) 600 mg Q6H PRN PO .PAIN 1-3 OR TEMP Last administered on 02/14/19at 19:12; Admin Dose 600 MG; Start 02/14/19 at 16:30 Morphine Sulfate (morphine) 2 mg Q4H PRN IV .PAIN 7-10; Start 02/14/19 at 16:30 Lactulose (Enulose) 20 gm DAILY PO Last administered on 02/16/19at 08:01; Admin Dose 20 GM; Start 02/15/19 at 11:00 VTE Prophylaxis Risk score (from Ns)>0 risk: 0 SCD applied (from Nsg): No SCD contraindication: other Lines/Catheters IV Catheter Type: Brandt in Place: No Assessment/Plan Hospital Course Subjective Patient doing well, mild fever overnight Objective Physical exam General: Patient is laying in bed and answers questions appropriately Mentation: Patient is alert and oriented 4, Head: Normocephalic atraumatic Eyes: EOMI, pupils reactive to light Neck: Supple, nontender, midline Respiratory: Clear to auscultation bilaterally Cardiovascular: regular rate, no obvious murmurs Gastrointestinal: Non-tender to palpation, bowel sounds heard. Neurological: Moves all extremities spontaneously Skin: No new skin lesions Assessment and plan Acute on chronic cholangitis -Patient does exhibit some factors Charcot's triad such as mild right upper quadrant pain (now resolved), fever however is not significantly jaundiced and actually her total bilirubin is on the lower side of her normal and her direct bilirubin is actually 0 -Due to her history of multiple episodes of cholangitis will treat for acute cholangitis even though symptoms are mild -Advance diet per GI recommendations -IV antibiotic, patient does well with fluoroquinolone and Flagyl combination in the past, has penicillin allergy and unknown if Zosyn is safe, infectious disease consulted, will defer to recommendations from infectious disease DrMeño -GI and infectious disease consulted -MRCP noted -IV fluids as needed Fever, resolved -Panculture -Flu ordered Chronic pancytopenia -Secondary to liver cirrhosis Liver cirrhosis -Secondary to congenital biliary atresia -Patient follows up with director of counterintelligence at [facility] -On transplant list Esophageal varices -Monitor closely Disposition -Continue IV antibiotics, awaiting results of cultures, monitor AST and ALT, GI recommendations appreciated -will dc once patient 24 hour fever free JILL WHITT Feb 16, 2019 11:43
--- NOTE | 2019-02-16 12:02 | PN ---
Date/Time of Note Date/Time of Note DATE: 02/16/19 TIME: 12:00 Assessment/Plan VTE Prophylaxis Risk score (from Nsg)>0 risk: 0 SCD applied (from Nsg): No SCD contraindicated: low risk/ambulating Pharmacological prophylaxis: NA/contraindicated Pharm contraindication: liver dx Lines/Catheters IV Catheter Type (from [facility]): Urinary Cath still in place: No Assessment/Plan Hospital Course Assessment: Recurrent Cholangitis MRCP-Bile ducts: There is dilatation of the peripheral intrahepatic bile ducts greatest in the left hepatic lobe that was also present on the prior exam. Central intrahepatic bile ducts are nondilated. There is a peribiliary cyst alongside the left portal vein that measures 1.2 cm that was also present previously (11/17). Negative for extrahepatic biliary duct dilatation. 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 Patient seen in collaboration with Dr. Gay Subjective: Course reviewed with nursing staff Patient interviewed and examined All labs, imaging and other results reviewed Ms. Boothe appears comfortable No c/o n/v or abd pain, tolerating diet well. 99.9 fever last night, LFTs- continue to improve Plan to monitor over night- if no feer and LFts improve- poss d/c in near future PHYSICAL EXAMINATION: GENERAL: Well developed, well nourished, alert & oriented x 4, in no acute distress SKIN: No lesions, no stigmata chronic liver disease, no evidence of bleeding diathesis HEAD: Normocephalic, atraumatic, no tenderness. EYES: Pupils equal reactive to light, no discharge. EARS/NOSE AND THROAT: Ears normal, nose normal NECK: Supple, no masses, thyroid normal CHEST: Inspection within normal limits. CARDIOVASCULAR: Heart: Regular rate and rhythm. RESPIRATORY: Lungs clear to auscultation GASTROINTESTINAL AND LIVER: Abdomen: Soft, non tenderness, non-distended, no hernias, no masses, no guarding, no rebound tenderness, normoactive bowel sounds. Rectal: Deferred. EXTREMITIES: No cyanosis, clubbing or edema. Result Diagram: 02/16/19 0535 02/16/19 0535 Results 24hrs Laboratory Tests Test 02/16/19 05:35 White Blood Count 1.8 L Red Blood Count 3.39 L Hemoglobin 10.9 L Hematocrit 33.6 L Mean Corpuscular Volume 99.1 Mean Corpuscular Hemoglobin 32.2 Mean Corpuscular Hemoglobin Concent 32.4 Red Cell Distribution Width 14.0 Platelet Count 57 #L Mean Platelet Volume 11.2 H Immature Granulocytes % 0.000 L Neutrophils % 54.9 Lymphocytes % 25.1 Monocytes % 12.0 H Eosinophils % 7.4 H Basophils % 0.6 Nucleated Red Blood Cells % 0.0 Immature Granulocytes # 0.000 Neutrophils # 1.0 L Lymphocytes # 0.4 L Monocytes # 0.2 L Eosinophils # 0.1 Basophils # 0.0 Nucleated Red Blood Cells # 0.0 Sodium Level 139 Potassium Level 4.1 Chloride Level 112 H Carbon Dioxide Level 21 Anion Gap 6 Blood Urea Nitrogen 6 L Creatinine 0.64 Est Glomerular Filtrat Rate mL/min > 60 Glucose Level 103 Calcium Level 8.5 Magnesium Level 1.8 Total Bilirubin 1.4 H Direct Bilirubin 0.00 Indirect Bilirubin 1.4 H Aspartate Amino Transf (AST/SGOT) 282 H Alanine Aminotransferase (ALT/SGPT) 281 H Alkaline Phosphatase 214 H Total Protein 6.7 Albumin 3.2 L Globulin 3.50 H Albumin/Globulin Ratio 0.91 Exam/Review of Systems Exam Vitals Vital Signs Date Temp Pulse Resp B/P (MAP) Pulse Ox O2 O2 Flow FiO2 Time Delivery Rate 02/16/19 97.8 59 20 103/55 98 07:55 (71) 02/15/19 Room Air 08:34 Intake and Output 02/15/19 02/15/19 02/16/19 1515:00 23:00 07:00 IntakeIntake Total 2070 ml 800 ml BalanceBalance 2070 ml 800 ml Results Results 24hrs Laboratory Tests Test 02/16/19 05:35 White Blood Count 1.8 L Red Blood Count 3.39 L Hemoglobin 10.9 L Hematocrit 33.6 L Mean Corpuscular Volume 99.1 Mean Corpuscular Hemoglobin 32.2 Mean Corpuscular Hemoglobin Concent 32.4 Red Cell Distribution Width 14.0 Platelet Count 57 #L Mean Platelet Volume 11.2 H Immature Granulocytes % 0.000 L Neutrophils % 54.9 Lymphocytes % 25.1 Monocytes % 12.0 H Eosinophils % 7.4 H Basophils % 0.6 Nucleated Red Blood Cells % 0.0 Immature Granulocytes # 0.000 Neutrophils # 1.0 L Lymphocytes # 0.4 L Monocytes # 0.2 L Eosinophils # 0.1 Basophils # 0.0 Nucleated Red Blood Cells # 0.0 Sodium Level 139 Potassium Level 4.1 Chloride Level 112 H Carbon Dioxide Level 21 Anion Gap 6 Blood Urea Nitrogen 6 L Creatinine 0.64 Est Glomerular Filtrat Rate mL/min > 60 Glucose Level 103 Calcium Level 8.5 Magnesium Level 1.8 Total Bilirubin 1.4 H Direct Bilirubin 0.00 Indirect Bilirubin 1.4 H Aspartate Amino Transf (AST/SGOT) 282 H Alanine Aminotransferase (ALT/SGPT) 281 H Alkaline Phosphatase 214 H Total Protein 6.7 Albumin 3.2 L Globulin 3.50 H Albumin/Globulin Ratio 0.91 Medications Medication Current Medications Levofloxacin/ Dextrose 150 ml @ 100 mls/hr Q24H IVPB Last administered on 02/15/19 16:52; Admin Dose 100 MLS/HR; Start 02/14/19 at 16:30 Metronidazole 100 ml @ 100 mls/hr Q8 IVPB Last administered on 02/16/19at 05:58; Admin Dose 100 MLS/HR; Start 02/14/19 at 16:30 Dextrose/Sodium Chloride 1,000 ml @ 100 mls/hr Q10H IV Last administered on 02/16/19 07:59; Admin Dose 100 MLS/HR; Start 02/14/19 at 16:06 IV Flush (NS 3 ml) 3 ml PER PROTOCOL IV ; Start 02/14/19 at 16:30 Ondansetron HCl (Zofran Inj) 4 mg Q6H PRN IV NAUSEA/VOMITING; Start 02/14/19 at 16:30 Ibuprofen (Motrin) 600 mg Q6H PRN PO .PAIN 1-3 OR TEMP Last administered on at 19:12; Admin Dose 600 MG; Start 02/14/19 at 16:30 Morphine Sulfate (morphine) 2 mg Q4H PRN IV .PAIN 7-10; Start 02/14/19 at 16:30 Lactulose (Enulose) 20 gm DAILY PO Last administered on 02/16/19 08:01; Admin Dose 20 GM; Start 02/15/19 at 11:00 JAMAR COX Feb 16, 2019 12:02
[2019-02-16] MEDS: LEVOFLOXACIN 750MG/D5W (PMX) 150 ML IVPB SCH (16:02)
[2019-02-16 16:36] VITALS: BP 99/64; PULSE 61; RESP 18
[2019-02-16 19:53] VITALS: BP 102/66; PULSE 62; RESP 16
--- NOTE | 2019-02-16 21:36 | CONS ---
Assessment/Plan Assessment/Plan Hospital Course (Demo Recall) No acute changes DIAGNOSTICS: Abdominal MRI revealed mild dilatation of the perihepatic intr ahepatic bile duct without dilatation of the central intrahepatic bile duct or extrahepatic bile ducts, unchanged from previous exam. 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 Acute ascending cholangitis cannot be excluded and clinical correlation is required. The portal venous hypertension with splenomegaly, trace ascites and splenic varices and splenorenal shunt unchanged from previous exam. Please see full report in the chart. ANTIMICROBIALS: The patient is on: 1. Flagyl. 2. Levaquin. MICROBIOLOGY: bld cx neg PHYSICAL EXAMINATION: GENERAL: Well-nourished, well-developed young girl who is awake, in no distress. HEENT: Head atraumatic, normocephalic. NECK: Supple. CHEST: Rise symmetrical. Breath sounds clear. HEART: S1, S2. ABDOMEN: Soft, bowel tones present. EXTREMITIES: Without cyanosis. ASSESSMENT: 1. Systemic inflammatory response syndrome on admission secondary to recurrent cholangitis. 2. 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 3. Cirrhosis secondary to that, patient is on liver transplant list. 4. Pancytopenia. 5. Splenomegaly. 6. History of cholecystectomy. PLAN: Remains stable, urine cx cw contaminant, continue antibiotics, GI recommendations. Consultation Date/Type/Reason Admit Date/Time Feb 15, 2019 at 07:33 Initial Consult Date 02/14/19 Type of Consult ID Date/Time of Note DATE: 02/16/19 TIME: 21:35 Exam/Review of Systems Exam Vitals Vital Signs Date Temp Pulse Resp B/P (MAP) Pulse Ox O2 O2 Flow FiO2 Time Delivery Rate 02/16/19 97.9 62 16 102/66 99 19:53 (78) 02/15/19 Room Air 08:34 Intake and Output 02/15/19 02/15/19 02/16/19 1515:00 23:00 07:00 IntakeIntake Total 2070 ml 800 ml BalanceBalance 2070 ml 800 ml Results Result Diagram: 02/16/19 0535 02/16/19 0535 Results 24hrs Laboratory Tests Test 02/16/19 05:35 White Blood Count 1.8 L Red Blood Count 3.39 L Hemoglobin 10.9 L Hematocrit 33.6 L Mean Corpuscular Volume 99.1 Mean Corpuscular Hemoglobin 32.2 Mean Corpuscular Hemoglobin Concent 32.4 Red Cell Distribution Width 14.0 Platelet Count 57 #L Mean Platelet Volume 11.2 H Immature Granulocytes % 0.000 L Neutrophils % 54.9 Lymphocytes % 25.1 Monocytes % 12.0 H Eosinophils % 7.4 H Basophils % 0.6 Nucleated Red Blood Cells % 0.0 Immature Granulocytes # 0.000 Neutrophils # 1.0 L Lymphocytes # 0.4 L Monocytes # 0.2 L Eosinophils # 0.1 Basophils # 0.0 Nucleated Red Blood Cells # 0.0 Sodium Level 139 Potassium Level 4.1 Chloride Level 112 H Carbon Dioxide Level 21 Anion Gap 6 Blood Urea Nitrogen 6 L Creatinine 0.64 Est Glomerular Filtrat Rate mL/min > 60 Glucose Level 103 Calcium Level 8.5 Magnesium Level 1.8 Total Bilirubin 1.4 H Direct Bilirubin 0.00 Indirect Bilirubin 1.4 H Aspartate Amino Transf (AST/SGOT) 282 H Alanine Aminotransferase (ALT/SGPT) 281 H Alkaline Phosphatase 214 H Total Protein 6.7 Albumin 3.2 L Globulin 3.50 H Albumin/Globulin Ratio 0.91 Medications Medication Current Medications Levofloxacin/ Dextrose 150 ml @ 100 mls/hr Q24H IVPB Last administered on 02/16/19at 16:02; Admin Dose 100 MLS/HR; Start 02/14/19 at 16:30 Metronidazole 100 ml @ 100 mls/hr Q8 IVPB Last administered on 02/16/19at 13:57; Admin Dose 100 MLS/HR; Start 02/14/19 at 16:30 Dextrose/Sodium Chloride 1,000 ml @ 100 mls/hr Q10H IV Last administered on 02/16/19at 07:59; Admin Dose 100 MLS/HR; Start 02/14/19 at 16:06 IV Flush (NS 3 ml) 3 ml PER PROTOCOL IV ; Start 02/14/19 at 16:30 Ondansetron HCl (Zofran Inj) 4 mg Q6H PRN IV NAUSEA/VOMITING; Start 02/14/19 at 16:30 Ibuprofen (Motrin) 600 mg Q6H PRN PO .PAIN 1-3 OR TEMP Last administered on 02/14/19at 19:12; Admin Dose 600 MG; Start 02/14/19 at 16:30 Morphine Sulfate (morphine) 2 mg Q4H PRN IV .PAIN 7-10; Start 02/14/19 at 16:30 Lactulose (Enulose) 20 gm DAILY PO Last administered on 02/16/19at 08:01; Admin Dose 20 GM; Start 02/15/19 at 11:00 LUIS MARIN NP Feb 16, 2019 21:36
[2019-02-17 02:19] VITALS: BP 89/52; PULSE 66; RESP 16
[2019-02-17] MEDS: metroNIDAZOLE 500 MG/NS (PMX) 100 ML IVPB SCH (05:45)
[2019-02-17 05:52] VITALS: BP 99/65; RESP 15
[2019-02-17 07:55] VITALS: BP 98/57; PULSE 54; RESP 14
[2019-02-17] MEDS: LACTULOSE 30ML CUP PO SCH (08:09)
[2019-02-17] MEDS ORDERED: LEVO750T25 PO (11:12)
[2019-02-17] MEDS ORDERED: METR500T PO (11:12)
--- NOTE | 2019-02-17 11:13 | PDOCDIS ---
Discharge Instructions CONDITION [id number] Patient Condition: [id number] Stable ACTIVITY: [id number] Activity Restrictions: [id number] Slowly Increase Activity FOLLOW UP/APPOINTMENTS Follow-up Plan 1. Please follow-up with your footwear machinery instructor at [facility] as soon as possible, please bring MRI findings that was done during this visit 2. Please follow-up with your air conditioning mechanic industrial regarding your chronic pancytopenia 3. Please resume daily ciprofloxacin after your course of Levaquin and Flagyl are finished. JILL WHITT Feb 17, 2019 11:13
--- NOTE | 2019-02-17 11:15 | DS ---
Date/Time of Note Date/Time of Note DATE: 02/17/19 TIME: 11:15 Discharge Summary Admission/Discharge Info Admit Date/Time Feb 15, 2019 at 07:33 Discharge Date/Time Patient Condition: Stable Hospital Course Patient is a female with past medical history significant for congenital biliary atresia status post Kasai procedure who presents to [facility] for fever. Patient has a history of recurrent cholangitis and was admitted for the another episode. Patient was seen by infectious disease and GI. Patient was continued on IV antibiotics and symptoms continue to resolve. Patient will be discharged with appropriate course of antibiotics and to follow- up with her GI doctor as soon as possible. Patient also knows to follow-up with six pack packer for her chronic pancytopenia. Patient has been fever free for more than 24 hours and will follow up with her primary care provider as well as her GI doctor as soon as possible. Discharge diagnosis Acute on chronic cholangitis Fever, resolved Chronic pancytopenia Liver cirrhosis Esophageal varices Congenital biliary atresia Home Meds Active Scripts Ciprofloxacin Hcl* (Ciprofloxacin Hcl*) 250 Mg Tablet, 250 MG PO DAILY, #14 TAB Resume after the therapy with Cipro+Flagyl is done. Prov:DONIS DUBOSE VITREO RETINAL SURGEON 08/13/18 Reported Medications Naproxen* (Naproxen*) 500 Mg Tablet, 500 MG PO BID PRN for PAIN LEVEL 6-10, TAB 02/14/19 Lactulose* (Lactulose*) 20 Gm/30 Ml Solution, 30 GM PO DAILY, ML 07/15/18 Discontinued Scripts Ibuprofen* (Motrin*) 600 Mg Tab, 600 MG PO Q6, #30 TAB Prov:KOFI MIRANDA PA-C 12/20/18 Ondansetron (Ondansetron Odt) 4 Mg Tab.rapdis, 4 MG PO Q6H PRN for NAUSEA AND/OR VOMITING, #10 TAB Prov:KOFI MIRANDA PA-C 12/20/18 [Work Note] No Conflict Check This is to certify that this patient was admitted to [facility] under my care from 08/11/2018 to 08/13/2018. She can return back to work/school on 08/16/2018 with no restrictions. Prov:DONIS DUBOSE VITREO RETINAL SURGEON 08/13/18 Metronidazole* (Metronidazole*) 500 Mg Tablet, 500 MG PO Q8, #15 TAB Prov:DONIS DUBOSE VITREO RETINAL SURGEON 08/13/18 Ciprofloxacin Hcl* (Ciprofloxacin Hcl*) 500 Mg Tablet, 500 MG PO BID for 5 Days, #14 TAB Prov:DONIS DUBOSE VITREO RETINAL SURGEON 08/13/18 Ascorbic Acid (Vitamin C) 500 Mg Tab, 500 MG PO DAILY for improve iron absorption, #30 TAB 2 Refills Prov:LEVI TAYLOR. 07/16/18 Ferrous Sulfate* (Ferrous Sulfate*) 325 Mg Tabec, 325 MG PO BID, #60 TAB 2 Refills Prov:LEVI TAYLOR. 07/16/18 Follow-up Plan 1. Please follow-up with your etl architect at [facility] as soon as possible, please bring MRI findings that was done during this visit 2. Please follow-up with your six pack packer regarding your chronic pancytopenia 3. Please resume daily ciprofloxacin after your course of Levaquin and Flagyl are finished. Primary Care Provider Not On Staff Doctor Time spent on discharge: > 30 minutes Pending Labs Laboratory Tests Test 02/17/19 05:24 White Blood Count 2.2 10^3/ul (4.8-10.8) Red Blood Count 3.60 10^6/ul (4.20-5.40) Hemoglobin 11.5 g/dl (12.0-16.0) Hematocrit 35.0 % (37.0-47.0) Mean Corpuscular Volume 97.2 fl (82.0-101.0) Mean Corpuscular Hemoglobin 31.9 pg (29.0-33.0) Mean Corpuscular Hemoglobin Concent 32.9 g/dl (32.0-37.0) Red Cell Distribution Width 14.0 % (11.5-14.5) Platelet Count 69 10^3/UL (140-415) Mean Platelet Volume 11.3 fl (7.4-10.4) Immature Granulocytes % 0.500 % (0.001-0.429) Neutrophils % 51.6 % (39.0-77.0) Lymphocytes % 28.4 % (15.0-51.0) Monocytes % 9.8 % (0.0-11.0) Eosinophils % 8.8 % (0.0-7.0) Basophils % 0.9 % (0.0-2.0) Nucleated Red Blood Cells % 0.0 /100WBC (0.0-0.0) Immature Granulocytes # 0.010 10^3/ul (0.0-0.031) Neutrophils # 1.1 10^3/ul (1.6-7.5) Lymphocytes # 0.6 10^3/ul (0.8-2.9) Monocytes # 0.2 10^3/ul (0.3-0.9) Eosinophils # 0.2 10^3/ul (0.0-0.5) Basophils # 0.0 10^3/ul (0.0-0.1) Nucleated Red Blood Cells # 0.0 10^3/ul (0.0-0.0) Sodium Level 140 mmol/L (135-144) Potassium Level 4.3 mmol/L (3.5-5.1) Chloride Level 110 mmol/L (97-110) Carbon Dioxide Level 23 mmol/L (21-31) Anion Gap 7 (5-13) Blood Urea Nitrogen 9 mg/dl (7-20) Creatinine 0.73 mg/dl (0.44-1.00) Est Glomerular Filtrat Rate mL/min > 60 mL/min (>60) Glucose Level 101 mg/dl (70-220) Calcium Level 8.6 mg/dl (8.4-10.2) Total Bilirubin 0.8 mg/dl (0.2-1.3) Direct Bilirubin 0.00 mg/dl (0.00-0.20) Indirect Bilirubin 0.8 mg/dl (0-1.1) Aspartate Amino Transf (AST/SGOT) 189 IU/L (15-46) Alanine Aminotransferase (ALT/SGPT) 244 IU/L (13-69) Alkaline Phosphatase 224 IU/L (42-121) Total Protein 6.9 g/dl (6.1-8.1) Albumin 3.3 g/dl (3.3-4.9) Globulin 3.60 g/dl (1.3-3.2) Albumin/Globulin Ratio 0.91 JILL WHITT Feb 17, 2019 11:15
[2019-02-17] MEDS ORDERED: LEVOFLOXACIN 750 MG TABLET PO SCH (12:00)
--- NOTE | 2019-02-17 12:04 | CONS ---
Assessment/Plan Assessment/Plan Hospital Course (Demo Recall) No acute changes ANTIMICROBIALS: 1. Flagyl. 2. Levaquin. MICROBIOLOGY: bld cx neg PHYSICAL EXAMINATION: GENERAL: Well-nourished, well-developed young girl who is awake, in no distres s. HEENT: Head atraumatic, normocephalic. NECK: Supple. CHEST: Rise symmetrical. Breath sounds clear. HEART: S1, S2. ABDOMEN: Soft, bowel tones present. EXTREMITIES: Without cyanosis. ASSESSMENT: 1. Systemic inflammatory response syndrome on admission secondary to recurrent cholangitis. 2. 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 3. Cirrhosis secondary to that, patient is on liver transplant list. 4. Pancytopenia. 5. Splenomegaly. 6. History of cholecystectomy. PLAN: Remains stable, urine cx cw contaminant, plan for dc on current abx Consultation Date/Type/Reason Admit Date/Time Feb 15, 2019 at 07:33 Initial Consult Date 02/14/19 Type of Consult ID Date/Time of Note DATE: 02/17/19 TIME: 12:03 Exam/Review of Systems Exam Vitals Vital Signs Date Temp Pulse Resp B/P (MAP) Pulse Ox O2 O2 Flow FiO2 Time Delivery Rate 02/17/19 97.8 54 14 98/57 (71) 98 07:55 02/15/19 Room Air 08:34 Intake and Output 02/16/19 02/16/19 02/17/19 1515:00 23:00 07:00 IntakeIntake Total 660 ml 1100 ml 1300 ml BalanceBalance 660 ml 1100 ml 1300 ml Results Result Diagram: 02/17/1952302/17/19523 Results 24hrs Laboratory Tests Test 02/17/19 05:24 White Blood Count 2.2 #L Red Blood Count 3.60 L Hemoglobin 11.5 L Hematocrit 35.0 L Mean Corpuscular Volume 97.2 Mean Corpuscular Hemoglobin 31.9 Mean Corpuscular Hemoglobin Concent 32.9 Red Cell Distribution Width 14.0 Platelet Count 69 #L Mean Platelet Volume 11.3 H Immature Granulocytes % 0.500 H Neutrophils % 51.6 Lymphocytes % 28.4 Monocytes % 9.8 Eosinophils % 8.8 H Basophils % 0.9 Nucleated Red Blood Cells % 0.0 Immature Granulocytes # 0.010 Neutrophils # 1.1 L Lymphocytes # 0.6 L Monocytes # 0.2 L Eosinophils # 0.2 Basophils # 0.0 Nucleated Red Blood Cells # 0.0 Sodium Level 140 Potassium Level 4.3 Chloride Level 110 Carbon Dioxide Level 23 Anion Gap 7 Blood Urea Nitrogen 9 Creatinine 0.73 Est Glomerular Filtrat Rate mL/min > 60 Glucose Level 101 Calcium Level 8.6 Total Bilirubin 0.8 Direct Bilirubin 0.00 Indirect Bilirubin 0.8 Aspartate Amino Transf (AST/SGOT) 189 H Alanine Aminotransferase (ALT/SGPT) 244 H Alkaline Phosphatase 224 H Total Protein 6.9 Albumin 3.3 Globulin 3.60 H Albumin/Globulin Ratio 0.91 Medications Medication Current Medications IV Flush (NS 3 ml) 3 ml PER PROTOCOL IV ; Start 02/14/19 at 16:30 Ondansetron HCl (Zofran Inj) 4 mg Q6H PRN IV NAUSEA/VOMITING; Start 02/14/19 at 16:30 Ibuprofen (Motrin) 600 mg Q6H PRN PO .PAIN 1-3 OR TEMP Last administered on 02/14/19at 19:12; Admin Dose 600 MG; Start 02/14/19 at 16:30 Morphine Sulfate (morphine) 2 mg Q4H PRN IV .PAIN 7-10; Start 02/14/19 at 16:30 Lactulose (Enulose) 20 gm DAILY PO Last administered on 02/16/19at 08:01; Admin Dose 20 GM; Start 02/15/19 at 11:00 Levofloxacin (Levaquin) 750 mg DAILY@06 PO ; Start 02/17/19 at 12:00 Metronidazole (Flagyl) 500 mg Q8 PO ; Start 02/17/19 at 14:00 LUIS MARIN NP Feb 17, 2019 12:04
--- NOTE | 2019-02-17 12:37 | PN ---
Date/Time of Note Date/Time of Note DATE: 02/17/19 TIME: 12:33 Assessment/Plan VTE Prophylaxis Risk score (from Nsg)>0 risk: 0 SCD applied (from Nsg): No SCD contraindicated: low risk/ambulating Pharmacological prophylaxis: NA/contraindicated Pharm contraindication: thrombocytopenia Lines/Catheters IV Catheter Type (from Nrs): Peripheral IV Urinary Cath still in place: No Assessment/Plan Hospital Course Assessment: Recurrent Cholangitis MRCP-Bile ducts: There is dilatation of the peripheral intrahepatic bile ducts greatest in the left hepatic lobe that was also present on the prior exam. Central intrahepatic bile ducts are nondilated. There is a peribiliary cyst alongside the left portal vein that measures 1.2 cm that was also present previously (11/17). Negative for extrahepatic biliary duct dilatation. 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 Gay Subjective: Course reviewed with nursing staff Patient interviewed and examined All labs, imaging and other results reviewed Pt feels well, no over night events No c/o nausea or vomiting tolerating diet well. Discussed labs results- improving PHYSICAL EXAMINATION: GENERAL: Well developed, well nourished, alert & oriented x 4, in no acute di stress SKIN: No lesions, no stigmata chronic liver disease, no evidence of bleeding diathesis HEAD: Normocephalic, atraumatic, no tenderness. EYES: Pupils equal reactive to light, no discharge. EARS/NOSE AND THROAT: Ears normal, nose normal NECK: Supple, no masses, thyroid normal CHEST: Inspection within normal limits. CARDIOVASCULAR: Heart: Regular rate and rhythm. RESPIRATORY: Lungs clear to auscultation GASTROINTESTINAL AND LIVER: Abdomen: Soft, non tenderness, non-distended, no hernias, no masses, no guarding, no rebound tenderness, normoactive bowel sounds. Rectal: Deferred. EXTREMITIES: No cyanosis, clubbing or edema. Result Diagram: 02/17/19 0502/17/19 0524 Results 24hrs Laboratory Tests Test 02/17/19 05:24 White Blood Count 2.2 #L Red Blood Count 3.60 L Hemoglobin 11.5 L Hematocrit 35.0 L Mean Corpuscular Volume 97.2 Mean Corpuscular Hemoglobin 31.9 Mean Corpuscular Hemoglobin Concent 32.9 Red Cell Distribution Width 14.0 Platelet Count 69 #L Mean Platelet Volume 11.3 H Immature Granulocytes % 0.500 H Neutrophils % 51.6 Lymphocytes % 28.4 Monocytes % 9.8 Eosinophils % 8.8 H Basophils % 0.9 Nucleated Red Blood Cells % 0.0 Immature Granulocytes # 0.010 Neutrophils # 1.1 L Lymphocytes # 0.6 L Monocytes # 0.2 L Eosinophils # 0.2 Basophils # 0.0 Nucleated Red Blood Cells # 0.0 Sodium Level 140 Potassium Level 4.3 Chloride Level 110 Carbon Dioxide Level 23 Anion Gap 7 Blood Urea Nitrogen 9 Creatinine 0.73 Est Glomerular Filtrat Rate mL/min > 60 Glucose Level 101 Calcium Level 8.6 Total Bilirubin 0.8 Direct Bilirubin 0.00 Indirect Bilirubin 0.8 Aspartate Amino Transf (AST/SGOT) 189 H Alanine Aminotransferase (ALT/SGPT) 244 H Alkaline Phosphatase 224 H Total Protein 6.9 Albumin 3.3 Globulin 3.60 H Albumin/Globulin Ratio 0.91 Exam/Review of Systems Exam Vitals Vital Signs Date Temp Pulse Resp B/P (MAP) Pulse Ox O2 O2 Flow FiO2 Time Delivery Rate 02/17/19 97.8 54 14 98/57 (71) 98 07:55 02/15/19 Room Air 08:34 Intake and Output 02/16/19 02/16/19 02/17/19 1515:00 23:00 07:00 IntakeIntake Total 660 ml 1100 ml 1300 ml BalanceBalance 660 ml 1100 ml 1300 ml Results Results 24hrs Laboratory Tests Test 02/17/19 05:24 White Blood Count 2.2 #L Red Blood Count 3.60 L Hemoglobin 11.5 L Hematocrit 35.0 L Mean Corpuscular Volume 97.2 Mean Corpuscular Hemoglobin 31.9 Mean Corpuscular Hemoglobin Concent 32.9 Red Cell Distribution Width 14.0 Platelet Count 69 #L Mean Platelet Volume 11.3 H Immature Granulocytes % 0.500 H Neutrophils % 51.6 Lymphocytes % 28.4 Monocytes % 9.8 Eosinophils % 8.8 H Basophils % 0.9 Nucleated Red Blood Cells % 0.0 Immature Granulocytes # 0.010 Neutrophils # 1.1 L Lymphocytes # 0.6 L Monocytes # 0.2 L Eosinophils # 0.2 Basophils # 0.0 Nucleated Red Blood Cells # 0.0 Sodium Level 140 Potassium Level 4.3 Chloride Level 110 Carbon Dioxide Level 23 Anion Gap 7 Blood Urea Nitrogen 9 Creatinine 0.73 Est Glomerular Filtrat Rate mL/min > 60 Glucose Level 101 Calcium Level 8.6 Total Bilirubin 0.8 Direct Bilirubin 0.00 Indirect Bilirubin 0.8 Aspartate Amino Transf (AST/SGOT) 189 H Alanine Aminotransferase (ALT/SGPT) 244 H Alkaline Phosphatase 224 H Total Protein 6.9 Albumin 3.3 Globulin 3.60 H Albumin/Globulin Ratio 0.91 Medications Medication Current Medications IV Flush (NS 3 ml) 3 ml PER PROTOCOL IV ; Start 02/14/19 at 16:30 Ondansetron HCl (Zofran Inj) 4 mg Q6H PRN IV NAUSEA/VOMITING; Start 02/14/19 at 16:30 Ibuprofen (Motrin) 600 mg Q6H PRN PO .PAIN 1-3 OR TEMP Last administered on 02/14/19at 19:12; Admin Dose 600 MG; Start 02/14/19 at 16:30 Morphine Sulfate (morphine) 2 mg Q4H PRN IV .PAIN 7-10; Start 02/14/19 at 16:30 Lactulose (Enulose) 20 gm DAILY PO Last administered on 02/16/19at 08:01; Admin Dose 20 GM; Start 02/15/19 at 11:00 Levofloxacin (Levaquin) 750 mg DAILY@06 PO ; Start 02/17/19 at 12:00 Metronidazole (Flagyl) 500 mg Q8 PO ; Start 02/17/19 at 14:00 JAMAR COX Feb 17, 2019 12:37
[2019-02-17] MEDS ORDERED: metroNIDAZOLE 500 MG TAB PO SCH (14:00)
== END 2019-02-17 14:15 | disposition home or self-care (01) | DRG 444 ==
LOC: E/R 11:53 → 2NE 17:13 → CANRESERV 17:47 → OBSVTOIN 02-15 07:33
PROVIDERS: ADMIT Internal Medicine; ATTEND Internal Medicine
DX: K83.09 Other cholangitis (principal); Q44.2 Atresia of bile ducts; D61.818 Other pancytopenia; I85.00 Esophageal varices without bleeding; R65.10 Systemic inflammatory response syndrome (SIRS) of non-infectious origin without acute organ dysfunction; Z76.82 Awaiting organ transplant status; K74.69 Other cirrhosis of liver; R16.1 Splenomegaly, not elsewhere classified
CPT/HCPCS: 36415; 71045; 74181; 80053; 80061; 81001; 83036; 83605; 83735; 84443; 84484; 85025; 85610; 85730; 87086; 93005; G0378; J0696; J1956; J7030; J7042